=== PATIENT | female | born 1990 | race Caucasian/White ===

== ENCOUNTER 2016-09-20 14:42 | Emergency (ER) | payer MEDICAID, OTHER ==
[2016-09-20 14:52] VITALS: PULSE 97; RESP 16
[2016-09-20 15:08] VITALS: BP 123/78; TEMP 97.9; O2SAT 99
--- NOTE | 2016-09-20 15:17 | EDPHY ---
H & P Stated Complaint: LOWER BACK PAIN, BILAT LEG "NUMBNESS" NO NEW TRAUMA, L5-S1 FUSION Time Seen by Provider: 09/20/16 15:16 - Personal History LMP (Females 10-55): 15-21 Days Ago Current Tetanus/Diphtheria Vaccine: Unsure Current Tetanus Diphtheria and Acellular Pertussis (TDAP): Unsure - Medical/Surgical History Hx Asthma: No Hx Chronic Respiratory Disease: No Hx Diabetes: No Hx Cardiac Disease: No Hx Renal Disease: No Hx Cirrhosis: No Hx Alcoholism: No Hx HIV/AIDS: No Hx Splenectomy or Spleen Trauma: No Other PMH: Anxiety, depression, "cutter", SPINAL FUSION/?PROB WITH GALLBLADDER. CHRONIC BLADDER INCONTINENCE - Social History Smoking Status: Light smoker Constitutional: Initial Vital Signs Temperature (C) 36.6 C 09/20/16 14:49 Heart Rate 97 09/20/16 14:49 Respiratory Rate 16 09/20/16 14:49 Blood Pressure 123/78 H 09/20/16 14:49 O2 Sat (%) 99 09/20/16 14:49 O2 Delivery Mode Room Air Allergies/Adverse Reactions: No Known Allergies Allergy (Verified 12/28/15 16:57) Home Medications: Medication Instructions Recorded NK [No Known Home Meds] 09/20/16 Medical Decision Making ED Course/Re-evaluation: CHIEF COMPLAINT: Back pain HISTORY OF PRESENT ILLNESS: The patient is a 25 year old female presenting with low back pain that started today while moving furniture. She has a history of spinal fusion. She has not had any back issues since the surgery. The patient reports new numbness down her lower extremities that is different than what she experienced after the spinal fusion. She took extra Gabapentin and now feels lightheaded. REVIEW OF SYSTEMS: A 10 point review of systems was performed and is negative with the exception of the elements mentioned in the history of present illness. PHYSICAL EXAM: HR, BP, O2 Sat, RR. Temp noted General Appearance: Alert, well hydrated, appropriate, and non-toxic appearing. Head: Atraumatic without scalp tenderness or obvious injury Eyes: Pupils equal, round, reactive to light and accommodation, EOMI, no trauma , no injection. Ears: Clear bilaterally, no perforation, normal landmarks Nose: Atraumatic, no rhinorrhea, clear. Throat: There is no erythema or exudates, no lesions, normal tonsils, mucus membranes moist. Neck: Supple, 2+ carotid upstroke, nontender, no lymphadenopathy. Respiratory: No retractions, no distress, no wheezes, and no accessory muscle use. Lungs are clear to auscultation bilaterally. Cardiovascular: Regular rate and rhythm, no murmurs, rubs, or gallops. Bilateral carotid, radial, dorsalis pedis, and posterior tibial pulses intact. Good capillary refill all extremities. Gastrointestinal: Abdomen is soft, nontender, non-distended, no masses, no rebound, no guarding, no peritoneal signs. Musculoskeletal: Normal active ROM of all extremities, atraumatic. Neurological: Alert, appropriate, and interactive. The patient has normal DTRs and non-focal cranial nerves, motor, sensory, and cerebellar exam. Skin: No rashes, good turgor, no nodules on palpation. Past medical history: Past surgical history: Spinal fusion Family history: Social history: DIAGNOSTICS/PROCEDURES/CRITICAL CARE TIME: DIFFERENTIAL DIAGNOSIS: MEDICAL DECISION MAKING: The patient is a 25 year old female with history of spinal fusion, presenting with back pain that began while moving furniture today. The patient took extra Gabapentin to help with the pain and now feels lightheaded. The patient is able to ambulate. She has no incontinence or neurological deficits. Plan to discharge patient with Medrol dose pack and Oxycodone. Departure - Departure Disposition: Home, Routine, Self-Care Clinical Impression: Low back pain Qualifiers: Chronicity: chronic Back pain laterality: bilateral Sciatica presence: without sciatica Qualifier Code: (M54.5) Low back pain Condition: Good Instructions: Back Pain (ED) Additional Instructions: Followup with your neurosurgeon when possible. Take Oxycodone for severe pain. Take Medrol dose pack as prescribed. Referrals: Rambo Atkinson MD [Medical Doctor] - As per Instructions (Neurosurgeon) Report Scribed for: Bin Philippe Report Scribed by: Rosa Maria Loza Date of Report: 09/20/16 Time of Report: 15:58
== END 2016-09-20 16:10 | disposition home or self-care (01) ==
DX: M54.5 Low back pain (principal); F17.200 Nicotine dependence, unspecified, uncomplicated

== ENCOUNTER 2016-09-26 13:38 | Emergency (ER) | payer MEDICAID ==
--- NOTE | 2016-09-26 14:56 | EDPHY ---
[id number] [id number] CHIEF COMPLAINT: Pain right forearm HISTORY OF PRESENT ILLNESS: 25-year-old female presents to the emergency department by private vehicle with concerns about infection in her right forearm. 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 She is concerned about possible infection. She denies any other known trauma or injury. She does report having recent blood drawn last week in the same arm. Denies any other known trauma. No fevers or chills. No chest pain or difficulty breathing. No paresthesias in upper extremities. No pain in the right shoulder or right axilla. Patient denies IV drug abuse. REVIEW OF SYSTEMS: Constitutional: No fever, no chills. Eyes: No double or blurry vision. ENT: No sore throat. Respiratory: No cough, no shortness of breath. Cardiac: No chest pain. Gastrointestinal: No abdominal pain, vomiting or diarrhea. Genitourinary: No dysuria. Musculoskeletal: No neck or back pain. Skin: Swelling and redness right forearm. Neurological: No headache. (Chayito Palm) Past Medical/Surgical History: Anxiety, depression, chronic bladder incontinence (Chayito Palm) Social History: Single and lives in [place]. 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 Afebrile. Eyes: Pupils equal and round. Extraocular motions are all intact. ENT: Mouth: Mucous membranes moist. Respiratory: No wheezing, rhonchi, or rales, lungs are clear to auscultation. Cardiovascular: Regular rate and rhythm. Gastrointestinal: Abdomen is soft and nontender, no masses, no rebound or guarding, bowel sounds normal. Neurological: Alert and oriented x 3, cranial nerves II through XII grossly intact Skin: Large area of redness to the dorsal aspect of the right proximal forearm measuring 10 x 8 cm that is extremely tender to palpate. In this central most proximal aspect there is an area that is very firm and very tender to palpate. Just superior to this there is a firm, palpable vein. There is some resolving ecchymosis noted in the right antecubital fossa. There is no lymphangitic streaking. There is no palpable right axillary lymphadenopathy. She has full range of motion of her right upper extremity. Musculoskeletal: Nontender to palpate along the cervical, thoracic or lumbar spine. Neck is supple. Extremities: Full range of motion and no peripheral edema. Psychiatric: Patient is oriented X 3, there is no agitation. (Chayito Palm) Constitutional: Initial Vital Signs Temperature (C) 37 C 09/26/16 13:40 Heart Rate 69 09/26/16 13:40 Blood Pressure 101/67 09/26/16 13:40 O2 Sat (%) 97 09/26/16 13:40 O2 Delivery Mode Room Air Allergies/Adverse Reactions: No Known Allergies Allergy (Verified 12/28/15 16:57) Home Medications: Medication Instructions Recorded methylPREDNISolone [Medrol Dose 1 each PO AD #1 ea 09/20/16 Vinicius] oxyCODONE IR [Oxycodone Ir (*)] 5 - 10 mg PO Q6 PRN #20 tab 09/20/16 Cephalexin [Keflex] 500 mg PO QID #28 cap 09/26/16 Sulfamethox/Tmp 800/160 mg 1 tab PO BID #14 tab 09/26/16 [Bactrim DS] Medical Decision Making - Diagnostics Imaging: Ultrasound reveals superficial thrombophlebitis of the right forearm. No evidence of abscess. This is reported to me by Dr. Andre Allan. (Chayito Palm) ED Course/Re-evaluation: 25-year-old female presents with pain and swelling to the right proximal forearm. The case was discussed with Dr. Hernández, supervising physician, who also evaluated the patient. Ultrasound the right upper extremity reveals no evidence of abscess. It did however show superficial thrombophlebitis. The patient was given IV fentanyl for pain prior to ultrasound. She will be treated with oral Keflex and Bactrim to prevent any kind of infection and she was encouraged to use warm compresses and take anti-inflammatory such as ibuprofen for her pain. She was encouraged to return if she developed fever, lymphangitis, or if she felt worse in any way. (Chayito Palm) This pt was seen and examined by me. She has a tender cord-like structure extending from the antecubital fossa into the forearm, with surrounding erythema. c/w superficial thrombophlebitis. Will obtain sono to further eval. (Rosmery Hernández) Differential Diagnosis: Including but not limited to superficial thrombophlebitis, subcutaneous abscess , compartment syndrome, cellulitis, necrotizing fasciitis (Chayito Palm) - Data Points Laboratory Results: Laboratory Results 09/26/16 14:52 09/26/16 14:52 Departure - Departure Disposition: Home, Routine, Self-Care Clinical Impression: Superficial thrombophlebitis Condition: Good Instructions: Superficial Thrombophlebitis (ED) Additional Instructions: Keflex and Bactrim as directed. Warm compresses for 15-20 minutes every 2-3 hours especially today and tomorrow. Ibuprofen 600 mg every 8 hours as needed for pain. Return if he develops fever, vomiting, pain in her right armpit, or if you feel worse in any way. Referrals: Delia Perez MD [Medical Doctor] - 2-3 days, call for appt. 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
[2016-09-26] MEDS ORDERED: ONDANSETRON 4 MG/2 ML VIAL ONE (15:00)
[2016-09-26 15:04] LABS: % IMMATURE GRANULYOCYTES 0.3 % (0.0-1.1); ABSOLUTE IMMATURE GRANULOCYTES 0.02 10^3/uL (0.00-0.10); ADD DIFF? NO; ADD MORPH? NO; ADD SCAN? NO; ATYPICAL LYMPHOCYTE FLAG 50 (0-99); FRAGMENT RBC FLAG 0 (0-99); HEMATOCRIT 39.4 % (38.0-47.0); HEMOGLOBIN 13.3 g/dL (12.6-16.3); LEFT SHIFT FLG 0 (0-99); LIPEMIA HEMOLYSIS FLAG 90 (0-99); MEAN CELL HEMOGLOBIN CONCENTR. 33.8 g/dL (32.4-36.7); MEAN CELL VOLUME 88.7 fL (81.5-99.8); MEAN PLATELET VOLUME 8.9 fL (8.7-11.7); PLATELET CLUMPS FLAG 0 (0-99); PLATELET COUNT 396 10^3/uL (150-400); RED BLOOD CELL COUNT 4.44 10^6/uL (4.18-5.33); RED CELL DISTRIBUTION WIDTH 13.5 % (11.5-15.2)
[2016-09-26] MEDS ORDERED: fentaNYL 100 MCG/2 ML INJ ONE (15:16)
[2016-09-26 15:30] LABS: ANION GAP 10 mEq/L (8-16); CALCIUM 8.9 mg/dL (8.5-10.4); CARBON DIOXIDE 27 mEq/l (22-31); CHLORIDE 101 mEq/L (97-110); CREATININE 0.6 mg/dL (0.6-1.0); GLOMERULAR FILTRATION RATE > 60; GLUCOSE 85 mg/dL (70-100); POTASSIUM 4.4 mEq/L (3.5-5.2); SODIUM 138 mEq/L (134-144)
--- NOTE | 2016-09-26 15:36 | US ---
Ultrasound extremity nonvascular 1517 hours. HISTORY: Pain and swelling proximal right forearm. FINDINGS: Ultrasound over the area of pain and swelling confirms thrombosed cephalic vein for a lengt h of 10 cm. There is no evidence of associated fluid or abscess. The underlying musculature is normal in appearance. There is no internal color flow enhancement. IMPRESSION: 1. Superficial thrombophlebitis involving the cephalic vein in the proximal right forearm that corres ponds with area of pain and swelling. These findings were discussed by telephone with Chayito Palm PA-C at 1533 hrs.
[2016-09-26 16:14] VITALS: BP 123/84; PULSE 74; RESP 17; TEMP 98.8; O2SAT 96
== END 2016-09-26 16:14 | disposition home or self-care (01) ==
DX: I80.8 Phlebitis and thrombophlebitis of other sites (principal); F17.200 Nicotine dependence, unspecified, uncomplicated
CPT/HCPCS: J2405; J3010

== ENCOUNTER 2017-01-08 20:34 | Emergency (ER) | payer MEDICAID ==
[2017-01-08 20:41] VITALS: RESP 18; TEMP 97.7
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
[2017-01-08 22:43] VITALS: BP 118/83; PULSE 74; O2SAT 94
== END 2017-01-08 22:43 | disposition home or self-care (01) ==
DX: S20.219A Contusion of unspecified front wall of thorax, initial encounter (principal); F17.200 Nicotine dependence, unspecified, uncomplicated; W22.8XXA Striking against or struck by other objects, initial encounter; Y93.89 Activity, other specified

== ENCOUNTER 2017-09-23 19:52 | Emergency (ER) | payer MEDICAID ==
[2017-09-23 20:15] VITALS: BP 114/68; PULSE 100; RESP 16; TEMP 97.9; O2SAT 98
--- NOTE | 2017-09-23 20:23 | EDPHY ---
H & P Stated Complaint: Re-occuring back injury. Time Seen by Provider: 09/23/17 20:06 HPI/ROS: CHIEF COMPLAINT: Low back pain HISTORY OF PRESENT ILLNESS: The patient is a 26-year-old female with a history of lumbar fusion who comes to the emergency department complaining of low back pain. She states that she slipped on the ice about a week and half ago has had mild pain in both gluteus since that time. No midline pain. No bowel or bladder abnormalities. No weakness tingling or numbness. She has been ambulating without difficulty. She denies fall or other injury. She states that she has been taking her gabapentin without any significant improvement. REVIEW OF SYSTEMS: Constitutional: denies: chills, fever, recent illness, recent injury EENTM: denies: blurred vision, double vision, nose congestion Respiratory: denies: cough, shortness of breath Cardiac: denies: chest pain, irregular heart rate, lightheadedness, palpitations Gastrointestinal/Abdominal: denies: abdominal pain, diarrhea, nausea, vomiting, blood streaked stools Genitourinary: denies: dysuria, frequency, hematuria, pain Musculoskeletal: See HPI Skin: denies: lesions, rash, jaundice, bruising Neurological: denies: headache, numbness, paresthesia, tingling, dizziness, weakness Hematologic/Lymphatic: denies: blood clots, easy bleeding, easy bruising Immunologic/allergic: denies: HIV/AIDS, transplant EXAM: GENERAL: Well-appearing, well-nourished and in no acute distress. HEAD: Atraumatic, normocephalic. EYES: Pupils equal round and reactive to light, extraocular movements intact, sclera anicteric, conjunctiva are normal. ENT: TMs normal, nares patent, oropharynx clear without exudates. Moist mucous membranes. NECK: Normal range of motion, supple without lymphadenopathy or JVD. LUNGS: Breath sounds clear to auscultation bilaterally and equal. No wheezes rales or rhonchi. HEART: Regular rate and rhythm without murmurs, rubs or gallops. ABDOMEN: Soft, nontender, normoactive bowel sounds. No guarding, no rebound. No masses appreciated. BACK: No CVA tenderness, no spinal tenderness, step-offs or deformities pain to both upper gluteus. No tenderness. No swelling. Normal perineal sensation. EXTREMITIES: Normal range of motion, no pitting or edema. No clubbing or cyanosis. NEUROLOGICAL: Cranial nerves II through XII grossly intact. Normal speech, normal gait. 5/5 strength, normal movement in all extremities, normal sensation PSYCH: Normal mood, normal affect. SKIN: Warm, dry, normal turgor, no visible rashes or lesions. Source: Patient Exam Limitations: No limitations - Personal History LMP (Females 10-55): 22-28 Days Ago Current Tetanus/Diphtheria Vaccine: Unsure Current Tetanus Diphtheria and Acellular Pertussis (TDAP): Unsure - Medical/Surgical History Hx Asthma: No Hx Chronic Respiratory Disease: No Hx Diabetes: No Hx Cardiac Disease: No Hx Renal Disease: No Hx Cirrhosis: No Hx Alcoholism: No Hx HIV/AIDS: No Hx Splenectomy or Spleen Trauma: No Other PMH: Anxiety, depression, "cutter", L5-S1 SPINAL FUSION 2015, PROB WITH GALLBLADDER. CHRONIC BLADDER INCONTINENCE - Family History Significant Family History: No pertinent family hx - Social History Smoking Status: Light smoker Alcohol Use: Sober Drug Use: None Constitutional: Initial Vital Signs Temperature (C) 36.6 C 09/23/17 20:13 Heart Rate 100 09/23/17 20:13 Respiratory Rate 16 09/23/17 20:13 Blood Pressure 114/68 09/23/17 20:13 O2 Sat (%) 98 09/23/17 20:13 O2 Delivery Mode Room Air Allergies/Adverse Reactions: acetaminophen [From Tylenol] Allergy (Intermediate, Verified 09/23/17 20:16) Rash ibuprofen Allergy (Intermediate, Verified 09/23/17 20:16) Rash tramadol Allergy (Intermediate, Verified 09/23/17 20:16) Rash Home Medications: Medication Instructions Recorded Fluoxetine HCl [Prozac 40 mg] 40 mg PO 01/08/17 Gabapentin 600 mg PO 01/08/17 Lidocaine [Lidoderm] 1 each TP DAILY #7 adh..patch 09/23/17 Wellbutrin Sr 09/23/17 Medical Decision Making ED Course/Re-evaluation: The patient has pain over her musculature. No bony pain. No radiculopathy. Normal objective neurologic examination. No bowel or bladder abnormalities. We discussed options. We discussed imaging but agreed there unnecessary because there is no history of acute injury and no neurologic deficits. We agreed to try lidocaine patch. Differential Diagnosis: Partial list of the Differential diagnosis considered include but were not limited to; low back strain, chronic back pain, radiculopathy and although unlikely based on the history and physical exam, I also considered cauda equina , fracture, vascular injury, infection. I discussed these differential diagnoses and the plan with the patient as well as the usual and expected course. The patient understands that the diagnosis is provisional and that in medicine we are not always correct and that further workup is often warranted. Usual and customary warnings were given. All of the patient's questions were answered. The patient was instructed to return to the emergency department should the symptoms at all worsen or return, otherwise to followup with the physician as we discussed. - Data Points Medications Given: Discontinued Medications Lidocaine (Lidoderm 5%) 1 ea TD DAILY BAL Stop: 03/22/18 20:29 Last Admin: 09/23/17 20:32 Dose: 1 ea Miscellaneous Information (Patch Removal) 1 ea TD DAILY21 BAL Stop: 03/22/18 20:59 Last Admin: 09/23/17 20:32 Dose: 1 ea Departure - Departure Disposition: Home, Routine, Self-Care Clinical Impression: Low back pain Qualifiers: Chronicity: acute Back pain laterality: bilateral Sciatica presence: without sciatica Qualified Code(s): M54.5 - Low back pain Condition: Fair Instructions: Back Pain (ED), Lower Back Exercises (ED) Referrals: Kaylee Spence [Primary Care Provider] - As per Instructions Prescriptions: Lidocaine [Lidoderm] 1 each TP DAILY #7 adh..patch
[2017-09-23] MEDS ORDERED: LIDOCAINE 5% 1 EA PATCH TD SCH (20:30)
[2017-09-23] MEDS ORDERED: PATCH REMOVAL 1 EA PATCH TD SCH (21:00)
== END 2017-09-23 20:53 | disposition home or self-care (01) ==
LOC: CED 19:52
DX: S39.92XA Unspecified injury of lower back, initial encounter (principal); F17.200 Nicotine dependence, unspecified, uncomplicated; W00.0XXA Fall on same level due to ice and snow, initial encounter

== ENCOUNTER 2017-11-22 17:12 | Inpatient (IN) | payer MEDICAID ==
[2017-11-22] MEDS ORDERED: NS 1,000 ML IV ONE (18:20)
[2017-11-22] MEDS ORDERED: HYDROmorphONE/DILAUDID 2 MG/ML INJ IVP ONE ×2 (18:20→21:51)
--- NOTE | 2017-11-22 18:28 | EDPHY ---
H & P Stated Complaint: Back pain, poss spinal abscess sent by pcp Source: Patient Exam Limitations: No limitations - Personal History LMP (Females 10-55): Over 28 Days Ago Current Tetanus/Diphtheria Vaccine: Unsure Current Tetanus Diphtheria and Acellular Pertussis (TDAP): Unsure - Medical/Surgical History Hx Asthma: No Hx Chronic Respiratory Disease: No Hx Diabetes: No Hx Cardiac Disease: No Hx Renal Disease: No Hx Cirrhosis: No Hx Alcoholism: No Hx HIV/AIDS: No Hx Splenectomy or Spleen Trauma: No Other PMH: Anxiety, depression, "cutter", L5-S1 SPINAL FUSION 2015, PROB WITH GALLBLADDER. CHRONIC BLADDER INCONTINENCE - Family History Significant Family History: No pertinent family hx - Social History Smoking Status: Light smoker Alcohol Use: Sober Drug Use: None Time Seen by Provider: 11/22/17 18:07 HPI/ROS: CHIEF COMPLAINT: Low back pain HISTORY OF PRESENT ILLNESS: The patient is a 26-year-old female who has a history of chronic low back pain. She has a history of L5-S1 fusion several years ago. She fell and [place] ice skating. She was seen here in the ER by me and had primarily gluteal pain. At that point we discussed options and decided not to perform any imaging. Since then however she has continued to have pain is followed up with her primary at [facility]. She states that the pain has continued to progress and that it is now so painful she can hardly walk without help getting to bathroom. She has not had a bowel or bladder abnormalities. No numbness or paresthesias. No weakness. She denies recent fevers or chills or sweats. She had an MRI done 3 weeks ago had health images that revealed a marrow signal abnormality in the L5-S1 region that could be consistent with a fracture but indeterminate. They recommended a repeat CT scan which was done [address] scan showed increased complex fluid collection in that region with the possibility of an abscess. The primary care office obtained an elevated sed rate and CRP and ordered another MRI for today with contrast as an outpatient. However when she came to get her contrast MRI here at [facility] they refused here because she has 2 small studs piercings on her abdomen. She has had several MRIs however in the past with these in place. She called her primary who recommended she come to the ER for further evaluation. The physician quality assistant there called me and told me they were not sure what else to do with her at this point but thought that more testing was indicated. She does have a follow-up appointment with [facility] next week. REVIEW OF SYSTEMS: Constitutional: denies: chills, fever, recent illness, recent injury EENTM: denies: blurred vision, double vision, nose congestion Respiratory: denies: cough, shortness of breath Cardiac: denies: chest pain, irregular heart rate, lightheadedness, palpitations Gastrointestinal/Abdominal: denies: abdominal pain, diarrhea, nausea, vomiting, blood streaked stools Genitourinary: denies: dysuria, frequency, hematuria, pain Musculoskeletal: Sacral pain Skin: denies: lesions, rash, jaundice, bruising Neurological: denies: headache, numbness, paresthesia, tingling, dizziness, weakness Hematologic/Lymphatic: denies: blood clots, easy bleeding, easy bruising Immunologic/allergic: denies: HIV/AIDS, transplant EXAM: GENERAL: Well-appearing, well-nourished and in no acute distress. HEAD: Atraumatic, normocephalic. EYES: Pupils equal round and reactive to light, extraocular movements intact, sclera anicteric, conjunctiva are normal. ENT: TMs normal, nares patent, oropharynx clear without exudates. Moist mucous membranes. NECK: Normal range of motion, supple without lymphadenopathy or JVD. LUNGS: Breath sounds clear to auscultation bilaterally and equal. No wheezes rales or rhonchi. HEART: Regular rate and rhythm without murmurs, rubs or gallops. ABDOMEN: Soft, nontender, normoactive bowel sounds. No guarding, no rebound. No masses appreciated. BACK: Pain in the sacral region, no tenderness or deformities or erythema or swelling. EXTREMITIES: Normal range of motion, no pitting or edema. No clubbing or cyanosis. NEUROLOGICAL: Cranial nerves II through XII grossly intact. Normal speech, he is able to ambulate but with significant pain. 5/5 strength, normal movement in all extremities, normal sensation PSYCH: Normal mood, normal affect. SKIN: Warm, dry, normal turgor, no visible rashes or lesions. (Drew Loomis) Constitutional: Initial Vital Signs Temperature (C) 37.0 C 11/22/17 17:22 Heart Rate 100 11/22/17 17:22 Respiratory Rate 20 11/22/17 17:22 Blood Pressure 118/74 11/22/17 17:22 O2 Sat (%) 100 11/22/17 17:22 O2 Delivery Mode Room Air Allergies/Adverse Reactions: acetaminophen [From Tylenol] Allergy (Intermediate, Verified 11/23/17 10:57) Other-Enter Comments ibuprofen Allergy (Intermediate, Verified 09/23/17 20:16) Rash tramadol Allergy (Intermediate, Verified 09/23/17 20:16) Rash diphenhydramine [From Benadryl Allergy] Allergy (Verified 11/23/17 02:46) Home Medications: Medication Instructions Recorded FLUoxetine [Prozac 20 MG (*)] 40 mg PO DAILY 11/22/17 Gabapentin [Neurontin 300 MG (*)] 300 mg PO TID 11/22/17 Lidocaine [Lidoderm] 1 each TP DAILY 11/22/17 buPROPion [Wellbutrin 75mg (*)] 150 mg PO 08,12 11/22/17 Medical Decision Making - Diagnostics Imaging: Discussed imaging studies w/ body recall instructor Radiologist Procedures: IV access into left IJ obtained with ultrasound guidance, successful on the 2nd attempt. Initially tried on the right side without success. (Drew Loomis) ED Course/Re-evaluation: 7:20 p.m. Nursing staff had difficulty getting IV access. I placed a IV access in the left IJ on the 2nd attempt with ultrasound guidance. 1st attempt on the right IJ unsuccessful, pressure held . I did speak with Dr. Andre Allan about performing an MRI and we agreed to perform one with contrast here in the ER. 8:30 p.m. Care transferred to Dr. Chad Handley, MRI pending (Drew Loomis) Other Provider: Patient signed out to me by Dr. Loomis at 2030 pending MRI. MRI read by Sanjana as positive for discitis, osteomyelitis, abscess at L5-S1. [place]ed Dr. Dawson [place] [facility] [place] admission to hospitalist. Discussed case with Dr. Brown who will admit. (Chad Handley) - Data Points Laboratory Results: Laboratory Results 11/22/17 19:05 11/22/17 19:05 Medications Given: Acetaminophen (Tylenol) 1,000 mg PO TID BAL Stop: 05/22/18 10:44 Last Admin: 11/23/17 15:09 Dose: 1,000 mg Bupropion HCl (Wellbutrin) 150 mg PO 08,12 BAL Stop: 05/22/18 11:59 Last Admin: 11/23/17 15:09 Dose: 150 mg Fluoxetine HCl (Prozac) 40 mg PO DAILY BAL Stop: 05/22/18 08:59 Last Admin: 11/23/17 15:10 Dose: 40 mg Gabapentin (Neurontin) 300 mg PO TID BAL Stop: 05/22/18 08:59 Last Admin: 11/23/17 15:09 Dose: 300 mg Hydromorphone HCl (Dilaudid) 0.5 - 1 mg IVP Q4HRS PRN PRN Reason: Pain, Severe Unable to Take PO Stop: 12/02/17 22:27 Last Admin: 11/23/17 12:46 Dose: 0.5 mg Sodium Chloride (Ns) 1,000 mls @ 75 mls/hr IV CONT BAL Stop: 05/21/18 22:29 Last Admin: 11/23/17 10:51 Dose: 1,000 mls Lorazepam (Ativan Injection) 0.5 - 1 mg IVP Q8HRS PRN PRN Reason: Anxiety, Unable to Take PO Stop: 05/21/18 22:27 Last Admin: 11/22/17 22:51 Dose: 1 mg Oxycodone HCl (Oxycodone Ir) 5 - 10 mg PO Q3HRS PRN PRN Reason: Pain, Severe Able to Take PO Stop: 12/02/17 22:27 Last Admin: 11/23/17 15:08 Dose: 10 mg Discontinued Medications Hydromorphone HCl (Dilaudid) 1 mg IVP EDNOW ONE Stop: 11/22/17 18:21 Last Admin: 11/22/17 19:28 Dose: 1 mg Hydromorphone HCl (Dilaudid) 1 mg IVP EDNOW ONE Stop: 11/22/17 21:52 Last Admin: 11/22/17 21:57 Dose: 1 mg Hydromorphone/Sodium Chloride (Hydromorphone) 0.4 mg IVP ONCE ONE Stop: 11/23/17 13:11 Last Admin: 11/23/17 14:38 Dose: 0.4 mg Sodium Chloride (Ns) 1,000 mls @ 0 mls/hr IV ONCE ONE; Wide Open PRN Reason: Protocol Stop: 11/22/17 18:21 Last Admin: 11/22/17 19:27 Dose: 1,000 mls Methocarbamol 1,000 mg/ Sodium (Chloride) 60 mls @ 240 mls/hr IVP ONCE ONE Stop: 11/23/17 02:56 Last Admin: 11/23/17 02:57 Dose: 60 mls Departure - Departure Disposition: [facility] Acute Clinical Impression: Discitis of lumbar region Condition: Fair
[2017-11-22] MEDS ORDERED: GADOBUTROL 10 ML VIAL IVP ONE (18:50)
[2017-11-22 19:27] LABS: PLATELET COUNT 576 10^3/uL (150-400)
[2017-11-22] MEDS ORDERED: PROMETHAZINE HCL 25 MG/ML INJ IVP PRN (22:28)
[2017-11-22] MEDS ORDERED: ONDANSETRON 4 MG/2 ML VIAL IVP PRN (22:28)
[2017-11-22] MEDS: oxyCODONE IR 5 MG TAB PO PRN (22:51)
[2017-11-22] MEDS: LORazepam 2 MG/ML INJ IVP PRN (22:51)
[2017-11-22] MEDS: NS 1,000 ML IV SCH (22:52)
[2017-11-22] MEDS ORDERED: NICOTINE POLACRILEX 2 MG GUM B PRN (23:54)
--- NOTE | 2017-11-23 01:38 | PDGENHP ---
History and Physical - Chief Complaint Low back pain - History of Present Illness Source-patient provides history appears reliable. EMR was reviewed and case was discussed with accepting hospitalist. HPI - pleasant 26-year-old female with past medical history significant for anxiety and depression, chronic back pain presents to the emergency department today with complaints of acute on chronic low back pain. Patient with a previous history of L5-S1 fusion in 2014. She had been doing quite well until when she sustained a mechanical fall on ice. Since that time patient has been having increasing low back pain with radicular symptoms of pain radiating down to her gluteal region bilaterally and down to her posterior knee. She does endorse some lower extremity weakness and increasing pain with movement. Patient particularly is concerned and frustrated that she develops some significant pain when she tries to go from sitting to standing making it more difficult for her to ambulate and even get to the bathroom. She denies any acute urinary or her fecal incontinence or retention. Patient does have a longstanding history of stress incontinence and urgency however. She denies any fevers or chills at this time. No nausea or vomiting. Since September patient has been visiting with her PCP at [facility] for p.r.n. Dosing of Toradol which had helped with her symptoms. Patient underwent MRI of her lumbar spine 3 weeks ago that was significant for L5/S1 marrow signal abnormality. She subsequently underwent a CT scan that showed a complex fluid collection and possible abscess formation. Patient was due to have a MRI completed today but this was not completed due to some piercings and patient subsequently went to the emergency department for evaluation. History Information - Allergies/Home Medication List Allergies/Adverse Reactions: acetaminophen [From Tylenol] Allergy (Intermediate, Verified 09/23/17 20:16) Rash ibuprofen Allergy (Intermediate, Verified 09/23/17 20:16) Rash tramadol Allergy (Intermediate, Verified 09/23/17 20:16) Rash Home Medications: FLUoxetine [Prozac 20 MG (*)] 40 mg PO DAILY 11/22/17 [Last Taken 11/22/17] Gabapentin [Neurontin 300 MG (*)] 300 mg PO TID 11/22/17 [Last Taken 11/22/17 08 :00] Lidocaine [Lidoderm] 1 each TP DAILY 11/22/17 [Last Taken 11/21/17] buPROPion [Wellbutrin 75mg (*)] 150 mg PO 08,12 11/22/17 [Last Taken 11/22/17 08 :00] I have personally reviewed and updated: family history, medical history, social history, surgical history - Past Medical History Additional medical history: History of anxiety and major depressive disorder. Patient with history of cutting on her arms. Patient also with history of recurrent hemorrhoids and rectal bleeding. Patient with stress incontinence and urinary urgency. Chronic low back pain. - Surgical History Additional surgical history: L5/S1 fusion in 2015, cholecystectomy, colonoscopy - Family History Additional family history: All family members are healthy. - Social History Smoking Status: Light smoker (1/4 pack per day) Tobacco Use: Cigarettes Alcohol Use: None Drug Use: Marijuana (1-2 times weekly or LEs.) Additional social history: Core-full Review of Systems Review of Systems: ROS: 10pt was reviewed & negative except for what was stated in HPI & below Constitutional: Reports: recent injury (09/2017 mechanical fall), weakness ( Lower extremity). Denies: chills, fever, recent illness EENMT: Denies: blurred vision, nose congestion, sore throat Cardiac: Reports: no symptoms Respiratory: Reports: no symptoms Gastrointestinal: Reports: blood streaked stools (History of hemorrhoids). Denies: abdominal pain, diarrhea, nausea Genitourinary: Reports: incontinence (Stress incontinence). Denies: dysuria Muscolosketal: Reports: back pain, muscle pain (Lower back), muscle stiffness Skin: Reports: no symptoms Neurological: Reports: anxiety, depressed, weakness (Bilateral lower extremities.), other (Radicular pain as per HPI) Hematologic/Lymphatic: Reports: no symptoms Physical Exam Physical Exam: Selected Entries 11/22/17 17:22 Blood Pressure Automatic Method Heart Rate 100 Respiratory 20 Rate O2 Sat (%) 100 Temperature (C) 37.0 C Blood Pressure 118/74 Mean Arterial 88 Pressure (MAP) O2 Delivery Room Air Mode Temperature Oral Source Temp Pulse Resp BP Pulse Ox 37.1 C 93 18 110/82 H 100 11/22/17 23:44 11/22/17 23:44 11/22/17 23:44 11/22/17 23:44 11/22/17 23:44 O2 (L/minute) 2 Constitutional: chronically ill appearing, uncomfortable, other (Patient is resting still in bed. Mother at bedside. Patient appears slightly pale and chronically ill. Patient's affect is significantly flattened.) Eyes: PERRL, anicteric sclera, EOMI, No scleral injection Ears, Nose, Mouth, Throat: moist mucous membranes, no oral mucosal ulcers, other (On nasal discharge), No poor dentition Cardiovascular: regular rate and rhythym, systolic murmur (3/6 greatest left sternal border), No tachycardia, No edema Peripheral Pulses: 2+: dorsalis-pedis (R), dorsalis-pedis (L) Respiratory: no respiratory distress, no rales or rhonchi, clear to auscultation , reduced air movement (Decreased inspiratory effort) Gastrointestinal: normoactive bowel sounds, soft, non-tender abdomen, no palpable masses, No tenderness, No rebound, No distension Genitourinary: no bladder tenderness, No godoy in urethra Skin: warm, normal color, no rashes or abrasions, other (P[place]or), No rash Musculoskeletal: No full muscle strength (Decreased lower extremity strength. Exam limited secondary to patient complaint of pain with elevation of her lower extremities. Patient dorsiflexion is decreased on the left foot and decreased plantar flexion on the right.) Neurologic: AAOx3, sensation intact bilaterally, weakness (See above), No facial droop Psychiatric: not encephalopathic, thought process linear, depressed (Patient does become tearful during her interview.), flat affect (Patient with psychomotor delay), No poor insight, No poor judgement, No poor memory Lab Data & Imaging Review 11/22/17 19:05 11/22/17 19:05 WBC 7.53 10^3/uL (3.80-9.50) 11/22/17 19:05 RBC 4.21 10^6/uL (4.18-5.33) 11/22/17 19:05 Hgb 10.6 g/dL (12.6-16.3) L 11/22/17 19:05 Hct 34.2 % (38.0-47.0) L 11/22/17 19:05 MCV 81.2 fL (81.5-99.8) L 11/22/17 19:05 MCH 25.2 pg (27.9-34.1) L 11/22/17 19:05 MCHC 31.0 g/dL (32.4-36.7) L 11/22/17 19:05 RDW 14.2 % (11.5-15.2) 11/22/17 19:05 Plt Count 576 10^3/uL (150-400) H 11/22/17 19:05 MPV 8.5 fL (8.7-11.7) L 11/22/17 19:05 Neut % (Auto) 52.1 % (39.3-74.2) 11/22/17 19:05 Lymph % (Auto) 36.3 % (15.0-45.0) 11/22/17 19:05 [place] % (Auto) 8.8 % (4.5-13.0) 11/22/17 19:05 Eos % (Auto) 2.0 % (0.6-7.6) 11/22/17 19:05 Baso % (Auto) 0.5 % (0.3-1.7) 11/22/17 19:05 Nucleat RBC Rel Count 0.0 % (0.0-0.2) 11/22/17 19:05 Absolute Neuts (auto) 3.93 10^3/uL (1.70-6.50) 11/22/17 19:05 Absolute Lymphs (auto) 2.73 10^3/uL (1.00-3.00) 11/22/17 19:05 Absolute Monos (auto) 0.66 10^3/uL (0.30-0.80) 11/22/17 19:05 Absolute Eos (auto) 0.15 10^3/uL (0.03-0.40) 11/22/17 19:05 Absolute Basos (auto) 0.04 10^3/uL (0.02-0.10) 11/22/17 19:05 Absolute Nucleated RBC 0.00 10^3/uL (0-0.01) 11/22/17 19:05 Immature Gran % 0.3 % (0.0-1.1) 11/22/17 19:05 Immature Gran # 0.02 10^3/uL (0.00-0.10) 11/22/17 19:05 ESR 75 MM/HR (0-20) H 11/22/17 19:05 Sodium 139 mEq/L (135-145) 11/22/17 19:05 Potassium 4.8 mEq/L (3.5-5.2) 11/22/17 19:05 Chloride 98 mEq/L (97-110) 11/22/17 19:05 Carbon Dioxide 29 mEq/l (22-31) 11/22/17 19:05 Anion Gap 12 mEq/L (8-16) 11/22/17 19:05 BUN 8 mg/dL (7-23) 11/22/17 19:05 Creatinine 0.5 mg/dL (0.6-1.0) L 11/22/17 19:05 Estimated GFR > 60 11/22/17 19:05 Glucose 82 mg/dL (70-100) 11/22/17 19:05 Calcium 8.6 mg/dL (8.5-10.4) 11/22/17 19:05 C-Reactive Protein 70.1 mg/L (<10.0) H 11/22/17 19:05 Imaging Review: MRI of the Lumbar Spine (Without and With Contrast) 1947 hours Clinical Indications: Low back pain with possible diskitis and abscess around lumbar fusion at L5 dish S1 on outside imaging. Technique: Sagittal and axial T1 and T2 MR sequences of the lumbar spine without contrast. Axial imaging from T12 through the mid sacrum. Post contrast sagittal and axial T1-weighted images with the uneventful intravenous administration of 5.0 mL of Gadavist also performed. Findings: L5-S1: There is underlying edema and enhancement involving the L5 and S1 segments as well as the disk replacement material between L5 and S1. There is abnormal fluid collection anterior to the inferior endplate of L5 to the right measuring about 20 x 6 x 11 mm with the second collection anterior to the S1 segment measuring about 22 x 13 x 11 mm with moderate amount of surrounding enhancement. There is enhancement within the epidural space from L5 through S1 causing displacement of the dural sac toward the left posteriorly but no evidence of fluid within the epidural space to suggest abscess. This could represent enhancing granulation tissue or phlegmon type enhancement. Pedicle screws and paraspinal rods are seen between L5 and S1 along with a transverse posterior connector. Lumbar vertebral bodies are of normal height without compression fractures. Conus medullaris appears normal and ends at L1. Bone marrow signal is otherwise normal. T12-L1: No disk herniation or stenosis. L1-L2: No disk herniation or stenosis. L2-L3: No disk herniation or stenosis. L3-L4: No desiccation or loss of disk height. There is mild posterior lateral disk bulge causing mild encroachment upon the neuroforamen bilaterally. L4-L5: No desiccation or loss of disk height. There is mild posterior lateral disk bulge causing mild encroachment upon the neural foramen bilaterally. L5-S1: See above. Impression: 1. Findings compatible with diskitis and associated osteomyelitis from L5 to S1 with anterior paraspinal abscess as detailed above. 2. Enhancement along the epidural space at from L5 to S1 more prominent along the right anteriorly causing mild displacement of the dural sac compatible with enhancing granulation tissue versus enhancing phlegmon. 3. Mild posterior lateral disk bulging at L3-L4 and at L4-L5 with only mild encroachment upon the neural foramen bilaterally. Please see findings at specific disk levels. These findings were discussed by telephone with Dr. Chad Handley at 20:58 hour, 11/22/2017. Assessment & Plan Assessment: 26-year-old female with history of L5-S1 fusion now presents with complaints of acute on chronic low back pain # L5/S1-paraspinal abscess and diskitis with possible epidural phlegmon. Dr. Maldonado with neurosurgery was consulted will plan to see the patient in the morning. No antibiotic therapy at this time. Patient does not meet SIRS or sepsis criteria. Anticipate patient will go to the OR in the a.m. And will await culture findings. MRSA nasal screen has been ordered. Patient denies any previous history of cellulitis or abscess formation. She does note history of impetigo. # acute on chronic back pain - evidence of abscess and diskitis as noted above. P.r.n. Dilaudid while patient is NPO. Ativan also available p.r.n. For spasm pain # murmur-patient denies any previous history of murmur. Will plan to obtain an echocardiogram. The and patient is afebrile without any leukocytosis. Hold off on antibiotics. # anemia - per chart review appears to be new since June of 2017. Patient reports a history of hemorrhoids and bright red blood per rectum intermittently. She has a re-previous history of colonoscopies. Patient without any active bleeding at this time. CBC consistent with a microcytic anemia. H&H could be decreased also in setting of acute infectious process. Will check some preliminary iron studies. Will type and screen in with a.m. Labs. No reported history of menometrorrhagia. # thrombocytosis-likely reactive in setting of infectious process as noted above. Repeat CBC in the morning. IV fluids overnight. # anxiety and depression-we will plan to resume patient's home medications postoperatively. She denies any SI or HI. Patient's mood has been significantly declined since or increasing lower back pain in September. FEN - IV fluids overnight while patient is NPO. Electrolyte monitoring and replacement p.r.n.. PPx - SCDs. Holding anticoagulation preoperatively. Core-full Disposition-patient has been admitted inpatient status given severity of infectious process and need for IV antibiotics postoperatively while awaiting cultures. Patient anticipated to require greater than 2 midnight stay on medical floor.
[2017-11-23] MEDS: oxyCODONE IR 5 MG TAB PO PRN ×5 (02:10→21:49)
[2017-11-23] MEDS ORDERED: METHOCARBAMOL 1,000 MG in NS 50 ML IVP ONE (02:42)
[2017-11-23 06:24] LABS: PLATELET COUNT 522 10^3/uL (150-400)
[2017-11-23 06:39] LABS: INR 1.02 (0.83-1.16); PROTIME(PATIENT) 13.6 SEC (12.0-15.0)
--- NOTE | 2017-11-23 07:02 | PDMN ---
Medical Necessity Medical necessity: C/M review: est. > 2 MN LOS for eval and TX of acute and persistent - L5 / S1 paraspinal abscess and diskitis with possible epidural phlegmon, back pain, anemia, thrombocytosis, planned echocardiogram, Neurosurgery consult, possible 11/23/2017 surgical intervention, requiring ongoing IV fluids, pain management, pulse oximetry, comorbid chronic back pain, anxiety, depression, history of major depressive disorder, patient cutting on her arms, recurrent hemorrhoids and rectal bleeding, stress incontinence and urinary urgency, L5 / S1 fusion in 2015 per H/P.
[2017-11-23] MEDS: HYDROmorphONE/DILAUDID 2 MG/ML INJ IVP PRN ×3 (08:28→17:10)
--- NOTE | 2017-11-23 08:31 | HOSPPROG ---
Hospitalist Progress Note Assessment/Plan: 1 26-year-old female with history of L5-S1 fusion now presents with complaints of acute on chronic low back pain. Today is my 1st encounter with the patient. Chart reviewed. # L5/S1- possible paraspinal abscess and diskitis with possible epidural phlegmon. -reviewed her care with Dr Dawson, no neurosurgical interventions recommended -at this time, he is not taking her to OR -blood cx pending -sed rate and CRP are elevated, but wbc stable -? if IR can see her and drain fluid collection on right sided area/L5-S1 # acute on chronic back pain - -patient says pain is acute and does well w IV Dilaudid -do a trial of Tylenol (she says she has an allergy, gets an upset stomach-no hives, or swelling) # murmur -was noted by previous provider -reviewed echo, no valve involvement # anemia -follow # thrombocytosis-likely reactive in setting of infectious process as noted above. # anxiety and depression-home meds resumed #plan: will discuss her care w ID to see if IR should aspirate fluid or if we should wait. Will defer to them for abx therapy. Appreciate Dr. Royal and Dr. Dawson's involvement. Subjective: Lexus is having ongoing back pain. Objective: Vital Signs Temp Pulse Resp BP Pulse Ox 36.9 C 87 16 108/74 96 11/23/17 07:41 11/23/17 07:41 11/23/17 07:41 11/23/17 07:41 11/23/17 07:41 Laboratory Results 11/23/17 06:13 11/23/17 06:13 11/22/17 11/23/17 11/24/17 05:59 05:59 05:59 Intake Total 1525 Output Total 1000 900 Balance 525 -900 PT 13.6 SEC (12.0-15.0) 11/23/17 06:13 INR 1.02 (0.83-1.16) 11/23/17 06:13 - Physical Exam Constitutional: appears nourished, uncomfortable, No not in pain Eyes: PERRL Ears, Nose, Mouth, Throat: hearing normal Cardiovascular: regular rate and rhythym, no murmur, rub, or gallop Respiratory: no respiratory distress Gastrointestinal: normoactive bowel sounds Skin: warm Neurologic: AAOx3 Psychiatric: interacting appropriately ICD10 Worksheet Patient Problems: Problems Problem Status Onset Discitis of lumbar region Acute
[2017-11-23] MEDS: FLUoxetine 20 MG CAP PO SCH ×2 (10:16→15:10)
--- NOTE | 2017-11-23 10:16 | NEUSURGPN ---
<Elda Vo - Last Filed: 11/23/17 10:10> Assessment/Plan: Neurosurgery Consult- Full consult Dictated -26 yo female with possible diskitis/abscess/phlegmon at L5/S1 -Patient has known fluid collection that has been followed with several previous MRI's from her PCP. -MRI shows fluid collection and possibly phlegmon. -ESR, CRP elevated but is afebrile and does not have any leukocytosis -Blood Cultures pending -Currently no neurosurgical interventions and we are not planning on taking her to the OR today unless there is a clear infectious source that needs to be drained. -Patient has S1 radicular pain worse in right leg but no bowel/bladder dysfunction, saddle anesthesia -Discussed with Dr. Dawson as well who will see this patient later this morning to discuss further plans. -Continue to optimize pain control -PT/OT as able -Ok to resume normal diet from our standpoint, but will leave up to primary team if they are planning any other procedures. -Call NS with any questions Elda Vo PA-C [facility] [phone] - Physician Discussed Patient with : Eunice Patient Seen by : Eunice Neurosurgery Physical Exam - Vitals, I&O, Labs I and O 11/22/17 11/23/17 11/24/17 05:59 05:59 05:59 Intake Total 1525 Output Total 1000 900 Balance 525 -900 Weight 67.4 kg Intake: IV Infused (ml) 1525 Ns 1,000 ml @ 75 mls/hr 525 IV CONT BAL Rx#: [id number] Output: Urine (ml) 1000 900 Toilet 1000 900 Other: Number of Voids Toilet 1 Vital Signs Temp Pulse Resp BP Pulse Ox 36.9 C 87 16 108/74 96 11/23/17 07:41 11/23/17 07:41 11/23/17 07:41 11/23/17 07:41 11/23/17 07:41 Laboratory Results 11/23/17 06:13 11/23/17 06:13 ICD10 Worksheet Patient Problems: Problems Problem Status Onset Discitis of lumbar region Acute - ICD10 Problem Qualifiers (1) Discitis of lumbar region <Jaime Dawson - Last Filed: 11/23/17 10:47> Assessment/Plan: STAFF ADDENDUM: Patient seen and evaluated. Had L5-S1 fusion for pars defects at [facility] a few years ago. Presented with low back pain and some hip/posterior leg pain (does not seem radicular). Elevated inflammatory markers. Currently afebrile and WBC 6k. MRI shows pelvic fluid collection just anterior to the L5-S1 disc space. There may be some epidural inflammation but no fluid or abscess. -No surgical indication at this time, access to this area would require large anterior pelvic approach -will follow blood cultures to see if positive -? radiology needle aspiration if possible -ID workup for infection/source -will follow Jaime Dawson MD Neurosurgery Physical Exam - Vitals, I&O, Labs I and O 11/22/17 11/23/17 11/24/17 05:59 05:59 05:59 Intake Total 1525 300 Output Total 1000 900 Balance 525 -600 Weight 67.4 kg Intake: Oral (ml) 0 IV Infused (ml) 1525 300 Ns 1,000 ml @ 75 mls/hr 525 300 IV CONT BAL Rx#: [id number] Output: Urine (ml) 1000 900 Toilet 1000 900 Other: Intake Quantity No Sufficient Number of Voids Toilet 1 Vital Signs Temp Pulse Resp BP Pulse Ox 36.9 C 87 16 108/74 96 11/23/17 07:41 11/23/17 07:41 11/23/17 07:41 11/23/17 07:41 11/23/17 07:41 Laboratory Results 11/23/17 06:13 11/23/17 06:13
[2017-11-23] MEDS: GABAPENTIN 300 MG CAP PO SCH ×3 (10:17→21:48)
--- NOTE | 2017-11-23 10:21 | ECHO ---
[email or web address] [address] Main: [phone] Fax: Transthoracic Echocardiogram Name: AKOSUA VILLA MR#: [id number] Study Date: 11/23/2017 Study Time: 07:57 AM Date of : 1990 Age: 26 year(s) Height: 167.6 cm (66 in.) Weight: 61.24 kg (135 lb.) BSA: 1.69 m2 Gender: Female Examination: Echo Indication: Murmur/diskitis/abscess Image Quality: Contrast: Requested by: Stella Campos BP: 108 mmHg/74 mmHg Heart Rate: Rhythm: Indication: Murmur/diskitis/abscess Procedure Staff Risk Manager: Sakina Lassiter RDCS Reading Physician: Gwendolyn Ahuja MD Requesting Provider: Conclusions: Normal size left ventricle. No LV hypertrophy. Normal global systolic LV function. The ejection fraction is estimated to be 65-70 %. Normal size right ventricle. Normal RV function. Trivial to mild mitral regurgitation. Trivial tricuspid valve regurgitation. There is no previous echocardiogram for comparison. Measurements: Chambers Valvular Assessment AV/MV Valvular Assessment TV/PV Normal Normal Normal Name Value Range Name Value Range Name Value Range Ao Jen (MM): 3.1 cm (2.2 cm-3.7 AV meanP mmHg ( - ) cm) MV E Vmax: 0.67 m/s ( - ) IVSd (2D): 1.0 cm (0.6 cm-1.1 MV A Vmax: 0.61 m/s ( - ) cm) MV E/A: 1.10 ( - ) LVDd (2D): 4.2 cm (3.9 cm-5.3 cm) LVDs (2D): 2.4 cm (2.1 cm-4 cm) LVPWd (2D): 0.6 cm ( - ) LVEF (MOD4): 70 % (>=55 %) EF Range: 65-70 % Continued Measurements: Chambers Valvular Assessment AV/MV Patient: AKOSUA VILLA Study Date: 11/23/2017 Page 1 of 2 07:57 AM Name Value Name Value LADs: 3.1 cm MV E' Septal: 0.13 m/s LADs Lon.5 cm MV E/E' Septal: 5.20 LA Area: 14.1 cm2 MV E/E' Lateral: 5.90 Additional Vessels Name Value Ao Ascendin.1 cm Findings: Left Ventricle: Normal size left ventricle. No LV hypertrophy. Normal global systolic LV function. The ejection fraction is estimated to be 65-70 %. No regional wall motion abnormality. Right Ventricle: Normal size right ventricle. Normal RV function. Left Atrium: The left atrium is normal in size. Right Atrium: The right atrium is normal in size. Mitral Valve: The mitral valve is normal in appearance and function. Trivial to mild mitral regurgitation. Aortic Valve: The aortic valve is normal in appearance and function. Tricuspid Valve: The tricuspid valve is normal in appearance and function. Trivial tricuspid valve regurgitation. Pulmonic Valve: The pulmonic valve is normal in appearance and function. Mild pulmonic valve regurgitation is noted. Aorta: The aorta is normal. Pericardium: No pericardial effusion. (No Signature Object) Patient: AKOSUA VILLA Study Date: 11/23/2017 Page 2 of 2 07:57 AM [id number]
[2017-11-23] MEDS ORDERED: ACETAMINOPHEN 500 MG TAB ONE (10:45)
[2017-11-23] MEDS: NS 1,000 ML IV SCH (10:51)
--- NOTE | 2017-11-23 11:24 | GHP ---
[f rep st] HISTORY AND PHYSICAL DATE OF ADMISSION: 11/22/2017 CHIEF COMPLAINT: Back pain, history of fluid collection on MRI. HISTORY OF PRESENT ILLNESS: This is a 26-year-old female with a history of chronic low back pain. S he also has a history of an L5-S1 fusion a couple of years ago. The patient states that she fell juanita etime around September while she was ice skating and she was seen in the ER with primarily butt pain at that point. There was no imaging performed at that time. However, since that time, she has continu ed to have pain and is followed by her primary care clinic. The patient stated that the pain continu ed to progress and is now radiating into her right leg worse than left leg, down the back of her leg, and is painful with any weightbearing onto her heel or the pain shoots down the back of her leg. Th e patient denies any loss of bowel or bladder control or any saddle anesthesia or any weakness in her legs. The patient denies any recent fever, chills, or sweats. The patient did have an MRI that was performed by her primary care doctor approximately 3 weeks ago, that did show some marrow signal abn ormality at L5-S1 that could be consistent with a fracture, but it was indeterminate, therefore, a CT scan was done 1 week ago that showed an increase in complex fluid collection in that region with the possibility of an abscess. Her primary care doctor's office also obtained lab that showed an elevat ed sedimentation rate and CRP and ordered an MRI, which the patient tried to get yesterday, but due t o some piercings, was unable to get it and came to the [facility] ER due to pain. Th e patient arrived in the [facility] ER for further evaluation and did receive an MRI of the chary mbar spine there that did show some findings compatible diskitis and associated osteomyelitis from L5 -S1, with possible anterior paraspinal abscess. There is some enhancement along the epidural space f rom L5-S1, more prominent along the right anteriorly causing mild displacement of the dural sac muriel tible with enhancing granulation tissue versus enhancing phlegmon, and some mild posterior lateral di sk bulges, with only mild encroachment upon the neural foramina. The patient, at this time, continue s to have back pain and right leg pain worse than left leg pain in an S1 distribution. She denies an y loss of bowel or bladder control, but she still states she is unable to get out of bed and walk or put any weight on her heel without shooting pain down her leg. She denies any paresthesias or weakne ss in her legs. REVIEW OF SYSTEMS: All pertinent positive and negative review of systems are as stated in the HPI. PAST MEDICAL HISTORY: Patient has a past medical history of an L5-S1 fusion approximately in 2015 by a surgeon who is unknown. She has had a history of chronic low back pain as well. Also, anxiety an d depression. She has a history of cutting in the past, and also chronic bladder incontinence after her L5-S1 spinal fusion in 2015. HOME MEDICATIONS: Include fluoxetine, gabapentin, lidocaine, and Wellbutrin. SOCIAL HISTORY: Patient admits to using marijuana, but denies any IV drug use. 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 Denies any alcohol use or any other illicit drug use. FAMILY HISTORY: The patient's family history was reviewed and does not have any pertinent family his tory. ALLERGIES: Patient is allergic to acetaminophen, ibuprofen, tramadol, and diphenhydramine. OBJECTIVE: VITAL SIGNS: Blood pressure 108/74, heart rate 87, respiratory rate 16, O2 sat 96% on ro om air, temperature 36.9. CONSTITUTIONAL: Patient is a well-developed, well-nourished female in no acute distress. Patient does appear uncomfortable and in some pain. HEENT: Head is normocephalic, atraumatic. Eyes: Pupils are equal and react to light and accommodation. Extraocular muscles are i ntact. Patient is conversing fluently and her speech is appropriate, however, she is very somnolent and does somewhat fall asleep while I am talking to her. NEURO: Cranial nerves 2-12 are grossly int act. Tongue protrudes midline. Palate is symmetrical. Face is symmetrical. Facial sensation is in tact to light touch over the face. Accessory muscles are 5/5 and equal in strength. NECK: Supple b ut with full range of motion. 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 B ilateral lower extremities are somewhat effort dependent due to pain in the right lower extremity. H owever, her strength does appear equal in her bilateral lower extremities with 5/5 and equal in stren gth in quadriceps, hamstrings, dorsiflexion, plantar flexion, and EHL. However, again, her pain limi ts her exam on her right lower extremity to the full extent. Her sensation is intact over the normal dermatomal distribution of the body. RECTAL: The patient denied a rectal exam. The patient's refl exes are 2+ bilaterally in the patellar and the Achilles. Toes are downgoing. They are negative for clonus. EXTREMITIES: There is no cyanosis or edema noted. RESPIRATORY: Appears to have normal wo rk of breathing. ABDOMEN: Patient has no guarding. LABORATORY DATA: Laboratory data from 11/23/2017 at 6:13 in the morning shows a white blood cell cou nt of 6.37, red blood cell count 3.80, hemoglobin 9.5, hematocrit 30.7, platelets 522. PT 13.6, INR 1.02, APTT 40.2. Sodium 140, potassium 4.4, chloride 103, carbon dioxide 27, anion gap 10, BUN 6, cr eatinine 0.5, estimated GFR greater than 60. Calcium 8.4, CRP 70.1. Beta HCG is negative. ESR is 7 5, neutrophils 48.1, lymphocytes 38.1, monocytes at 10.7, eosinophils 2.8. DIAGNOSTIC IMAGING REVIEW: An MRI of the lumbar spine was performed with and without contrast. This shows that at L5-S1, there is an underlying edema and enhancement involving the L5 and S1 segment as well as disk replacement material between L5 and S1. There is abnormal fluid collection anteriorly to the inferior endplate of L5 to the right, measuring about 20 x 6 x 11 mm, with a 2nd collection an terior to the S1 segment measuring about 22 x 13 x 11 mm with a moderate amount of surrounding enhanc ement. There is enhancement within the epidural space from L5-S1 causing displacement of the dural s ac toward the left posteriorly, but no evidence of fluid within the epidural space to suggest abscess . This could represent enhancing granulation tissue or phlegmon type enhancement. Pedicle screws an d paraspinal rods seen between L5-S1 along the transverse posterior connector. There are no compress ion fractures and the conus medullaris appears normal and ends at L1. Bone marrow signal is otherwis e normal. ASSESSMENT AND PLAN: This is a 26-year-old female with a history of chronic low back pain and a fusi on from L5-S1 with increasing chronic low back pain and now right greater than left leg pain that ciarra ears to be in an S1 distribution. The patient came in to the [facility] ER after increasing p ain in her low back and right leg and was advised by her primary care to go to the emergency room aft er an MRI was unable to be performed as an outpatient due to some piercings. This MRI does show 2 fl uid collections at L5-S1 and some other findings consistent with possible diskitis and associated ost eomyelitis from L5-S1 with possible anterior paraspinal abscess versus enhancing phlegmon or an enhan cing granulation tissue. Currently, the patient does have an S1 radiculopathy on the right leg that could be from this fluid collection. However, she remains afebrile with a low without any leukocytos is and therefore, antibiotics are being held at this time. Blood cultures are currently pending. Cu rrently, the patient is neurologically intact without any weakness in her legs or loss of bowel or bl adder control or saddle anesthesia. The patient was seen by Neurosurgical Services at approximately 8:30 a.m. The patient was also seen by Dr. Dawson at approximately 10 a.m. Currently, at this time, there is no evidence that these fluid collections are in fact, infectious in nature. Should there be any proof that these are an abscess or something that needs to be drained, we would certainly move f orward with neurosurgical intervention to drain these, however, given the fact that she is neurologic ally intact without any deficits, and there is no concrete evidence that this is in fact, infectious in nature, there are no neurosurgical interventions at this time. We would suggest to optimize her p ain management, to work with Physical Therapy and Occupational Therapy as able, and we will continue to follow this patient and her workup for a possible infection. Any questions or concerns, please co ntact the Neurosurgical team. At this time, the patient has no reason to be n.p.o. from a Neurosurgery standpoint, however, we will leave this up to the primary medical team in case they have any other workup that needs to be done. /[id number]/MODL
[2017-11-23] MEDS: ACETAMINOPHEN 500 MG TAB PO SCH ×3 (12:52→21:49)
[2017-11-23] MEDS: buPROPion 75 MG TAB PO SCH ×2 (12:52→15:09)
[2017-11-23] MEDS ORDERED: HYDROmorphone HCL/NS 0.5 MG/ML SYR IVP ONE (13:10)
[2017-11-23] MEDS ORDERED: IOPAMIDOL (ISOVUE-300) 100 ML BTL ONE (14:26)
--- NOTE | 2017-11-23 14:54 | GCON ---
[f rep st] CONSULTATION INFECTIOUS DISEASES CONSULTATION DATE OF CONSULTATION: 11/23/2017 REASON FOR CONSULTATION: Possible infection at L5-S1 fusion site. HISTORY OF PRESENT ILLNESS: A 26-year-old woman who has a past medical history of anxiety, depression, and chronic back pain, who underwent an L5-S1 fusion in June of 2015, which she reports was due to an injury dating back to 2004. She did fairly well after that surgery and was able to partake in normal daily activities until falling over [place] [place], 3 months ago. Since that time, she has had severe back pain, so severe that she cannot sleep more than 1 hour of duration. This has been mildly progressive since that time and associated with a relatively low appetite and a 15-pound weight loss. She states that her right leg feels more weak than her left. Interestingly, she denies night sweats or fevers. Basically, her back pain is so severe she has been unable to work and basically lies around. She denies massage or heating pads helping her back pain. Apparently, only intermittent dosing of Toradol at her primary care clinic has helped a bit. She underwent an MRI ordered by her primary care, which found underlying edema and enhancement of L5-S1 and a loculated fluid collection with the loculations around 2 cm in this anterior location. There is also a small amount of enhancement in the epidural space, which could be granulation versus enhancing phlegmon. The patient was admitted for further evaluation. REVIEW OF SYSTEMS: A complete 10-point review of systems was performed and is negative, except as mentioned in the HPI. The patient reports chronic generalized joint pain, and in the past has been worked up for lupus, as well as chronic GI distress, and had multiple colonoscopies. No current change in her current GI symptoms. She denies any respiratory symptoms or rashes. The patient states that she chronically picks the skin of her lower extremities, and this is unchanged. PAST MEDICAL HISTORY: Negative outside of the L5-S1 fusion in June of 2015. 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 She uses tobacco rarely, as well as marijuana. No alcohol. She denies drugs and IV use drug use. She lives with her mother. She has a pet dog. She denies any specific tuberculosis exposure or livestock exposure. She denies incarceration and noted that it has been years since she has had dental work. FAMILY HISTORY: Positive for colon cancer in her maternal grandfather, and is otherwise negative. ALLERGIES: NKDA. MEDICATIONS: Wellbutrin 150 twice daily, Prozac 40 mg daily, Neurontin 300 mg 3 times daily. In the hospital, she was started on Tylenol, Dilaudid, Phenergan, oxycodone, and Zofran for pain and nausea control. PHYSICAL EXAM: VITAL SIGNS: Blood pressure 99/69, heart rate 78, respiratory rate 14, saturation 98% on room air, temperature 36.8 (been afebrile throughout her hospitalization with a T-max of 37.1). GENERAL: This is a young woman lying in bed, in moderate distress secondary to back pain. HEENT: Pupils are reactive bilaterally. She has mildly pale conjunctivae. No conjunctival hemorrhages. Oropharynx: Fair dentition, dry mucous membranes. NECK: Supple. She had an IJ in place in her left neck. CARDIOVASCULAR: She was tachycardic at the time of my exam. No murmurs. CHEST: Clear to auscultation bilaterally. ABDOMEN: Mildly distended. Soft, nontender. Bowel sounds are present. No suprapubic tenderness. EXTREMITIES: She had no joint swelling. She had pinpoint scabs covering her lower extremities, which she reports is due to skin picking. NEUROLOGICAL: She would alert and orient x4. She was basically moving all 4 extremities equally. Focused neurologic exam to lower extremity was performed and no focal weakness was determined. LABORATORY: White count 6.3, hematocrit 30, platelets of 522, 58% neutrophils, 38% lymphocytes. ESR 75. test was negative. Blood cultures were collected and are pending at time of dictation. IMAGING: As per HPI. ASSESSMENT AND PLAN: This is a 26-year-old woman with an L5-S1 fusion in June of 2015, who sustained an injury in September, and has had persistent and severe back pain since that time, that is completely limiting her activities, and has radiologic features of osteomyelitis of L5-S1 with associated paraspinal abscess in the anterior location, and possible epidural phlegmon without cord compression. Supporting laboratory features of chronic infection include a normocytic anemia, thrombocytosis, and an elevated ESR and CRP. She does have a normal white count, but with smoldering infection white count may not be elevated. Recommend better delineation of MRI findings with a contrasted CT scan to assess if she has fusion of L5-S1, as well as better anatomy of the paraspinal abscesses. Case was discussed with Neurosurgery. At this point, we plan to get more information. Hold off on antibiotic therapy and assess feasibility of obtaining samples/drainage. MRSA nasal swab good idea and give input regarding MRSA colonization. Would also send drug screen. In addition, would add on liver function tests, human immunodeficiency virus and hepatitis C screening. BILLING: Time was 75 minutes, greater than 50% of time spent with education and counseling of the patient, although I think this will have to be rediscussed with the patient. I did discuss long-term antibiotic therapy, as well as PICC line placement, coordination with care of that with Hospitalist Service and Neurosurgery. /[id number]/MODL MTDD
--- NOTE | 2017-11-23 18:07 | ASMTCMCOM ---
CM Note CM Note Notes: Pt has been admtited with a lumbar abscess. She had a L5/S1 fusion in 2014. She has a hx of anxiety and depression. No PT/OT orders at this time. Cultures are pending and ID is being consulted for ABX. CM will follow for any d/c needs. Date Signed: 11/23/2017 06:06 PM Electronically Signed By:MAXIMINO Vasquez
[2017-11-24] MEDS: oxyCODONE IR 5 MG TAB PO PRN ×6 (00:41→21:54)
[2017-11-24] MEDS: FLUoxetine 20 MG CAP PO SCH (09:44)
[2017-11-24] MEDS: GABAPENTIN 300 MG CAP PO SCH ×3 (09:44→21:54)
[2017-11-24] MEDS: ACETAMINOPHEN 500 MG TAB PO SCH ×3 (09:44→21:54)
[2017-11-24] MEDS: buPROPion 75 MG TAB PO SCH ×2 (09:44→12:02)
--- NOTE | 2017-11-24 10:23 | NEUSURGPN ---
Assessment/Plan: Assessment/Plan: 26 yo female with hx of L5-S1 fusion for pars defects at [facility] a few years ago. Presented with low back pain and some hip/posterior leg pain (does not seem radicular). -Elevated inflammatory markers. -Currently afebrile and WBC 6k. -MRI shows pelvic fluid collection just anterior to the L5-S1 disc space. There may be some epidural inflammation but no fluid or abscess. -No surgical indication at this time, access to this area would require large anterior pelvic approach -will follow blood cultures to see if positive -? radiology needle aspiration if possible- Currently ID does not think they can access this fluid collection -ID workup for infection/source- Dr. Royal has seen and evaluated. No abx therapy at this time. Depending on cultures, other labs if unable to treat empirically, may explore surgical intevention however this would likely need an ALIF type approach and help with a general surgeon for exposure -NS will continue to follow. Dr. Dawson and Dr. Royal will discuss if further surgical intervention is needed or will treat empirically. -will follow -PT/OT as able -Call NS with any questions or concerns. Subjective: Patient feels the same this morning, no changes, continued back and right leg pain. Voiding well without incontinence or saddle anthesia. Objective: NAD, VSS CHAVEZ X4 BLE 5/5= Sensation intact to lt touch DTR 2+ patellar, achilles MS: TTP over mid lower lumbar spine and paralumbar muscles - Physician Discussed Patient with Dr.: Dawson Neurosurgery Physical Exam - Vitals, I&O, Labs I and O 11/23/17 11/24/17 11/25/17 05:59 05:59 05:59 Intake Total 1525 1610 Output Total 1000 2500 Balance 525 -890 Weight 67.4 kg 62.8 kg Intake: Oral (ml) 1310 IV Infused (ml) 1525 300 Ns 1,000 ml @ 75 mls/hr 525 300 IV CONT BAL Rx#: [id number] Output: Urine (ml) 1000 2500 Toilet 1000 2500 Other: Intake Quantity Yes Sufficient Number of Voids Toilet 1 Vital Signs Temp Pulse Resp BP Pulse Ox 37.1 C 86 16 91/61 L 94 11/24/17 08:00 11/24/17 08:00 11/24/17 08:00 11/24/17 08:00 11/24/17 08:00 Laboratory Results 11/23/17 06:13 11/23/17 06:13 ICD10 Worksheet Patient Problems: Problems Problem Status Onset Discitis of lumbar region Acute - ICD10 Problem Qualifiers (1) Discitis of lumbar region
--- NOTE | 2017-11-24 12:29 | HOSPPROG ---
Hospitalist Progress Note Assessment/Plan: 1 26-year-old female with history of L5-S1 fusion now presents with complaints of acute on chronic low back pain. # L5/S1- possible paraspinal abscess and diskitis with possible epidural phlegmon. -reviewed her CT results, confirms the prevertebral abscess anterior to the L5- S1 disc space and loculated. She also has evidence of diskitis and osteo -Reviewed w Dr Royal, she will discuss w neurosurgery about further interventions to drain fluid -blood cx no growth -sed rate and CRP are elevated, but wbc stable -no abx at this time # acute on chronic back pain - -patient says pain is acute and does well w IV Dilaudid -do a trial of Tylenol (she says she has an allergy, gets an upset stomach-no hives, or swelling) -has significant pain with walking and has to walk on the balls of her feet to help with the back pain #? murmur -was noted by previous provider -reviewed echo, no valve involvement # anemia -follow # thrombocytosis-likely reactive in setting of infectious process as noted above. # anxiety and depression-home meds resumed/ will ask Isa Webb to see her. #plan: cont supportive care at this time. Subjective: Lexus has pain w activity but is feeling ok during my evaluation Objective: Vital Signs Temp Pulse Resp BP Pulse Ox 36.9 C 89 16 95/57 L 95 11/24/17 12:00 11/24/17 12:00 11/24/17 12:00 11/24/17 12:00 11/24/17 12:00 Laboratory Results 11/23/17 06:13 11/23/17 06:13 11/23/17 11/24/17 11/25/17 05:59 05:59 05:59 Intake Total 1525 1610 Output Total 1000 2500 Balance 525 -890 PT 13.6 SEC (12.0-15.0) 11/23/17 06:13 INR 1.02 (0.83-1.16) 11/23/17 06:13 - Physical Exam Constitutional: appears nourished Eyes: PERRL Ears, Nose, Mouth, Throat: hearing normal Cardiovascular: regular rate and rhythym Respiratory: no respiratory distress Gastrointestinal: soft, non-tender abdomen Skin: warm Musculoskeletal: generalized weakness Neurologic: AAOx3 Psychiatric: depressed ICD10 Worksheet Patient Problems: Problems Problem Status Onset Discitis of lumbar region Acute
--- NOTE | 2017-11-24 13:39 | PCMIDPN ---
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 Blood cultures are negative so far. In discussion with Neurosurgery about a best approach including: Empiric medical therapy vs debridement. Elevated CRP, ESR and thrombocytosis support underlying infection. Lack of fever , elevated wbc not completely unexpected in infections w chronic presentation. Discussed w rads, not approachable by IR. No neurologic deficits. Chronic skin picking could be a source of her underlying infection. [place] to have in person discussion between NS, ID and gen surgery to discuss risk/benefits of above will try to coordinate. I probably lean towards surgical debridement. Continue off antibiotics for now and monitor cultures Subjective: patient remains very tired, has been unable to sleep for weeks due to back pain. back pain so severe when walking, she has to walk on the balls of her feet. Objective: Vital Signs Temp Pulse Resp BP Pulse Ox 36.9 C 89 16 95/57 L 95 11/24/17 12:00 11/24/17 12:00 11/24/17 12:00 11/24/17 12:00 11/24/17 12:00 Laboratory Results 11/23/17 06:13 11/23/17 06:13 11/23/17 11/24/17 11/25/17 05:59 05:59 05:59 Intake Total 1525 1610 Output Total 1000 2500 Balance 525 -890 ESR 75 MM/HR (0-20) H 11/22/17 19:05 C-Reactive Protein 70.1 mg/L (<10.0) H 11/22/17 19:05 - Physical Exam General Appearance: alert, no apparent distress Respiratory: No accessory muscle use Skin: other (Pinpoint scabs scattered over her lower extremity due to picking) Neuro/Psych: alert, normal mood/affect, oriented x 3 ICD10 Worksheet Patient Problems: Problems Problem Status Onset Discitis of lumbar region Acute
[2017-11-24] MEDS: HYDROmorphONE/DILAUDID 2 MG/ML INJ IVP PRN (20:29)
[2017-11-25 01:48] LABS: HEPATITIS C ANTIBODY TOTAL REACTIVE (NEGATIVE); HIV TYPE 1 AND 2 NEGATIVE (NEGATIVE)
[2017-11-25] MEDS: HYDROmorphONE/DILAUDID 2 MG/ML INJ IVP PRN ×4 (03:53→23:39)
[2017-11-25] MEDS: oxyCODONE IR 5 MG TAB PO PRN ×2 (03:53→08:14)
[2017-11-25] MEDS: buPROPion 75 MG TAB PO SCH ×2 (07:58→11:44)
--- NOTE | 2017-11-25 08:41 | HOSPPROG ---
Hospitalist Progress Note Assessment/Plan: 1 26-year-old female with history of L5-S1 fusion now presents with complaints of acute on chronic low back pain. # prevertebral abscess and likely osteomyelitis at L5/S1- -goal is for surgery, Neurosurgery and Infectious Disease to coordinate a plan get fluid studies and drain the abscess -blood cx no growth -sed rate and CRP are elevated, but wbc stable -no abx at this time # acute on chronic back pain - -patient says pain is acute and does well w IV Dilaudid, will do a trial of oral Dilaudid -has significant pain with walking and has to walk on the balls of her feet to help with the back pain # HCV + # anemia -follow # thrombocytosis-likely reactive in setting of infectious process as noted above. # anxiety and depression-home meds resumed/ have asked Isa Webb to see her. #plan: will f/u with ID and neurosurgery to discuss when she should have surgery , hopefully, soon. Subjective: Lexus is having ongoing back pain, sad about being here in the hospital. Objective: Vital Signs Temp Pulse Resp BP Pulse Ox 37.0 C 92 16 98/63 L 95 11/25/17 08:00 11/25/17 08:00 11/25/17 08:00 11/25/17 08:00 11/25/17 08:00 Laboratory Results 11/23/17 06:13 11/23/17 06:13 11/24/17 11/25/17 11/26/17 05:59 05:59 05:59 Intake Total 1610 Output Total 2500 Balance -890 PT 13.6 SEC (12.0-15.0) 11/23/17 06:13 INR 1.02 (0.83-1.16) 11/23/17 06:13 - Physical Exam Constitutional: uncomfortable, No not in pain Eyes: PERRL Ears, Nose, Mouth, Throat: hearing normal Respiratory: no respiratory distress Skin: warm Musculoskeletal: generalized weakness Neurologic: AAOx3 Psychiatric: interacting appropriately, depressed ICD10 Worksheet Patient Problems: Problems Problem Status Onset Discitis of lumbar region Acute
[2017-11-25] MEDS: FLUoxetine 20 MG CAP PO SCH (08:55)
[2017-11-25] MEDS: ACETAMINOPHEN 500 MG TAB PO SCH ×3 (08:56→22:06)
[2017-11-25] MEDS: GABAPENTIN 300 MG CAP PO SCH ×3 (08:56→22:07)
--- NOTE | 2017-11-25 09:06 | NEUSURGPN ---
Assessment/Plan: Assessment/Plan: 26 yo female with hx of L5-S1 fusion for pars defects at [facility] a few years ago. Presented with low back pain and some hip/posterior leg pain (does not seem radicular). -Elevated inflammatory markers. -Currently afebrile and WBC 6k. -MRI shows pelvic fluid collection just anterior to the L5-S1 disc space. There may be some epidural inflammation but no fluid or abscess. -ID recommending drainage of fluid, IR unable to access. Surgery would require anterior exposure with L5-S1 ALIF -will follow blood cultures to see if positive -Hep C positive -Will consult general surgery for consideration of ALIF approach -NS will continue to follow. Dr. Dawson and Dr. Royal will discuss if further surgical intervention is needed or will treat empirically. -will follow -PT/OT as able -Call NS with any questions or concerns. -D/w Dr Dawson and Roya Badillo REPAIR DEPARTMENT MANAGER. Subjective: Pt resting in bed, continued pain. Denies any weakness or loss of sensation. Objective: AAOx3 NAD VSS MAEx4 Motor 5/5 BLE +LT Urinary Catheter in Place: No - Physician Discussed Patient with : Eunice Neurosurgery Physical Exam - Vitals, I&O, Labs I and O 11/24/17 11/25/17 11/26/17 05:59 05:59 05:59 Intake Total 1610 Output Total 2500 Balance -890 Weight 62.8 kg 68.2 kg Intake: Oral (ml) 1310 IV Infused (ml) 300 Ns 1,000 ml @ 75 mls/hr 300 IV CONT BAL Rx#: [id number] Output: Urine (ml) 2500 Toilet 2500 Other: Intake Quantity Yes Yes Sufficient Number of Voids Toilet 1 3 Number of Stools Toilet 1 Vital Signs Temp Pulse Resp BP Pulse Ox 37.0 C 92 16 98/63 L 95 11/25/17 08:00 11/25/17 08:00 11/25/17 08:00 11/25/17 08:00 11/25/17 08:00 Laboratory Results 11/23/17 06:13 11/23/17 06:13 ICD10 Worksheet Patient Problems: Problems Problem Status Onset Discitis of lumbar region Acute
[2017-11-25] MEDS: HYDROmorphONE/DILAUDID 2 MG TAB PO PRN ×2 (10:18→14:31)
--- NOTE | 2017-11-25 14:41 | PCMIDPN ---
Assessment/Plan: Assessment: L5-S1 disc space inflammation with pre spinal space inflammation and fluid collections. This likely represents infection secondary to infected hardware at that level. We do not have an option for percutaneous drainage or aspiration for sampling. Discussed with Neurosurgery and General surgery the possibility of collaborated ink in an anterior approach to perform an incision and drainage surgery on the area in question. I think although this is an aggressive route given the patient's age and long-term requirement for a durable working outcome this is likely the correct course. We will be getting consultation from General surgery today and a 2nd look by Neurosurgery. In the meantime continue holding antibiotics in anticipation of obtaining a good surgical sample. Plan: 1. Continue observation off antibiotics. 2. Arrange surgical consultations and collaboration. Subjective: Patient is resting in her hospital bed. She continues to have the same amount of back pain. No fevers or chills. Objective: No antibiotics Vital Signs Temp Pulse Resp BP Pulse Ox 37.0 C 92 16 98/63 L 95 11/25/17 08:00 11/25/17 08:00 11/25/17 08:00 11/25/17 08:00 11/25/17 08:00 Microbiology 11/23/17 06:20 MRSA Culture - Final Nasal, Sinus - Swab Laboratory Results 11/23/17 06:13 11/23/17 06:13 11/24/17 11/25/17 11/26/17 05:59 05:59 05:59 Intake Total 1610 Output Total 2500 Balance -890 ESR 75 MM/HR (0-20) H 11/22/17 19:05 C-Reactive Protein 70.1 mg/L (<10.0) H 11/22/17 19:05 - Physical Exam General Appearance: WD/WN, alert, no apparent distress, non-toxic Respiratory: lungs clear, normal breath sounds, No respiratory distress Cardiac/Chest: regular rate, rhythm, No tachycardia Skin: normal color, warm/dry, No rash Neuro/Psych: alert, oriented x 3, No normal mood/affect (Dysphoric) ICD10 Worksheet Patient Problems: Problems Problem Status Onset Discitis of lumbar region Acute
[2017-11-25] MEDS: HYDROmorphONE/DILAUDID 4 MG TAB PO PRN ×2 (18:46→22:07)
--- NOTE | 2017-11-26 00:42 | SOAPPROG ---
SOAP Progress Note Assessment/Plan: Assessment: PLEASANT 26 FEMALE WITH POSSIBLE NEED FOR ANTERIOR L5-S1 EXPOSURE FOR POSSIBLE DISKITIS RISKS AND OPTIONS FULLY DISCUSSED HEENT NONICTERIC/ CHEST CLEAR/ COR RR/ ABD SOFT WITH NO SCARS, +BS, NO HERNIAS EXTREM FULL PULSES AND FULL ROM NEURO EQUAL 5+ MOTOR AND SENSORY EXAM Plan:ANTERIOR SPIN EXPOSURE IF DEEMED NECESSARY BY NS 11/26/17 00:38 Objective: Vital Signs Temp Pulse Resp BP Pulse Ox 36.8 C 72 16 104/70 95 11/25/17 22:09 11/25/17 22:09 11/25/17 22:09 11/25/17 22:09 11/25/17 22:09 Microbiology 11/23/17 06:20 MRSA Culture - Final Nasal, Sinus - Swab Laboratory Results 11/23/17 06:13 11/23/17 06:13 11/24/17 11/25/17 11/26/17 05:59 05:59 05:59 Intake Total 1610 500 Output Total 2500 900 Balance -890 -400 PT 13.6 SEC (12.0-15.0) 11/23/17 06:13 INR 1.02 (0.83-1.16) 11/23/17 06:13 ICD10 Worksheet Patient Problems: Problems Problem Status Onset Discitis of lumbar region Acute
[2017-11-26] MEDS: HYDROmorphONE/DILAUDID 4 MG TAB PO PRN ×5 (04:05→21:32)
[2017-11-26] MEDS: HYDROmorphONE/DILAUDID 2 MG/ML INJ IVP PRN ×4 (05:24→19:43)
--- NOTE | 2017-11-26 08:07 | NEUSURGPN ---
Assessment/Plan: Assessment/Plan: 26 yo female with hx of L5-S1 fusion for pars defects at [facility] a few years ago. Presented with low back pain and some hip/posterior leg pain (does not seem radicular). -Elevated inflammatory markers. -Currently afebrile and WBC 6k. -MRI shows pelvic fluid collection just anterior to the L5-S1 disc space. There may be some epidural inflammation but no fluid or abscess. -ID recommending drainage of fluid, IR unable to access. Surgery would require anterior exposure with L5-S1 ALIF. Dr Gtz has seen and states he can perform exposure/closure. -will follow blood cultures to see if positive -Hep C positive -NS will continue to follow. Awaiting to hear from Dr. Dawson when surgery will be. I discussed with patient today that the current plan is for L5-S1 ALIF and will let her know once we determine timing for the surgery. -PT/OT as able -Call NS with any questions or concerns. -D/w Dr Dawson. Subjective: Pt resting in bed, states pain was better during the day yesterday but flared up at night. Objective: AAOx3 NAD VSS MAEx4 Motor 5/5 BLE +LT Urinary Catheter in Place: No - Physician Discussed Patient with Dr.: Dawson Neurosurgery Physical Exam - Vitals, I&O, Labs I and O 11/25/17 11/26/17 11/27/17 05:59 05:59 05:59 Intake Total 1200 Output Total 900 Balance 300 Weight 62.8 kg 61.859 kg Intake: Oral (ml) 1200 Output: Urine (ml) 900 Toilet 900 Other: Intake Quantity Yes Yes Sufficient Number of Voids Toilet 3 2 Number of Stools Toilet 1 Microbiology 11/23/17 06:20 MRSA Culture - Final Nasal, Sinus - Swab Vital Signs Temp Pulse Resp BP Pulse Ox 36.8 C 72 16 104/70 95 11/25/17 22:09 11/25/17 22:09 11/25/17 22:09 11/25/17 22:09 11/25/17 22:09 Laboratory Results 11/23/17 06:13 11/23/17 06:13 ICD10 Worksheet Patient Problems: Problems Problem Status Onset Discitis of lumbar region Acute
[2017-11-26] MEDS: ACETAMINOPHEN 500 MG TAB PO SCH ×3 (08:32→21:31)
[2017-11-26] MEDS: FLUoxetine 20 MG CAP PO SCH (08:32)
[2017-11-26] MEDS: buPROPion 75 MG TAB PO SCH ×2 (08:33→11:54)
[2017-11-26] MEDS: GABAPENTIN 300 MG CAP PO SCH ×3 (08:33→21:31)
--- NOTE | 2017-11-26 10:15 | HOSPPROG ---
Hospitalist Progress Note Assessment/Plan: 26-year-old female with history of L5-S1 fusion now presents with complaints of acute on chronic low back pain. # prevertebral abscess and likely osteomyelitis at L5/S1- -will need a L5-S1 ALIF (appreciate Dr Gtz and Dr Dawson) -blood cx no growth -sed rate and CRP are elevated, but wbc stable -no abx at this time # acute on chronic back pain - -patient says pain is acute and does well w IV Dilaudid, will do a trial of oral Dilaudid -has significant pain with walking and has to walk on the balls of her feet to help with the back pain -added prn Robaxin # HCV + :RNA pending # anemia -follow # thrombocytosis-likely reactive in setting of infectious process as noted above. # anxiety and depression, PTSD -appreciate Isa Webb seeing Lexus -will discuss w Lexus about trial of low dose Minipress to see if this helps w nightmares -she has a hx of addiction and wants to avoid being addicted to the narcotics, will need to be weaned off after surgery #plan: awaiting planning with Dr Gtz and Dr Dawson in regards to surgery. Subjective: Lexus is hopeful about surgery Objective: Vital Signs Temp Pulse Resp BP Pulse Ox 36.9 C 74 16 98/58 L 95 11/26/17 08:00 11/26/17 08:00 11/26/17 08:00 11/26/17 08:00 11/26/17 08:00 Microbiology 11/23/17 06:20 MRSA Culture - Final Nasal, Sinus - Swab Laboratory Results 11/23/17 06:13 11/23/17 06:13 11/25/17 11/26/17 11/27/17 05:59 05:59 05:59 Intake Total 1200 Output Total 900 Balance 300 PT 13.6 SEC (12.0-15.0) 11/23/17 06:13 INR 1.02 (0.83-1.16) 11/23/17 06:13 - Physical Exam Constitutional: no apparent distress, appears nourished, uncomfortable Eyes: PERRL Ears, Nose, Mouth, Throat: hearing normal Respiratory: no respiratory distress Skin: warm Musculoskeletal: generalized weakness Neurologic: AAOx3 Psychiatric: interacting appropriately ICD10 Worksheet Patient Problems: Problems Problem Status Onset Discitis of lumbar region Acute
[2017-11-26] MEDS: METHOCARBAMOL 750 MG TAB PO PRN ×2 (12:48→19:43)
--- NOTE | 2017-11-26 15:10 | ASMTCMCOM ---
CM Note CM Note Notes: Pt not on antibiotics currently, will have L5-S1 ALIF which is to be scheduled. ID, general surgery and neuro surgery consulting. Pt had [facility] Nurse consult with Isa Webb. No therapies ordered. CM to follow. Date Signed: 11/26/2017 03:09 PM Electronically Signed By:MAXIMINO Esquivel
--- NOTE | 2017-11-26 15:52 | PCMIDPN ---
Assessment/Plan: Prevertebral abscess and likely diskitis osteomyelitis at L5-S1 confirmed on CT scan. Blood cultures are negative so far. Elevated CRP, ESR and thrombocytosis supports underlying infection. Lack of fever, elevated wbc not completely unexpected in infections w chronic presentation. Discussed w rads, not approachable by IR. No neurologic deficits. Chronic skin picking could be a source of her underlying infection. HCV Ab+ discussed results w patient and acquisition modalities. Awaiting VL. Coordination with NS, ID and gen surgery , plan surgery later this week. Continue off antibiotics for now and monitor cultures Subjective: patient having some trouble with waiting still having to walk on tip toes, but pain control is better Objective: Vital Signs Temp Pulse Resp BP Pulse Ox 36.9 C 74 16 98/58 L 95 11/26/17 08:00 11/26/17 08:00 11/26/17 08:00 11/26/17 08:00 11/26/17 08:00 Microbiology 11/23/17 06:20 MRSA Culture - Final Nasal, Sinus - Swab Laboratory Results 11/23/17 06:13 11/23/17 06:13 11/25/17 11/26/17 11/27/17 05:59 05:59 05:59 Intake Total 1200 Output Total 900 Balance 300 ESR 75 MM/HR (0-20) H 11/22/17 19:05 C-Reactive Protein 70.1 mg/L (<10.0) H 11/22/17 19:05 - Physical Exam General Appearance: alert, no apparent distress Respiratory: No accessory muscle use Skin: No rash Neuro/Psych: alert, normal mood/affect, oriented x 3 - Time Spent With Patient Time Spent with Patient: greater than 25 minutes (discussed radiologic findings , importance of remaining hspitalizated) Time Spent with Patient: Greater than 25 minutes spent on this patients care, greater than 50% of time spent counseling, educating, and coordinating care regarding the above mentioned plan. ICD10 Worksheet Patient Problems: Problems Problem Status Onset Discitis of lumbar region Acute
[2017-11-26] MEDS: PRAZOSIN HCL 1 MG CAP PO SCH (21:32)
[2017-11-27] MEDS: HYDROmorphONE/DILAUDID 2 MG/ML INJ IVP PRN ×5 (01:10→20:02)
[2017-11-27] MEDS: HYDROmorphONE/DILAUDID 4 MG TAB PO PRN ×6 (01:12→23:39)
--- NOTE | 2017-11-27 07:58 | SOAPPROG ---
SOAP Progress Note Assessment/Plan: Assessment: 26 yo female with prior L5/S1 fusion. Back pain and fluid collection anterior to L5/S1 Prevertebral abscess and likely diskitis osteomyelitis at L5-S1 confirmed on CT scan. Blood cultures are negative so far. MRSA negative. Elevated CRP, ESR and thrombocytosis supports underlying infection. Plan: PT/OT as tolerated Possible ALIF on Saturday with Raoul Gtz and Eunice. ID and medicine following continue pain mgmt. Subjective: in bed, awake, alert, pain controlled but exacerated with movement. Able to walk , but on her toes due to pain. Denies b/b changes or new numbness, tingling or weakness Objective: Vital Signs Temp Pulse Resp BP Pulse Ox 36.8 C 76 15 111/68 93 11/27/17 07:42 11/27/17 07:42 11/27/17 07:42 11/27/17 07:42 11/27/17 07:42 Laboratory Results 11/23/17 06:13 11/23/17 06:13 11/26/17 11/27/17 11/28/17 05:59 05:59 05:59 Intake Total 1200 Output Total 900 Balance 300 PT 13.6 SEC (12.0-15.0) 11/23/17 06:13 INR 1.02 (0.83-1.16) 11/23/17 06:13 Neuro: El, sens +LT follows command ICD10 Worksheet Patient Problems: Problems Problem Status Onset Discitis of lumbar region Acute
[2017-11-27] MEDS: GABAPENTIN 300 MG CAP PO SCH ×3 (09:23→21:43)
[2017-11-27] MEDS: FLUoxetine 20 MG CAP PO SCH (09:23)
[2017-11-27] MEDS: ACETAMINOPHEN 500 MG TAB PO SCH ×3 (09:23→21:43)
[2017-11-27] MEDS: buPROPion 75 MG TAB PO SCH ×2 (09:24→13:50)
[2017-11-27] MEDS: METHOCARBAMOL 750 MG TAB PO PRN ×2 (09:24→21:43)
--- NOTE | 2017-11-27 10:35 | HOSPPROG ---
Hospitalist Progress Note Assessment/Plan: 26-year-old female with history of L5-S1 fusion now presents with complaints of acute on chronic low back pain. # prevertebral abscess and likely osteomyelitis at L5/S1- -will need a L5-S1 ALIF (appreciate Dr Gtz and Dr Dawosn)/surgery saturday -blood cx no growth -sed rate and CRP are elevated, but wbc stable -no abx at this time # acute on chronic back pain - -patient says pain is acute and does well w IV Dilaudid, will do a trial of oral Dilaudid -has significant pain with walking and has to walk on the balls of her feet to help with the back pain -added prn Robaxin (this has helped a bit) # HCV + :RNA pending # anemia -follow # thrombocytosis-likely reactive in setting of infectious process as noted above. # anxiety and depression, PTSD -appreciate Isa Webb seeing Lexus -trial of low dose Minipress to see if this helps w nightmares (this was held last night due to low bp) -she has a hx of addiction and wants to avoid being addicted to the narcotics, will need to be weaned off after surgery #plan: [facility] surgery Saturday. Patient hoping her mom brings her puppy in. Subjective: Lexus has no specific complaints except for pain with walking, mainly in her right leg and it travels down. Objective: Vital Signs Temp Pulse Resp BP Pulse Ox 36.8 C 76 15 111/68 93 11/27/17 07:42 11/27/17 07:42 11/27/17 07:42 11/27/17 07:42 11/27/17 07:42 Laboratory Results 11/23/17 06:13 11/23/17 06:13 11/26/17 11/27/17 11/28/17 05:59 05:59 05:59 Intake Total 1200 Output Total 900 Balance 300 PT 13.6 SEC (12.0-15.0) 11/23/17 06:13 INR 1.02 (0.83-1.16) 11/23/17 06:13 - Physical Exam Constitutional: no apparent distress, appears nourished Eyes: PERRL Ears, Nose, Mouth, Throat: hearing normal Cardiovascular: regular rate and rhythym Respiratory: no respiratory distress Skin: warm Musculoskeletal: generalized weakness Neurologic: AAOx3 Psychiatric: interacting appropriately ICD10 Worksheet Patient Problems: Problems Problem Status Onset Discitis of lumbar region Acute
--- NOTE | 2017-11-27 14:39 | PCMIDPN ---
Assessment/Plan: Assessment: L5-S1 disc space inflammation with pre spinal space inflammation and fluid collections. This likely represents infection secondary to infected hardware at that level. We do not have an option for percutaneous drainage or aspiration for sampling. Discussed with Neurosurgery and General surgery the possibility of collaborated ink in an anterior approach to perform an incision and drainage surgery on the area in question. I think although this is an aggressive route given the patient's age and long-term requirement for a durable working outcome this is likely the correct course. Patient is apparently scheduled for surgery on Saturday. In the meantime continue holding antibiotics in anticipation of obtaining a good surgical sample. Plan: 1. Continue observation off antibiotics. 2. Looking forward to OR debridement. 11/27/17 14:37 Subjective: Patient remains in stable amounts of pain. No new changes. No fevers or chills. Still unable to ambulate. Objective: No antibiotics Vital Signs Temp Pulse Resp BP Pulse Ox 36.8 C 76 15 111/68 93 11/27/17 07:42 11/27/17 07:42 11/27/17 07:42 11/27/17 07:42 11/27/17 07:42 Laboratory Results 11/23/17 06:13 11/23/17 06:13 11/26/17 11/27/17 11/28/17 05:59 05:59 05:59 Intake Total 1200 Output Total 900 Balance 300 ESR 75 MM/HR (0-20) H 11/22/17 19:05 C-Reactive Protein 70.1 mg/L (<10.0) H 11/22/17 19:05 - Physical Exam General Appearance: WD/WN, alert, apparent distress (Mild secondary to back pain ), non-toxic Respiratory: lungs clear, normal breath sounds, No respiratory distress Cardiac/Chest: regular rate, rhythm, No tachycardia Skin: normal color, warm/dry, No rash Neuro/Psych: alert, normal mood/affect, oriented x 3 ICD10 Worksheet Patient Problems: Problems Problem Status Onset Discitis of lumbar region Acute
[2017-11-27] MEDS: PRAZOSIN HCL 1 MG CAP PO SCH (21:44)
[2017-11-28] MEDS: HYDROmorphONE/DILAUDID 2 MG/ML INJ IVP PRN ×5 (00:43→20:36)
[2017-11-28] MEDS: HYDROmorphONE/DILAUDID 4 MG TAB PO PRN ×5 (03:35→22:18)
[2017-11-28] MEDS: buPROPion 75 MG TAB PO SCH ×2 (07:22→12:08)
[2017-11-28] MEDS: FLUoxetine 20 MG CAP PO SCH ×2 (07:23→07:30)
[2017-11-28] MEDS: GABAPENTIN 300 MG CAP PO SCH ×3 (07:23→20:33)
[2017-11-28] MEDS: METHOCARBAMOL 750 MG TAB PO PRN ×2 (07:24→16:23)
[2017-11-28] MEDS: ACETAMINOPHEN 500 MG TAB PO SCH ×3 (07:24→20:33)
--- NOTE | 2017-11-28 08:00 | NEUSURGPN ---
Assessment/Plan: Assessment/Plan: Assessment: 26 yo female with prior L5/S1 fusion. Back pain and fluid collection anterior to L5/S1 Prevertebral abscess and likely diskitis osteomyelitis at L5-S1 confirmed on CT scan. Blood cultures negative X 5 days. MRSA negative. Elevated CRP, ESR and thrombocytosis supports underlying infection. Plan: PT/OT as tolerated Plan for OR likely Saturday for ALIF on Saturday afternoon with Raoul Gtz and Eunice. Will finalize scheduling with OR today ID and medicine following continue pain mgmt. Patient seen by Dr. Dawson and myself Subjective: No changes, pain well controlled when in bed. Denies b/b changes or new numbness , tingling or weakness Objective: NAD, VSS BLE 5/5= Sensation intact to lt touch - Physician Discussed Patient with Dr.: Dawson Patient Seen by : Eunice Neurosurgery Physical Exam - Vitals, I&O, Labs I and O 11/27/17 11/28/17 11/29/17 05:59 05:59 05:59 Intake Total 1500 Balance 1500 Weight 64.6 kg 63.54 kg Intake: Oral (ml) 1500 Other: Intake Quantity Yes Sufficient Number of Voids Toilet 2 1 Vital Signs Temp Pulse Resp BP Pulse Ox 36.7 C 71 16 98/61 L 92 11/28/17 07:31 11/27/17 23:34 11/28/17 07:31 11/28/17 07:31 11/28/17 07:31 Laboratory Results 11/23/17 06:13 11/23/17 06:13 ICD10 Worksheet Patient Problems: Problems Problem Status Onset Discitis of lumbar region Acute - ICD10 Problem Qualifiers (1) Discitis of lumbar region
--- NOTE | 2017-11-28 12:56 | HOSPPROG ---
Hospitalist Progress Note Assessment/Plan: 26-year-old female with history of L5-S1 fusion now presents with complaints of acute on chronic low back pain. # prevertebral abscess and likely osteomyelitis at L5/S1- -will need a L5-S1 ALIF (appreciate Dr Gtz and Dr Dawson)/surgery Saturday -blood cx no growth -sed rate and CRP are elevated, but wbc stable -no abx at this time # acute on chronic back pain - -patient says pain is acute and does well w IV Dilaudid, will do a trial of oral Dilaudid -has significant pain with walking and has to walk on the balls of her feet to help with the back pain -added prn Robaxin (this has helped a bit) # HCV + # anemia -follow # thrombocytosis-likely reactive in setting of infectious process as noted above. # anxiety and depression, PTSD -appreciate Isa Webb seeing Lexus -trial of low dose Minipress to see if this helps w nightmares (this was held last night due to low bp) -she has a hx of addiction and wants to avoid being addicted to the narcotics, will need to be weaned off after surgery #plan: as far as I know, surgery is tomorrow Subjective: Lexus is anxious to get surgery done. cont to have pain in her right back area that radiates. Objective: Vital Signs Temp Pulse Resp BP Pulse Ox 37.1 C 84 16 100/63 95 11/28/17 12:17 11/28/17 12:17 11/28/17 12:17 11/28/17 12:17 11/28/17 12:17 Laboratory Results 11/23/17 06:13 11/23/17 06:13 11/27/17 11/28/17 11/29/17 05:59 05:59 05:59 Intake Total 1500 200 Balance 1500 200 PT 13.6 SEC (12.0-15.0) 11/23/17 06:13 INR 1.02 (0.83-1.16) 11/23/17 06:13 - Physical Exam Constitutional: no apparent distress, appears nourished, not in pain Eyes: PERRL Ears, Nose, Mouth, Throat: hearing normal Respiratory: no respiratory distress Gastrointestinal: normoactive bowel sounds Skin: warm Musculoskeletal: generalized weakness Neurologic: AAOx3 Psychiatric: interacting appropriately ICD10 Worksheet Patient Problems: Problems Problem Status Onset Discitis of lumbar region Acute
[2017-11-28] MEDS: PRAZOSIN HCL 1 MG CAP PO SCH (20:33)
[2017-11-28] MEDS: LORazepam 2 MG/ML INJ IVP PRN (20:36)
[2017-11-29] MEDS: NS 1,000 ML IV SCH ×2 (00:14→09:26)
[2017-11-29] MEDS: HYDROmorphONE/DILAUDID 4 MG TAB PO PRN ×5 (02:42→22:33)
[2017-11-29] MEDS: METHOCARBAMOL 750 MG TAB PO PRN ×2 (02:42→16:41)
[2017-11-29] MEDS: HYDROmorphONE/DILAUDID 2 MG/ML INJ IVP PRN ×3 (05:20→19:52)
[2017-11-29] MEDS: LORazepam 2 MG/ML INJ IVP PRN (05:20)
--- NOTE | 2017-11-29 08:17 | NEUSURGPN ---
Assessment/Plan: Assessment: 26 yo female with prior L5/S1 fusion. Back pain and fluid collection anterior to L5/S1 Prevertebral abscess and likely diskitis osteomyelitis at L5-S1 confirmed on CT scan. Blood cultures negative X 5 days. MRSA negative. Elevated CRP, ESR and thrombocytosis supports underlying infection. Plan: PT/OT as tolerated Plan for surgery today - pelvic washout/hardware revision/L5-S1 ALIF. Dr. Gtz to perform exposure/closure Written informed consent obtained and discussed risks/benefits with patient. Discussed importance of nicotine cessation with fusion surgery. Hold any anticoagulation Hold antibiotics until cultures obtained during surgery - ancef was ordered, I cancelled this MRI L spine w/wo contrast ordered to reeval abscess prior to surgery today ID and medicine following continue pain mgmt. D/w Dr. Dawson Subjective: Pt resting in bed, ready for surgery today. Objective: AAOx3 NAD VSS MAEx4 Motor 5/5 BLE +LT Urinary Catheter in Place: No - Physician Discussed Patient with Dr.: Dawson Neurosurgery Physical Exam - Vitals, I&O, Labs I and O 11/28/17 11/29/17 11/30/17 05:59 05:59 05:59 Intake Total 1500 2214 Balance 1500 2214 Weight 63.54 kg 64.17 kg Intake: Oral (ml) 1500 1700 IV Infused (ml) 514 Ns 1,000 ml @ 100 mls/hr 514 IV .CON BAL Rx#: [id number] Other: Intake Quantity Yes Sufficient Number of Voids Toilet 1 1 Vital Signs Temp Pulse Resp BP Pulse Ox 36.8 C 104 H 16 117/64 96 11/28/17 22:19 11/28/17 22:19 11/28/17 22:19 11/28/17 22:19 11/28/17 22:19 Laboratory Results 11/23/17 06:13 11/23/17 06:13 ICD10 Worksheet Patient Problems: Problems Problem Status Onset Discitis of lumbar region Acute
[2017-11-29] MEDS: ACETAMINOPHEN 500 MG TAB PO SCH ×3 (09:24→22:32)
[2017-11-29] MEDS: buPROPion 75 MG TAB PO SCH ×2 (09:24→11:15)
[2017-11-29] MEDS: GABAPENTIN 300 MG CAP PO SCH ×3 (09:24→22:33)
[2017-11-29] MEDS: FLUoxetine 20 MG CAP PO SCH (09:25)
[2017-11-29] MEDS ORDERED: GADOBUTROL 10 ML VIAL IVP ONE (09:55)
--- NOTE | 2017-11-29 10:41 | ASMTCMCOM ---
CM Note CM Note Notes: Pt to OR today for pelvis washout/hardware revision/L5-S1 ALIF. No therapies ordered now. CM to follow pt progress after surgery to determine if there are any CM needs. Date Signed: 11/29/2017 10:41 AM Electronically Signed By:MAXIMINO Esquivel
[2017-11-29] MEDS ORDERED: THROMBIN (BOVINE) 20,000 UNIT VIAL TP ONE (11:34)
[2017-11-29] MEDS ORDERED: BUPIVACAINE 0.5% 30 ML SDV ONE (11:35)
[2017-11-29] MEDS ORDERED: AVITENE POWDER 1 GM JAR TP ONE (11:35)
[2017-11-29] MEDS ORDERED: THROMBIN (BOVINE) 5,000 UNIT VIAL TP ONE (11:35)
[2017-11-29] MEDS ORDERED: CITRATE DEXTROSE SOLN 500 ML BAG ONE (11:35)
[2017-11-29] MEDS ORDERED: BACITRACIN 50,000 UNITS/10 ML SYR IRR ONE (11:36)
[2017-11-29] MEDS ORDERED: THROMBIN (BOVINE) 20,000 UNIT SPRAY TP ONE (11:37)
--- NOTE | 2017-11-29 12:45 | PDANEPAE ---
ANE History of Present Illness infected lumbar hardware ANE Past Medical History - Cardiovascular History Hx Hypertension: No Hx Arrhythmias: No Hx Chest Pain: No Hx Coronary Artery / Peripheral Vascular Disease: No Hx CHF / Valvular Disease: No Hx Palpitations: No - Pulmonary History Hx COPD: No Hx Asthma/Reactive Airway Disease: No Hx Recent Upper Respiratory Infection: No Hx Oxygen in Use at Home: No Hx Sleep Apnea: No Sleep Apnea Screening Result - Last Documented: Negative - Endocrine History Hx Diabetes: No Hypothyroid: No Hyperthyroid: No Obesity: no - Chronic Pain History Chronic Pain: Yes ANE Review of Systems Review of systems is: negative Review of Systems: - Exercise capacity Exercise capacity: >=4 METS ANE Patient History - Allergies Allergies/Adverse Reactions: acetaminophen [From Tylenol] Allergy (Intermediate, Verified 11/23/17 10:57) Other-Enter Comments ibuprofen Allergy (Intermediate, Verified 09/23/17 20:16) Rash tramadol Allergy (Intermediate, Verified 09/23/17 20:16) Rash diphenhydramine [From Benadryl Allergy] Allergy (Verified 11/23/17 02:46) - Home Medications Home medications: home medication list seen and reviewed Home Medications: FLUoxetine [Prozac 20 MG (*)] 40 mg PO DAILY 11/22/17 [Last Taken 11/22/17] Gabapentin [Neurontin 300 MG (*)] 300 mg PO TID 11/22/17 [Last Taken 11/22/17 08 :00] Lidocaine [Lidoderm] 1 each TP DAILY 11/22/17 [Last Taken 11/21/17] buPROPion [Wellbutrin 75mg (*)] 150 mg PO 08,12 11/22/17 [Last Taken 11/22/17 08 :00] - NPO status NPO Since - Liquids (Date): 11/29/17 NPO Since - Liquids (Time): 00:00 NPO Since - Solids (Date): 11/29/17 NPO Since - Solids (Time): 00:00 - Anes Hx Anes Hx: no prior problems - Smoking Hx Smoking Status: Light smoker - Alcohol Use Alcohol Use: Sober ANE Labs/Vital Signs - Labs Result Diagrams: 11/23/17 06:13 11/23/17 06:13 - Vital Signs Blood Pressure: 115/68 Heart Rate: 88 Respiratory Rate: 15 O2 Sat (%): 93 Height: 167.64 cm Weight: 64.17 kg ANE Physical Exam - Airway Neck exam: FROM Mallampati Score: Class 1 Mouth exam: normal dental/mouth exam - Pulmonary Pulmonary: no respiratory distress - Cardiovascular Cardiovascular: regular rate and rhythym - ASA Status ASA Status: II ANE Anesthesia Plan Anesthesia Plan: general endotracheal anesthesia Urgent/Emergent Case: Antonio ramachandran completed preop but documented later for safe timely pt care
[2017-11-29] MEDS ORDERED: MIDAZOLAM 2 MG/2 ML VIAL IVP ONE (12:51)
[2017-11-29] MEDS ORDERED: REMIFENTANIL HCL 1 MG VIAL ONE (12:55)
[2017-11-29] MEDS ORDERED: fentaNYL 100 MCG/2 ML INJ ONE ×2 (12:55→16:02)
[2017-11-29] MEDS ORDERED: PROPOFOL 200 MG/20 ML VIAL ONE (12:55)
[2017-11-29] MEDS ORDERED: PROPOFOL/EMULSION 500 MG/50 ML BOTTLE IV ONE (12:56)
[2017-11-29] MEDS ORDERED: LIDOCAINE 2% 5 ML SDV ONE (12:56)
[2017-11-29] MEDS ORDERED: ceFAZolin 2 GM/SWFI 2 GM/20 ML SYR IVP ONE (13:00)
[2017-11-29] MEDS ORDERED: ONDANSETRON 4 MG/2 ML VIAL ONE (13:01)
[2017-11-29] MEDS ORDERED: DEXAMETHASONE 4 MG/ML VIAL ONE (13:01)
[2017-11-29] MEDS ORDERED: ROCURONIUM 100 MG/10 ML VIAL ONE (13:02)
--- NOTE | 2017-11-29 13:05 | HOSPPROG ---
Hospitalist Progress Note Assessment/Plan: 26-year-old female with history of L5-S1 fusion now presents with complaints of acute on chronic low back pain. # prevertebral abscess and likely osteomyelitis at L5/S1- -will need a L5-S1 ALIF (appreciate Dr Gtz and Dr Dawson)/surgery today -blood cx no growth -sed rate and CRP are elevated, but wbc stable -no abx at this time/ after fluid studies are collected, abx can be given # acute on chronic back pain - -patient says pain is acute and does well w IV Dilaudid, prn Robaxin # HCV + # anemia -follow # thrombocytosis-likely reactive in setting of infectious process as noted above. # anxiety and depression, PTSD -appreciate Isa Webb seeing Lexus -trial of low dose Minipress to see if this helps w nightmares (this was held last night due to low bp) -she has a hx of addiction and wants to avoid being addicted to the narcotics, will need to be weaned off after surgery #plan: surgery today Subjective: Lexus is a bit anxious about surgery. Objective: Vital Signs Temp Pulse Resp BP Pulse Ox 37.0 C 88 15 115/68 93 11/29/17 10:42 11/29/17 12:45 11/29/17 12:45 11/29/17 12:45 11/29/17 12:45 Laboratory Results 11/23/17 06:13 11/23/17 06:13 11/28/17 11/29/17 11/30/17 05:59 05:59 05:59 Intake Total 1500 2214 Balance 1500 2214 PT 13.6 SEC (12.0-15.0) 11/23/17 06:13 INR 1.02 (0.83-1.16) 11/23/17 06:13 - Physical Exam Constitutional: uncomfortable Eyes: PERRL Ears, Nose, Mouth, Throat: hearing normal Respiratory: no respiratory distress Skin: warm Musculoskeletal: generalized weakness Neurologic: AAOx3 Psychiatric: interacting appropriately, anxious ICD10 Worksheet Patient Problems: Problems Problem Status Onset Discitis of lumbar region Acute
[2017-11-29] MEDS ORDERED: ceFAZolin 2 GM/SWFI 20 ML SYR IVP ONE (13:11)
[2017-11-29] MEDS ORDERED: HYDROmorphONE/DILAUDID 2 MG/ML INJ ONE (13:57)
[2017-11-29] MEDS ORDERED: ROCURONIUM 50 MG/5 ML VIAL ONE (14:06)
[2017-11-29] MEDS ORDERED: SUGAMMADEX SODIUM 200 MG/2 ML VIAL IVP ONE (14:06)
[2017-11-29] MEDS ORDERED: KETAMINE 200 MG/20 ML VIAL ONE (14:10)
[2017-11-29] MEDS: BUPIVACAINE 0.25% 30 ML SDV ONE ×2 (14:11→15:16)
--- NOTE | 2017-11-29 14:32 | POSTANESTH ---
Post Anesthetic Evaluation Cardiovascular Status: Normal, Stable Respiratory Status: Normal, Stable Level of Consciousness/Mental Status: Can Participate in Eval Pain Control: Adequate, Prn Tx Ordered Nausea/Vomiting Control: Adequate, Prn Tx Ordered Complications Possibly Related to Anesthesia: None Noted
[2017-11-29] MEDS ORDERED: VANCOMYCIN 1 GM VIAL ONE (14:56)
[2017-11-29] MEDS ORDERED: VANCOMYCIN 1.5 GM in NS 250 ML IV ONE (15:00)
[2017-11-29] MEDS ORDERED: LABETALOL HCL 5 MG/ML 20 ML MDV IVP PRN (15:11)
[2017-11-29] MEDS ORDERED: PHENYLEPHRINE HCL 100 MCG/ML SYR IVP PRN (15:11)
[2017-11-29] MEDS ORDERED: HYDROCODONE/APAP 5/325 TAB PO PRN (15:11)
[2017-11-29] MEDS ORDERED: DIAZEPAM 5 MG/ML 1 ML SYR IVP PRN (15:11)
[2017-11-29] MEDS ORDERED: NALOXONE HCL 0.4 MG/ML INJ IVP PRN (15:11)
[2017-11-29] MEDS ORDERED: LR 500 ML IV PRN (15:11)
[2017-11-29] MEDS ORDERED: ACETAMINOPHEN 500 MG TAB PO PRN (15:11)
[2017-11-29] MEDS ORDERED: oxyCODONE IR 5 MG TAB PO PRN (15:11)
[2017-11-29] MEDS ORDERED: HYDROmorphONE/DILAUDID 2 MG/ML INJ IVP PRN (15:11)
[2017-11-29] MEDS ORDERED: epHEDrine SULFATE 10 MG/ML SYR IVP PRN (15:11)
[2017-11-29] MEDS ORDERED: PROMETHAZINE HCL 25 MG/ML INJ IVP PRN (15:11)
[2017-11-29] MEDS ORDERED: ONDANSETRON 4 MG/2 ML VIAL IVP PRN (15:11)
[2017-11-29] MEDS ORDERED: ALBUTEROL 3 ML DEYVIAL IH PRN (15:11)
[2017-11-29] MEDS ORDERED: MAGNESIUM CITRATE 300 ML BOTTLE PO PRN (15:30)
[2017-11-29] MEDS: fentaNYL 100 MCG/2 ML INJ IVP PRN ×2 (16:05→16:22)
--- NOTE | 2017-11-29 20:43 | GOP ---
[f rep st] OPERATIVE REPORT DATE OF OPERATION: 11/29/2017 SURGEON: Jaime Dawson MD NEUROSURGEON: Jaime Dawson. LINEN KEEPER: None. ANESTHESIA: General endotracheal. PREOPERATIVE DIAGNOSIS: Pelvic abscess with L5-S1 diskitis, status post L5-S1 fusion. POSTOPERATIVE DIAGNOSIS: Pelvic abscess with L5-S1 diskitis, status post L5-S1 fusion. PROCEDURE PERFORMED: FINDINGS: Pelvic abscess with L5-S1 diskitis. SPECIMENS: Retroperitoneal and L5-S1 disk space samples for cultures. ESTIMATED BLOOD LOSS: 50 cc. INDICATIONS: The patient is a 26-year-old who had an L5-S1 fusion for an unknown reason about 2 year s ago at another hospital. She presented here with back pain and elevated inflammatory markers, alth ough her white count was normal. Infectious Disease was consulted and blood cultures have thus far b een negative, so they had asked if we could get samples. We went into the case with the possibility of washing out and then replacing the cage within ALIF cage, if possible, if the bone quality was goo d enough. DESCRIPTION OF PROCEDURE: After informed consent was obtained from the patient, the patient was brou ght to the operating room and was placed in a supine position on the Davide table with a bolster shanique eath the lumbar spine. A lateral x-ray was performed with the C-arm localizing the appropriate level of the incision parallel with the L5-S1 disk space. At this point, the patient was prepped and drap ed in the normal sterile fashion. Dr. Gtz then performed a transverse incision in the lower abdomen and got peritoneal access, which is dictated under separate note. Once the bowel was retracted out of the way, the posterior peritone um was opened over the lumbosacral junction. This tissue was extremely inflamed and very thick muriel red to normal. The iliac veins were extremely adherent to the prevertebral fascia in this area. As Dr. Gtz dissected deeper, a small pocket of purulent material was encountered over the L5-S1 disk s pace, and this was sampled and sent for stat Gram stain, which did not show any organisms, but had 1+ polymorphonuclear leukocytes. As the dissection continued, the disk space was entered and the cage was somewhat visualized, although it appeared to be well encased in bone. The bone was very soft and the bone of the sacral promontory was virtually completely obliterated by whatever infectious proces s was going on. There was some bleeding from the sacral bone, but the endplate appeared to be comple tely eroded. The inferior L5 endplate also appeared to be eroded in this area, but the cage appeared stable. At this point, after some exploration, I did not think that it was going to be possible to remove the cage, so we then irrigated the disk space and the retroperitoneum in that area with 2 L of bacitracin irrigation. At this point, 1 g of vancomycin powder was then placed over the disk space and into the retroperitoneum in that area. At this point, Dr. Gtz then performed the closure of th e abdominal cavity. The patient was then awakened in the operating room and was transferred to the PACU in stable conditi on. There were no operative complications. I was scrubbed and present for the entire procedure. Al l sponge and needle counts were correct at the end of the case. CO-SURGEON: Jay Gtz MD. /[id number]/MODL
[2017-11-29] MEDS: PRAZOSIN HCL 1 MG CAP PO SCH (22:33)
[2017-11-30] MEDS: LORazepam 2 MG/ML INJ IVP PRN (00:55)
[2017-11-30] MEDS: HYDROmorphONE/DILAUDID 2 MG/ML INJ IVP PRN ×3 (00:56→19:43)
[2017-11-30] MEDS: VANCOMYCIN HCL/NORMAL SALINE 250 ML IV SCH ×2 (03:43→16:18)
[2017-11-30] MEDS: HYDROmorphONE/DILAUDID 4 MG TAB PO PRN ×5 (03:53→22:03)
[2017-11-30 05:03] LABS: PLATELET COUNT 431 10^3/uL (150-400)
--- NOTE | 2017-11-30 06:41 | NEUSURGPN ---
Date of Surgery: 11/29/17 Post Op Day: 1 Assessment/Plan: Assessment: 26 yo female with prior L5/S1 fusion. Back pain and fluid collection anterior to L5/S1-POD #1 s/p L5/S1 washout without fusion Plan: Preop: Prevertebral abscess and likely diskitis osteomyelitis at L5-S1 confirmed on CT scan. Blood cultures negative X 5 days. MRSA negative. Elevated CRP, ESR and thrombocytosis supports underlying infection -s/p anterior approach L5/S1 washout without fusion -pt states her abd incision hurts but her back feels better -continue with vanco 1 gr q 12 -will continue with abx and recommend repeat MRI with contrast in 3-4 weeks for follow up -PT/OT as tolerated -ID and medicine following-appreciate input and care -continue with current pain mgmt -warning signs given -call with any questions or concerns -D/W Dr. Dawson Subjective: Awake and alert, NAD. Eating/drinking and voiding. No f/c/n/v/d. No new events overnight. Objective: AAO x 3, PERRLA/EOMI no droop CN 2-12 grossly intact +lt touch 5/5 BUE/BLE = CDI Neuro Check Frequency: per routine Urinary Catheter in Place: No - Physician Discussed Patient with : Eunice Neurosurgery Physical Exam - Vitals, I&O, Labs I and O 11/29/17 11/30/17 12/01/17 05:59 05:59 05:59 Intake Total 2214 2075 Output Total 2100 Balance 2214 -25 Weight 63.54 kg 70.1 kg Intake: Oral (ml) 1700 IV Intake (ml) 1225 IV Infused (ml) 514 850 Ns 1,000 ml @ 100 mls/hr 514 600 IV .CON BAL Rx#: [id number] Vancomycin 1.5 gm In Ns 250 250 ml @ 166.667 mls/hr IV ONCE ONE Rx#: [id number] Output: Urine (ml) 2100 Catheter 2100 Other: Intake Quantity Yes Sufficient Number of Voids Toilet 1 3 Microbiology 11/29/17 14:54 Gram Stain - Final Back - Tissue 11/29/17 14:28 Gram Stain - Final Back - Eswab 11/29/17 14:28 Gram Stain - Final Back - Eswab 11/29/17 14:28 Mycobacterial Smear (CORRY) - Final Back - Eswab Mycobacterial Culture - Final 11/29/17 14:28 Mycobacterial Smear (CORRY) - Final Back - Eswab Mycobacterial Culture - Final Vital Signs Temp Pulse Resp BP Pulse Ox 36.8 C 91 18 106/51 L 96 11/30/17 04:27 11/30/17 04:27 11/30/17 04:27 11/30/17 04:27 11/30/17 04:27 Laboratory Results 11/30/17 04:40 11/30/17 04:40 ICD10 Worksheet Patient Problems: Problems Problem Status Onset Discitis of lumbar region Acute
[2017-11-30] MEDS: ACETAMINOPHEN 500 MG TAB PO SCH ×3 (09:01→22:02)
[2017-11-30] MEDS: buPROPion 75 MG TAB PO SCH ×2 (09:02→12:52)
[2017-11-30] MEDS: METHOCARBAMOL 750 MG TAB PO PRN ×2 (09:02→17:15)
[2017-11-30] MEDS: FLUoxetine 20 MG CAP PO SCH (09:03)
[2017-11-30] MEDS: GABAPENTIN 300 MG CAP PO SCH ×3 (09:03→22:03)
[2017-11-30] MEDS: POLYETHYLENE GLYCOL 3350 17 GM PKT PO SCH (09:04)
--- NOTE | 2017-11-30 10:13 | PCMIDPN ---
Assessment/Plan: Assessment: L5-S1 disc space inflammation with pre spinal space inflammation and fluid collections. patient went for surgery yesterday via an anterior approach. The surgery was successful and the pre spinal area was washed out and debrided. Patient is clinically much improved following surgery. Hardware was retained however. This will indicate that after directed IV antibiotic therapy she will need to be on oral suppression verses pathogens that hopefully we will isolate from incubating cultures. Vancomycin monotherapy was started empirically following treatment. Will continue this monotherapy and check trough levels tomorrow. Plan: 1. Continue empiric IV vancomycin. 2. Follow culture results and adjust antibiotic treatment based on findings Subjective: patient is resting in her hospital bed. She states that she feels much better since surgery. She is able to stand and walk without being on the balls of her feet. She is able to get up from a sitting position without significant pain. Overall she is very satisfied with the improvement in her back pain from the surgical procedure. She is tolerating IV vancomycin. No complaints of rash or diarrhea. Objective: Vancomycin IV # 1 Vital Signs Temp Pulse Resp BP Pulse Ox 37.0 C 99 16 118/79 93 11/30/17 08:00 11/30/17 08:00 11/30/17 08:00 11/30/17 08:00 11/30/17 08:00 Microbiology 11/29/17 14:54 Gram Stain - Final Back - Tissue 11/29/17 14:28 Gram Stain - Final Back - Eswab 11/29/17 14:28 Gram Stain - Final Back - Eswab 11/29/17 14:28 Mycobacterial Smear (CORRY) - Final Back - Eswab Mycobacterial Culture - Final 11/29/17 14:28 Mycobacterial Smear (CORRY) - Final Back - Eswab Mycobacterial Culture - Final Laboratory Results 11/30/17 04:40 11/30/17 04:40 11/29/17 11/30/17 12/01/17 05:59 05:59 05:59 Intake Total 2214 2075 Output Total 2100 Balance 2214 -25 ESR 75 MM/HR (0-20) H 11/22/17 19:05 C-Reactive Protein 70.1 mg/L (<10.0) H 11/22/17 19:05 - Physical Exam General Appearance: WD/WN, alert, no apparent distress, non-toxic Respiratory: lungs clear, normal breath sounds, No respiratory distress Cardiac/Chest: regular rate, rhythm, No tachycardia Skin: normal color, warm/dry, No rash Neuro/Psych: alert, normal mood/affect, oriented x 3 ICD10 Worksheet Patient Problems: Problems Problem Status Onset Discitis of lumbar region Acute
--- NOTE | 2017-11-30 10:26 | SOAPPROG ---
SOAP Progress Note Assessment/Plan: Assessment/Plan: 26 Y F s/p anterior abdominal exposure for spine surgery, hx L5S1 fusion, s/p washout for infection/fluid collection. Ileus. Starting to pass some gas. Will advance diet later in the day. Added crackers and applesauce this am. Wound. Dressing intact. Will remove tomorrow. On abx per ID. Cultures pending. S: pain controlled--mostly incisional pain. very happy that her back feels great. O: alert, nad ctab rrr abd soft, appropriately ttp, +hypoactive BS. inc well dressed, no shadowing. 11/30/17 10:24 Objective: Vital Signs Temp Pulse Resp BP Pulse Ox 37.0 C 99 16 118/79 93 11/30/17 08:00 11/30/17 08:00 11/30/17 08:00 11/30/17 08:00 11/30/17 08:00 Microbiology 11/29/17 14:54 Gram Stain - Final Back - Tissue 11/29/17 14:28 Gram Stain - Final Back - Eswab 11/29/17 14:28 Gram Stain - Final Back - Eswab 11/29/17 14:28 Mycobacterial Smear (CORRY) - Final Back - Eswab Mycobacterial Culture - Final 11/29/17 14:28 Mycobacterial Smear (CORRY) - Final Back - Eswab Mycobacterial Culture - Final Laboratory Results 11/30/17 04:40 11/30/17 04:40 11/29/17 11/30/17 12/01/17 05:59 05:59 05:59 Intake Total 2214 2074 Output Total 2099 Balance 2214 -25 PT 13.6 SEC (12.0-15.0) 11/23/17 06:13 INR 1.02 (0.83-1.16) 11/23/17 06:13 ICD10 Worksheet Patient Problems: Problems Problem Status Onset Discitis of lumbar region Acute
--- NOTE | 2017-11-30 15:15 | HOSPPROG ---
Hospitalist Progress Note Assessment/Plan: 26-year-old female PMH PTSD, anxiety/depression, with history of L5-S1 fusion 2014 now presents with complaints of acute on chronic low back pain. # prevertebral abscess and likely osteomyelitis at L5/S1- -proceeded L5-S1 hardware washout/debridement anterior approach with retained hardware -blood cx no growth -back swab with S aureus -started on Vanco per ID # acute on chronic back pain - -patient says pain is acute and does well w IV Dilaudid, prn Robaxin # HCV + will need outpatient f/u and treatment # anemia -follow # thrombocytosis-likely reactive in setting of infectious process as noted above. # anxiety and depression, PTSD - Discussed spiritual care consult for emotional support as pt is tearful during our meeting -back on her home meds for this which she feels is helping -trial of low dose Minipress to see if this helps w nightmares which she has been on in the past -she has a hx of addiction and wants to avoid being addicted to the narcotics, will need to be weaned off prior to discharge Subjective: Feels pain in abdomen but this is tolerable. Enjoying getting up to walk as she is not debilitated by the previous back pain she was experiencing. Objective: Vital Signs Temp Pulse Resp BP Pulse Ox 98.5 F 126 H 16 122/88 H 94 11/30/17 11:57 11/30/17 11:57 11/30/17 11:57 11/30/17 11:57 11/30/17 11:57 Microbiology 11/29/17 14:54 Mycobacterial Smear (CORRY) - Final Back - Tissue 11/29/17 14:54 Gram Stain - Final Back - Tissue 11/29/17 14:28 Gram Stain - Final Back - Eswab 11/29/17 14:28 Gram Stain - Final Back - Eswab 11/29/17 14:28 Mycobacterial Smear (CORRY) - Final Back - Eswab Mycobacterial Culture - Final 11/29/17 14:28 Mycobacterial Smear (CORRY) - Final Back - Eswab Mycobacterial Culture - Final Laboratory Results 11/30/17 04:40 11/30/17 04:40 11/29/17 11/30/17 12/01/17 05:59 05:59 05:59 Intake Total 2214 3 Output Total 2100 Balance 2214 -25 PT 13.6 SEC (12.0-15.0) 11/23/17 06:13 INR 1.02 (0.83-1.16) 11/23/17 06:13 - Physical Exam Constitutional: no apparent distress, other (some emotional lability) Eyes: anicteric sclera Ears, Nose, Mouth, Throat: moist mucous membranes Cardiovascular: regular rate and rhythym, no murmur, rub, or gallop Respiratory: no respiratory distress, no rales or rhonchi Neurologic: AAOx3 Psychiatric: interacting appropriately, not anxious ICD10 Worksheet Patient Problems: Problems Problem Status Onset Discitis of lumbar region Acute
--- NOTE | 2017-11-30 16:11 | GOP ---
[f rep st] OPERATIVE REPORT DATE OF OPERATION: 11/29/2017 SURGEON: Jay Gtz MD COAL CONVEYOR OPERATOR: Elvira Nuñez NP ANESTHESIA: Dr. Espinosa. PREOPERATIVE DIAGNOSIS: An L5-S1 diskitis and possible osteomyelitis with a perispinal abscess. POSTOPERATIVE DIAGNOSIS: An L5-S1 diskitis and possible osteomyelitis with a perispinal abscess. PROCEDURE PERFORMED: Anterior spine exposure for L5-S1 with I and D and debridement. FINDINGS: INFECTION AND BONY NECROSIS IN THE L5-S1 DISC SPACE AND S1 BODY DESCRIPTION OF PROCEDURE: Patient was taken to the operating room where she received a satisfactory general endotracheal anesthesia by Dr. Espinosa. She was placed in supine position and prepped and draped in the usual sterile fashion. A Pfannenstiel-type incision was made in the low pelvis. Dissection extended down through subcutaneous tissue. The internal oblique fascia was incised transversely and elevated up off the rectus muscles, which were then retracted laterally after opening the midline peritoneum. The abdomen was entered. The small bowel and colon were packed away. She was markedly constipated. This exposed the sacral prominence. Retroperitoneum was entered with electrocautery. Hemostasis was obtained. The vessels of the iliac bifurcations were tightly adherent to the L4 and L5 vertebral bodies secondary to inflammatory reaction. A large amount of inflammation was encountered. There was minimal kaci pus, but there with necrotic tissue in the disk space as well as in the S1 vertebral body. This area was exposed, it was cultured and debrided. The case was turned over at that point to Dr. Dawson for further evaluation. Areas were irrigated out. It was felt not feasible to remove her previous spacer. His part will be dictated separately. After debridement and irrigation, the abdomen was then closed. The retroperitoneum was left open. The linea alba was closed with a running 0 Vicryl suture for the peritoneum, as well as interrupted 0 Vicryl sutures to approximate the rectus muscles. The anterior rectus sheath was closed with a running #1 PDS suture. The wound was infiltrated with 0.5% Marcaine. Subcu was closed with a running 3-0 Vicryl suture and the skin with a 4-0 Monocryl subcuticular stitch. She tolerated the procedure well. Blood loss was less than 100 mL. There were no complications. INSURANCE SALES ASSISTANT: Dr. Dawson. /[id number]/MODL MTDD
[2017-11-30] MEDS: PRAZOSIN HCL 1 MG CAP PO SCH (22:04)
[2017-12-01] MEDS: LORazepam 2 MG/ML INJ IVP PRN (00:22)
[2017-12-01] MEDS: HYDROmorphONE/DILAUDID 4 MG TAB PO PRN ×5 (02:02→21:44)
[2017-12-01] MEDS: VANCOMYCIN HCL/NORMAL SALINE 250 ML IV SCH (04:35)
[2017-12-01] MEDS: METHOCARBAMOL 750 MG TAB PO PRN ×3 (04:42→21:45)
--- NOTE | 2017-12-01 06:36 | NEUSURGPN ---
Date of Surgery: 11/29/17 Post Op Day: 2 Assessment/Plan: Assessment: 26 yo female with prior L5/S1 fusion. 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 Blood cultures negative X 5 days. MRSA negative. Elevated CRP, ESR and thrombocytosis supports underlying infection -s/p anterior approach L5/S1 washout without fusion -pt states her abd incision hurts both her back and abd are better today -continue with vanco 1 gr q 12 -will continue with abx and recommend repeat MRI with contrast in 3-4 weeks for follow up -PT/OT as tolerated -ID and medicine following-appreciate input and care -will check with IM if ok for NS to sign off at this time -continue with current pain mgmt -warning signs given -call with any questions or concerns -D/W Dr. Dawson Subjective: Awake and alert. NAD. No new complaints or concerns. Pt ambulating well yesterday. She is happy so far Objective: AAO x 3, PERRLA/EOMI no droop CN 2-12 grossly intact +lt touch 5/5 BUE/BLE = CDI Neuro Check Frequency: per routine Urinary Catheter in Place: No - Physician Discussed Patient with : [facility] Physical Exam - Vitals, I&O, Labs I and O 11/30/17 12/01/17 12/02/17 05:59 05:59 05:59 Intake Total 2075 2550 Output Total 2100 1000 Balance -25 1550 Weight 70.1 kg 65.3 kg Intake: Oral (ml) 2550 IV Intake (ml) 1225 IV Infused (ml) 850 Ns 1,000 ml @ 100 mls/hr 600 IV .CON BAL Rx#: [id number] Vancomycin 1.5 gm In Ns 250 250 ml @ 166.667 mls/hr IV ONCE ONE Rx#: [id number] Output: Urine (ml) 2100 1000 Catheter 2100 Toilet 1000 Other: Intake Quantity Yes Sufficient Number of Voids Toilet 3 2 Microbiology 11/29/17 14:54 Mycobacterial Smear (CORRY) - Final Back - Tissue 11/29/17 14:54 Gram Stain - Final Back - Tissue 11/29/17 14:28 Gram Stain - Final Back - Eswab 11/29/17 14:28 Gram Stain - Final Back - Eswab Vital Signs Temp Pulse Resp BP Pulse Ox 36.9 C 73 16 109/71 94 12/01/17 04:00 12/01/17 04:00 12/01/17 04:00 12/01/17 04:00 12/01/17 04:00 Laboratory Results 11/30/17 04:40 11/30/17 04:40 ICD10 Worksheet Patient Problems: Problems Problem Status Onset Discitis of lumbar region Acute
[2017-12-01] MEDS: POLYETHYLENE GLYCOL 3350 17 GM PKT PO SCH (08:47)
[2017-12-01] MEDS: GABAPENTIN 300 MG CAP PO SCH ×3 (08:47→21:42)
[2017-12-01] MEDS: buPROPion 75 MG TAB PO SCH ×2 (08:47→12:02)
[2017-12-01] MEDS: FLUoxetine 20 MG CAP PO SCH (08:47)
--- NOTE | 2017-12-01 10:15 | HOSPPROG ---
Hospitalist Progress Note Assessment/Plan: 26-year-old female PMH PTSD, anxiety/depression, with history of L5-S1 fusion 2014 now presents with complaints of acute on chronic low back pain. # prevertebral abscess and likely diskitis/osteomyelitis at L5/S1- -proceeded L5-S1 hardware washout/debridement anterior approach with retained hardware -blood cx no growth -back swab with S aureus -started on Vanco per ID (sensitivity confirmed) # acute on chronic back pain - -patient says pain is acute and does well w IV Dilaudid, prn Robaxin # HCV + will need outpatient f/u and treatment # anemia -follow # thrombocytosis-likely reactive in setting of infectious process as noted above. # anxiety and depression, PTSD -back on her home meds for this which she feels is helping -trial of low dose Minipress to see if this helps w nightmares which she has been on in the past -she has a hx of addiction and wants to avoid being addicted to the narcotics, will need to be weaned off prior to discharge - stop IV Dilaudid and Ativan now Subjective: Reports more back and abdominal pain today. No BM and feels abdominal distention. Objective: Vital Signs Temp Pulse Resp BP Pulse Ox 98.6 F 83 15 108/64 95 12/01/17 08:00 12/01/17 08:00 12/01/17 08:00 12/01/17 08:00 12/01/17 08:00 Microbiology 11/29/17 14:28 Gram Stain - Final Back - Eswab 11/29/17 14:54 Mycobacterial Smear (CORRY) - Final Back - Tissue 11/29/17 14:54 Gram Stain - Final Back - Tissue 11/29/17 14:28 Gram Stain - Final Back - Eswab Laboratory Results 11/30/17 04:40 11/30/17 04:40 11/30/17 12/01/17 12/02/17 05:59 05:59 05:59 Intake Total 2075 2550 Output Total 2100 1000 Balance -25 1550 PT 13.6 SEC (12.0-15.0) 11/23/17 06:13 INR 1.02 (0.83-1.16) 11/23/17 06:13 - Physical Exam Constitutional: no apparent distress Ears, Nose, Mouth, Throat: moist mucous membranes, hearing normal Cardiovascular: regular rate and rhythym, no murmur, rub, or gallop Respiratory: no respiratory distress Gastrointestinal: normoactive bowel sounds, distension Skin: warm Neurologic: AAOx3 Psychiatric: interacting appropriately ICD10 Worksheet Patient Problems: Problems Problem Status Onset Discitis of lumbar region Acute
[2017-12-01] MEDS ORDERED: SENNOSIDES 1 TAB PO SCH (10:30)
--- NOTE | 2017-12-01 10:32 | PCMIDPN ---
Assessment/Plan: Assessment: L5-S1 disc space inflammation with pre spinal space inflammation and fluid collections. patient went for surgery yesterday via an anterior approach. The surgery was successful and the pre spinal area was washed out and debrided. Patient is clinically much improved following surgery. Hardware was retained however. This will indicate that after directed IV antibiotic therapy she will need to be on oral suppression verses pathogens that hopefully we will isolate from incubating cultures. Patient currently on vancomycin monotherapy. Cultures are growing out MSSA. Will switch to IV Ancef monotherapy. Patient having abdominal pain today. Query whether this is postoperative ileus as she has not had a bowel movement since the day prior to surgery. Plan: 1. Discontinue IV vancomycin. Start IV Ancef 2 g q.8 hours. 2. Follow clinical course. 12/01/17 10:30 Subjective: Patient is resting in her hospital bed. She feels somewhat worse than yesterday because she has increased abdominal pain which is also causing her to think that she may have increased back pain on the left side. She is still however able to walk without being on her toes. No fevers or chills. Objective: Vancomycin # 2 Vital Signs Temp Pulse Resp BP Pulse Ox 37 C 83 15 108/64 95 12/01/17 08:00 12/01/17 08:00 12/01/17 08:00 12/01/17 08:00 12/01/17 08:00 Microbiology 11/29/17 14:28 Gram Stain - Final Back - Eswab 11/29/17 14:54 Mycobacterial Smear (CORRY) - Final Back - Tissue 11/29/17 14:54 Gram Stain - Final Back - Tissue 11/29/17 14:28 Gram Stain - Final Back - Eswab Laboratory Results 11/30/17 04:40 11/30/17 04:40 11/30/17 12/01/17 12/02/17 05:59 05:59 05:59 Intake Total 2075 2550 Output Total 2100 1000 Balance -25 1550 ESR 75 MM/HR (0-20) H 11/22/17 19:05 C-Reactive Protein 70.1 mg/L (<10.0) H 11/22/17 19:05 - Physical Exam General Appearance: WD/WN, alert, no apparent distress, non-toxic Respiratory: lungs clear, normal breath sounds, No respiratory distress Cardiac/Chest: regular rate, rhythm, No tachycardia Abdomen: soft, distended, No non-tender, No mass Skin: normal color, warm/dry, No rash Neuro/Psych: alert, normal mood/affect, oriented x 3 ICD10 Worksheet Patient Problems: Problems Problem Status Onset Discitis of lumbar region Acute
[2017-12-01] MEDS: ACETAMINOPHEN 500 MG TAB PO SCH (10:44)
[2017-12-01] MEDS: LORazepam 1 MG TAB PO PRN ×2 (11:01→16:33)
[2017-12-01] MEDS: KETOROLAC 15 MG/1 ML SDV IVP SCH ×3 (11:01→18:51)
[2017-12-01] MEDS ORDERED: KETOROLAC 15 MG/1 ML SDV IVP SCH (12:00)
[2017-12-01] MEDS ORDERED: BISACODYL 10 MG SUPP PR ONE (12:16)
--- NOTE | 2017-12-01 12:20 | SOAPPROG ---
SOAP Progress Note Assessment/Plan: Assessment/Plan: 26 Y F s/p anterior abdominal exposure for spine surgery, hx L5S1 fusion, s/p washout for infection/fluid collection. Ileus. Passing gas and tolerating light diet. No BM. Dulcolax suppository today. Patient amenable to this. Wound. Dressing intact. May leave steris open to air. Ok to shower from our standpoint. Medication adjustments per medicine--transitioning to PO narcotics. Appreciate ID input. On ancef now. MSSA. S: tearful today. no n/v. no BM. +flatus. O: alert, nad ctab rrr abd softly bloated, appropriately ttp, +BS. inc cdi c steris 12/01/17 12:19 Objective: Vital Signs Temp Pulse Resp BP Pulse Ox 36.8 C 79 16 105/67 94 12/01/17 11:26 12/01/17 11:26 12/01/17 11:26 12/01/17 11:26 12/01/17 11:26 Microbiology 11/29/17 14:28 Gram Stain - Final Back - Eswab 11/29/17 14:54 Mycobacterial Smear (CORRY) - Final Back - Tissue 11/29/17 14:54 Gram Stain - Final Back - Tissue 11/29/17 14:28 Gram Stain - Final Back - Eswab Laboratory Results 11/30/17 04:40 11/30/17 04:40 11/30/17 12/01/17 12/02/17 05:59 05:59 05:59 Intake Total 2075 2550 Output Total 2100 1000 Balance -25 1550 PT 13.6 SEC (12.0-15.0) 11/23/17 06:13 INR 1.02 (0.83-1.16) 11/23/17 06:13 ICD10 Worksheet Patient Problems: Problems Problem Status Onset Discitis of lumbar region Acute
[2017-12-01] MEDS ORDERED: MAGNESIUM HYDROXIDE 30 ML UDCUP PO PRN (13:24)
[2017-12-01] MEDS ORDERED: LACTULOSE 20 GM/30 ML UDCUP PO PRN (13:24)
[2017-12-01] MEDS ORDERED: BISACODYL 10 MG SUPP PR PRN (13:24)
[2017-12-01] MEDS ORDERED: ceFAZolin 2 GM/DEXTROSE 100 ML IV SCH (14:00)
[2017-12-01] MEDS: ceFAZolin 2 GM/SWFI 2 GM/20 ML SYR IVP SCH ×2 (14:54→21:42)
[2017-12-01 16:05] LABS: PLATELET COUNT 400 10^3/uL (150-400)
[2017-12-01] MEDS: SENNOSIDES/DOCUSATE SODIUM TAB PO SCH (21:42)
[2017-12-01] MEDS: PRAZOSIN HCL 1 MG CAP PO SCH (21:42)
[2017-12-02] MEDS: KETOROLAC 15 MG/1 ML SDV IVP SCH ×3 (00:19→11:00)
[2017-12-02] MEDS: LORazepam 1 MG TAB PO PRN (02:14)
[2017-12-02] MEDS: ceFAZolin 2 GM/SWFI 2 GM/20 ML SYR IVP SCH ×2 (05:13→13:05)
[2017-12-02] MEDS: HYDROmorphONE/DILAUDID 4 MG TAB PO PRN (05:14)
[2017-12-02 08:42] VITALS: BP 95/55
[2017-12-02] MEDS: buPROPion 75 MG TAB PO SCH ×2 (08:55→11:02)
[2017-12-02] MEDS: SENNOSIDES/DOCUSATE SODIUM TAB PO SCH (08:55)
[2017-12-02] MEDS: GABAPENTIN 300 MG CAP PO SCH (08:55)
[2017-12-02] MEDS: FLUoxetine 20 MG CAP PO SCH (08:55)
[2017-12-02] MEDS: METHOCARBAMOL 750 MG TAB PO PRN (08:55)
[2017-12-02] MEDS: POLYETHYLENE GLYCOL 3350 17 GM PKT PO SCH (08:56)
[2017-12-02] MEDS ORDERED: HYDROCODONE/APAP 5/325 TAB PO PRN (10:20)
[2017-12-02] MEDS ORDERED: HYDROmorphONE/DILAUDID 4 MG TAB PO PRN (10:21)
--- NOTE | 2017-12-02 11:06 | PCMIDPN ---
Assessment/Plan: Assessment: L5-S1 disc space inflammation with pre spinal space inflammation and fluid collections. patient went for surgery yesterday via an anterior approach. The surgery was successful and the pre spinal area was washed out and debrided. Patient is clinically much improved following surgery. Hardware was retained however. This will indicate that after directed IV antibiotic therapy she will need to be on oral suppression verses pathogens that hopefully we will isolate from incubating cultures. Patient currently on cefazolin 2 g IV q.8 hours and tolerating well. Will plan on placing a PICC line in arranging for home IV antibiotics for total of 8 weeks from surgery. After completion of these 8 weeks patient will need to go on oral suppression with Keflex 500 mg p.o. Twice daily. Plan: 1. Continue Ancef 2 g q.8 hours. 2. PICC line placement. 3. Arrange home IV antibiotics. 12/01/17 10:30 12/02/17 11:03 Subjective: Patient is up walking around her room. She is able to stand flat foot and on the floor without pain. 1 she had a bowel movement over the past 24 hr her abdominal distention and pain as well as back pain from yesterday all resolved. Objective: Cefazolin # 1 Vital Signs Temp Pulse Resp BP Pulse Ox 36.9 C 93 12 95/55 L 98 12/02/17 08:00 12/02/17 08:00 12/02/17 08:00 12/02/17 08:00 12/02/17 08:00 Microbiology 11/29/17 14:28 Gram Stain - Final Back - Eswab 11/29/17 14:28 Gram Stain - Final Back - Eswab 11/29/17 14:54 Gram Stain - Final Back - Tissue Laboratory Results 12/01/17 15:37 12/02/17 04:48 12/01/17 12/02/17 12/03/17 05:59 05:59 05:59 Intake Total 2550 1020 Output Total 1000 Balance 1550 1020 ESR 75 MM/HR (0-20) H 11/22/17 19:05 C-Reactive Protein 70.1 mg/L (<10.0) H 11/22/17 19:05 - Physical Exam General Appearance: WD/WN, alert, no apparent distress, non-toxic Respiratory: lungs clear, normal breath sounds, No respiratory distress Cardiac/Chest: regular rate, rhythm, No tachycardia Abdomen: soft, No distended Skin: normal color, warm/dry, No rash Neuro/Psych: alert, normal mood/affect, oriented x 3 ICD10 Worksheet Patient Problems: Problems Problem Status Onset Discitis of lumbar region Acute
--- NOTE | 2017-12-02 11:10 | PDIAF ---
- Diagnosis Diagnosis: Lumbar diskitis secondary to MSSA postoperative hardware infection Code Status: Full Code - Medication Management Discharge Medications: Medications to Continue on Transfer FLUoxetine [Prozac 20 MG (*)] 40 mg PO DAILY 11/22/17 [Last Taken 11/22/17] Gabapentin [Neurontin 300 MG (*)] 300 mg PO TID 11/22/17 [Last Taken 11/22/17 08 :00] Lidocaine [Lidoderm] 1 each TP DAILY 11/22/17 [Last Taken 11/21/17] buPROPion [Wellbutrin 75mg (*)] 150 mg PO ,11/22/17 [Last Taken 11/22/17 08 :00] [employer] Antibiotics: Cefazolin 2 g IV q.8 hours [facility] Antibiotic Stop Date: 01/24/18 Discharge Medications: Refer to the Discharge Home Medication list for PRN reason. PICC Care - Routine: Yes - Orders Services needed: Registered Nurse - Labs/Radiology CBC w/diff Date: 12/05/17 (weekly) CMP Date: 12/05/17 (weekly) CRP Date: 12/05/17 (weekly) Call or Fax Lab and Imaging Results to: Portia Royal - Follow Up Care Current Providers and Referrals: Elvira Obrien PA [Primary Care Provider] - As per Instructions
[2017-12-02] MEDS ORDERED: ALTEPLASE 2 MG VIAL IVP PRN (11:12)
--- NOTE | 2017-12-02 11:45 | SOAPPROG ---
SOAP Progress Note Assessment/Plan: Assessment/Plan: 26 Y F s/p anterior abdominal exposure for spine surgery, hx L5S1 fusion, s/p washout for infection/fluid collection. Seen earlier this morning with Dr. Gtz. +BM overnight. TOlerating diet. Pain controlled. Says her back feel great. PICC line for outpatient abx. Would be ok for d/c from surgical standpoint. Will add info to d/c plan. S: feels better. see above. O: alert, nad ctab rrr abd softer, appropriately ttp, +BS. inc cdi c steris 12/02/17 11:44 Objective: Vital Signs Temp Pulse Resp BP Pulse Ox 36.9 C 93 12 95/55 L 98 12/02/17 08:00 12/02/17 08:00 12/02/17 08:00 12/02/17 08:00 12/02/17 08:00 Microbiology 11/29/17 14:28 Gram Stain - Final Back - Eswab 11/29/17 14:28 Gram Stain - Final Back - Eswab 11/29/17 14:54 Gram Stain - Final Back - Tissue Laboratory Results 12/01/17 15:37 12/02/17 04:48 12/01/17 12/02/17 12/03/17 05:59 05:59 05:59 Intake Total 2550 1020 Output Total 1000 Balance 1550 1020 PT 13.6 SEC (12.0-15.0) 11/23/17 06:13 INR 1.02 (0.83-1.16) 11/23/17 06:13 ICD10 Worksheet Patient Problems: Problems Problem Status Onset Discitis of lumbar region Acute
[2017-12-02] MEDS ORDERED: oxyCODONE IR 5 MG TAB PO PRN (12:09)
--- NOTE | 2017-12-02 12:28 | HOSPPROG ---
Hospitalist Progress Note Assessment/Plan: 26-year-old female PMH PTSD, anxiety/depression, with history of L5-S1 fusion 2014 now presents with complaints of acute on chronic low back pain. # prevertebral abscess and likely diskitis/osteomyelitis at L5/S1- -proceeded L5-S1 hardware washout/debridement anterior approach with retained hardware -blood cx no growth -back swab with S aureus -Ancef -PICC in today # acute on chronic back pain - -trial of oxy # HCV + will need outpatient f/u and treatment # anemia -follow # thrombocytosis-likely reactive in setting of infectious process as noted above. # anxiety and depression, PTSD -back on her home meds for this which she feels is helping -trial of low dose Minipress to see if this helps w nightmares which she has been on in the past -she has a hx of addiction and wants to avoid being addicted to the narcotics, will need to be weaned off prior to discharge #plan: picc to be placed today, can go home later today most likely Subjective: Lexus is feeling much better! Objective: Vital Signs Temp Pulse Resp BP Pulse Ox 36.9 C 93 12 95/55 L 98 12/02/17 08:00 12/02/17 08:00 12/02/17 08:00 12/02/17 08:00 12/02/17 08:00 Microbiology 11/29/17 14:28 Gram Stain - Final Back - Eswab 11/29/17 14:28 Gram Stain - Final Back - Eswab 11/29/17 14:54 Gram Stain - Final Back - Tissue Laboratory Results 12/01/17 15:37 12/02/17 04:48 12/01/17 12/02/17 12/03/17 05:59 05:59 05:59 Intake Total 2550 1020 Output Total 1000 Balance 1550 1020 PT 13.6 SEC (12.0-15.0) 11/23/17 06:13 INR 1.02 (0.83-1.16) 11/23/17 06:13 - Physical Exam Constitutional: no apparent distress, appears nourished Eyes: PERRL Ears, Nose, Mouth, Throat: hearing normal Respiratory: no respiratory distress Skin: warm, other (abdominal incision well approximated w steri strips in place) Musculoskeletal: full muscle strength Neurologic: AAOx3 Psychiatric: interacting appropriately ICD10 Worksheet Patient Problems: Problems Problem Status Onset Discitis of lumbar region Acute
[2017-12-02] MEDS ORDERED: LIDOCAINE 1% 300 MG/30 ML SDV ONE (13:44)
--- NOTE | 2017-12-02 15:07 | PDIAF ---
- Diagnosis Diagnosis: Lumbar diskitis secondary to MSSA postoperative hardware infection Code Status: Full Code - Medication Management Discharge Medications: Medications to Continue on Transfer FLUoxetine [Prozac 20 MG (*)] 40 mg PO DAILY 11/22/17 [Last Taken 11/22/17] Gabapentin [Neurontin 300 MG (*)] 300 mg PO TID 11/22/17 [Last Taken 11/22/17 08 :00] Lidocaine [Lidoderm] 1 each TP DAILY 11/22/17 [Last Taken 11/21/17] buPROPion [Wellbutrin 75mg (*)] 150 mg PO ,11/22/17 [Last Taken 11/22/17 08 :00] Alteplase [Cathflo Activase 2 mg (*)] 2 mg IVP PRN PRN vial 12/02/17 [Last Taken Unknown] Methocarbamol [Robaxin 750 mg (*)] 750 mg PO TID PRN #30 tab 12/02/17 [Last Taken Unknown] Polyethylene Glycol 3350 [Miralax 17 gm (*)] 17 gm PO DAILY pkt 12/02/17 [Last Taken Unknown] Prazosin HCl [Minipress 1mg (*)] 1 mg PO HS #10 cap 12/02/17 [Last Taken Unknown ] Sennosides/Docusate Sodium [Senokot-S] 1 - 2 tab PO BID tab 12/02/17 [Last Taken Unknown] oxyCODONE IR [Oxycodone Ir (*)] 5 mg PO Q4HRS PRN #21 tab 12/02/17 [Last Taken Unknown] [facility]iary Antibiotics: Cefazolin 2 g IV q.8 hours [facility] Antibiotic Stop Date: 01/24/18 Discharge Medications: Refer to the Discharge Home Medication list for PRN reason. PICC Care - Routine: Yes - Orders Services needed: Registered Nurse Diet Recommendation: no restrictions on diet Diet Texture: Regular Texture Diet - Labs/Radiology CBC w/diff Date: 12/05/17 (weekly) CMP Date: 12/05/17 (weekly) CRP Date: 12/05/17 (weekly) Call or Fax Lab and Imaging Results to: Portia Royal - Follow Up Care Current Providers and Referrals: Elvira Obrien PA [Primary Care Provider] - As per Instructions Jay Gtz MD [Medical Doctor] - follow up in 2 weeks Portia Royal MD [Medical Doctor] - Bin Higginbotham MD [Medical Doctor] -
--- NOTE | 2017-12-02 17:02 | ASMTCMCOM ---
CM Note CM Note Notes: Pt medically stable for d/c with [facility] and [facility] for IV antibiotics. Of note: Due to surgical wound pt cannot take the bus. While pt does have Medicaid, this CM was on hold with [place] 10 minutes and could not hold any longer and then scheduled taxi cab immediately with voucher. Date Signed: 12/02/2017 05:01 PM Electronically Signed By:MAXIMINO Esquivel
--- NOTE | 2017-12-02 17:04 | ASDISCHSUM ---
Discharge Information Plan Status:IV ABX/Infusion Medically Cleared to Leave: Discharge Date:12/02/2017 04:58 PM D/C Disposition: ADT D/C Disposition:Home, Routine, Self-Care Projected Discharge Date:12/02/2017 11:00 AM Transportation at D/C:Cab Voucher Discharge Delay Reason: Follow-Up Date:12/02/2017 11:00 AM Discharge Slot: Final Diagnosis: Placement Information Referral Type:Home Infusion Referral ID:[id number] Provider Name:[facility] Address 1:[address] Address 2: City:[place] Selection Factors: State:[place] Referral Type:*Home Health Care Services Referral ID:[id number] Provider Name:[facility] Address 1:[address] Address 2: City:[place] Selection Factors: State:[place] Patient Contact Information Contact Name:LETY Relationship:Mother Address: Work Phone: City:[place] Alternate Phone: [facility] Code:[place] Email: Financial Information Financial Class:Medicaid Primary Plan Desc:MEDICAID [facility] Primary Plan Number:[id number] Secondary Plan Desc: Secondary Plan Number: Assessment Information [facility] CM Progress Note CM Note CM Note Notes: Pt has been admtited with a lumbar abscess. She had a L5/S1 fusion in 2015. She has a hx of anxiety and depression. No PT/OT orders at this time. Cultures are pending and ID is being consulted for ABX. CM will follow for any d/c needs. Date Signed: 11/23/2017 06:06 PM Electronically Signed By:MAXIMINO Vasquez BC CM Progress Note CM Note CM Note Notes: Pt not on antibiotics currently, will have L5-S1 ALIF which is to be scheduled. ID, general surgery and neuro surgery consulting. Pt had [facility] Nurse consult with Isa Webb. No therapies ordered. CM to follow. Date Signed: 11/26/2017 03:09 PM Electronically Signed By:MAXIMINO Esquivel [facility] CM Progress Note CM Note CM Note Notes: Pt to OR today for pelvis washout/hardware revision/L5-S1 ALIF. No therapies ordered now. CM to follow pt progress after surgery to determine if there are any CM needs. Date Signed: 11/29/2017 10:41 AM Electronically Signed By:MAXIMINO Esquivel BC CM Progress Note CM Note CM Note Notes: Pt medically stable for d/c with [facility] and [facility] for IV antibiotics. Of note: Due to surgical wound pt cannot take the bus. While pt does have Medicaid, this CM was on hold with [place] 10 minutes and could not hold any longer and then scheduled taxi cab immediately with voucher. Date Signed: 12/02/2017 05:01 PM Electronically Signed By:Miguelina Javier, BEAN DUMPER Intervention Information
--- NOTE | 2017-12-02 20:00 | GDS ---
[f rep st] DISCHARGE SUMMARY DISCHARGE DIAGNOSES: 1. Prevertebral abscess and likely diskitis, osteomyelitis at L5/S1. 2. Acute on chronic back pain. 3. HCB positive. 4. Anemia. 5. Thrombocytosis. 6. Anxiety and depression. CONSULTATIONS: 1. Jaime Dawson MD. 2. Jay Gtz MD. 3. Portia oRyal MD. HISTORY: Briefly, the patient is a 26-year-old female with a past medical history for anxiety and de pression who presented to the emergency room with complaints of acute on chronic low back pain. She has a history of an L5-S1 fusion in 2014. She had been doing quite well until she sustained a fall o n September 21, 2017, landing on ice. She was having ongoing radicular symptoms. She had a lumbar spi ne MRI that was performed that showed findings compatible with diskitis and associated osteomyelitis from L5-S1 with anterior paraspinal abscess. She was evaluated by Neurosurgery and with Dr. Gtz. She subsequently had surgery on November 30. She had an anterior spine exposure for L5 and S1 with an I and D. The patient tolerated surgery quite well. The plan is for her to go home on IV antibiotic s. A PICC line has been in place. She will further follow up with Dr[facility] HOSPITAL COURSE: 1. Prevertebral abscess and likely diskitis, osteomyelitis at L5 and S1. Her back swab shows Staph aureus. She is on Ancef. Blood cultures were checked. They show no growth. She will be home on IV antibiotics. 2. Acute on chronic back pain. She will be on OxyIR. 3. HCB positive. Need followup treatment. 4. Anemia, stable. 5. Thrombocytosis, likely reactive in the setting of infectious process. 6. Anxiety and depression, PTSD. She received a low dose of Minipress. She felt this helped. Will let her try this for another week or so, and if this helps her, to ask her PCP to fill this prescrip tion. DISCHARGE CONDITION: Stable. Blood pressure is 95/55, heart rate is 93, respiratory rate is 12, O2 saturation on room air 98%, temperature is 36.9 Celsius. MEDICATIONS AT DISCHARGE: Please see the EMR. DISCHARGE INSTRUCTIONS: 1. Follow up with surgical team. No heavy lifting greater than 15 pounds. 2. Take the OxyIR for severe pain, but try to alternate this with ibuprofen and Tylenol. 3. Trial of Minipress to see if this helps with her nightmares. 4. Get further followup with her hepatitis C. Greater than 30 minutes discharging and coordinating the patient's care. /[id number]/MODL
== END 2017-12-02 16:58 | disposition home or self-care (01) | DRG 982 ==
LOC: F3N 22:26
PROVIDERS: ADMIT Internal Medicine; ATTEND Internal Medicine
PROC: 0SB Lower Joints, Excision (ICD-10-PCS; principal; 2017-11-29 14:00)
PROC: 0W9H0ZX Drainage of Retroperitoneum, Open Approach, Diagnostic (ICD-10-PCS; principal; 2017-11-29 14:00)
PROC: 0WBH0ZX Excision of Retroperitoneum, Open Approach, Diagnostic (ICD-10-PCS; principal; 2017-11-29 14:00)
PROC: 02HV33Z Insertion of Infusion Device into Superior Vena Cava, Percutaneous Approach (ICD-10-PCS; 2017-12-02)
DX: T84.63XA Infection and inflammatory reaction due to internal fixation device of spine, initial encounter (principal); K68.11 Postprocedural retroperitoneal abscess; M46.27 Osteomyelitis of vertebra, lumbosacral region; M46.47 Discitis, unspecified, lumbosacral region; D64.9 Anemia, unspecified; D47.3 Essential (hemorrhagic) thrombocythemia; F41.8 Other specified anxiety disorders
CPT/HCPCS: 80307; 96374; A9585; C1751; G0472; G0480; J0171; J0690; J1100; J1170; J1200; J1885; J2060; J2250; J2405; J2704; J2800; J3010; J3370; J7060; Q9967

== ENCOUNTER 2018-01-17 14:43 | Inpatient (IN) | payer MEDICAID ==
[2018-01-17] MEDS ORDERED: fentaNYL 100 MCG/2 ML INJ IVP ONE (15:28)
--- NOTE | 2018-01-17 15:28 | EDPHY ---
HPI/HX/ROS/PE/MDM Narrative: CHIEF COMPLAINT: Fever on IV antibiotics HISTORY OF PRESENT ILLNESS: The patient is a 27 y/o female with a history of L5-S1 spinal fusion and prevertebral abscess, osteomyelitis and diskitis of L5-S1 requiring surgery complaining of fever after missing three days of IV antibiotics. On 11/23/17 the patient had an I&D for the prevertebral abscess of L5-S1. During this admission she was given Ancef. She has had a PICC line in place and on IV antibiotics for 3 months. Currently on Rocephin for once daily dosing. Followed by Dr. Royal, infectious disease. On Saturday, 3 days ago, she missed the IV antibiotic delivery and has since missed the antibiotic dose on Saturday, Saturday, and . After missing the antibiotics she has now developed a fever and vomited this morning. She is currently nauseous and has back pain in the same location as her I&D. Denies urinary complaints, cold or cough symptoms. Denies leg swelling, recent travel, history of DVT or PE. No chills, chest pain, shortness of breath, palpitations, diarrhea, headache, lightheadedness. REVIEW OF SYSTEMS: Aside from elements discussed in the HPI, a comprehensive 10-point review of systems was reviewed and is negative. PAST MEDICAL HISTORY: L5-S1 anterior spinal fusion requiring I&D, anxiety, depression SOCIAL HISTORY: Lives in [place], single, not employed. Denies IVDA, alcohol , illicit drugs. Does smoke. VITAL SIGNS: Reviewed by me GENERAL: Tearful, well-developed, well-nourished, resting comfortably in no respiratory distress. HEENT: Atraumatic. Eyes: No icterus, no injection. Mouth: moist mucous membranes. No erythema or lesions. Neck: supple with no adenopathy. LUNGS: Clear to auscultation bilaterally, no wheezes, rhonchi or rales. CARDIAC: Regular rate and rhythm, no rubs, murmurs or gallops. ABDOMEN: Soft, nontender, nondistended, bowel sounds normal. BACK: Lumbar spine tenderness to palpation paul over low L4-L5 area. No focal erythema, no lesions. Mild right CVA tenderness. EXTREMITIES: No trauma. No edema. Range of motion is normal throughout. NEURO: Alert and oriented, grossly nonfocal. SKIN: Clammy, no rash. PSYCHIATRIC: Normal mentation, no agitation. Portions of this note were transcribed by a medical assembler. I personally performed a history, physical exam, medical decision making, and confirmed accuracy of information the transcribed note. ED Course: The patient is a 27 y/o female with a history of L5-S1 spinal fusion and prevertebral abscess and diskitis of L5-S1 requiring surgery presenting with a fever after missing three days of IV antibiotics. On exam she is clammy and has lumbar spine tenderness. She does not have a heart murmur, rash, or edema. Labs and lumbar spine MRI ordered. 1gm PO Tylenol, 75mcg IV Fentanyl, and 30mg IV Toradol administered. 1648: Consulted with Dr. Royal, infectious disease, regarding this patient. Per Dr. Royal, the patient has not been compliant with her antibiotics, and antibiotic deliver was stopped this week. She recommends PICC line be pulled and patient to receive 2 gram cephazolin q 8 hr. through peripheral IV. 1717: Patient evaluated by Dr. Royal in ED. Patient will be admitted for her fever. 1728: Consulted with hospitalist service, Dr. Rene accepts admission of this patient. 1846: Spoke with Dr. Barnes regarding patient's lumbar MRI. There is still edema and inflammation at L5-S1, but it is improving from prior imaging studies. The prevertebral abscess have cleared. MDM: Diff dx for this patients presenting complaints considered but not limited to fever, viral syndrome, endocarditis, osteomyelitis, discitis, bacteremia, infected PICC line, septicemia, urinary tract infection. - Data Points Imaging Results: Imaging Impressions Chest X-Ray 01/17/18 15:28 Impression: Negative chest. Lumbar Spine MRI 01/17/18 16:41 Impression: Improvement since the comparison, with resolution of presacral fluid collections, with persistent edema and enhancement at L5-S1 making it difficult to exclude osteomyelitis. Findings discussed with Dr. Shameka Mayes on January 17, 2018 at 1844 hours. Imaging: Discussed imaging studies w/ ob nurse Radiologist Laboratory Results: Laboratory Results 01/17/18 15:12 01/17/18 15:12 01/17/18 01/17/18 01/17/18 17:00 16:11 15:21 WBC RBC Hgb Hct MCV MCH MCHC RDW Plt Count MPV Neut % (Auto) Lymph % (Auto) [place] % (Auto) Eos % (Auto) Baso % (Auto) Nucleat RBC Rel Count Absolute Neuts (auto) Absolute Lymphs (auto) Absolute Monos (auto) Absolute Eos (auto) Absolute Basos (auto) Absolute Nucleated RBC Immature Gran % Immature Gran # PT INR APTT VBG Lactic Acid Sodium Potassium Chloride Carbon Dioxide Anion Gap BUN Creatinine Estimated GFR Glucose Calcium Total Bilirubin Conjugated Bilirubin Unconjugated Bilirubin AST ALT Alkaline Phosphatase C-Reactive Protein Total Protein Albumin Procalcitonin 14.71 ng/mL H ng/mL (0.02-0.10) Urine Color YELLOW Urine Appearance HAZY Urine pH 7.0 (5.0-7.5) Ur Specific Thompson 1.019 (1.002-1.030) Urine Protein NEGATIVE (NEGATIVE) Urine Ketones TRACE H (NEGATIVE) Urine Blood NEGATIVE (NEGATIVE) Urine Nitrate NEGATIVE (NEGATIVE) Urine Bilirubin NEGATIVE (NEGATIVE) Urine Urobilinogen NEGATIVE EU EU (0.2-1.0) Ur Leukocyte Esterase NEGATIVE (NEGATIVE) Urine Glucose NEGATIVE (NEGATIVE) Urine Opiates Screen NON-NEGATIVE H (NEGATIVE) Urine Barbiturates NEGATIVE (NEGATIVE) Ur Phencyclidine Scrn NEGATIVE (NEGATIVE) Ur Amphetamine Screen NEGATIVE (NEGATIVE) U Benzodiazepines Scrn NEGATIVE (NEGATIVE) Urine Cocaine Screen NEGATIVE (NEGATIVE) U Marijuana (THC) Screen NON-NEGATIVE H (NEGATIVE) 01/17/18 01/17/18 01/17/18 15:12 15:12 15:12 WBC RBC Hgb Hct MCV MCH MCHC RDW Plt Count MPV Neut % (Auto) Lymph % (Auto) [place] % (Auto) Eos % (Auto) Baso % (Auto) Nucleat RBC Rel Count Absolute Neuts (auto) Absolute Lymphs (auto) Absolute Monos (auto) Absolute Eos (auto) Absolute Basos (auto) Absolute Nucleated RBC Immature Gran % Immature Gran # PT INR APTT VBG Lactic Acid 1.9 mmol/L mmol/L (0.7-2.1) Sodium 143 mEq/L mEq/L (135-145) Potassium 3.8 mEq/L mEq/L (3.3-5.0) Chloride 102 mEq/L mEq/L (97-110) Carbon Dioxide 26 mEq/l mEq/l (22-31) Anion Gap 15 mEq/L mEq/L (8-16) BUN 9 mg/dL mg/dL (7-23) Creatinine 0.4 mg/dL L mg/dL (0.6-1.0) Estimated GFR > 60 Glucose 94 mg/dL mg/dL (70-100) Calcium 9.6 mg/dL mg/dL (8.5-10.4) Total Bilirubin 0.6 mg/dL mg/dL 0.5 mg/dL mg/dL (0.1-1.4) (0.1-1.4) Conjugated Bilirubin 0.5 mg/dL mg/dL (0.0-0.5) Unconjugated Bilirubin 0.1 mg/dL mg/dL (0.0-1.1) AST 115 IU/L H IU/L (14-46) ALT 113 IU/L H IU/L (9-52) Alkaline Phosphatase 349 IU/L H IU/L (38-126) C-Reactive Protein 181.2 mg/L H mg/L (<10.0) Total Protein 9.3 g/dL H g/dL (6.3-8.2) Albumin 4.4 g/dL g/dL (3.5-5.0) Procalcitonin Urine Color Urine Appearance Urine pH Ur Specific Thompson Urine Protein Urine Ketones Urine Blood Urine Nitrate Urine Bilirubin Urine Urobilinogen Ur Leukocyte Esterase Urine Glucose Urine Opiates Screen Urine Barbiturates Ur Phencyclidine Scrn Ur Amphetamine Screen U Benzodiazepines Scrn Urine Cocaine Screen U Marijuana (THC) Screen 01/17/18 01/17/18 15:12 15:12 WBC 11.67 10^3/uL H 10^3/uL (3.80-9.50) RBC 5.14 10^6/uL 10^6/uL (4.18-5.33) Hgb 12.9 g/dL g/dL (12.6-16.3) Hct 40.4 % % (38.0-47.0) MCV 78.6 fL L fL (81.5-99.8) MCH 25.1 pg L pg (27.9-34.1) MCHC 31.9 g/dL L g/dL (32.4-36.7) RDW 17.8 % H % (11.5-15.2) Plt Count 265 10^3/uL 10^3/uL (150-400) MPV 8.8 fL fL (8.7-11.7) Neut % (Auto) 69.8 % % (39.3-74.2) Lymph % (Auto) 21.2 % % (15.0-45.0) [place] % (Auto) 7.6 % % (4.5-13.0) Eos % (Auto) 0.6 % % (0.6-7.6) Baso % (Auto) 0.4 % % (0.3-1.7) Nucleat RBC Rel Count 0.0 % % (0.0-0.2) Absolute Neuts (auto) 8.14 10^3/uL H 10^3/uL (1.70-6.50) Absolute Lymphs (auto) 2.47 10^3/uL 10^3/uL (1.00-3.00) Absolute Monos (auto) 0.89 10^3/uL H 10^3/uL (0.30-0.80) Absolute Eos (auto) 0.07 10^3/uL 10^3/uL (0.03-0.40) Absolute Basos (auto) 0.05 10^3/uL 10^3/uL (0.02-0.10) Absolute Nucleated RBC 0.00 10^3/uL 10^3/uL (0-0.01) Immature Gran % 0.4 % % (0.0-1.1) Immature Gran # 0.05 10^3/uL 10^3/uL (0.00-0.10) PT 13.9 SEC SEC (12.0-15.0) INR 1.05 (0.83-1.16) APTT 36.3 SEC SEC (23.0-38.0) VBG Lactic Acid Sodium Potassium Chloride Carbon Dioxide Anion Gap BUN Creatinine Estimated GFR Glucose Calcium Total Bilirubin Conjugated Bilirubin Unconjugated Bilirubin AST ALT Alkaline Phosphatase C-Reactive Protein Total Protein Albumin Procalcitonin Urine Color Urine Appearance Urine pH Ur Specific Thompson Urine Protein Urine Ketones Urine Blood Urine Nitrate Urine Bilirubin Urine Urobilinogen Ur Leukocyte Esterase Urine Glucose Urine Opiates Screen Urine Barbiturates Ur Phencyclidine Scrn Ur Amphetamine Screen U Benzodiazepines Scrn Urine Cocaine Screen U Marijuana (THC) Screen Medications Given: Gabapentin (Neurontin) 900 mg PO TID BAL Stop: 07/16/18 21:59 Last Admin: 01/17/18 21:45 Dose: 900 mg Sodium Chloride (Ns) 1,000 mls @ 150 mls/hr IV CONT BAL Stop: 07/16/18 20:14 Last Admin: 01/17/18 21:45 Dose: 1,000 mls Cefazolin Sodium/Dextrose (Ancef 2 Gm (Premix)) 100 mls @ 200 mls/hr IV Q8H BAL PRN Reason: Protocol Stop: 02/16/18 22:59 Last Admin: 01/17/18 22:04 Dose: 100 mls Oxycodone HCl (Oxycodone Ir) 5 - 10 mg PO Q3HRS PRN PRN Reason: Pain, Severe Able to Take PO Stop: 01/27/18 20:06 Last Admin: 01/17/18 20:43 Dose: 10 mg Prazosin HCl (Minipress) 1 mg PO HS BAL Stop: 07/16/18 20:59 Last Admin: 01/17/18 21:45 Dose: 1 mg Discontinued Medications Acetaminophen (Tylenol) 1,000 mg PO EDNOW ONE Stop: 01/17/18 16:31 Last Admin: 01/17/18 16:43 Dose: 1,000 mg Fentanyl (Sublimaze) 75 mcg IVP EDNOW ONE Stop: 01/17/18 15:29 Last Admin: 01/17/18 15:32 Dose: 75 mcg Cefazolin Sodium/Dextrose (Ancef 2 Gm (Premix)) 100 mls @ 200 mls/hr IV EDNOW ONE PRN Reason: Protocol Stop: 01/17/18 17:36 Last Admin: 01/17/18 17:41 Dose: 100 mls Sodium Chloride (Ns) 1,000 mls @ 3,000 mls/hr IV ONCE ONE Stop: 01/17/18 20:26 Last Admin: 01/17/18 22:11 Dose: 1,000 mls Sodium Chloride (Ns) 500 mls @ 1,500 mls/hr IV ONCE ONE Stop: 01/17/18 20:48 Last Admin: 01/17/18 20:44 Dose: 500 mls Sodium Chloride (Ns) 500 mls @ 1,500 mls/hr IV ONCE ONE Stop: 01/17/18 22:14 Last Admin: 01/17/18 22:04 Dose: 500 mls Ketorolac Tromethamine (Toradol) 30 mg IVP EDNOW ONE Stop: 01/17/18 16:31 Last Admin: 01/17/18 16:42 Dose: 30 mg General Time Seen by Provider: 01/17/18 15:07 Initial Vital Signs: Initial Vital Signs Temperature (C) 36.6 C 01/17/18 14:46 Heart Rate 94 01/17/18 14:46 Respiratory Rate 18 01/17/18 14:46 Blood Pressure 134/78 H 01/17/18 14:46 O2 Sat (%) 100 01/17/18 14:46 O2 Delivery Mode Room Air Allergies/Adverse Reactions: ibuprofen Allergy (Intermediate, Verified 09/23/17 20:16) Rash tramadol Allergy (Intermediate, Verified 09/23/17 20:16) Rash acetaminophen Allergy (Unknown, Unverified 12/02/17 14:42) Other-Enter Comments diphenhydramine Allergy (Unknown, Unverified 12/02/17 14:42) Home Medications: Medication Instructions Recorded FLUoxetine [Prozac 20 MG (*)] 40 mg PO DAILY 11/22/17 Gabapentin [Neurontin 300 MG (*)] 900 mg PO TID 11/22/17 buPROPion [Wellbutrin 75mg (*)] 150 mg PO 08,12 11/22/17 Methocarbamol [Robaxin 750 mg (*)] 750 mg PO TID PRN #30 tab 12/02/17 Polyethylene Glycol 3350 [Miralax 17 gm PO DAILY pkt 12/02/17 17 gm (*)] Prazosin HCl [Minipress 1mg (*)] 1 mg PO HS #10 cap 12/02/17 Sennosides/Docusate Sodium 1 - 2 tab PO BID tab 12/02/17 [Senokot-S] ARIPiprazole [Abilify 2 mg (*)] 2 mg PO DAILY 01/17/18 Lidocaine [Lidoderm] 1 each TP DAILY 01/17/18 oxyCODONE IR [Oxycodone Ir (*)] 5 - 10 mg PO Q4HRS PRN 01/17/18 tiZANidine HCL [Zanaflex] 4 mg PO TID PRN 05/18/18 Departure - Departure Disposition: [facility] Acute Clinical Impression: Osteomyelitis of lumbar spine Fever Qualifiers: Fever type: due to other condition Qualified Code(s): R50.81 - Fever presenting with conditions classified elsewhere Condition: Fair Report Scribed for: Shameka Mayes Report Scribed by: Donna Matos Date of Report: 01/17/18 Time of Report: 15:27
[2018-01-17 15:39] LABS: PLATELET COUNT 265 10^3/uL (150-400)
[2018-01-17 16:10] LABS: INR 1.05 (0.83-1.16); PROTIME(PATIENT) 13.9 SEC (12.0-15.0)
[2018-01-17] MEDS ORDERED: KETOROLAC 30 MG/1 ML SDV IVP ONE (16:30)
[2018-01-17] MEDS ORDERED: ACETAMINOPHEN 500 MG TAB PO ONE (16:30)
[2018-01-17] MEDS ORDERED: ceFAZolin 2 GM/DEXTROSE 100 ML IV ONE (17:07)
[2018-01-17] MEDS ORDERED: ceFAZolin 2 GM in D5W 100 ML IV ONE (17:30)
[2018-01-17] MEDS ORDERED: GADOBUTROL 10 ML VIAL IVP ONE (17:55)
--- NOTE | 2018-01-17 18:14 | PCMIDPN ---
Assessment/Plan: #MSSA L5-S1 diskitis and osteomyelitis with a whitney spinal abscess s/p debridement 11/29/2017 and s/p 4 or 5 weeks of IV anti-staph therapy --continue cefazolin 2g IV q8 --obtain contrasted MRI of lumbar spine #Fever and leukocytosis: primary problem above vs PICC line infection. CXR negative --remove PICC line --blood cultures pending --hemodynamically stable, just continue cefazolin as above Subjective: 27 year old /White female with a history of L5-S1 fusion presents for follow up of MSSA L5-S1 diskitis and osteomyelitis with a whitney spinal abscess s/ p debridement 11/29/2017 where there was necrotic tissue in the disc space as well as S1 vertebral body (sacral promontory was virtually obliterated). Patient ran out of antibiotics 1 week ago and his not had PICC line care in 3 weeks, the last 3 days she has had daily fevers as high as 103, body aches. She has continued low back pain but it is generally stable as compared to when I saw her approximately 15 days ago. Patient has completed 4-5 weeks of anti- staph therapy (initially cefazolin but changed to ceftriaxone to improve compliance). Patient has had significant difficulty with compliance and has been difficult to get hold of throughout her IV antibiotic course. Multiple times I have discussed the seriousness of her infection with her. She denies IV drug use or use of PICC line for IV drug use. She reports that she is out of care due to"family problems ". She denies physical, sexual or emotional abuse. Admits to Objective: Vital Signs Temp Pulse Resp BP Pulse Ox 36.6 C 80 12 90/60 L 98 01/17/18 14:46 01/17/18 18:04 01/17/18 18:04 01/17/18 18:04 01/17/18 18:04 Laboratory Tests 01/17/18 01/17/18 01/17/18 15:12 15:12 17:00 WBC 11.67 H Hgb 12.9 Hct 40.4 Plt Count 265 Neut % (Auto) 69.8 Creatinine 0.4 L Urine Opiates Screen NON-NEGATIVE H Urine Barbiturates NEGATIVE Ur Phencyclidine Scrn NEGATIVE Ur Amphetamine Screen NEGATIVE U Benzodiazepines Scrn NEGATIVE Urine Cocaine Screen NEGATIVE U Marijuana (THC) Screen NON-NEGATIVE H - Physical Exam General Appearance: alert, apparent distress (mild) EENT: dry mucous membranes, No thrush Respiratory: lungs clear, No accessory muscle use Neck: supple Cardiac/Chest: regular rate, rhythm, No systolic murmur Extremities: No pedal edema, No swelling Abdomen: non-tender, soft Skin: diaphoresis, pallor, other (old scars from cutting), No jaundice, No embolic lesions, No signs of IVDA Neuro/Psych: alert, depressed affect - Line/s PIV Lines: other (L forearm; PICC line out at time of my visit), No drainage, No erythema - Time Spent With Patient Time Spent with Patient: greater than 35 minutes Time Spent with Patient: Greater than 35 minutes spent on this patients care, greater than 50% of time spent counseling, educating, and coordinating care regarding the above mentioned plan. ICD10 Worksheet Patient Problems: Problems Problem Status Onset Fever Acute History of discitis Acute Discitis of lumbar region Acute
--- NOTE | 2018-01-17 18:54 | ASMTCMCOM ---
CM Note CM Note Notes: Reviewed chart, unfortunately this CM was unable to speak to patient directly. Pt admitted for fever, history of discitis and lumbar fusion hardware infection, and possible PICC line infection. Pt's PICC line was removed in the ED. Pt recently discharged from [facility] 12/02/17 w/[facility] and [facility] for IV Abx infusion. Please see Case Mgmt DC Summary from that visit. Pt had a pelvic washout/hardware revision L5/S1 on 11/29/17. Also please read Behavioral Health RN, Isa Webb's note on 11/26/17 for additional background information. Per ED RN and ID Report, pt "ran out of antibiotics" and has not had any antibiotic therapy for 3 weeks, due to "family problems." Pt denies IV drug use. Pt's PCP is Elvira Obrien at [facility]. Pt was living with her mother at the time of her last admission. Exact DC needs unknown, blood cultures pending. CM to follow. Date Signed: 01/17/2018 06:54 PM Electronically Signed By:Imelda Arias RN
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
[2018-01-17] MEDS ORDERED: ONDANSETRON 4 MG/2 ML VIAL IVP PRN (20:07)
[2018-01-17] MEDS ORDERED: ONDANSETRON DISINTEGRATING 4 MG TAB PO PRN (20:07)
[2018-01-17] MEDS ORDERED: NS 500 ML IV ONE ×2 (20:29→21:55)
--- NOTE | 2018-01-17 20:35 | PDGENHP ---
History and Physical - Chief Complaint fever - History of Present Illness The patient is a 27 y/o female with a history of L5-S1 spinal fusion and prevertebral abscess and diskitis of L5-S1 requiring surgery who p/w fever after missing three days of IV antibiotics. On 11/23/17 the patient had an I&D for the prevertebral abscess of L5-S1. She has been followed by Dr. Royal, infectious disease, who has also provided consultation today while the pt was in the E.D. Today an MRI of her lumbar spine shows resolution of presacral fluid collection but persistent edema of L5-S1. Cannot r/o OM She has been started on Cefazolin Her PICC line has been removed, cultures are pending She also reports leg swelling bilaterally over the past weeks. She has also experience some ARIAS. CXR is unremarkable today (personally reviewed) Denies urinary complaints, cold or cough symptoms. Denies, recent travel, history of DVT or PE. No chills, chest pain, palpitations, diarrhea, headache, lightheadedness. PAST MEDICAL HISTORY: L5-S1 anterior spinal fusion requiring I&D, anxiety, depression SOCIAL HISTORY: Lives in [place], single, not employed. Occasional tobacco use, occasional marijuana use. no ETOH FMHx: non contributory History Information - Allergies/Home Medication List Allergies/Adverse Reactions: ibuprofen Allergy (Intermediate, Verified 09/23/17 20:16) Rash tramadol Allergy (Intermediate, Verified 09/23/17 20:16) Rash acetaminophen Allergy (Unknown, Unverified 12/02/17 14:42) Other-Enter Comments diphenhydramine Allergy (Unknown, Unverified 12/02/17 14:42) Home Medications: FLUoxetine [Prozac 20 MG (*)] 40 mg PO DAILY 11/22/17 [Last Taken 01/15/18] Gabapentin [Neurontin 300 MG (*)] 900 mg PO TID 11/22/17 [Last Taken 01/15/18] buPROPion [Wellbutrin 75mg (*)] 150 mg PO 08,12 11/22/17 [Last Taken 01/15/18] ARIPiprazole [Abilify 2 mg (*)] 2 mg PO DAILY 01/17/18 [Last Taken 01/15/18] Lidocaine [Lidoderm] 1 each TP DAILY 01/17/18 [Last Taken 01/15/18] oxyCODONE IR [Oxycodone Ir (*)] 5 - 10 mg PO Q4HRS PRN 01/17/18 [Last Taken ] tiZANidine HCL [Zanaflex] 4 mg PO TID PRN 01/17/18 [Last Taken 01/15/18] I have personally reviewed and updated: medical history, social history - Past Medical History Additional medical history: History of anxiety and major depressive disorder. Patient with history of cutting on her arms. Patient also with history of recurrent hemorrhoids and rectal bleeding. Patient with stress incontinence and urinary urgency. Chronic low back pain. - Surgical History Additional surgical history: L5/S1 fusion in 2015, cholecystectomy, colonoscopy - Family History Additional family history: All family members are healthy. - Social History Smoking Status: Light smoker Additional social history: Core-full Review of Systems Review of Systems: ROS: 10pt was reviewed & negative except for what was stated in HPI & below Physical Exam Physical Exam: Temp Pulse Resp BP Pulse Ox 36.6 C 86 16 92/61 L 97 01/17/18 18:47 01/17/18 18:47 01/17/18 18:47 01/17/18 18:47 01/17/18 18:47 Constitutional: no apparent distress, not in pain Eyes: PERRL, EOMI Ears, Nose, Mouth, Throat: hearing normal, dry mucous membranes Cardiovascular: no murmur, rub, or gallop, tachycardia, edema (trace to 1+ bilateral LE) Respiratory: no respiratory distress, no rales or rhonchi, clear to auscultation Gastrointestinal: normoactive bowel sounds, soft, non-tender abdomen Skin: warm Neurologic: AAOx3 Psychiatric: interacting appropriately, not anxious, not encephalopathic Lymph, Heme, Immunologic: No petechiae Lab Data & Imaging Review 01/17/18 15:12 01/17/18 15:12 WBC 11.67 10^3/uL (3.80-9.50) H 01/17/18 15:12 RBC 5.14 10^6/uL (4.18-5.33) 01/17/18 15:12 Hgb 12.9 g/dL (12.6-16.3) 01/17/18 15:12 Hct 40.4 % (38.0-47.0) 01/17/18 15:12 MCV 78.6 fL (81.5-99.8) L 01/17/18 15:12 MCH 25.1 pg (27.9-34.1) L 01/17/18 15:12 MCHC 31.9 g/dL (32.4-36.7) L 01/17/18 15:12 RDW 17.8 % (11.5-15.2) H 01/17/18 15:12 Plt Count 265 10^3/uL (150-400) 01/17/18 15:12 MPV 8.8 fL (8.7-11.7) 01/17/18 15:12 Neut % (Auto) 69.8 % (39.3-74.2) 01/17/18 15:12 Lymph % (Auto) 21.2 % (15.0-45.0) 01/17/18 15:12 [place] % (Auto) 7.6 % (4.5-13.0) 01/17/18 15:12 Eos % (Auto) 0.6 % (0.6-7.6) 01/17/18 15:12 Baso % (Auto) 0.4 % (0.3-1.7) 01/17/18 15: Nucleat RBC Rel Count 0.0 % (0.0-0.2) 01/17/18 15:12 Absolute Neuts (auto) 8.14 10^3/uL (1.70-6.50) H 01/17/18 15:12 Absolute Lymphs (auto) 2.47 10^3/uL (1.00-3.00) 01/17/18 15:12 Absolute Monos (auto) 0.89 10^3/uL (0.30-0.80) H 01/17/18 15:12 Absolute Eos (auto) 0.07 10^3/uL (0.03-0.40) 01/17/18 15:12 Absolute Basos (auto) 0.05 10^3/uL (0.02-0.10) 01/17/18 15:12 Absolute Nucleated RBC 0.00 10^3/uL (0-0.01) 01/17/18 15: Immature Gran % 0.4 % (0.0-1.1) 01/17/18 15:12 Immature Gran # 0.05 10^3/uL (0.00-0.10) 01/17/18 15:12 PT 13.9 SEC (12.0-15.0) 01/17/18 15:12 INR 1.05 (0.83-1.16) 01/17/18 15:12 APTT 36.3 SEC (23.0-38.0) 01/17/18 15:12 VBG Lactic Acid 1.9 mmol/L (0.7-2.1) 01/17/18 15:12 Sodium 143 mEq/L (135-145) 01/17/18 15:12 Potassium 3.8 mEq/L (3.3-5.0) 01/17/18 15:12 Chloride 102 mEq/L (97-110) 01/17/18 15:12 Carbon Dioxide 26 mEq/l (22-31) 01/17/18 15:12 Anion Gap 15 mEq/L (8-16) 01/17/18 15:12 BUN 9 mg/dL (7-23) 01/17/18 15:12 Creatinine 0.4 mg/dL (0.6-1.0) L 01/17/18 15:12 Estimated GFR > 60 01/17/18 15:12 Glucose 94 mg/dL (70-100) 01/17/18 15:12 Calcium 9.6 mg/dL (8.5-10.4) 01/17/18 15:12 Total Bilirubin 0.6 mg/dL (0.1-1.4) 01/17/18 15:12 Conjugated Bilirubin 0.5 mg/dL (0.0-0.5) 01/17/18 15:12 Unconjugated Bilirubin 0.1 mg/dL (0.0-1.1) 01/17/18 15:12 AST 115 IU/L (14-46) H 01/17/18 15:12 ALT 113 IU/L (9-52) H 01/17/18 15:12 Alkaline Phosphatase 349 IU/L (38-126) H 01/17/18 15:12 C-Reactive Protein 181.2 mg/L (<10.0) H 01/17/18 15:12 Total Protein 9.3 g/dL (6.3-8.2) H 01/17/18 15:12 Albumin 4.4 g/dL (3.5-5.0) 01/17/18 15:12 Urine Color YELLOW 01/17/18 16:11 Urine Appearance HAZY 01/17/18 16:11 Urine pH 7.0 (5.0-7.5) 01/17/18 16:11 Ur Specific [place] 1.019 (1.002-1.030) 01/17/18 16:11 Urine Protein NEGATIVE (NEGATIVE) 01/17/18 16:11 Urine Ketones TRACE (NEGATIVE) H 01/17/18 16:11 Urine Blood NEGATIVE (NEGATIVE) 01/17/18 16:11 Urine Nitrate NEGATIVE (NEGATIVE) 01/17/18 16:11 Urine Bilirubin NEGATIVE (NEGATIVE) 01/17/18 16:11 Urine Urobilinogen NEGATIVE EU (0.2-1.0) 01/17/18 16:11 Ur Leukocyte Esterase NEGATIVE (NEGATIVE) 01/17/18 16:11 Urine Glucose NEGATIVE (NEGATIVE) 01/17/18 16:11 Urine Opiates Screen NON-NEGATIVE (NEGATIVE) H 01/17/18 17:00 Urine Barbiturates NEGATIVE (NEGATIVE) 01/17/18 17:00 Ur Phencyclidine Scrn NEGATIVE (NEGATIVE) 01/17/18 17:00 Ur Amphetamine Screen NEGATIVE (NEGATIVE) 01/17/18 17:00 U Benzodiazepines Scrn NEGATIVE (NEGATIVE) 01/17/18 17:00 Urine Cocaine Screen NEGATIVE (NEGATIVE) 01/17/18 17:00 U Marijuana (THC) Screen NON-NEGATIVE (NEGATIVE) H 01/17/18 17:00 Assessment & Plan Assessment: #Fever -due to MSSA L5/S1 Diskitis/OM vs PICC related vs other -Cont Cefazolin -ID following -Await cultures #MSSA L5/S1 Diskitis/OM -MRI cannot r/o OM #Hypotension in setting of acute infection, Question Sepsis given hypotension in setting of acute infection with e/o Leukocytosis, tachycardia, fever -serum lactic acid is normal -will provide IVF -Check PC #Pedal Edema and ARIAS, new onset in the past week -Check TTE, will also check for vegetations -May results may need further investigation and/or imaging -check Doppler of LE -no Diuretics at this tie #Back Pain #Transaminitis: will determine improvement pending IVF cont appropriate home meds pain mgmt Regular diet SCD's Full Code
[2018-01-17] MEDS: oxyCODONE IR 5 MG TAB PO PRN ×2 (20:43→23:45)
--- NOTE | 2018-01-17 21:35 | PDMN ---
Medical Necessity Medical necessity: C/M review: est. > 2 MN LOS for eval and TX of acute and persistent fever due to MSSA L5/S1 diskitis / osteomyelitis versus PICC versus other, hypotension, pedal edema and dyspnea on exertion - new in the past week, transaminitis, await culture results, 01/17/2018 MRI of lumbar spine shows resolution of presacral fluid collection but persistent edema of l5/S1, cannot rule out osteomyelitis, PICC line removed, requiring Infectious Disease consult , planned echocardiogram, bilateral lower extremity Doppler US, ongoing IV Cefazolin, IV fluids, comorbid history of l5-S1 spinal fusion and prevetebral abscess and diskitis of l5-S1 requiring surgery, patient missed 3 days of IV antibiotics, 11/23/2017 I&D of prevetebral abscess of L5-S1, history of anxiety, depression, occasional tobacco use, occasional marijuana use per H/P
[2018-01-17] MEDS: PRAZOSIN HCL 1 MG CAP PO SCH (21:45)
[2018-01-17] MEDS: NS 1,000 ML IV SCH (21:45)
[2018-01-17] MEDS: GABAPENTIN 300 MG CAP PO SCH (21:45)
[2018-01-17] MEDS: NS 1,000 ML IV ONE ×2 (21:49→22:11)
[2018-01-17] MEDS: ceFAZolin 2 GM/DEXTROSE 100 ML IV SCH (22:04)
[2018-01-18] MEDS: oxyCODONE IR 5 MG TAB PO PRN ×5 (02:54→21:27)
[2018-01-18 05:07] LABS: PLATELET COUNT 235 10^3/uL (150-400)
[2018-01-18] MEDS: ceFAZolin 2 GM/DEXTROSE 100 ML IV SCH ×2 (06:01→19:29)
[2018-01-18] MEDS: FLUoxetine 20 MG CAP PO SCH (09:46)
[2018-01-18] MEDS: buPROPion 75 MG TAB PO SCH ×2 (09:46→12:54)
[2018-01-18] MEDS: LIDOCAINE 4%/MENTHOL 1% PATCH TD SCH (09:46)
[2018-01-18] MEDS: ARIPiprazole 2 MG TAB PO SCH (09:47)
[2018-01-18] MEDS: POLYETHYLENE GLYCOL 3350 17 GM PKT PO SCH (09:47)
[2018-01-18] MEDS: GABAPENTIN 300 MG CAP PO SCH ×3 (09:47→21:27)
[2018-01-18] MEDS: NS 1,000 ML IV SCH (12:57)
--- NOTE | 2018-01-18 13:31 | HOSPPROG ---
Hospitalist Progress Note Assessment/Plan: 27 yo F w recent back surgery admitted w fevers fevers: suggestive of ongoing infection of spinal surgical site imaging w no abscess. but crown blocker osteomyelitis blood cx neg thus far cefazolin started elevated lft's: check ruq u/s no corrales's does have abd pain depression: on meds encouraged outpt follow up hep C: encouraged outpatient treatment dispo: inpt Subjective: case d/w dr jain. endorses abdominal pain Objective: Vital Signs Temp Pulse Resp BP Pulse Ox 36.9 C 83 16 96/59 L 93 01/18/18 11:53 01/18/18 11:53 01/18/18 11:53 01/18/18 11:53 01/18/18 11:53 Laboratory Results 01/18/18 04:36 01/18/18 04:36 01/17/18 01/18/18 01/19/18 05:59 05:59 05:59 Intake Total 550 Output Total 400 Balance 550 -400 PT 13.9 SEC (12.0-15.0) 01/17/18 15:12 INR 1.05 (0.83-1.16) 01/17/18 15:12 - Physical Exam Constitutional: no apparent distress, appears nourished Eyes: PERRL, anicteric sclera Ears, Nose, Mouth, Throat: moist mucous membranes, hearing normal Cardiovascular: regular rate and rhythym, no murmur, rub, or gallop Respiratory: no respiratory distress, no rales or rhonchi Gastrointestinal: normoactive bowel sounds, No corrales's sign Genitourinary: No godoy in urethra Skin: warm, normal color Musculoskeletal: full muscle strength, no muscle tenderness Neurologic: AAOx3 ICD10 Worksheet Patient Problems: Problems Problem Status Onset Fever Acute Osteomyelitis of lumbar spine Acute Discitis of lumbar region Acute
--- NOTE | 2018-01-18 13:47 | ECHO ---
[email or web address] [address] [address] Main: [phone] Fax: [email or web address] Echocardiogram Name: AKOSUA VILLA MR#: [id number] Study Date: 01/18/2018 Study Time: 11:14 AM Date of : 1990 Age: 27 year(s) Height: 160 cm (63 in.) Weight: 58.97 kg (130 lb.) BSA: 1.61 m2 Gender: Female Examination: Echo Indication: Question CHF/R/O vegetations/endocarditis Image Quality: Contrast: Requested by: Dutch Rene BP: 97 mmHg/57 mmHg Heart Rate: Rhythm: Indication: Question CHF/R/O vegetations/endocarditis Procedure Staff Armature Straightener: Sakina Lassiter STEVIE Reading Physician: Michael Tafoya MD Requesting Provider: Conclusions: Normal size left ventricle. No LV hypertrophy. The ejection fraction is estimated to be 70-75 %. Normal diastolic LV function. Normal RV function. The left atrium is normal in size. Normal appearing atrial septum. The right atrium is normal in size. The pulmonary artery pressure is normal. No pericardial effusion. Measurements: Chambers Valvular Assessment AV/MV Valvular Assessment TV/PV Normal Normal Normal Name Value Range Name Value Range Name Value Range Ao Jen (MM): 2.7 cm (2.2 cm-3.7 AV meanP mmHg ( - ) TR Vmax: 2.51 mm/s ( - ) cm) MV E Vmax: 0.87 m/s ( - ) TR PGmax: 25 mmHg ( - ) IVSd (2D): 0.7 cm (0.6 cm-1.1 MV A Vmax: 0.44 m/s ( - ) syst. PAP: 30 mmHg ( - ) cm) MV E/A: 1.98 ( - ) LVDd (2D): 4.6 cm (3.9 cm-5.3 cm) LVDs (2D): 2.6 cm (2.1 cm-4 cm) LVPWd (2D): 0.8 cm ( - ) LVEF (MOD4): 71 % (>=55 %) EF Range: 70-75 % Continued Measurements: Chambers Valvular Assessment AV/MV Valvular Assessment TV/PV Patient: AKOSUA VILLA Study Date: 01/18/2018 Page 1 of 2 11:14 AM Name Value Name Value Name Value LADs: 3.9 cm MV E' Septal: 0.14 m/s CVP (est.): 5 mmHg LADs Lon.9 cm MV E/E' Septal: 6.10 LA Area: 16.3 cm2 MV E/E' Lateral: 5.00 TAPSE: 2.1 cm Additional Vessels Name Value Ao Ascendin.8 cm Findings: Left Ventricle: Normal size left ventricle. No LV hypertrophy. Global hypercontractility of the left ventricle. The ejection fraction is estimated to be 70-75 %. No regional wall motion abnormality. Normal diastolic LV function. Right Ventricle: Normal size right ventricle. Normal RV function. Left Atrium: The left atrium is normal in size. Normal appearing atrial septum. Right Atrium: The right atrium is normal in size. Mitral Valve: The mitral valve is normal in appearance and function. Trivial mitral valve regurgitation. Aortic Valve: The aortic valve is normal in appearance and function. Tricuspid Valve: The tricuspid valve is normal in appearance and function. Mild tricuspid regurgitation is present. The pulmonary artery pressure is normal. Pulmonic Valve: The pulmonic valve is normal in appearance and function. Trivial to mild pulmonic valve regurgitation. Aorta: The aorta is normal. Pericardium: No pericardial effusion. Exam Comments: No obvious vegetations.. (No Signature Object) Patient: AKOSUA VILLA Study Date: 01/18/2018 Page 2 of 2 11:14 AM [id number]
--- NOTE | 2018-01-18 15:14 | PCMIDPN ---
Assessment/Plan: #MSSA L5-S1 diskitis and osteomyelitis with a whit[place] spinal abscess s/p debridement 11/29/2017 and s/p 4 or 5 weeks of IV anti-staph therapy. MRI shows resolution of pre-spinal abscess and persistent bony/disc changes - which is not entirely unexpected. ECHO negative for signs of endocarditis --continue cefazolin 2g IV q8 --may need further imaging but will await blood cx maturity #Fever and leukocytosis: primary problem above vs PICC line infection. CXR negative. No fever since hospitalized and wbc normalized. Interestingly, CRP elevated higher than with initial dx of back infection. --monitoring blood cx --RUQ US in light of LFTs #HCV: VL 4.9, HIV negative #Weight loss w normal eating, microcytic anemia --check Fe, B12 studies #Memory difficulties: suspect component of depression, but patient reports multiple head injuries associated with horse back riding int he past. --discuss w hospitalist possible imaging --check B12, syphilis --consider Psy meds cefazolin 2gm IV q8h micro 01/17 blood cx (2) pending 01/17 cath tip cx: NGTD mother present during exam and history Subjective: long discussion about what was leading to her not coming into clinic, basically states there is something going on at home but will not give me details. Also very tearful and describes memory difficulties, weigh loss #20 despite normal eating over 2 months. She is not currently in a relationship, she is bisexual and her last relationship was a woman, end of last year and ended with her loosing her job and her housing. Objective: Vital Signs Temp Pulse Resp BP Pulse Ox 36.9 C 83 16 96/59 L 93 01/18/18 11:53 01/18/18 11:53 01/18/18 11:53 01/18/18 11:53 01/18/18 11:53 Laboratory Results 01/18/18 04:36 01/18/18 04:36 01/17/18 01/18/18 01/19/18 05:59 05:59 05:59 Intake Total 550 Output Total 400 Balance 550 -400 C-Reactive Protein 181.2 mg/L (<10.0) H 01/17/18 15:12 Laboratory Tests 11/22/17 12/09/17 12/16/17 19:05 09:50 09:45 C-Reactive Protein 70.1 H 47.0 H 19.5 H 12/23/17 01/03/18 01/17/18 09:15 Unknown 15:12 C-Reactive Protein 20.2 H 48.7 H 181.2 H - Physical Exam General Appearance: alert, no apparent distress, other (tearful) EENT: pale conjunctiva, other (good dentition) Respiratory: lungs clear, No accessory muscle use Neck: supple Cardiac/Chest: tachycardia, No systolic murmur Abdomen: non-tender, soft Skin: diaphoresis, pallor, No rash Neuro/Psych: alert, oriented x 3, depressed affect - Line/s PIV Lines: other (L anticub), No drainage, No erythema - Time Spent With Patient Time Spent with Patient: greater than 35 minutes Time Spent with Patient: Greater than 35 minutes spent on this patients care, greater than 50% of time spent counseling, educating, and coordinating care regarding the above mentioned plan. ICD10 Worksheet Patient Problems: Problems Problem Status Onset Fever Acute Osteomyelitis of lumbar spine Acute Discitis of lumbar region Acute
[2018-01-18] MEDS: MEROPENEM 2 GM in NS 100 ML IV SCH (19:33)
[2018-01-18] MEDS: PRAZOSIN HCL 1 MG CAP PO SCH (21:27)
[2018-01-19] MEDS: MEROPENEM 2 GM in NS 100 ML IV SCH ×4 (00:23→20:54)
[2018-01-19] MEDS: NS 1,000 ML IV SCH ×3 (00:23→18:39)
[2018-01-19] MEDS: oxyCODONE IR 5 MG TAB PO PRN ×5 (05:19→21:44)
[2018-01-19] MEDS: POLYETHYLENE GLYCOL 3350 17 GM PKT PO SCH (09:18)
[2018-01-19] MEDS: buPROPion 75 MG TAB PO SCH ×2 (09:22→12:41)
[2018-01-19] MEDS: ARIPiprazole 2 MG TAB PO SCH (09:22)
[2018-01-19] MEDS: FLUoxetine 20 MG CAP PO SCH (09:23)
[2018-01-19] MEDS: GABAPENTIN 300 MG CAP PO SCH ×3 (09:23→21:42)
[2018-01-19] MEDS: LIDOCAINE 4%/MENTHOL 1% PATCH TD SCH (09:24)
[2018-01-19 10:30] LABS: PLATELET COUNT 286 10^3/uL (150-400)
[2018-01-19] MEDS ORDERED: ALBUTEROL 60 PUFFS/8 GM MDI IH PRN (11:26)
--- NOTE | 2018-01-19 11:29 | HOSPPROG ---
Hospitalist Progress Note Assessment/Plan: 27 yo F w recent back surgery admitted w fevers fevers: suggestive of ongoing infection of spinal surgical site imaging w no abscess. 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 c/o cold sore and upper respiratory congestion Objective: Vital Signs Temp Pulse Resp BP Pulse Ox 36.9 C 88 16 101/69 92 01/19/18 09:00 01/19/18 09:00 01/19/18 09:00 01/19/18 09:00 01/19/18 09:00 Laboratory Results 01/19/18 10:12 01/19/18 10:12 01/18/18 01/19/18 01/20/18 05:59 05:59 05:59 Intake Total 550 1675 Output Total 3700 950 Balance 550 -2025 -950 PT 13.9 SEC (12.0-15.0) 01/17/18 15:12 INR 1.05 (0.83-1.16) 01/17/18 15:12 - Physical Exam Constitutional: no apparent distress, appears nourished Eyes: PERRL, anicteric sclera Ears, Nose, Mouth, Throat: moist mucous membranes, hearing normal Cardiovascular: regular rate and rhythym, no murmur, rub, or gallop Respiratory: no respiratory distress, no rales or rhonchi Gastrointestinal: normoactive bowel sounds, soft, non-tender abdomen Genitourinary: no bladder fullness, No godoy in urethra Skin: warm, normal color Musculoskeletal: full muscle strength Neurologic: AAOx3 ICD10 Worksheet Patient Problems: Problems Problem Status Onset Fever Acute Osteomyelitis of lumbar spine Acute Discitis of lumbar region Acute
--- NOTE | 2018-01-19 11:41 | GCON ---
[f rep st] CONSULTATION Patient seen in room 387 on 01/19/2018 at 10:45 am. CHIEF COMPLAINT: Fever. HISTORY OF PRESENT ILLNESS: Lexus is a 27-year-old female who has a history of an L5-S1 spinal fusi on that was done by an outside physician. She developed a prevertebral abscess and diskitis of L5-S1 requiring surgery with Dr. Raimundo Gtz and Dr. Jaime Dawson. She required anterior procedure wher e a washout was completed. The patient presented after missing 3 days of IV antibiotics. There were some issues with compliance with her treatment plan. On 11/23/2017, the patient did have an I and D for the prevertebral abscess at L5-S1. She is being followed by Dr. Royal from Infectious Disease. The patient was admitted to the hospitalist service and Dr. Rafael Castellanos is on her care as well. We were asked to consult and review some new imaging that was ordered. She had an MRI of the lumbar sp ine that showed resolution of the presacral fluid collection, but persistent edema noted at L5-S1. T he patient was started on cefazolin. She did have her PICC line removed and cultures are pending reg arding that matter as well. Currently, the patient states she has some lower back pain. Does have so me fevers and chills. She states she had a temperature at home of 102.2. She is describing body ach es and headaches. She denies any upper or lower extremity complaints such as numbness, tingling, wea kness, or pain. She denies any nuchal rigidity or neck pain. No changes in her bowel or bladder. S he denies any saddle numbness or numbness in her groin. She does have some pain on the right hip. S he denies any shortness of breath or chest pain. Denies any urinary complaints, cold or cough sympto ms. Denies any recent travel. She has no history of a DVT or PE. No current chills or palpitations . No diarrhea. REVIEW OF SYSTEMS: Complete 10-point review of systems was negative, otherwise noted above. PAST MEDICAL HISTORY: 1. Significant for an L5-S1 anterior spinal fusion requiring I and D. 2. Anxiety. 3. Depression. MEDICATIONS: Please see med rec form. ALLERGIES: Ibuprofen, tramadol, acetaminophen and diphenhydramine. PAST SURGICAL HISTORY: 1. L5-S1 fusion, 2015, by outside physician. 2. October of 2017: I and D with anterior approach by Dr. Raimundo Gtz. 3. Cholecystectomy. 4. Colonoscopy. FAMILY HISTORY: All family members are healthy. Smoking: She is a smoker. She lives in the [place] area and she is single. IMMUNIZATIONS: Reported up to date. Travel: As noted above, none. GENERAL PHYSICAL EXAM: GENERAL: This is an awake, alert, oriented female in no acute distress. VIT AL SIGNS: Most recent vital signs--blood pressure 101/69 with a MAP of 79, 88 heart rate, 16 respira tions, 92% on room air, temperature 36.9. HEENT: Head is normocephalic, atraumatic. Pupils are equ al, round, reactive to light. EOMI is intact. Full visual ferrara by confrontation. Ears are patent . Nose is patent. NECK: Soft and supple. No midline tenderness. Full range of motion in flexion, extension, lateral bending, and rotation. No nuchal rigidity. RESPIRATORY AND CARDIAC: Deferred. ABDOMEN: Soft, nontender. No peritoneal signs. AND RECTAL: Deferred. NEURO: Patient is awak e, alert, oriented to name, place, location, date, time, and situation. Memory is intact to immediat e, past, and current events. Speech: No aphasia, dysarthria, dysphonia. Cranial nerves 2-12 grossl y intact. Motor: Patient has 5/5 strength in all muscle groups of bilateral upper and lower extremi ties to include deltoids, biceps, triceps, brachioradialis, wrist flexion/extensors, program advocate, intrinsic fingers, iliopsoas, quadriceps, hamstring, plantar flexion, dorsiflexion, EHL testing. Sensation is grossly intact to light touch throughout all dermatome distributions, upper and lower extremities. N egative rejected straight leg raise. Negative MERRY test. Reflexes of biceps, triceps, brachioradia lis, knee jerk and ankle jerk are 2+/4. Toes are downgoing bilaterally. Bearden's negative. Babins ki negative. No clonus. MEDICAL DECISION MAKING/DIAGNOSTIC STUDIES: Laboratory tests obtained on 01/19/2018: White count 5. 51 with H and H of 10.1 and 31.6 with a platelet count of 286. Coags on 01/17/2018: PT of 13.9, INR of 1.05, and a PTT of 36.3. Lactic acid, venous, on 01/17/2018 was 1.9. Chemistry, 01/19/2018: So dium 143, potassium 3.5, chloride 104, CO2 25, BUN 3, creatinine 0.5, and glucose of 74. Imaging, lumbar spine MRI was obtained on 01/17/2018 at 1641, which showed improvement since the comp arison with resolution of the presacral fluid collection with persistent edema enhancement of L5-S1, making it difficult to exclude osteomyelitis. IMPRESSION: 1. Fevers. 2. History of L5-S1 diskitis with prevertebral abscess requiring surgery in October [address] Lizbet Gzt and Dr. Jaime Dawson. 3. Questionable compliance with treatment plan with Infectious Disease. PLAN/DISCUSSION: Lexus is a 27-year-old female who was admitted to the internal medicine service. Dr. Royal from Infectious Disease was consulted and we were consulted from Neurosurgery. I reviewed through her MRI. It appears that she does have some edema, but the abscess that was noted on prior imaging is not present. There are some postoperative changes noted. I will review the images with Tk Dawson. He will see her shortly and render a final opinion. She will continue with antibiotics pe r Infectious Disease and please call us with any changes. All questions and concerns were answered. /[id number]
[2018-01-19] MEDS: valACYclovir 500 MG TAB PO SCH ×2 (12:41→21:42)
--- NOTE | 2018-01-19 13:48 | ASMTCMCOM ---
CM Note CM Note Notes: Pt admitted with fever. Hx of major depressive disorder, anxiety, multiple head injures & chronic back pain w/narcotic use; Isa Webb has seen pt in the past (see note). Pt was here towards the end of October 2017 for a pelvic washout/hardware revision/L5-S1 ALIF for diskitis/osteomylitis with an abscess. She was discharged home with PICC in place & [facility]. Current MD notes state PICC was removed, in ED, due to possible infection. Spoke with ID MD; reports pt did not go to follow up appointments after last hospitalization & they were unable to reach pt so IV abx were stopped. MD reports pt was tearful when asked about why she did not go to followup appointments stating "something was going on at home", but would not give MD details." LVM with [facility] to discuss; awaiting callbacks. Pt normally resides at home with her mother; pt & her mother both use the bus for transportation. Per ID , pt will remain here until IV abx course is complete. CM will follow. Date Signed: 01/19/2018 01:48 PM Electronically Signed By:Rosalia Castellanos RN
--- NOTE | 2018-01-19 13:57 | PCMIDPN ---
Assessment/Plan: #MSSA L5-S1 diskitis and osteomyelitis with a whitney spinal abscess s/p debridement 11/29/2017. ECHO negative for signs of endocarditis. Off antibiotics --continue IV antistaph coverage through 02/01/18 then drop down to PO antibiotic suppression, lean toward doxycycline 100mg PO BID --MRI reviewed w radiology today, L5-S1 bony changes stable and pre-sacral abscess resolved --resume cefazolin 01/26/18 --patient is not safe to leave hospital with PICC. Recommend remain in house for therapy or SNF due to potential lack of supportive environment at home #Fever, resolved after removal of PICC. Tip cx shows Acinetobacter, unfortunately no blood cx was taken from picc so difficult to sort out. Cannot find another source of fever therefore think to be cautious would recommend 1 week of therapy directed at Acinetobacter. I don't have evidence that she is manipulating PICC line - attributing to lack of PICC line care x 3 weeks --guidelines rec meropenem 2gm IV q6h for Acinetobacter, but she is fairly low weight therefore will decrease to q8h for 7 days (01/25/18) #HCV: VL 4.9, HIV negative #Weight loss w normal eating, microcytic anemia, TIBC slightly low --query of weight loss due to Psy meds #Memory difficulties: suspect component of depression vs toxicity from antidepressants, but patient reports multiple head injuries associated with horse back riding int he past. --discuss w hospitalist possible imaging --B12 nl --syphilis serology pending meds meropenem 2gm IV q6, #1 micro 01/17 blood cx (2) NGTD (both labeled L AC) 01/17 cath tip cx: Acinetobacter 30 CFU, enterococcus 4CFU Subjective: back pain woke her from sleep but this is expected denies picc line manipulation. admits to MJ use, has Rx for oxycodone Objective: Vital Signs Temp Pulse Resp BP Pulse Ox 36.9 C 95 16 103/62 96 01/19/18 11:28 01/19/18 11:28 01/19/18 11:28 01/19/18 11:28 01/19/18 11:28 Laboratory Results 01/19/18 10:12 01/19/18 10:12 05/19/18 05/20/18 05/21/18 05:59 05:59 05:59 Intake Total 550 4195 Output Total 3707 950 Balance 550 -2025 -950 C-Reactive Protein 181.2 mg/L (<10.0) H 01/17/18 15:12 ambulating comfortably, fluent speech, cooperative young woman NAD Resp: breathing easy Skin: no peripheral stigmata of endocarditis. - Time Spent With Patient Time Spent with Patient: greater than 35 minutes (reviewed plans to treat 1) potential PICC line infection 2) back infection for at least 2 more weeks with IV 3) lack of safety for discharge w PICC) Time Spent with Patient: Greater than 35 minutes spent on this patients care, greater than 50% of time spent counseling, educating, and coordinating care regarding the above mentioned plan. ICD10 Worksheet Patient Problems: Problems Problem Status Onset Fever Acute Osteomyelitis of lumbar spine Acute Discitis of lumbar region Acute
--- NOTE | 2018-01-19 14:02 | ASMTCMCOM ---
CM Note CM Note Notes: MD interested in pt going to SNF. PT/OT orders placed; awaiting evals. Pt has Medicaid & will need a ULTC done, as well as a PASSR. Pt has hx of major depression; PASSR may trigger. CM will follow. Dc plan-TBD Date Signed: 01/19/2018 02:01 PM Electronically Signed By:Rosalia Castellanos RN
[2018-01-19] MEDS: DOCOSANOL 2 GM CREAM TP SCH ×3 (15:12→21:40)
[2018-01-19] MEDS ORDERED: GABAPENTIN 300 MG CAP PO SCH (21:00)
[2018-01-19] MEDS: PRAZOSIN HCL 1 MG CAP PO SCH (21:42)
[2018-01-20] MEDS: MEROPENEM 2 GM in NS 100 ML IV SCH ×3 (04:35→19:38)
[2018-01-20] MEDS: NS 1,000 ML IV SCH ×2 (04:36→12:33)
[2018-01-20] MEDS: DOCOSANOL 2 GM CREAM TP SCH ×5 (04:38→21:06)
[2018-01-20 05:13] LABS: PLATELET COUNT 322 10^3/uL (150-400)
[2018-01-20] MEDS: buPROPion 75 MG TAB PO SCH ×2 (09:10→12:34)
[2018-01-20] MEDS: POLYETHYLENE GLYCOL 3350 17 GM PKT PO SCH (09:10)
[2018-01-20] MEDS: valACYclovir 500 MG TAB PO SCH (09:10)
[2018-01-20] MEDS: GABAPENTIN 300 MG CAP PO SCH ×3 (09:10→21:05)
[2018-01-20] MEDS: oxyCODONE IR 5 MG TAB PO PRN ×5 (09:11→23:25)
[2018-01-20] MEDS: FLUoxetine 20 MG CAP PO SCH (09:11)
[2018-01-20] MEDS: ARIPiprazole 2 MG TAB PO SCH (09:11)
[2018-01-20] MEDS: LIDOCAINE 4%/MENTHOL 1% PATCH TD SCH (09:11)
--- NOTE | 2018-01-20 13:44 | HOSPPROG ---
Hospitalist Progress Note Assessment/Plan: 27 yo F w recent back surgery admitted w fevers fevers: suggestive of ongoing infection of spinal surgical site imaging w no abscess. but cant rule out osteomyelitis osteomyelitis blood cx neg thus far cefazolin started elevated lft's: ruq u/s unremarkable lft's trending down productive cough: admit cxr w no infiltrate (interp by me) prn albuterol cold sore:valtrex and abreva depression: on meds encouraged outpt follow up hep C: encouraged outpatient treatment dispo: inpt Subjective: case d/w dr knapp Objective: Vital Signs Temp Pulse Resp BP Pulse Ox 36.2 C 87 14 104/64 97 01/20/18 08:00 01/20/18 08:00 01/20/18 08:00 01/20/18 08:00 01/20/18 08:00 Laboratory Results 01/20/18 04:30 01/20/18 04:30 01/19/18 01/20/18 01/21/18 05:59 05:59 05:59 Intake Total 1675 5071 Output Total 3700 1500 Balance -2024 3571 PT 13.9 SEC (12.0-15.0) 01/17/18 15:12 INR 1.05 (0.83-1.16) 01/17/18 15:12 - Physical Exam Constitutional: no apparent distress, appears nourished Eyes: PERRL, anicteric sclera Ears, Nose, Mouth, Throat: moist mucous membranes, hearing normal Cardiovascular: regular rate and rhythym, no murmur, rub, or gallop, systolic murmur Respiratory: no respiratory distress, no rales or rhonchi Gastrointestinal: normoactive bowel sounds, soft, non-tender abdomen Genitourinary: no bladder fullness, No godoy in urethra Skin: warm Musculoskeletal: full muscle strength ICD10 Worksheet Patient Problems: Problems Problem Status Onset Fever Acute Osteomyelitis of lumbar spine Acute Discitis of lumbar region Acute
--- NOTE | 2018-01-20 16:30 | PCMIDPN ---
Assessment/Plan: Assessment/Plan: * Fever: Resolved after removal of PICC line. Blood cultures remain negative. Catheter tip growing Acinetobacter and low colony counts of Enterococcus gallinarum. Plan meropenem for 7 days total. Will not provide targeted therapy for Enterococcus at this point given low colony count. Acinetobacter is broadly susceptible but patient is currently on Abilify and fluoxetine both which could increased risk of QT prolongation when combined with fluoroquinolone. Favor meropenem over ceftriaxone as some risk of resistance development in Acinetobacter. * MSSA L5-S1 diskitis and osteomyelitis with paraspinal abscess status post debridement: Covered by meropenem currently. Plan to resume cefazolin on 2017 after meropenem has been completed for above. Stop date will be 02/01/2018 followed by chronic oral suppression with indwelling hardware. Given patient's noncompliance with prior therapy, think this will have to be completed as an inpatient or long-term facility for safety purposes. * Chronic hepatitis-C 01/20/18 16:26 Subjective: Patient feels better with no further fever. Complains of chronic low back pain. Objective: Vital Signs Temp Pulse Resp BP Pulse Ox 36.2 C 87 14 104/64 97 01/20/18 08:00 01/20/18 08:00 01/20/18 08:00 01/20/18 08:00 01/20/18 08:00 Laboratory Results 01/20/18 04:30 01/20/18 04:30 01/19/18 01/20/18 01/21/18 05:59 05:59 05:59 Intake Total 1675 5071 Output Total 3700 1500 Balance -2024 3571 C-Reactive Protein 181.2 mg/L (<10.0) H 01/17/18 15:12 Meropenem # 2 Cath tip with growth of Acinetobacter and 4 colony forming units of Enterococcus gallinarum Blood cultures x2 no growth Laboratory Tests 01/18/18 01/20/18 04:36 04:30 Total Bilirubin 0.2 AST 22 ALT 45 Alkaline Phosphatase 147 H Syphilis IgG Antibody NEGATIVE - Physical Exam General Appearance: alert, no apparent distress EENT: No scleral icterus, No thrush, No conjunctival petechiae Respiratory: lungs clear, No respiratory distress Cardiac/Chest: regular rate, rhythm, No systolic murmur Extremities: inflammation (Left antecubital fossa with thrombophlebitis without fluctuance) Abdomen: non-tender, No distended Back: other (Well-healed surgical incision without erythema or drainage), No spine tenderness Skin: No embolic lesions ICD10 Worksheet Patient Problems: Problems Problem Status Onset Fever Acute Osteomyelitis of lumbar spine Acute Discitis of lumbar region Acute
--- NOTE | 2018-01-20 17:13 | ASMTCMCOM ---
CM Note CM Note Notes: Spoke with patient today who has mixed feelings about SNF rehab. She prefers to return home but might consider a facility that has a large rehab componet. Patient is not eligible for [facility] or [facility] due to being Medicaid only. Completed the ULTC 100 and faxed to [facility]. Will make referrals when we have some facilities patient might consider. CM will follow. Date Signed: 01/20/2018 05:13 PM Electronically Signed By:Christen Simpson LCSW
[2018-01-20] MEDS: PRAZOSIN HCL 1 MG CAP PO SCH (21:04)
[2018-01-20] MEDS: PATCH REMOVAL 1 EA PATCH TD SCH (21:05)
[2018-01-21] MEDS: MEROPENEM 2 GM in NS 100 ML IV SCH ×3 (03:41→21:00)
[2018-01-21] MEDS: DOCOSANOL 2 GM CREAM TP SCH ×5 (05:06→21:02)
[2018-01-21 05:32] LABS: PLATELET COUNT 347 10^3/uL (150-400)
[2018-01-21] MEDS: oxyCODONE IR 5 MG TAB PO PRN ×5 (09:23→23:57)
[2018-01-21] MEDS: FLUoxetine 20 MG CAP PO SCH (09:23)
[2018-01-21] MEDS: ARIPiprazole 2 MG TAB PO SCH (09:23)
[2018-01-21] MEDS: GABAPENTIN 300 MG CAP PO SCH ×3 (09:23→21:00)
[2018-01-21] MEDS: LIDOCAINE 4%/MENTHOL 1% PATCH TD SCH (09:24)
[2018-01-21] MEDS: buPROPion 75 MG TAB PO SCH ×2 (09:28→12:25)
[2018-01-21] MEDS: POLYETHYLENE GLYCOL 3350 17 GM PKT PO SCH (09:40)
--- NOTE | 2018-01-21 11:33 | ASMTCMCOM ---
CM Note CM Note Notes: Met with patient today who states she is considering SNF rehab more seriously since the is recommending. Sent referrals to facilities patient will consider going. Patient plans to talk to the today to ask more questions. ULTC was received by Khadra with [facility]. Faxed her patient's medication list and Ivory Lock with [facility] was notified. CM will follow. Date Signed: 01/21/2018 11:32 AM Electronically Signed By:Christen Simpson LCSW
[2018-01-21] MEDS: NS 1,000 ML IV SCH ×2 (12:25→23:37)
--- NOTE | 2018-01-21 13:11 | HOSPPROG ---
Hospitalist Progress Note Assessment/Plan: # fevers, likely d/t Acinetobacter from PICC (fevers resolved after PICC dc'd) - cont merrem for 7 days # L5-S1 diskitis/osteo d/t MSSA - cont merrem as above, then restart ancef with stop date 02/01; PO suppressive antibiotics thereafter with indwelling hardware # HCV - chronic, outpatient f/u # LFTs - almost normalized; normal US # cold sore - valtrex, abreva # depr - abilify, wellbutrin, prozac Subjective: ongoin back pain, not significantly changed Objective: Vital Signs Temp Pulse Resp BP Pulse Ox 36.8 C 72 18 104/67 96 01/21/18 07:38 01/21/18 07:38 01/21/18 07:38 01/21/18 07:38 01/21/18 07:38 Laboratory Results 01/21/18 04:40 01/21/18 04:40 01/20/18 01/21/18 01/22/18 05:59 05:59 05:59 Intake Total 5071 550 Output Total 1500 1000 Balance 3571 -450 PT 13.9 SEC (12.0-15.0) 01/17/18 15:12 INR 1.05 (0.83-1.16) 01/17/18 15:12 chart reviewed MRI reviewed US reviewed - Physical Exam Constitutional: no apparent distress, appears nourished Cardiovascular: regular rate and rhythym, no murmur, rub, or gallop Respiratory: no respiratory distress, no rales or rhonchi Gastrointestinal: soft, non-tender abdomen, no palpable masses, No guarding, No rebound, No distension ICD10 Worksheet Patient Problems: Problems Problem Status Onset Fever Acute Osteomyelitis of lumbar spine Acute Discitis of lumbar region Acute
--- NOTE | 2018-01-21 13:39 | PCMIDPN ---
Assessment/Plan: Assessment/Plan: 1. Possible catheter infection:L - no blood cx obtained from actual picc line. But blood cx done that same day are ngtd -Acinetobacter and enterococcus on cx. not addressing enterococcus given low colony count - currently on merem for short course therapy given picc out and blood cx negative - 2. PHelbitis of left forearm related to PIV - supportive treatment at present. if doesn't improved recommend usg 3. MSSA L5S1 diskitis/OM - completeing therapy. was done wiht merem, switch to ancef followed by oral suppression Subjective: afebrile. feels better. some tendernes and ongoing swelling of left UE. applying warm compress at present. denies sob, diarrhea. Objective: Vital Signs Temp Pulse Resp BP Pulse Ox 36.8 C 72 18 104/67 96 01/21/18 07:38 01/21/18 07:38 01/21/18 07:38 01/21/18 07:38 01/21/18 07:38 Laboratory Results 01/21/18 04:40 01/21/18 04:40 01/20/18 01/21/18 01/22/18 05:59 05:59 05:59 Intake Total 5071 550 Output Total 1500 1000 Balance 3571 -450 C-Reactive Protein 181.2 mg/L (<10.0) H 01/17/18 15:12 - Physical Exam General Appearance: alert, no apparent distress Respiratory: lungs clear Cardiac/Chest: regular rate, rhythm Extremities: swelling (left forearm/arm: thrombophlebitis with small area of induration. no erythema. ) Abdomen: normal bowel sounds, non-tender, soft, No distended Skin: No erythema ICD10 Worksheet Patient Problems: Problems Problem Status Onset Fever Acute Osteomyelitis of lumbar spine Acute Discitis of lumbar region Acute
[2018-01-21] MEDS: PRAZOSIN HCL 1 MG CAP PO SCH (21:01)
[2018-01-21] MEDS: PATCH REMOVAL 1 EA PATCH TD SCH (21:02)
[2018-01-22] MEDS: MEROPENEM 2 GM in NS 100 ML IV SCH ×3 (04:56→20:19)
[2018-01-22] MEDS: DOCOSANOL 2 GM CREAM TP SCH ×5 (05:01→21:04)
[2018-01-22] MEDS: LIDOCAINE 4%/MENTHOL 1% PATCH TD SCH (09:29)
[2018-01-22] MEDS: FLUoxetine 20 MG CAP PO SCH (09:29)
[2018-01-22] MEDS: NS 1,000 ML IV SCH (09:30)
[2018-01-22] MEDS: buPROPion 75 MG TAB PO SCH ×2 (09:30→12:21)
[2018-01-22] MEDS: ARIPiprazole 2 MG TAB PO SCH (09:30)
[2018-01-22] MEDS: GABAPENTIN 300 MG CAP PO SCH ×3 (09:30→20:19)
[2018-01-22] MEDS: POLYETHYLENE GLYCOL 3350 17 GM PKT PO SCH (09:31)
[2018-01-22] MEDS: oxyCODONE IR 5 MG TAB PO PRN ×5 (09:39→22:28)
--- NOTE | 2018-01-22 12:05 | HOSPPROG ---
Hospitalist Progress Note Assessment/Plan: # fevers, likely d/t Acinetobacter from PICC (fevers resolved after PICC dc'd) - cont merrem D#4/7 # L5-S1 diskitis/osteo d/t MSSA - cont merrem as above, then restart ancef with stop date 02/01; PO suppressive antibiotics thereafter with indwelling hardware # HCV - chronic, outpatient f/u # LFTs - much improved, normal abdominal US # cold sore - valtrex, abreva # depr - abilify, wellbutrin, prozac Subjective: denies fever or worsening back pain Objective: Vital Signs Temp Pulse Resp BP Pulse Ox 36.6 C 78 16 101/63 96 01/22/18 07:43 01/22/18 07:43 01/22/18 07:43 01/22/18 07:43 01/22/18 07:43 Laboratory Results 01/21/18 04:40 01/21/18 04:40 01/21/18 01/22/18 01/23/18 05:59 05:59 05:59 Intake Total 550 1100 Output Total 1000 Balance -450 1100 PT 13.9 SEC (12.0-15.0) 01/17/18 15:12 INR 1.05 (0.83-1.16) 01/17/18 15:12 - Physical Exam Constitutional: no apparent distress, appears nourished Ears, Nose, Mouth, Throat: hearing normal Cardiovascular: No edema Respiratory: no respiratory distress Gastrointestinal: No distension Genitourinary: No godoy in urethra Skin: warm Musculoskeletal: full muscle strength Neurologic: AAOx3 Psychiatric: interacting appropriately ICD10 Worksheet Patient Problems: Problems Problem Status Onset Discitis of lumbar region Acute Fever Acute Osteomyelitis of lumbar spine Acute
--- NOTE | 2018-01-22 14:54 | PCMIDPN ---
Assessment/Plan: #MSSA L5-S1 diskitis and osteomyelitis with a whitney spinal abscess s/p debridement 11/29/2017. ECHO negative for signs of endocarditis. Off antibiotics --resume cefazolin 01/26/18 through 02/01/18, then drop down to PO antibiotic suppression, lean toward doxycycline 100mg PO BID --patient is not safe to leave hospital with PICC. Recommend remain in house for duration of therapy through 02/01 #Fever/leukocytosis/malaise -> resolved after removal of PICC. Tip cx shows Acinetobacter, unfortunately no blood cx was taken from picc so difficult to sort out. Low colony count of enterococcus not likely significant. Cannot find another source of fever therefore think to be cautious would recommend 1 week of therapy directed at Acinetobacter. Infection attributed to lack of PICC line care x 3 weeks --meropenem 2gm IV q8h for 7 days (01/25/18) #Neutropenia: ANC 1500, likely related to meropenem but Abilify also possible but <5% --re-check CBC in AM #HCV: VL 4.9, HIV negative meds meropenem 2gm IV q8, #5 micro 01/17 blood cx (2) NGTD (both labeled L AC) 01/17 cath tip cx: Acinetobacter 30 CFU, enterococcus 4CFU Subjective: feeling 10x better than admit, thinking much clearer no diarrhea no rash back pain tolerable Objective: Vital Signs Temp Pulse Resp BP Pulse Ox 36.6 C 78 16 101/63 96 01/22/18 07:43 01/22/18 07:43 01/22/18 07:43 01/22/18 07:43 01/22/18 07:43 Laboratory Results 01/21/18 04:40 01/21/18 04:40 01/21/18 01/22/18 01/23/18 05:59 05:59 05:59 Intake Total 550 1100 Output Total 1000 Balance -450 1100 C-Reactive Protein 26.7 mg/L (<10.0) H 01/21/18 04:40 - Physical Exam General Appearance: alert, no apparent distress EENT: pale conjunctiva, other (good dentition) Respiratory: lungs clear, No accessory muscle use Neck: supple Cardiac/Chest: regular rate, rhythm, No systolic murmur Extremities: No pedal edema Abdomen: normal bowel sounds, non-tender, soft Skin: No rash, No embolic lesions, No signs of IVDA Neuro/Psych: alert, normal mood/affect, oriented x 3 - Line/s PIV Lines: other (r hand), No drainage, No erythema - Time Spent With Patient Time Spent with Patient: greater than 35 minutes (care coordinated with Dr. Ferrer; reviewed findings of neutopenia w patient) Time Spent with Patient: Greater than 35 minutes spent on this patients care, greater than 50% of time spent counseling, educating, and coordinating care regarding the above mentioned plan. ICD10 Worksheet Patient Problems: Problems Problem Status Onset Fever Acute Osteomyelitis of lumbar spine Acute Discitis of lumbar region Acute
[2018-01-22] MEDS: PRAZOSIN HCL 1 MG CAP PO SCH (20:19)
[2018-01-22] MEDS: METHOCARBAMOL 750 MG TAB PO PRN (20:56)
[2018-01-22] MEDS: PATCH REMOVAL 1 EA PATCH TD SCH (21:46)
[2018-01-23] MEDS: MEROPENEM 2 GM in NS 100 ML IV SCH ×3 (05:06→20:20)
[2018-01-23] MEDS: DOCOSANOL 2 GM CREAM TP SCH ×5 (05:11→20:32)
[2018-01-23 06:52] LABS: PLATELET COUNT 431 10^3/uL (150-400)
[2018-01-23] MEDS: ARIPiprazole 2 MG TAB PO SCH (10:31)
[2018-01-23] MEDS: GABAPENTIN 300 MG CAP PO SCH ×3 (10:32→20:20)
[2018-01-23] MEDS: buPROPion 75 MG TAB PO SCH ×2 (10:32→13:31)
[2018-01-23] MEDS: FLUoxetine 20 MG CAP PO SCH (10:32)
[2018-01-23] MEDS: POLYETHYLENE GLYCOL 3350 17 GM PKT PO SCH (10:33)
[2018-01-23] MEDS: LIDOCAINE 4%/MENTHOL 1% PATCH TD SCH (10:33)
[2018-01-23] MEDS: oxyCODONE IR 5 MG TAB PO PRN ×4 (10:37→21:02)
--- NOTE | 2018-01-23 11:18 | HOSPPROG ---
Hospitalist Progress Note Assessment/Plan: # fevers, likely d/t Acinetobacter from PICC (fevers resolved after PICC dc'd) - cont merrem D#5/7 # L5-S1 diskitis/osteo d/t MSSA - cont merrem as above, then restart ancef with stop date 02/01; PO suppressive antibiotics thereafter with indwelling hardware # HCV - chronic, outpatient f/u # LFTs - much improved, normal abdominal US # cold sore - valtrex, abreva # depr - abilify, wellbutrin, prozac Subjective: no CP, SOB, diarrhea; c/o back pain Objective: Vital Signs Temp Pulse Resp BP Pulse Ox 36.9 C 70 16 91/60 L 95 01/23/18 07:31 01/23/18 07:31 01/23/18 07:31 01/23/18 07:31 01/23/18 07:31 Laboratory Results 01/23/18 05:16 01/21/18 04:40 01/22/18 01/23/18 01/24/18 05:59 05:59 05:59 Intake Total 1100 1340 Output Total 900 Balance 1100 440 PT 13.9 SEC (12.0-15.0) 01/17/18 15:12 INR 1.05 (0.83-1.16) 01/17/18 15:12 ICD10 Worksheet Patient Problems: Problems Problem Status Onset Discitis of lumbar region Acute Fever Acute Osteomyelitis of lumbar spine Acute
[2018-01-23] MEDS: METHOCARBAMOL 750 MG TAB PO PRN ×2 (11:30→20:20)
--- NOTE | 2018-01-23 11:32 | ASMTCMCOM ---
CM Note CM Note Notes: Radha from [facility] came out to evaluate pt for SNF, pt does not qualify. CM spoke w/pt, she will dc home with support of mother when finished with her abx course on 02/01. CM available for any changes. DC Plan: Independent Date Signed: 01/23/2018 11:31 AM Electronically Signed By:Isa Barber RN
--- NOTE | 2018-01-23 17:26 | PCMIDPN ---
Assessment/Plan: Assessment: MSSA lumbar diskitis with osteomyelitis and paraspinal abscess status post debridement 11/29/2017. Patient had some difficulties with compliance with IV antibiotics as an outpatient. However her presentation during this visit with fevers secondary to a polymicrobial PICC line infection. The isolates reflect Acinetobacter and Enterococcus. These are both gastrointestinal bacteria. The polymicrobial aspect raises the concern for Munchausen activity. Patient does have a difficult social situation which I am not privy to the details. Plan at this point is to continue her IV cefazolin while in-house through 02/01 and then discharged home on oral antibiotic. Polymicrobial bloodstream infection secondary to PICC line. PICC line has since been removed. Covered with meropenem currently for both the MSSA diskitis as well as the Gram-negative bacteremia. Will switch back to cefazolin on 01/26/2018. Plan: 1. Continue IV meropenem for now through 01/25/2018. 2. Start Ancef 2 g IV q.8 hours starting on 01/26/2018 and completing on 2017. 3. Start oral doxycycline suppression 100 mg p.o. Twice daily on 02/02/2018. 01/23/18 17:23 Subjective: Patient is laying in bed in a darkened hospital room. She is somewhat tearful. She claims this is secondary to back pain. Objective: Meropenem # 6 Vital Signs Temp Pulse Resp BP Pulse Ox 36.9 C 85 16 110/77 94 01/23/18 15:35 01/23/18 15:35 01/23/18 15:35 01/23/18 15:35 01/23/18 15:35 Laboratory Results 01/23/18 05:16 01/21/18 04:40 01/22/18 01/23/18 01/24/18 05:59 05:59 05:59 Intake Total 1100 1340 Output Total 900 Balance 1100 440 C-Reactive Protein 26.7 mg/L (<10.0) H 01/21/18 04:40 - Physical Exam General Appearance: WD/WN, alert, no apparent distress, non-toxic Respiratory: lungs clear, normal breath sounds, No respiratory distress Cardiac/Chest: regular rate, rhythm, No tachycardia Skin: normal color, warm/dry, No rash Neuro/Psych: alert, oriented x 3, No normal mood/affect (Sad and tearful) ICD10 Worksheet Patient Problems: Problems Problem Status Onset Fever Acute Osteomyelitis of lumbar spine Acute Discitis of lumbar region Acute
[2018-01-23] MEDS: PRAZOSIN HCL 1 MG CAP PO SCH (20:20)
[2018-01-23] MEDS: PATCH REMOVAL 1 EA PATCH TD SCH (21:13)
[2018-01-24] MEDS: oxyCODONE IR 5 MG TAB PO PRN ×6 (00:11→21:24)
[2018-01-24] MEDS: MEROPENEM 2 GM in NS 100 ML IV SCH ×3 (03:16→22:33)
[2018-01-24] MEDS: DOCOSANOL 2 GM CREAM TP SCH ×6 (05:09→23:56)
[2018-01-24] MEDS: LIDOCAINE 4%/MENTHOL 1% PATCH TD SCH (07:42)
[2018-01-24] MEDS: POLYETHYLENE GLYCOL 3350 17 GM PKT PO SCH (07:42)
[2018-01-24] MEDS: GABAPENTIN 300 MG CAP PO SCH ×3 (08:04→21:22)
[2018-01-24] MEDS: ARIPiprazole 2 MG TAB PO SCH (08:04)
[2018-01-24] MEDS: FLUoxetine 20 MG CAP PO SCH (08:04)
[2018-01-24] MEDS: buPROPion 75 MG TAB PO SCH ×2 (08:04→12:28)
--- NOTE | 2018-01-24 09:06 | HOSPPROG ---
Hospitalist Progress Note Assessment/Plan: 27F admitted here 11/22-12/03 for MSSA lumbar diskitis/osteo, underwent I&D with fusion. Discharged home and had significant problems with compliance - on re- admission, she had run out of antibiotics for about 1 week, and had no PICC line care for 3 weeks. Readmitted with infected PICC catheter. # fevers, likely d/t Acinetobacter from PICC (fevers resolved after PICC dc'd) - cont merrem D#/ # L5-S1 diskitis/osteo d/t MSSA - cont merrem as above, then restart ancef with stop date 02/01; PO suppressive antibiotics thereafter with indwelling hardware - plan full course of abx while here (does not qualify for SNF) given previous problems with compliance # HCV - chronic, outpatient f/u # LFTs - much improved, normal abdominal US # cold sore - valtrex, abreva # depr - abilify, wellbutrin, prozac Subjective: still with back pain Objective: Vital Signs Temp Pulse Resp BP Pulse Ox 36.7 C 79 14 96/68 L 95 01/24/18 07:48 01/24/18 07:48 01/24/18 07:48 01/24/18 07:48 01/24/18 07:48 Laboratory Results 01/23/18 05:16 01/21/18 04:40 01/23/18 01/24/18 01/25/18 05:59 05:59 05:59 Intake Total 1340 1500 Output Total 900 Balance 440 1500 PT 13.9 SEC (12.0-15.0) 01/17/18 15:12 INR 1.05 (0.83-1.16) 01/17/18 15:12 - Physical Exam Constitutional: no apparent distress, appears nourished Eyes: anicteric sclera Ears, Nose, Mouth, Throat: hearing normal Cardiovascular: regular rate and rhythym, no murmur, rub, or gallop Respiratory: no respiratory distress, no rales or rhonchi, clear to auscultation Gastrointestinal: No distension Genitourinary: No godoy in urethra Skin: warm Musculoskeletal: full muscle strength Neurologic: AAOx3 Psychiatric: not anxious ICD10 Worksheet Patient Problems: Problems Problem Status Onset Discitis of lumbar region Acute Fever Acute Osteomyelitis of lumbar spine Acute
--- NOTE | 2018-01-24 09:41 | PCMIDPN ---
Assessment/Plan: 1. MSSA lumbar diskitis and osteomyelitis with paraspinal abscess status post debridement November 29: As outlined by my colleague, Dr. Higginbotham, the patient will continue meropenem through tomorrow evening, then Ancef 2 g IV q. 8 hr through February 01, then doxycycline orally 100 mg twice daily to start on February 02 and continue indefinitely. Recent safety labs were fine. CRP coming down. Subjective: Patient without complaints, save for some mild back pain. No nausea or vomiting or diarrhea. No rash. Objective: Meropenem 2 g IV q.8 hours Afebrile Vital Signs Temp Pulse Resp BP Pulse Ox 36.7 C 79 14 96/68 L 95 01/24/18 07:48 01/24/18 07:48 01/24/18 07:48 01/24/18 07:48 01/24/18 07:48 Laboratory Results 01/23/18 05:16 01/21/18 04:40 01/23/18 01/24/18 01/25/18 05:59 05:59 05:59 Intake Total 1340 1500 Output Total 900 Balance 440 1500 C-Reactive Protein 26.7 mg/L (<10.0) H 01/21/18 04:40 No new microbiology - Physical Exam General Appearance: alert, no apparent distress EENT: pharynx normal Respiratory: lungs clear Cardiac/Chest: regular rate, rhythm Extremities: other (Peripheral IV right antecubital fossa looks fine) Abdomen: non-tender, soft Skin: No rash, No embolic lesions ICD10 Worksheet Patient Problems: Problems Problem Status Onset Fever Acute Osteomyelitis of lumbar spine Acute Discitis of lumbar region Acute
[2018-01-24] MEDS: PRAZOSIN HCL 1 MG CAP PO SCH (21:22)
[2018-01-24] MEDS: PATCH REMOVAL 1 EA PATCH TD SCH (21:25)
[2018-01-25] MEDS: MEROPENEM 2 GM in NS 100 ML IV SCH ×2 (05:01→12:08)
[2018-01-25] MEDS: oxyCODONE IR 5 MG TAB PO PRN ×4 (07:51→21:27)
[2018-01-25] MEDS: GABAPENTIN 300 MG CAP PO SCH ×2 (07:51→12:08)
[2018-01-25] MEDS: FLUoxetine 20 MG CAP PO SCH (07:52)
[2018-01-25] MEDS: buPROPion 75 MG TAB PO SCH ×2 (07:52→12:08)
[2018-01-25] MEDS: ARIPiprazole 2 MG TAB PO SCH (07:52)
[2018-01-25] MEDS: LIDOCAINE 4%/MENTHOL 1% PATCH TD SCH ×2 (07:53→11:09)
[2018-01-25] MEDS: POLYETHYLENE GLYCOL 3350 17 GM PKT PO SCH (07:53)
--- NOTE | 2018-01-25 09:38 | HOSPPROG ---
Hospitalist Progress Note Assessment/Plan: #MSSA lumbar diskitis and paraspinal abscess -debrided 11/29 -cont Meropenem until tonight, then Ancef through February 01, then doxy oral thereafter #Fever: from Acinetobacter from PICC -Day 03/08 Meropenem #Pain: had discussion with her for better control. Stop IV opioids, increase gabapentin, lidoderm patch, heating pad #Chronic HCV: FU outpatient #Cold sore: Valtrex #Transaminitis: improving #Diet: regular #DVT: SCDs #Disp:cont inpatient admission for IV abx Subjective: pain in lumbar back shooting down leg, stabbing in nature Objective: Vital Signs Temp Pulse Resp BP Pulse Ox 36.6 C 86 18 100/62 91 L 01/25/18 07:40 01/25/18 07:40 01/25/18 07:40 01/25/18 07:40 01/25/18 07:40 Laboratory Results 01/23/18 05:16 01/21/18 04:40 01/24/18 01/25/18 01/26/18 05:59 05:59 05:59 Intake Total 1500 Balance 1500 PT 13.9 SEC (12.0-15.0) 01/17/18 15:12 INR 1.05 (0.83-1.16) 01/17/18 15:12 - Time Spent With Patient Time Spent with Patient: greater than 25 minutes Time Spent with Patient: Greater than 25 minutes spent on this patients care, greater than 50% of time spent counseling, educating, and coordinating care regarding the above mentioned plan. - Physical Exam Constitutional: no apparent distress Eyes: PERRL Ears, Nose, Mouth, Throat: moist mucous membranes Cardiovascular: regular rate and rhythym Respiratory: no respiratory distress Gastrointestinal: normoactive bowel sounds, soft, non-tender abdomen Genitourinary: no bladder fullness Skin: warm Musculoskeletal: other (lumbar paraspinal TTP, no bony tenderness) Neurologic: AAOx3 Psychiatric: flat affect ICD10 Worksheet Patient Problems: Problems Problem Status Onset Fever Acute Osteomyelitis of lumbar spine Acute Discitis of lumbar region Acute
[2018-01-25] MEDS: DOCOSANOL 2 GM CREAM TP SCH ×4 (11:25→21:33)
--- NOTE | 2018-01-25 15:22 | PCMIDPN ---
Assessment/Plan: Assessment: MSSA lumbar diskitis with osteomyelitis and paraspinal abscess status post debridement 11/29/2017. Patient had some difficulties with compliance with IV antibiotics as an outpatient. However her presentation during this visit with fevers secondary to a polymicrobial PICC line infection. The isolates reflect Acinetobacter and Enterococcus. These are both gastrointestinal bacteria. The polymicrobial aspect raises the concern for Munchausen activity. Patient does have a difficult social situation which I am not privy to the details. Plan at this point is to continue her IV cefazolin while in-house through 02/01 and then discharged home on oral antibiotic. Polymicrobial bloodstream infection secondary to PICC line. PICC line has since been removed. Covered with meropenem currently for both the MSSA diskitis as well as the Gram-negative bacteremia. Will switch back to cefazolin on 01/26/2018. Plan: 1. Continue IV meropenem for now through today. 2. Start Ancef 2 g IV q.8 hours starting on tomorrow and completing on 02/01/2018. 3. Start oral doxycycline suppression 100 mg p.o. Twice daily on 02/02/2018. 01/23/18 17:23 01/25/18 15:21 Subjective: Patient is sitting in her hospital bed. She is doing fine. She has had an increase of pain today but the pain medicines have been adjusted already by Hospital Medicine. Objective: Meropenem # 8 Vital Signs Temp Pulse Resp BP Pulse Ox 36.6 C 86 18 100/62 91 L 01/25/18 07:40 01/25/18 07:40 01/25/18 07:40 01/25/18 07:40 01/25/18 07:40 Laboratory Results 01/23/18 05:16 01/21/18 04:40 01/24/18 01/25/18 01/26/18 05:59 05:59 05:59 Intake Total 1500 800 Balance 1500 800 C-Reactive Protein 26.7 mg/L (<10.0) H 01/21/18 04:40 - Physical Exam General Appearance: WD/WN, alert, no apparent distress, non-toxic Skin: normal color, warm/dry, No rash Neuro/Psych: alert, normal mood/affect, oriented x 3 ICD10 Worksheet Patient Problems: Problems Problem Status Onset Fever Acute Osteomyelitis of lumbar spine Acute Discitis of lumbar region Acute
[2018-01-25] MEDS ORDERED: GABAPENTIN 400 MG CAP PO SCH (21:00)
[2018-01-25] MEDS: ceFAZolin 2 GM/DEXTROSE 100 ML IV SCH (21:26)
[2018-01-25] MEDS: PRAZOSIN HCL 1 MG CAP PO SCH (21:27)
[2018-01-25] MEDS: PATCH REMOVAL 1 EA PATCH TD SCH (21:42)
[2018-01-26] MEDS: oxyCODONE IR 5 MG TAB PO PRN ×5 (01:58→20:56)
[2018-01-26] MEDS: ceFAZolin 2 GM/DEXTROSE 100 ML IV SCH ×3 (05:52→20:57)
[2018-01-26] MEDS: DOCOSANOL 2 GM CREAM TP SCH ×2 (05:58→09:55)
[2018-01-26] MEDS: buPROPion 75 MG TAB PO SCH ×2 (08:45→12:43)
[2018-01-26] MEDS: ARIPiprazole 2 MG TAB PO SCH (08:45)
[2018-01-26] MEDS: LIDOCAINE 4%/MENTHOL 1% PATCH TD SCH (08:45)
[2018-01-26] MEDS: FLUoxetine 20 MG CAP PO SCH (08:45)
[2018-01-26] MEDS: GABAPENTIN 300 MG CAP PO SCH ×2 (08:46→12:43)
[2018-01-26] MEDS: POLYETHYLENE GLYCOL 3350 17 GM PKT PO SCH (09:55)
[2018-01-26] MEDS ORDERED: GABAPENTIN 300 MG CAP PO SCH (10:48)
--- NOTE | 2018-01-26 11:27 | ASMTCMCOM ---
CM Note CM Note Notes: RANCHO spoke w/ Veronika RN regarding d/c POC. The plan remains the same. Pt will discharge home to Mom when she finishes her abx course on 02/01. CM available for changes. Plan: Independent Date Signed: 01/26/2018 11:26 AM Electronically Signed By:TONYA Ellsworth
--- NOTE | 2018-01-26 17:28 | HOSPPROG ---
Hospitalist Progress Note Assessment/Plan: #MSSA lumbar diskitis and paraspinal abscess -debrided 11/29/17 -cont Meropenem completed, now on Ancef through February 01, then doxy 100mg BID starting 02/02 #Fever: resolved. Acinetobacter from PICC -Day 03/08 Meropenem #Pain: cont PO meds. Titrating Gabapentin up, lidoderm patch, heating pad #Chronic HCV: FU outpatient #Cold sore: s/p Valtrex treatment #Transaminitis: improving #Diet: regular #DVT: SCDs #Disp:cont inpatient admission for IV abx Subjective: pain in back stable Objective: Vital Signs Temp Pulse Resp BP Pulse Ox 36.9 C 81 14 104/64 90 L 01/26/18 15:46 01/26/18 15:46 01/26/18 15:46 01/26/18 15:46 01/26/18 15:46 Laboratory Results 01/23/18 05:16 01/21/18 04:40 01/25/18 01/26/18 01/27/18 05:59 05:59 05:59 Intake Total 1800 Balance 1800 PT 13.9 SEC (12.0-15.0) 01/17/18 15:12 INR 1.05 (0.83-1.16) 01/17/18 15:12 - Physical Exam Constitutional: no apparent distress Eyes: PERRL Ears, Nose, Mouth, Throat: moist mucous membranes Cardiovascular: regular rate and rhythym Respiratory: no respiratory distress Gastrointestinal: normoactive bowel sounds Genitourinary: no bladder fullness Skin: warm Musculoskeletal: other (mild TTP over lumbar spine) Neurologic: AAOx3, CN II-XII Intact Psychiatric: interacting appropriately ICD10 Worksheet Patient Problems: Problems Problem Status Onset Fever Acute Osteomyelitis of lumbar spine Acute Discitis of lumbar region Acute
--- NOTE | 2018-01-26 17:28 | HOSPPROG ---
Hospitalist Progress Note Assessment/Plan: #MSSA lumbar diskitis and paraspinal abscess -debrided 11/29/17 -cont Meropenem completed, now on Ancef through February 01, then doxy 100mg BID starting 02/02 #Fever: resolved. Acinetobacter from PICC -Day 03/08 Meropenem #Pain: had discussion with her for better control. Stop IV opioids, increase gabapentin, lidoderm patch, heating pad #Chronic HCV: FU outpatient #Cold sore: Valtrex #Transaminitis: improving #Diet: regular #DVT: SCDs #Disp:cont inpatient admission for IV abx Objective: Vital Signs Temp Pulse Resp BP Pulse Ox 36.9 C 81 14 104/64 90 L 01/26/18 15:46 01/26/18 15:46 01/26/18 15:46 01/26/18 15:46 01/26/18 15:46 Laboratory Results 01/23/18 05:16 01/21/18 04:40 01/25/18 01/26/18 01/27/18 05:59 05:59 05:59 Intake Total 1800 Balance 1800 PT 13.9 SEC (12.0-15.0) 01/17/18 15:12 INR 1.05 (0.83-1.16) 01/17/18 15:12 ICD10 Worksheet Patient Problems: Problems Problem Status Onset Fever Acute Osteomyelitis of lumbar spine Acute Discitis of lumbar region Acute
[2018-01-26] MEDS: PRAZOSIN HCL 1 MG CAP PO SCH (20:55)
[2018-01-26] MEDS: PATCH REMOVAL 1 EA PATCH TD SCH (20:59)
[2018-01-26] MEDS ORDERED: GABAPENTIN 400 MG CAP PO SCH (21:00)
[2018-01-27] MEDS: oxyCODONE IR 5 MG TAB PO PRN ×5 (03:52→23:41)
[2018-01-27] MEDS: ceFAZolin 2 GM/DEXTROSE 100 ML IV SCH ×3 (05:07→20:35)
[2018-01-27] MEDS: FLUoxetine 20 MG CAP PO SCH (08:21)
[2018-01-27] MEDS: buPROPion 75 MG TAB PO SCH ×2 (08:21→12:32)
[2018-01-27] MEDS: GABAPENTIN 300 MG CAP PO SCH (08:22)
[2018-01-27] MEDS: ARIPiprazole 2 MG TAB PO SCH (08:22)
[2018-01-27] MEDS: POLYETHYLENE GLYCOL 3350 17 GM PKT PO SCH (08:22)
[2018-01-27] MEDS: LIDOCAINE 4%/MENTHOL 1% PATCH TD SCH (08:23)
[2018-01-27] MEDS ORDERED: GABAPENTIN 300 MG CAP PO SCH (09:00)
[2018-01-27] MEDS: GABAPENTIN 400 MG CAP PO SCH ×3 (09:43→20:31)
--- NOTE | 2018-01-27 12:36 | HOSPPROG ---
Hospitalist Progress Note Assessment/Plan: #MSSA lumbar diskitis and paraspinal abscess -debrided 11/29/17 -cont Meropenem completed, now on Ancef through February 01, then doxy 100mg BID starting 02/02 #Fever: resolved. Acinetobacter from PICC -Day 03/08 Meropenem #Pain: cont PO meds. Titrated Gabapentin to 1200mg BID, lidoderm patch, heating pad. No IV opioids #Chronic HCV: FU outpatient #Cold sore: s/p Valtrex treatment #Transaminitis: improving #Diet: regular #DVT: SCDs #Disp:cont inpatient admission for IV abx Subjective: pain early this morning Objective: Vital Signs Temp Pulse Resp BP Pulse Ox 36.8 C 79 12 105/60 96 01/27/18 07:55 01/27/18 07:55 01/27/18 07:55 01/27/18 07:55 01/27/18 07:55 Laboratory Results 01/23/18 05:16 01/21/18 04:40 01/26/18 01/27/18 01/28/18 05:59 05:59 05:59 Intake Total 1800 1700 236 Output Total 300 Balance 1800 1700 -64 PT 13.9 SEC (12.0-15.0) 01/17/18 15:12 INR 1.05 (0.83-1.16) 01/17/18 15:12 - Time Spent With Patient Time Spent with Patient: greater than 25 minutes Time Spent with Patient: Greater than 25 minutes spent on this patients care, greater than 50% of time spent counseling, educating, and coordinating care regarding the above mentioned plan. - Physical Exam Constitutional: no apparent distress Eyes: PERRL Ears, Nose, Mouth, Throat: moist mucous membranes Cardiovascular: regular rate and rhythym Respiratory: no respiratory distress Gastrointestinal: normoactive bowel sounds Genitourinary: no bladder fullness Skin: warm Musculoskeletal: other (bilateral paraspinal lumbar TTP) Neurologic: AAOx3, CN II-XII Intact Psychiatric: interacting appropriately ICD10 Worksheet Patient Problems: Problems Problem Status Onset Fever Acute Osteomyelitis of lumbar spine Acute Discitis of lumbar region Acute
[2018-01-27] MEDS: PRAZOSIN HCL 1 MG CAP PO SCH (20:31)
[2018-01-27] MEDS: PATCH REMOVAL 1 EA PATCH TD SCH (22:08)
[2018-01-28] MEDS: oxyCODONE IR 5 MG TAB PO PRN ×5 (05:03→19:30)
[2018-01-28] MEDS: ceFAZolin 2 GM/DEXTROSE 100 ML IV SCH ×3 (05:04→22:07)
--- NOTE | 2018-01-28 08:27 | PCMIDPN ---
Assessment/Plan: #MSSA L5-S1 diskitis and osteomyelitis with a whitney spinal abscess s/p debridement 11/29/2017. ECHO negative for signs of endocarditis. --continue cefazolin through 02/01/18, then drop down to PO antibiotic suppression , lean toward doxycycline 100mg PO BID --patient is not safe to leave hospital with PICC. Recommend remain in house for duration of IV therapy through 02/01 --check labs tomorrow morning #Fever/leukocytosis/malaise at admit -> Acinetobacter PICC line infection s/p meropenem 2gm IV q8h for 7 days (01/25/18). #Neutropenia: ANC better on 01/23 --check labs in AM meds cefazolin 2 g IV Q8h micro 01/17 blood cx (2) Neg (both labeled L AC) 01/17 cath tip cx: Acinetobacter 30 CFU, enterococcus 4CFU Subjective: Patient generally doing well in good spirits. No rash, no diarrhea. Objective: Vital Signs Temp Pulse Resp BP Pulse Ox 37.2 C 98 16 87/62 L 92 01/28/18 07:23 01/28/18 07:23 01/28/18 07:23 01/28/18 07:23 01/28/18 07:23 Laboratory Results 01/23/18 05:16 01/21/18 04:40 01/27/18 01/28/18 01/29/18 05:59 05:59 05:59 Intake Total 1700 1486 Output Total 1000 Balance 1700 486 C-Reactive Protein 26.7 mg/L (<10.0) H 01/21/18 04:40 - Physical Exam General Appearance: alert, no apparent distress EENT: No scleral icterus, No thrush Respiratory: lungs clear, No accessory muscle use Neck: supple Cardiac/Chest: regular rate, rhythm, No systolic murmur Extremities: No pedal edema Skin: No rash Neuro/Psych: alert, normal mood/affect, oriented x 3 - Line/s PIV Lines: other (Left forearm), No drainage, No erythema ICD10 Worksheet Patient Problems: Problems Problem Status Onset Fever Acute Osteomyelitis of lumbar spine Acute Discitis of lumbar region Acute
[2018-01-28] MEDS: buPROPion 75 MG TAB PO SCH ×2 (09:10→12:48)
[2018-01-28] MEDS: FLUoxetine 20 MG CAP PO SCH (09:11)
[2018-01-28] MEDS: LIDOCAINE 4%/MENTHOL 1% PATCH TD SCH (09:11)
[2018-01-28] MEDS: ARIPiprazole 2 MG TAB PO SCH (09:11)
[2018-01-28] MEDS: GABAPENTIN 400 MG CAP PO SCH ×3 (09:11→22:07)
[2018-01-28] MEDS: POLYETHYLENE GLYCOL 3350 17 GM PKT PO SCH (09:12)
[2018-01-28] MEDS: METHOCARBAMOL 750 MG TAB PO PRN (14:57)
--- NOTE | 2018-01-28 16:28 | HOSPPROG ---
Hospitalist Progress Note Assessment/Plan: #MSSA lumbar diskitis and paraspinal abscess-debrided 11/29/17- still with pain worst at night early am as meds wear off lumbar spine MRI (personally reviewed and interpreted) improved fluid collections with concern for L5-S1 osteo oxygen saturations 95%on RA - Meropenem completed, now on Ancef through February 01, then doxy 100mg BID starting 02/02 #Fever: resolved. Acinetobacter from PICC -completed 03/08 Meropenem #Pain: cont PO meds. -cont Titrated Gabapentin to 1200mg BID, - contlidoderm patch, - cont heating pad - at oxycontin 10mg at bedtime tonight to see if better pm control #Chronic HCV: FU outpatient #Cold sore: s/p Valtrex treatment #Transaminitis: improving #Diet: regular #DVT: SCDs #Disp:cont inpatient admission for IV abx I have discussed the case with Pharmacy - will add single dose oxycontin tonight Subjective: terrible pain 2 am Objective: Vital Signs Temp Pulse Resp BP Pulse Ox 37.2 C 83 14 105/71 95 01/28/18 15:31 01/28/18 15:31 01/28/18 15:31 01/28/18 15:31 01/28/18 15:31 Laboratory Results 01/23/18 05:16 01/21/18 04:40 01/27/18 01/28/18 01/29/18 05:59 05:59 05:59 Intake Total 1700 1486 Output Total 1000 650 Balance 1700 486 -650 PT 13.9 SEC (12.0-15.0) 01/17/18 15:12 INR 1.05 (0.83-1.16) 01/17/18 15:12 - Physical Exam Constitutional: appears nourished Eyes: anicteric sclera Ears, Nose, Mouth, Throat: moist mucous membranes Cardiovascular: regular rate and rhythym Respiratory: no respiratory distress Gastrointestinal: normoactive bowel sounds Genitourinary: no bladder fullness Skin: warm Musculoskeletal: No asymmetric calves Neurologic: AAOx3 Psychiatric: interacting appropriately Lymph, Heme, Immunologic: no cervical LAD ICD10 Worksheet Patient Problems: Problems Problem Status Onset Fever Acute Osteomyelitis of lumbar spine Acute Discitis of lumbar region Acute
[2018-01-28] MEDS: PRAZOSIN HCL 1 MG CAP PO SCH (22:07)
[2018-01-28] MEDS: PATCH REMOVAL 1 EA PATCH TD SCH (22:08)
[2018-01-29] MEDS: oxyCODONE IR 5 MG TAB PO PRN ×6 (02:39→23:21)
[2018-01-29 05:05] LABS: PLATELET COUNT 303 10^3/uL (150-400)
[2018-01-29] MEDS: ceFAZolin 2 GM/DEXTROSE 100 ML IV SCH ×3 (05:34→21:52)
[2018-01-29] MEDS: FLUoxetine 20 MG CAP PO SCH (09:04)
[2018-01-29] MEDS: GABAPENTIN 400 MG CAP PO SCH ×3 (09:04→21:52)
[2018-01-29] MEDS: LIDOCAINE 4%/MENTHOL 1% PATCH TD SCH (09:04)
[2018-01-29] MEDS: buPROPion 75 MG TAB PO SCH ×2 (09:04→11:44)
[2018-01-29] MEDS: ARIPiprazole 2 MG TAB PO SCH (09:04)
[2018-01-29] MEDS: POLYETHYLENE GLYCOL 3350 17 GM PKT PO SCH (09:05)
--- NOTE | 2018-01-29 09:52 | PCMIDPN ---
Assessment/Plan: #MSSA L5-S1 diskitis and osteomyelitis with a whitney spinal abscess s/p debridement 11/29/2017. ECHO negative for signs of endocarditis. Slight elevation CRP likely due to infiltrated IV LUE --continue cefazolin through 02/01/18, then doxycycline 100mg PO BID - please give 14 days supply --patient is not safe to leave hospital with PICC. Recommend remain in house for duration of IV therapy through 02/01 --f/u ID clinic 02/07/18 at 1400 # LUE phlebitis: elevation, hot compresses #Acinetobacter PICC line infection s/p meropenem 2gm IV q8h for 7 days (01/25/18) . #Neutropenia: resolved meds cefazolin 2 g IV Q8h micro 01/17 blood cx (2) Neg (both labeled L AC) 01/17 cath tip cx: Acinetobacter 30 CFU, enterococcus 4CFU Subjective: Back pain generally stable IV infiltrated left forearm yesterday No diarrhea Looking for to leaving on Saturday Objective: Vital Signs Temp Pulse Resp BP Pulse Ox 36.9 C 78 14 95/58 L 95 01/29/18 07:07 01/29/18 07:07 01/29/18 07:07 01/29/18 07:07 01/29/18 07:07 Laboratory Results 01/29/18 04:30 01/29/18 04:30 01/28/18 01/29/18 01/30/18 05:59 05:59 05:59 Intake Total 1486 1250 Output Total 1000 650 Balance 486 600 C-Reactive Protein 45.6 mg/L (<10.0) H 01/29/18 04:30 - Physical Exam General Appearance: alert, no apparent distress EENT: other (Good dentition, moist mucous membranes) Respiratory: No accessory muscle use Neck: supple Cardiac/Chest: regular rate, rhythm, No systolic murmur Extremities: inflammation (Left forearm induration and inflammation from infiltration), No pedal edema Skin: other (See extremity exam) Neuro/Psych: alert, oriented x 3, depressed affect - Line/s PIV Lines: other (Right forearm), No drainage, No erythema - Time Spent With Patient Time Spent with Patient: greater than 25 minutes (Care coordinated with Dr. Hannah Artis) Time Spent with Patient: Greater than 25 minutes spent on this patients care, greater than 50% of time spent counseling, educating, and coordinating care regarding the above mentioned plan. ICD10 Worksheet Patient Problems: Problems Problem Status Onset Fever Acute Osteomyelitis of lumbar spine Acute Discitis of lumbar region Acute
--- NOTE | 2018-01-29 13:47 | ASMTCMCOM ---
CM Note CM Note Notes: CM spoke w/ MARIAMA Rosado. The plan remains the same. Pt will d/c home to Mom once she finishes her ivabx on 02/01. No d/c needs at this time. CM available for changes. Plan: Independent Date Signed: 01/29/2018 01:47 PM Electronically Signed By:TONYA Ellsworth
--- NOTE | 2018-01-29 16:52 | HOSPPROG ---
Hospitalist Progress Note Assessment/Plan: #MSSA lumbar diskitis and paraspinal abscess-debrided 11/29/17- still with pain worst at night early am as meds wear off lumbar spine MRI (personally reviewed and interpreted) improved fluid collections with concern for L5-S1 osteo oxygen saturations 95%on RA - Meropenem completed, now on Ancef through February 01, then doxy 100mg BID starting 02/02 #Fever: resolved. Acinetobacter from PICC- IV infiltrated overnight with erythema- CRP up 45 - will monitor -completed 03/08 Meropenem #Pain: cont PO meds. -cont Titrated Gabapentin to 1200mg BID, - contlidoderm patch, - cont heating pad - cont oxycontin 10mg at bedtime - improved PM pain control #Chronic HCV: FU outpatient #Cold sore: s/p Valtrex treatment #Transaminitis: improving #Diet: regular #DVT: SCDs #Disp:cont inpatient admission for IV abx I have discussed the case with ID - will follow on current course - suspect CRP may be up 2/2 to IV infiltration Subjective: pain pm much better Objective: Vital Signs Temp Pulse Resp BP Pulse Ox 37.2 C 94 12 120/83 H 92 01/29/18 16:14 01/29/18 16:14 01/29/18 16:14 01/29/18 16:14 01/29/18 16:14 Laboratory Results 01/29/18 04:30 01/29/18 04:30 01/28/18 01/29/18 01/30/18 05:59 05:59 05:59 Intake Total 1486 1250 Output Total 1000 650 300 Balance 486 600 -300 PT 13.9 SEC (12.0-15.0) 01/17/18 15:12 INR 1.05 (0.83-1.16) 01/17/18 15:12 - Physical Exam Constitutional: appears nourished Eyes: anicteric sclera Ears, Nose, Mouth, Throat: moist mucous membranes Cardiovascular: regular rate and rhythym Respiratory: no respiratory distress Gastrointestinal: normoactive bowel sounds Genitourinary: no bladder fullness Skin: warm Musculoskeletal: No asymmetric calves Neurologic: AAOx3 Psychiatric: interacting appropriately Lymph, Heme, Immunologic: no cervical LAD ICD10 Worksheet Patient Problems: Problems Problem Status Onset Fever Acute Osteomyelitis of lumbar spine Acute Discitis of lumbar region Acute
[2018-01-29] MEDS: PRAZOSIN HCL 1 MG CAP PO SCH (21:52)
[2018-01-29] MEDS: PATCH REMOVAL 1 EA PATCH TD SCH (21:52)
[2018-01-30] MEDS: oxyCODONE IR 5 MG TAB PO PRN ×6 (03:42→21:02)
[2018-01-30] MEDS: ceFAZolin 2 GM/DEXTROSE 100 ML IV SCH ×3 (07:11→21:08)
--- NOTE | 2018-01-30 09:05 | PCMIDPN ---
Assessment/Plan: #MSSA L5-S1 diskitis and osteomyelitis with a whitney spinal abscess s/p debridement 11/29/2017. --continue cefazolin through 02/01/18, okay to DC after a.m. Dose on 02/01/2018 --discharge on doxycycline 100mg PO BID - please give 14 days supply, side effects were reviewed with patient and put in discharge paperwork tab --f/u ID clinic 02/07/18 at 1400 --ID to follow peripherally over the next 2 days unless specific questions #LUE IV infiltration: elevation, hot compresses #Acinetobacter PICC line infection s/p meropenem 2gm IV q8h for 7 days (01/25/18) . #Neutropenia: resolved meds cefazolin 2 g IV Q8h micro 01/17 blood cx (2) Neg (both labeled L AC) 01/17 cath tip cx: Acinetobacter 30 CFU, enterococcus 4CFU Subjective: Patient generally doing well. Back pain is stable. Left forearm is less painful Objective: Vital Signs Temp Pulse Resp BP Pulse Ox 37.0 C 78 14 106/75 97 01/30/18 07:51 01/30/18 07:51 01/30/18 07:51 01/30/18 07:51 01/30/18 07:51 Laboratory Results 01/29/18 04:30 01/29/18 04:30 01/29/18 01/30/18 01/31/18 05:59 05:59 05:59 Intake Total 1250 130 Output Total 650 300 Balance 600 -170 C-Reactive Protein 45.6 mg/L (<10.0) H 01/29/18 04:30 - Physical Exam General Appearance: alert, no apparent distress EENT: No thrush Respiratory: lungs clear, No accessory muscle use Cardiac/Chest: regular rate, rhythm Extremities: inflammation (Left forearm, to a lesser degree today) Skin: No rash Neuro/Psych: alert, normal mood/affect, oriented x 3 - Time Spent With Patient Time Spent with Patient: greater than 35 minutes (Discussed possible side effects of doxycycline, including photosensitivity, esophagitis, and interaction with cations including calcium, zinc and magnesium. Patient is advised to always take this medication sitting or standing with a full glass of water and to not lie down within 60 minutes of taking to minimize risk of esophagitis. Patient is also advised to take with small amount food to minimize risk of nausea and avoid significant sun exposure by wearing hat, sunscreen.) Time Spent with Patient: Greater than 35 minutes spent on this patients care, greater than 50% of time spent counseling, educating, and coordinating care regarding the above mentioned plan. ICD10 Worksheet Patient Problems: Problems Problem Status Onset Fever Acute Osteomyelitis of lumbar spine Acute Discitis of lumbar region Acute
[2018-01-30] MEDS: ARIPiprazole 2 MG TAB PO SCH (09:07)
[2018-01-30] MEDS: buPROPion 75 MG TAB PO SCH ×2 (09:08→12:36)
[2018-01-30] MEDS: FLUoxetine 20 MG CAP PO SCH (09:09)
[2018-01-30] MEDS: GABAPENTIN 400 MG CAP PO SCH ×3 (09:10→21:02)
[2018-01-30] MEDS: LIDOCAINE 4%/MENTHOL 1% PATCH TD SCH (09:12)
[2018-01-30] MEDS: POLYETHYLENE GLYCOL 3350 17 GM PKT PO SCH (09:12)
--- NOTE | 2018-01-30 14:57 | HOSPPROG ---
Hospitalist Progress Note Assessment/Plan: #MSSA lumbar diskitis and paraspinal abscess-debrided 11/29/17- still with pain worst at night early am as meds wear off lumbar spine MRI (personally reviewed and interpreted) improved fluid collections with concern for L5-S1 osteo oxygen saturations 95%on RA - Meropenem completed, now on Ancef through February 01, then doxy 100mg BID starting 02/02 - already ordered doxycycline from [facility] so should be bedside for dc on Saturday #Fever: resolved. Acinetobacter from PICC- IV infiltrated overnight with erythema- CRP up 45 - will monitor -completed 03/08 Meropenem #Pain: cont PO meds. -cont Titrated Gabapentin to 1200mg BID - cont lidoderm patch - cont heating pad - cont oxycontin 10mg at bedtime - improved PM pain control #Chronic HCV: FU outpatient #Cold sore: s/p Valtrex treatment #Transaminitis: improving #Diet: regular #DVT: SCDs #Disp:cont inpatient admission for IV abx I have discussed the case with ID - will follow on current course - suspect CRP may be up 2/2 to IV infiltration Subjective: slept better Objective: Vital Signs Temp Pulse Resp BP Pulse Ox 36.9 C 80 14 101/63 97 01/30/18 11:50 01/30/18 11:50 01/30/18 11:50 01/30/18 11:50 01/30/18 07:51 Laboratory Results 01/29/18 04:30 01/29/18 04:30 01/29/18 01/30/18 01/31/18 05:59 05:59 05:59 Intake Total 1250 130 Output Total 650 300 Balance 600 -170 PT 13.9 SEC (12.0-15.0) 01/17/18 15:12 INR 1.05 (0.83-1.16) 01/17/18 15:12 - Physical Exam Constitutional: no apparent distress Eyes: anicteric sclera Ears, Nose, Mouth, Throat: moist mucous membranes Cardiovascular: regular rate and rhythym Respiratory: no respiratory distress Gastrointestinal: normoactive bowel sounds Genitourinary: no bladder fullness Skin: other (improved left forearm erythema) Musculoskeletal: full muscle strength Neurologic: AAOx3 Psychiatric: interacting appropriately Lymph, Heme, Immunologic: no cervical LAD ICD10 Worksheet Patient Problems: Problems Problem Status Onset Fever Acute Osteomyelitis of lumbar spine Acute Discitis of lumbar region Acute
[2018-01-30] MEDS: PRAZOSIN HCL 1 MG CAP PO SCH (21:03)
[2018-01-30] MEDS: PATCH REMOVAL 1 EA PATCH TD SCH (21:05)
[2018-01-31] MEDS: oxyCODONE IR 5 MG TAB PO PRN ×4 (06:38→20:44)
[2018-01-31] MEDS: ceFAZolin 2 GM/DEXTROSE 100 ML IV SCH ×3 (06:39→20:56)
[2018-01-31] MEDS: buPROPion 75 MG TAB PO SCH ×2 (09:15→12:48)
[2018-01-31] MEDS: GABAPENTIN 400 MG CAP PO SCH ×3 (09:15→20:57)
[2018-01-31] MEDS: ARIPiprazole 2 MG TAB PO SCH (09:15)
[2018-01-31] MEDS: FLUoxetine 20 MG CAP PO SCH (09:15)
[2018-01-31] MEDS: LIDOCAINE 4%/MENTHOL 1% PATCH TD SCH (09:16)
[2018-01-31] MEDS: POLYETHYLENE GLYCOL 3350 17 GM PKT PO SCH (09:20)
--- NOTE | 2018-01-31 10:55 | HOSPPROG ---
Hospitalist Progress Note Assessment/Plan: #MSSA lumbar diskitis and paraspinal abscess- debrided 11/29/17 lumbar spine MRI (personally reviewed and interpreted) improved fluid collections with concern for L5-S1 osteo - Meropenem completed, now on Ancef through February 01, then doxy 100mg BID starting 02/02 - doxycycline ordered from [facility], should be bedside for dc on Saturday #Fever: resolved. Acinetobacter from PICC- IV infiltrated overnight with erythema- CRP up 45 - will monitor -completed 03/08 Meropenem #Pain: cont PO meds. -cont Titrated Gabapentin to 1200mg BID - cont lidoderm patch - cont heating pad - cont oxycontin 10mg at bedtime - improved PM pain control #Chronic HCV: FU outpatient #Cold sore: s/p Valtrex treatment #Transaminitis: improving #Diet: regular #DVT: SCDs #Disp:cont inpatient admission for IV abx Subjective: Pt doing fine. Pain controlled. No fevers/chills. No N/v. Tolerating po. No complaints, looking forward to going home tomorrow. Objective: Vital Signs Temp Pulse Resp BP Pulse Ox 36.8 C 80 16 102/63 91 L 01/31/18 07:53 01/31/18 07:53 01/31/18 07:53 01/31/18 07:53 01/31/18 07:53 Laboratory Results 01/29/18 04:30 01/29/18 04:30 01/30/18 01/31/18 02/01/18 05:59 05:59 05:59 Intake Total 130 1000 Output Total 300 Balance -170 1000 PT 13.9 SEC (12.0-15.0) 01/17/18 15:12 INR 1.05 (0.83-1.16) 01/17/18 15:12 - Physical Exam Constitutional: no apparent distress Eyes: PERRL Ears, Nose, Mouth, Throat: moist mucous membranes Cardiovascular: regular rate and rhythym, no murmur, rub, or gallop Respiratory: no respiratory distress, clear to auscultation Gastrointestinal: normoactive bowel sounds, soft, non-tender abdomen Skin: warm Musculoskeletal: full muscle strength Neurologic: AAOx3 Psychiatric: interacting appropriately ICD10 Worksheet Patient Problems: Problems Problem Status Onset Fever Acute Osteomyelitis of lumbar spine Acute Discitis of lumbar region Acute
--- NOTE | 2018-01-31 12:21 | ASMTCMCOM ---
CM Note CM Note Notes: CM met w/ pt for dispo planning. Pt is looking forward to finishing her ivabx tomorrow. The plan remains the same. Pt will d/c with Mom tomorrow. No other identified needs at this time. CM available for changes. Plan: Independent Date Signed: 01/31/2018 12:19 PM Electronically Signed By:TONYA Ellsworth
[2018-01-31] MEDS: PRAZOSIN HCL 1 MG CAP PO SCH (20:44)
[2018-01-31] MEDS: PATCH REMOVAL 1 EA PATCH TD SCH (20:54)
[2018-02-01] MEDS: oxyCODONE IR 5 MG TAB PO PRN ×2 (01:48→07:33)
[2018-02-01] MEDS: ceFAZolin 2 GM/DEXTROSE 100 ML IV SCH (05:44)
[2018-02-01] MEDS: ARIPiprazole 2 MG TAB PO SCH (07:34)
[2018-02-01] MEDS: buPROPion 75 MG TAB PO SCH (07:35)
[2018-02-01] MEDS: FLUoxetine 20 MG CAP PO SCH (07:38)
[2018-02-01] MEDS: GABAPENTIN 400 MG CAP PO SCH (07:38)
[2018-02-01] MEDS: LIDOCAINE 4%/MENTHOL 1% PATCH TD SCH (07:39)
[2018-02-01] MEDS: POLYETHYLENE GLYCOL 3350 17 GM PKT PO SCH (07:40)
[2018-02-01 08:18] VITALS: BP 94/58
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
--- NOTE | 2018-02-01 21:08 | GDS ---
[f rep st] DISCHARGE SUMMARY DISCHARGE DIAGNOSES: 1. 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 2. Chronic hepatitis C virus. 3. Oral herpes simplex virus, status post Valtrex treatment. 4. Transaminitis, resolved. CONSULTANTS: 1. Dr. Portia Royal, Infectious Disease. 2. Ludin Chavez, neurosurgery. HISTORY OF DETAILS: Please see history and physical dated January 17, 2018. In brief, Ms. Stuart is a 27-year-old female with a history of L5-S1 spinal fusion, who developed a prevertebral abscess and di skitis requiring surgery, who presented to the hospital with fever after missing several days of outp atient IV antibiotics. She was admitted to the hospital for further management. HOSPITAL COURSE: The patient was admitted to med/surg unit. She was restarted on her IV cefazolin t herapy. MRI was performed, which showed concern for osteomyelitis. She completed 7 days of meropene m followed by 7 days of Ancef. Her clinical status is improved. Her pain is controlled. The plan i s for her to complete her antibiotics with oral doxycycline and have close followup with Infectious D isease. DISPOSITION: The patient is discharged home in stable condition. FOLLOWUP: 1. Dr. Portia Royal, Infectious Disease on February 07, 2018, at 2 p.m. 2. Elvira Obrien, primary care. DISCHARGE MEDICATIONS: Please see [facility] for completed outpatient medication list. New medications on discharge include doxycycline 100 mg p.o. b.i.d. #28, no refills. /[id number]/MODL
[2018-02-02] MEDS ORDERED: DOXYCYCLINE HYCLATE 100 MG CAP/TAB PO SCH (09:00)
== END 2018-02-01 10:25 | disposition home or self-care (01) | DRG 721 ==
LOC: F3E 18:35
PROVIDERS: ADMIT Family Medicine; ATTEND Hospitalist
DX: T80.218A Other infection due to central venous catheter, initial encounter (principal); B96.89 Other specified bacterial agents as the cause of diseases classified elsewhere; B95.2 Enterococcus as the cause of diseases classified elsewhere; T84.63XA Infection and inflammatory reaction due to internal fixation device of spine, initial encounter; M46.27 Osteomyelitis of vertebra, lumbosacral region; M46.47 Discitis, unspecified, lumbosacral region; B95.61 Methicillin susceptible Staphylococcus aureus infection as the cause of diseases classified elsewhere; Z91.128 Patient's intentional underdosing of medication regimen for other reason; G89.29 Other chronic pain; B00.2 Herpesviral gingivostomatitis and pharyngotonsillitis; T80.1XXA Vascular complications following infusion, transfusion and therapeutic injection, initial encounter; F41.8 Other specified anxiety disorders; F32.9 Major depressive disorder, single episode, unspecified; B18.2 Chronic viral hepatitis C; F17.210 Nicotine dependence, cigarettes, uncomplicated; Z98.1 Arthrodesis status
CPT/HCPCS: 80305; 82607-90; 96374; 97161-GP; 97165-GO; 97530-GP; 97535-GO; A9585; J0690; J1885; J2185; J2270; J2405; J3010

== ENCOUNTER 2018-03-16 10:46 | Inpatient (IN) | payer MEDICAID ==
--- NOTE | 2018-03-16 10:59 | EDPHY ---
H & P Stated Complaint: RECENT FUSION, INCREASED PAIN, POSSIBLE INFECTION Time Seen by Provider: 03/16/18 10:59 - Personal History Current Tetanus/Diphtheria Vaccine: Yes - Medical/Surgical History Hx Asthma: No Hx Chronic Respiratory Disease: No Hx Diabetes: No Hx Cardiac Disease: No Hx Renal Disease: No Hx Cirrhosis: No Hx Alcoholism: No Hx HIV/AIDS: No Hx Splenectomy or Spleen Trauma: No Other PMH: Anxiety, depression, "cutter", L5-S1 SPINAL FUSION 2015,. CHRONIC BLADDER INCONTINENCE, - Social History Smoking Status: Current every day smoker Constitutional: Initial Vital Signs Temperature (C) 37.1 C 03/16/18 10:55 Heart Rate 100 03/16/18 10:55 Respiratory Rate 16 03/16/18 10:55 Blood Pressure 72/58 L 03/16/18 10:55 O2 Sat (%) 98 03/16/18 10:55 O2 Delivery Mode Room Air Allergies/Adverse Reactions: ibuprofen Allergy (Intermediate, Verified 09/23/17 20:16) Rash tramadol Allergy (Intermediate, Verified 09/23/17 20:16) Rash diphenhydramine Allergy (Mild, Verified 01/19/18 11:29) Itching Home Medications: Medication Instructions Recorded FLUoxetine [Prozac 20 MG (*)] 40 mg PO DAILY 11/22/17 Gabapentin [Neurontin 300 MG (*)] 900 mg PO TID 11/22/17 buPROPion [Wellbutrin 75mg (*)] 150 mg PO 08,12 11/22/17 Methocarbamol [Robaxin 750 mg (*)] 750 mg PO TID PRN #30 tab 12/02/17 Polyethylene Glycol 3350 [Miralax 17 gm PO DAILY pkt 12/02/17 17 gm (*)] Prazosin HCl [Minipress 1mg (*)] 1 mg PO HS #10 cap 12/02/17 Sennosides/Docusate Sodium 1 - 2 tab PO BID tab 12/02/17 [Senokot-S] ARIPiprazole [Abilify 2 mg (*)] 2 mg PO DAILY 01/17/18 Lidocaine [Lidoderm] 1 each TP DAILY 01/17/18 oxyCODONE IR [Oxycodone Ir (*)] 5 - 10 mg PO Q4HRS PRN 05/18/18 tiZANidine HCL [Zanaflex] 4 mg PO TID PRN 01/17/18 Doxycycline Monohydrate 100 mg PO BID #28 capsule 01/30/18 Doxycycline Hyclate [Vibramycin 100 mg PO BID capsule 02/01/18 100 MG (*)] Doxycycline Hyclate 100 mg PO BID #20 tab 03/16/18 oxyCODONE IR [Oxycodone Ir (*)] 5 - 10 mg PO Q6 PRN #20 tab 03/16/18 Medical Decision Making - Diagnostics Imaging Results: Imaging Impressions Lumbar Spine MRI 03/16/18 11:08 Impression: Continued improvement since the comparison with no significant residual paravertebral enhancement at L5-S1 at the site of previous diskitis with no definite acute findings. Findings discussed with Bin Philippe MD on March 16, 2018 at 1408 hours. ED Course/Re-evaluation: CHIEF COMPLAINT: Fever, pain HISTORY OF PRESENT ILLNESS: The patient is a 27 y/o female with a history of infected lumbar discs with L5-S1 fusion complaining of fever and back pain. She originally had surgery at [facility] in 2014 for an infected disc, prompting fusion of L5-S1. In October of 2017, she was found to have an infected abscess in the same region, which was treated here surgically. She stopped taking doxycycline last week. She has felt increasingly ill all week. She reports fever, increased pain, and chills. REVIEW OF SYSTEMS: A 10 point review of systems was performed and is negative with the exception of the elements mentioned in the history of present illness. PHYSICAL EXAM: HR, BP, O2 Sat, RR. Temp noted General Appearance: Alert, well hydrated, appropriate, and non-toxic appearing. Head: Atraumatic without scalp tenderness or obvious injury Nose: Atraumatic, no rhinorrhea, clear. Throat: There is no erythema or exudates, no lesions, normal tonsils, mucus membranes moist. Neck: Supple, nontender, no lymphadenopathy. Respiratory: No retractions, no distress, no wheezes, and no accessory muscle use. Lungs are clear to auscultation bilaterally. Cardiovascular: Regular rate and rhythm, no murmurs, rubs, or gallops. Gastrointestinal: Abdomen is soft, nontender, non-distended, no masses, no rebound, no guarding, no peritoneal signs. Musculoskeletal: Normal active ROM of all extremities, atraumatic. Neurological: Alert, appropriate, and interactive. Skin: No rashes, good turgor, no nodules on palpation. Past medical history: Infected discs and abscess, depression, anxiety Past surgical history: L5-S1 spinal fusion and 2 debasements Family history: Non-contributory Social history: Lives in [place], single, unemployed DIAGNOSTICS/PROCEDURES/CRITICAL CARE TIME: Study: MRI of the: Spine Indication: Pain, history of infected disc Results: MRI scan of the body parts was obtained. The results of the study are normal, no signs of discitis or abscess. The study was read by the radiologist , Dr. Barnes. I viewed the images myself on the PACS system. DIFFERENTIAL DIAGNOSIS: The differential diagnosis for this patient included but was not limited to sepsis, infected hardware, and disc infection. MEDICAL DECISION MAKING: The patient presents with pain and fever. She has a history of disc infections causing spinal fusion. Plan for CBC, basic metabolic panel, bilirubin, coag, ABG, blood culture, urinalysis, and spinal MRI. 2:15 PM - The patient's MRI does not indicate any new findings since her surgery. No discitis or abscess. I will have her restart with doxycycline and follow up with her regular providers. 2:40 PM - The patient is unable to get out of bed due to pain. She will be admitted for pain control. - Data Points Laboratory Results: Laboratory Results 03/16/18 11:15 18 11:15 03/16/18 03/16/18 03/16/18 11:15 11:15 11:15 WBC 11.43 10^3/uL H 10^3/uL (3.80-9.50) RBC 4.47 10^6/uL 10^6/uL (4.18-5.33) Hgb 11.8 g/dL L g/dL (12.6-16.3) Hct 34.7 % L % (38.0-47.0) MCV 77.6 fL L fL (81.5-99.8) MCH 26.4 pg L pg (27.9-34.1) MCHC 34.0 g/dL g/dL (32.4-36.7) RDW 14.6 % % (11.5-15.2) Plt Count 152 10^3/uL 10^3/uL (150-400) MPV 10.9 fL fL (8.7-11.7) Neut % (Auto) Not Reported Lymph % (Auto) Not Reported Sibley % (Auto) Not Reported Eos % (Auto) Not Reported Baso % (Auto) Not Reported Nucleat RBC Rel Count Not Reported Absolute Neuts (auto) Not Reported Absolute Lymphs (auto) Not Reported Absolute Monos (auto) Not Reported Absolute Eos (auto) Not Reported Absolute Basos (auto) Not Reported Absolute Nucleated RBC Not Reported Immature Gran % Not Reported Seg Neutrophils % 69.0 % % Band Neutrophils % 23.0 % % Lymphocytes % 1.0 % % Monocytes % 7.0 % % Eosinophils % 0 % % Basophils % 0 % % Metamyelocytes % 0 % % Myelocytes % 0 % % Promyelocytes % 0 % % Blast Cells % 0 % % Immature Gran # Not Reported Absolute Seg Neuts 7.89 10^/uL H 10^/uL (1.70-6.50) Absolute Band Neuts 2.63 10^3/uL H 10^3/uL (0.00-0.70) Absolute Lymphocytes 0.11 10^3/uL L 10^3/uL (1.00-3.00) Absolute Monocytes 0.80 10^3/uL 10^3/uL (0.30-0.80) Absolute Eosinophils 0.00 10^3/uL L 10^3/uL (0.03-0.40) Absolute Basophils 0.00 10^3/uL L 10^3/uL (0.02-0.10) Absolute Metamyelocyte 0.00 10^3/mL 10^3/mL (0.00-0.00) Absolute Myelocytes 0.00 10^3/mL 10^3/mL (0.00-0.00) Absolute Promyelocytes 0.00 10^3/uL 10^3/uL (0.00-0.00) Absolute Plasma Cells 0.00 10^3/uL 10^3/uL (0.00-0.00) Nucleated RBCs 0 /100 WBC /100 WBC (0-0) Absolute Blast Cells 0.00 10^3/uL 10^3/uL (0.00-0.00) Plasma Cells % 0 % % Toxic Granulation PRESENT H Platelet Estimate ADEQUATE (ADEQ) Microcytic Cells 1+ H PT 14.3 SEC SEC (12.0-15.0) INR 1.09 (0.83-1.16) APTT 33.5 SEC SEC (23.0-38.0) VBG Lactic Acid 1.6 mmol/L mmol/L (0.7-2.1) Sodium Potassium Chloride Carbon Dioxide Anion Gap BUN Creatinine Estimated GFR Glucose Calcium Total Bilirubin 03/16/18 11:15 WBC RBC Hgb Hct MCV MCH MCHC RDW Plt Count MPV Neut % (Auto) Lymph % (Auto) Sibley % (Auto) Eos % (Auto) Baso % (Auto) Nucleat RBC Rel Count Absolute Neuts (auto) Absolute Lymphs (auto) Absolute Monos (auto) Absolute Eos (auto) Absolute Basos (auto) Absolute Nucleated RBC Immature Gran % Seg Neutrophils % Band Neutrophils % Lymphocytes % Monocytes % Eosinophils % Basophils % Metamyelocytes % Myelocytes % Promyelocytes % Blast Cells % Immature Gran # Absolute Seg Neuts Absolute Band Neuts Absolute Lymphocytes Absolute Monocytes Absolute Eosinophils Absolute Basophils Absolute Metamyelocyte Absolute Myelocytes Absolute Promyelocytes Absolute Plasma Cells Nucleated RBCs Absolute Blast Cells Plasma Cells % Toxic Granulation Platelet Estimate Microcytic Cells PT INR APTT VBG Lactic Acid Sodium 125 mEq/L L mEq/L (135-145) Potassium 3.5 mEq/L mEq/L (3.3-5.0) Chloride 90 mEq/L L mEq/L (97-110) Carbon Dioxide 21 mEq/l L mEq/l (22-31) Anion Gap 14 mEq/L mEq/L (8-16) BUN 12 mg/dL mg/dL (7-23) Creatinine 0.5 mg/dL L mg/dL (0.6-1.0) Estimated GFR > 60 Glucose 97 mg/dL mg/dL (70-100) Calcium 7.7 mg/dL L mg/dL (8.5-10.4) Total Bilirubin 0.7 mg/dL mg/dL (0.1-1.4) Medications Given: Discontinued Medications Hydromorphone HCl (Dilaudid) 1 mg IVP EDNOW ONE Stop: 03/16/18 11:10 Last Admin: 03/16/18 11:34 Dose: 1 mg Ondansetron HCl (Zofran) 4 mg IVP EDNOW ONE Stop: 03/16/18 11:10 Last Admin: 03/16/18 11:27 Dose: 4 mg Oxycodone HCl (Oxycodone Ir) 5 mg PO EDNOW ONE Stop: 03/16/18 14:20 Last Admin: 03/16/18 14:23 Dose: 5 mg Departure - Departure Disposition: [facility] Inpatient Acute Clinical Impression: Uncontrolled pain Back pain Qualifiers: Back pain location: low back pain Chronicity: acute Back pain laterality: bilateral Sciatica presence: without sciatica Qualified Code(s): M54.5 - Low back pain Referrals: Patient,NotPresent [Unknown] - As per Instructions Prescriptions: Doxycycline Hyclate 100 mg PO BID #20 tab oxyCODONE IR [Oxycodone Ir (*)] 5 - 10 mg PO Q6 PRN #20 tab PRN Reason: Pain, Severe Report Scribed for: Bin Philippe Report Scribed by: Teresita Vizcarra Date of Report: 03/16/18 Time of Report: 13:17
[2018-03-16] MEDS ORDERED: ONDANSETRON 4 MG/2 ML VIAL IVP ONE (11:09)
[2018-03-16] MEDS ORDERED: HYDROmorphONE/DILAUDID 2 MG/ML INJ IVP ONE (11:09)
[2018-03-16 11:55] LABS: PLATELET COUNT 152 10^3/uL (150-400)
[2018-03-16 11:56] LABS: INR 1.09 (0.83-1.16); PROTIME(PATIENT) 14.3 SEC (12.0-15.0)
[2018-03-16] MEDS ORDERED: GADOBUTROL 10 ML VIAL IVP ONE (13:32)
[2018-03-16] MEDS ORDERED: oxyCODONE IR 5 MG TAB PO ONE (14:19)
[2018-03-16] MEDS ORDERED: ONDANSETRON 4 MG/2 ML VIAL IVP PRN (15:00)
[2018-03-16] MEDS ORDERED: ONDANSETRON DISINTEGRATING 4 MG TAB PO PRN (15:00)
[2018-03-16] MEDS ORDERED: LOPERAMIDE HCL 2 MG CAP PO PRN (15:22)
--- NOTE | 2018-03-16 15:27 | PDGENHP ---
History and Physical - Chief Complaint Acute back pain - History of Present Illness Primary care provider: Elvira HERMOSILLO [facility] Primary infectious Disease: Dr. Portia Royal Primary neurosurgeon: Dr. Rodrick Dawson Primary general surgeon: Dr. Raimundo Gtz HPI: 27-year-old female presents with acute back pain located in the lower back , characterized as sharp and severe, associated with brown watery diarrhea, chills, reported fever up to 104 several days prior, with inability to ambulate and resulting in patient mostly being bed-bound over the past week. Patient reports onset of symptoms approximately 1 week ago, beginning with the diarrhea and then with worsening and evolving back pain of constant duration. The symptoms occurred approximately 1 week after the patient's primary care provider stopped her outpatient oxycodone supply. The patient's primary care provider had been weaning the patient's oxycodone, and had been weaned down to once per day immediately prior to her onset of symptoms, and then completely discontinued as the patient's symptoms escalated. The patient reports that over this interval she has lost her appetite and has only been drinking water. She denies any vomiting but she does report that oral intake of any solids exacerbate her pain and diarrhea. Any movement also exacerbates her pain. The patient denies taking any home [id number] medications during this interval , but she does endorse that she has utilized several of her mother's opiate pain medications in an attempt to alleviate her pain. History Information - Allergies/Home Medication List Allergies/Adverse Reactions: ibuprofen Allergy (Intermediate, Verified 09/23/17 20:16) Rash tramadol Allergy (Intermediate, Verified 09/23/17 20:16) Rash diphenhydramine Allergy (Mild, Verified 01/19/18 11:29) Itching Home Medications: FLUoxetine [Prozac 20 MG (*)] 40 mg PO DAILY 11/22/17 [Last Taken 01/15/18] Gabapentin [Neurontin 300 MG (*)] 900 mg PO TID 11/22/17 [Last Taken 01/15/18] buPROPion [Wellbutrin 75mg (*)] 150 mg PO 08,12 11/22/17 [Last Taken 01/15/18] ARIPiprazole [Abilify 2 mg (*)] 2 mg PO DAILY 01/17/18 [Last Taken 01/15/18] Lidocaine [Lidoderm] 1 each TP DAILY 01/17/18 [Last Taken 01/15/18] oxyCODONE IR [Oxycodone Ir (*)] 5 - 10 mg PO Q4HRS PRN 01/17/18 [Last Taken ] tiZANidine HCL [Zanaflex] 4 mg PO TID PRN 01/17/18 [Last Taken 01/15/18] I have personally reviewed and updated: family history, medical history, social history, surgical history - Past Medical History Additional medical history: History of anxiety and major depressive disorder. Patient with history of cutting on her arms. Patient also with history of recurrent hemorrhoids and rectal bleeding. Patient with stress incontinence and urinary urgency. MSSA epidural abscess, history of L5-S1 diskitis, Acinetobacter PICC line infection. Hepatitis C virus. Oral HSV - Surgical History Additional surgical history: L5/S1 fusion in 2014, cholecystectomy, colonoscopy - Family History Additional family history: All family members are healthy. - Social History Smoking Status: Current every day smoker Alcohol Use: None Drug Use: Marijuana Additional social history: Lives with mother, currently dependent in ADLs Review of Systems Review of Systems: Constitutional: Reports: chills, fever, malaise, weakness Gastrointestinal: Reports: abdominal pain, diarrhea, nausea, other (Anorexia) Muscolosketal: Reports: back pain Physical Exam Physical Exam: Temp Pulse Resp BP Pulse Ox 37.1 C 101 H 16 100/60 96 03/16/18 10:55 03/16/18 15:14 03/16/18 15:14 03/16/18 15:14 03/16/18 15:14 Constitutional: uncomfortable, unkempt, No no apparent distress (Moderate), No not in pain (Moderate) Eyes: PERRL, anicteric sclera, EOMI Ears, Nose, Mouth, Throat: moist mucous membranes, hearing normal, ears appear normal, no oral mucosal ulcers Cardiovascular: tachycardia, edema (Trace bilateral lower extremity), No systolic murmur, No irregularly irregular Respiratory: no respiratory distress, no rales or rhonchi, clear to auscultation Gastrointestinal: normoactive bowel sounds, tenderness (Moderate to mild palpation diffusely throughout), guarding (Voluntary), No rebound, No distension Skin: other (Healed cut shields upper extremities, no rash over abdomen) Musculoskeletal: other (Muscles tender to palpation bilateral lower extremities , bilateral upper extremities, pain in ankles with range of motion) Neurologic: AAOx3, sensation intact bilaterally, No weakness (Motor strength 5/ 5 bilateral lower extremity) Psychiatric: not encephalopathic, thought process linear, anxious, No agitated Lab Data & Imaging Review 03/16/18 11:15 03/16/18 11:15 WBC 11.43 10^3/uL (3.80-9.50) H 03/16/18 11:15 RBC 4.47 10^6/uL (4.18-5.33) 03/16/18 11:15 Hgb 11.8 g/dL (12.6-16.3) L 03/16/18 11:15 Hct 34.7 % (38.0-47.0) L 03/16/18 11:15 MCV 77.6 fL (81.5-99.8) L 03/16/18 11:15 MCH 26.4 pg (27.9-34.1) L 03/16/18 11:15 MCHC 34.0 g/dL (32.4-36.7) 03/16/18 11:15 RDW 14.6 % (11.5-15.2) 03/16/18 11:15 Plt Count 152 10^3/uL (150-400) 03/16/18 11:15 MPV 10.9 fL (8.7-11.7) 03/16/18 11:15 Neut % (Auto) Not Reported 03/16/18 11:15 Lymph % (Auto) Not Reported 03/16/18 11:15 Jack % (Auto) Not Reported 03/16/18 11:15 Eos % (Auto) Not Reported 03/16/18 11:15 Baso % (Auto) Not Reported 03/16/18 11:15 Nucleat RBC Rel Count Not Reported 03/16/18 11:15 Absolute Neuts (auto) Not Reported 03/16/18 11:15 Absolute Lymphs (auto) Not Reported 03/16/18 11:15 Absolute Monos (auto) Not Reported 03/16/18 11:15 Absolute Eos (auto) Not Reported 03/16/18 11:15 Absolute Basos (auto) Not Reported 03/16/18 11:15 Absolute Nucleated RBC Not Reported 03/16/18 11:15 Immature Gran % Not Reported 03/16/18 11:15 Seg Neutrophils % 69.0 % 03/16/18 11:15 Band Neutrophils % 23.0 % 03/16/18 11:15 Lymphocytes % 1.0 % 03/16/18 11:15 Monocytes % 7.0 % 03/16/18 11:15 Eosinophils % 0 % 03/16/18 11:15 Basophils % 0 % 03/16/18 11:15 Metamyelocytes % 0 % 03/16/18 11:15 Myelocytes % 0 % 03/16/18 11:15 Promyelocytes % 0 % 03/16/18 11:15 Blast Cells % 0 % 03/16/18 11:15 Immature Gran # Not Reported 03/16/18 11:15 Absolute Seg Neuts 7.89 10^/uL (1.70-6.50) H 03/16/18 11:15 Absolute Band Neuts 2.63 10^3/uL (0.00-0.70) H 03/16/18 11:15 Absolute Lymphocytes 0.11 10^3/uL (1.00-3.00) L 03/16/18 11:15 Absolute Monocytes 0.80 10^3/uL (0.30-0.80) 03/16/18 11:15 Absolute Eosinophils 0.00 10^3/uL (0.03-0.40) L 03/16/18 11:15 Absolute Basophils 0.00 10^3/uL (0.02-0.10) L 03/16/18 11:15 Absolute Metamyelocyte 0.00 10^3/mL (0.00-0.00) 03/16/18 11:15 Absolute Myelocytes 0.00 10^3/mL (0.00-0.00) 03/16/18 11:15 Absolute Promyelocytes 0.00 10^3/uL (0.00-0.00) 03/16/18 11:15 Absolute Plasma Cells 0.00 10^3/uL (0.00-0.00) 03/16/18 11:15 Nucleated RBCs 0 /100 WBC (0-0) 03/16/18 11:15 Absolute Blast Cells 0.00 10^3/uL (0.00-0.00) 03/16/18 11:15 Plasma Cells % 0 % 03/16/18 11:15 Toxic Granulation PRESENT H 03/16/18 11:15 Platelet Estimate ADEQUATE (ADEQ) 03/16/18 11:15 Microcytic Cells 1+ H 03/16/18 11:15 PT 14.3 SEC (12.0-15.0) 03/16/18 11:15 INR 1.09 (0.83-1.16) 03/16/18 11:15 APTT 33.5 SEC (23.0-38.0) 03/16/18 11:15 VBG Lactic Acid 1.6 mmol/L (0.7-2.1) 03/16/18 11:15 Sodium 125 mEq/L (135-145) L 03/16/18 11:15 Potassium 3.5 mEq/L (3.3-5.0) 03/16/18 11:15 Chloride 90 mEq/L (97-110) L 03/16/18 11:15 Carbon Dioxide 21 mEq/l (22-31) L 03/16/18 11:15 Anion Gap 14 mEq/L (8-16) 03/16/18 11:15 BUN 12 mg/dL (7-23) 03/16/18 11:15 Creatinine 0.5 mg/dL (0.6-1.0) L 03/16/18 11:15 Estimated GFR > 60 03/16/18 11:15 Glucose 97 mg/dL (70-100) 03/16/18 11:15 Calcium 7.7 mg/dL (8.5-10.4) L 03/16/18 11:15 Total Bilirubin 0.7 mg/dL (0.1-1.4) 03/16/18 11:15 Visualized and Interpreted imaging results: Yes Interpretation: Lumbar MRI demonstrating no acute findings, there is reduced edema and no persistent fluid collection in the lumbar sacral spine, intact hardware Assessment & Plan Assessment: 27-year-old female presents with acute body pain and diarrhea secondary to suspected opiate withdrawal complicated by acute hyponatremia and possible fever Plan: 1. Suspected opiate withdrawal. Evidenced by diffuse body pain, diarrhea, anorexia, all temporarily associated to recent opiate wean and then discontinuation by primary care provider -order outside records from [facility], to determine the specific concerns of the patient's primary care provider in continuing opiates with this patient -although the patient likely does have an opiate abuse issue and has continuous opiate dependency, her current level of pain is rendering her completely unable to function and the patient is not in any emotional space to discontinue her opiate medications and resume function, so it may be prudent to initiate oxycodone at her previous dosing and engage her with a therapy modalities to determine her exact functional status, and then encourage an outpatient wean and potentially establishment with a pain medication prescriber if the patient is unwilling to discontinue at the advice of her PCP -Imodium as needed, Tylenol as needed, antiemetics as needed -if patient becomes increasingly tachycardic, may give her dose of clonidine -check drug screen 2. Hyponatremia. Acute, most likely secondary to GI losses and oral intake consisting only of water, provide her with normal saline as there is most likely hypovolemic component, repeat serum sodium level in a.m. 3. Possible fever. Acute, new problem this provider, further workup indicated. Unclear whether the patient's acute presentation has been triggered by an overt infection, as the patient's symptoms do have considerable overlay with other possible nidus is of infection, including respiratory, GI, systemic -get respiratory viral panel, get GI PCR, get blood cultures -check urinalysis -check ESR, CRP, procalcitonin level given possibility of recurrent spinal infection -reviewed outside records including 02/01/[address] Nela Hanna, describing patient's most recent hospitalization for MSSA epidural abscess, treated with IV Ancef, discharged home with 14 days of doxycycline -of note, the patient has not continue doxycycline and has not followed up with her primary infectious disease specialist so it is unclear as to whether the patient should continue to be on antibiotics at this time -will get Infectious Disease consultation to help guide workup and treatment 4. Anxiety, depression. Patient has a strong mental health component to her opiate abuse and continuous dependency. Is unclear whether the patient is truly emotionally ready to discontinue opiates. Continue patient's home medication Diet. Regular as tolerated Prophylaxis. High risk patient Lovenox for Code. Full Disposition. Anticipated discharge 03/17, pending further workup and treatment of conditions outlined above. I have discussed patient's presentation with Dr. Bin Philippe, he and I both agree that the patient is functionally unable to discharge from the emergency department despite receiving Dilaudid and oxycodone, warrants further workup as outlined above.
[2018-03-16] MEDS: oxyCODONE IR 5 MG TAB PO PRN ×3 (15:38→23:49)
[2018-03-16] MEDS: NS W/ 20 KCl/L 1,000 ML IV SCH (15:40)
[2018-03-16] MEDS: ACETAMINOPHEN 325 MG TAB PO PRN ×2 (18:17→23:07)
[2018-03-16] MEDS ORDERED: NS 1,000 ML IV ONE (20:20)
[2018-03-16] MEDS: GABAPENTIN 300 MG CAP PO SCH (23:25)
[2018-03-16] MEDS: VANCOMYCIN HCL/NORMAL SALINE 250 ML IV SCH (23:49)
[2018-03-17] MEDS: ACETAMINOPHEN 325 MG TAB PO PRN ×2 (04:47→08:34)
[2018-03-17] MEDS: oxyCODONE IR 5 MG TAB PO PRN ×4 (04:47→23:50)
[2018-03-17] MEDS ORDERED: NS 500 ML IV ONE (05:01)
[2018-03-17 05:08] LABS: PLATELET COUNT 110 10^3/uL (150-400)
[2018-03-17] MEDS: NS W/ 20 KCl/L 1,000 ML IV SCH (06:29)
[2018-03-17] MEDS ORDERED: NS BOLUS 500 ML (Wide open) IV ONE (07:00)
[2018-03-17] MEDS: VANCOMYCIN HCL/NORMAL SALINE 250 ML IV SCH (08:28)
[2018-03-17] MEDS: GABAPENTIN 300 MG CAP PO SCH ×3 (08:34→22:20)
[2018-03-17] MEDS: ENOXAPARIN 40 MG/0.4 ML SYR SC SCH (08:37)
[2018-03-17] MEDS: HYDROmorphONE/DILAUDID 1 MG/ML INJ IVP PRN ×3 (08:52→19:49)
--- NOTE | 2018-03-17 09:18 | ECHO ---
[email or web address] [address] [address] Main: [phone] Fax: Transthoracic Echocardiogram Name: AKOSUA VILLA MR#: [id number] Study Date: 03/17/2018 Study Time: 07:51 AM Date of : 1990 Age: 27 year(s) Height: 160 cm (63 in.) Weight: 58.97 kg (130 lb.) BSA: 1.61 m2 Gender: Female Examination: Echo Indication: gpc bacteria, endocarditis? Image Quality: Adequate Contrast: Requested by: Db Womack BP: / Heart Rate: Rhythm: Indication: gpc bacteria, endocarditis? Procedure Staff Multi [employer] Specialist: Yamila Johnson RDCS Reading Physician: Truman Turner MD Requesting Provider: Conclusions: Normal size left ventricle. No LV hypertrophy. Normal global systolic LV function. EF is 59 %. Mild mitral valve regurgitation is present. There appears to be two pieces of vegetation attached to opposite sides of the mitral valve leaflet measuring .6 and .7 cm. The aortic valve is tri-leaflet. The tricuspid valve is normal in appearance and function. Normal size ascending aorta measuring 2.6 cm. Measurements: Chambers Valvular Assessment AV/MV Valvular Assessment TV/PV Normal Normal Normal Name Value Range Name Value Range Name Value Range Ao Jen (2D): 2.8 cm (1.4 cm-2.6 AV Vmax: 1.10 m/s (1 m/s-1.7 PV Vmax: 0.76 m/s (0.6 m/s-0.9 cm) m/s) m/s) IVSd (2D): 0.8 cm (0.6 cm-1.1 AV maxP mmHg ( - ) PV PGmax: 2 mmHg ( - ) cm) AV meanP mmHg ( - ) LVDd (2D): 4.3 cm (3.9 cm-5.3 LVOT Vmax: 0.71 m/s (0.7 m/s-1.1 cm) m/s) LVDs (2D): 3.0 cm (2.1 cm-4 KYARA (Vmax): 2.0 cm2 ( - ) cm) KYARA (VTI): 1.8 cm ( - ) LVPWd (2D): 0.8 cm ( - ) MV E Vmax: 0.94 m/s ( - ) LVOTd 2.0 cm 2.0 cm mm MV A Vmax: 0.51 m/s ( - ) LVEF (BP): 59 % (>=55 %) MV E/A: 1.84 ( - ) RVDd(2D): 2.5 cm (1.9 cm-3.8 MV PHT: 0.064 s ( - ) cmmm) MVA (PHT): 3.4 s ( - ) Continued Measurements: Patient: AKOSUA VILLA Study Date: 03/17/2018 Page 1 of 2 07:51 AM Chambers Valvular Assessment AV/MV Name Value Name Value LADs: 3.3 cm MV DecTime: 225 m/s LADs Lon.2 cm MV E/E' Septal: 9.00 LA Area: 15.6 cm2 MV E/E' Lateral: 9.70 Additional Vessels Name Value Ao Ascendin.6 cm Findings: Left Ventricle: Normal size left ventricle. No LV hypertrophy. Normal global systolic LV function. EF is 59 %. No regional wall motion abnormality. Normal diastolic LV function. Right Ventricle: Normal size right ventricle. Normal RV function. Left Atrium: The left atrium is normal in size. Right Atrium: The right atrium is normal in size. Mitral Valve: Mild mitral valve regurgitation is present. No mitral stenosis is present. There appears to be two pieces of vegetation attached to opposite sides of the mitral valve leaflet measuring .6 and .7 cm. Aortic Valve: The aortic valve is tri-leaflet. There is no significant aortic valve regurgitation. No aortic valve stenosis is present. Tricuspid Valve: The tricuspid valve is normal in appearance and function. Mild tricuspid regurgitation is present. Pulmonic Valve: The pulmonic valve is normal in appearance and function. Mild pulmonic valve regurgitation is noted. Aorta: The aorta is normal. Normal size aortic root measuring 2.8 cm. Normal size ascending aorta measuring 2.6 cm. IVC: The IVC is normal sized. Pericardium: Trivial pericardial effusion. No pleural effusion. (No Signature Object) Patient: AKOSUA VILLA Study Date: 03/17/2018 Page 2 of 2 07:51 AM [id number]
[2018-03-17] MEDS ORDERED: ALTEPLASE 2 MG VIAL IVP PRN (09:56)
--- NOTE | 2018-03-17 10:04 | HOSPPROG ---
Hospitalist Progress Note Assessment/Plan: # MSSA bacteremia/endocarditis - was non-compliant with PO doxy per report - check stat ECG, trasnfer to PCU, tele monitoring - cont iv abx per ID - Dr Post to consult # MSSA L5-S1 diskitis/osteo s/p anterior I&D 10/2017 # hx acetobacter PICC infection # sepsis - fevers (subjective), leukocytosis, bacteremia - place PICC # HCV - outpatient f/u Subjective: tearful; c/o diffuse body pain; diffuse (not focal) weakness and bilat feet numbness Objective: Vital Signs Temp Pulse Resp BP Pulse Ox 36.6 C 80 18 89/49 L 97 03/17/18 08:00 03/17/18 08:00 03/17/18 08:00 03/17/18 08:00 03/17/18 08:00 Microbiology 03/16/18 15:20 Respiratory Panel (PCR) - Final Nasal, Sinus - Swab No Organism Detected Laboratory Results 03/17/18 04:43 03/17/18 04:43 03/16/18 03/17/18 03/18/18 05:59 05:59 05:59 Intake Total 3900 Output Total 1550 Balance 2350 PT 14.3 SEC (12.0-15.0) 03/16/18 11:15 INR 1.09 (0.83-1.16) 03/16/18 11:15 chart reviewed echo/MRI reviewed discussed with Raoul Turner and ICD10 Worksheet Patient Problems: Problems Problem Status Onset Back pain Acute Uncontrolled pain Acute Discitis of lumbar region Acute Fever Acute Osteomyelitis of lumbar spine Acute
--- NOTE | 2018-03-17 10:07 | CPEKG ---
Heart Rate: 75 RR Interval: 800 P-R Interval: 156 QRSD Interval: 92 QT Interval: 412 QTC Interval: 461 P Hoxie: 41 QRS Hoxie: 72 T Wave Hoxie: 28 EKG Severity - NORMAL ECG - EKG Impression: SINUS RHYTHM Electronically Signed By: Tylor Ramirez 19-Mar-2018 12:14:02
--- NOTE | 2018-03-17 10:22 | PDMN ---
Medical Necessity Medical necessity: change to IP; los>2mn for Staph bacteremia with likely high disease burden, immediately positive blood cx's, suspected opiate withdrawal r/ t wean per PCP w/diffuse pain, diarrhea, anorexia, and hyponatremia; admit for IV abx, ID consult, IV boluses for hypotension, subsequent transfer to PCU; comorbid anxiety/depression, hep C, hx recent MSSA epidural abscess w/ noncompliance of oral abx and f/u with ID post discharge; per order and H&P 03/16
[2018-03-17] MEDS: NAFCILLIN SODIUM 2 GM in D5W 100 ML IV SCH ×4 (10:38→22:20)
[2018-03-17] MEDS ORDERED: NS 1,000 ML IV ONE ×2 (10:43→11:19)
--- NOTE | 2018-03-17 10:55 | PCMIDPN ---
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 Etiology for infection either recurrence of MSSA disease from back hardware while off suppressive doxycycline (MRI does not show evidence of recurrent infection however) versus concern for possibility of injection drug use although she denies injection drug use. Will transition vancomycin to nafcillin. Agree with plans for ONEAL. Also will plan for CT of abdomen and pelvis given abdominal pain to assess for any intra-abdominal embolic phenomena. Cardiothoracic surgery evaluation as potentially she will need surgical management. Follow-up blood cultures over time to assess for clearing of bacteremia. Time spent, greater than 35 min, of which greater than half was spent in education/counseling/coordination of care related to MSSA endocarditis and possible need for surgical management. Care coordinated with nursing staff, Dr. Turner, and Dr. Ferrer. 03/17/18 10:48 Subjective: Patient known to our service from prior care related to MSSA epidural abscess which required surgical drainage. Last seen by Dr. Royal in our office on 2017 at which point she was being maintained on suppressive doxycycline given indwelling hardware. Patient notes she ran out of her medications approximately 1 week ago and did not know she was post to continue taking them or not. Also describes having her narcotics discontinued with withdrawal symptoms. Notes fever and shaking chills over last week with low back pain. Also has diffuse joint pain and pain in her feet. Denies any recent skin infection. Denies injection drug use. Blood cultures obtained at time of admission showing both sets positive rapidly with growth of MSSA. Patient has been receiving vancomycin. Transthoracic echocardiogram shows 2 separate vegetations on the mitral valve measuring 0.6 and 0.7 cm respectively. ONEAL planned to further evaluate. MRI of lumbar spine performed yesterday does not show evidence of recurrent paraspinal abscess or diskitis. Patient also notes ongoing lower abdominal pain along prior surgical scar. Infectious disease service is now requested to assist in her ongoing management. Objective: Vital Signs Temp Pulse Resp BP Pulse Ox 36.6 C 80 18 89/49 L 97 03/17/18 08:00 03/17/18 08:00 03/17/18 08:00 03/17/18 08:00 03/17/18 08:00 Laboratory Results 03/17/18 04:43 03/17/18 04:43 03/16/18 03/17/18 03/18/18 05:59 05:59 05:59 Intake Total 3100 Output Total 850 Balance 2250 ESR 24 MM/HR (0-20) H 03/17/18 04:43 C-Reactive Protein 171.1 mg/L (<10.0) H 03/17/18 04:43 Vancomycin # 1 Blood cultures 2/2 sets MSSA Transthoracic echocardiogram with 2 discrete mitral valve vegetations measuring 0.6 and 0.7 cm respectively; mild mitral regurgitation present [place] interval 0.16 Laboratory Tests 03/17/18 04:43 Total Bilirubin 0.5 AST 77 H ALT 50 Alkaline Phosphatase 116 C-Reactive Protein 171.1 H Procalcitonin 2.28 H - Physical Exam General Appearance: apparent distress (Ill-appearing female) EENT: No scleral icterus, No thrush, No conjunctival petechiae Respiratory: lungs clear, No respiratory distress Cardiac/Chest: regular rate, rhythm, No systolic murmur Extremities: inflammation (Left ft over plantar aspect with several painful macules; diffuse sausage like swelling of toes and fingers) Abdomen: tender (Lower quadrant diffusely) Skin: embolic lesions (Embolic/vasculitic findings over palms and soles) Neuro/Psych: No confused ICD10 Worksheet Patient Problems: Problems Problem Status Onset Back pain Acute Uncontrolled pain Acute Discitis of lumbar region Acute Fever Acute Osteomyelitis of lumbar spine Acute
[2018-03-17] MEDS ORDERED: HYDROmorphONE/DILAUDID 1 MG/ML INJ IVP ONE (11:00)
[2018-03-17 12:50] LABS: PLATELET COUNT 102 10^3/uL (150-400)
--- NOTE | 2018-03-17 13:06 | GCON ---
[f rep st] CONSULTATION REASON FOR ADMISSION TO INTENSIVE CARE UNIT: Endocarditis. HISTORY OF PRESENT ILLNESS: The patient is a 27-year-old, white female with a past medical history i ncluding anxiety and depression, recurrent hemorrhoids and rectal bleeding, MSSA epidural abscess, L5 -S1 diskitis, Acinetobacter PICC line infection and hepatitis C. She was admitted with complaints of acute back pain on March 16, 2018 during subsequent workup which included an echocardiogram revealed endocarditis and she was admitted to the intensive care unit. In discussion with the patient with th e exception of back pain she states she is doing reasonably well. There is no cough or production of sputum. She denies any chest pain, pleuritic-type chest pain or angina equivalent. PAST MEDICAL HISTORY: Again, significant for anxiety and depression, epidural abscess at L5-S1, disk itis, Acinetobacter PICC line infection, hepatitis C virus and oral herpes simplex virus. PAST SURGICAL HISTORY: L5-S1 fusion 2014, cholecystectomy, colonoscopy. SOCIAL HISTORY: She is an every day smoker. Does not drink any alcohol. Apparently smokes some mar ijuana. She lives with her mother and has excellent family support. HOME MEDICATIONS: Include Zanaflex, oxycodone, Lidoderm, Abilify, Wellbutrin, Neurontin, Prozac. ALLERGIES: Ibuprofen, Tramadol and Benadryl. REVIEW OF SYSTEMS: 10-point review of systems was performed, negative with the exception of what is in the HPI. PHYSICAL EXAM: VITAL SIGNS: Blood pressure 76/47, pulse is 69, respirations are 13, temperature 36. 5, oxygen saturation 100% on 1 L. GENERAL: She is a well-developed 27-year-old, white female who is in moderate pain. HEENT: Eyes PERRLA. EOMI. Throat: She has poor dentition. NECK: Supple. Th ere is no cervical adenopathy. HEART: Regular rate and rhythm without murmurs, rubs, gallops. LUNG S: Clear to auscultation. No wheeze or rhonchi. ABDOMEN: Soft, nontender. Bowel sounds are prese nt. EXTREMITIES: No clubbing, cyanosis, or edema. LABORATORIES: White count is 8.6, hemoglobin 11, hematocrit 33, platelet count is 110. Sodium 129, potassium 3.5, chloride 99, CO2 24, BUN 8, creatinine 0.6, glucose 104. AST 77, ALT is 50. C-reactiv e protein is 171. Procalcitonin is 2.28. Urinalysis is negative. Lumbar spine MRI revealed improve ment of abscess and diskitis. Echocardiogram reveals vegetation on the mitral valve with ejection fr action 59%. IMPRESSION: 1. Mitral valve endocarditis. 2. Bacteremia. 3. History of Methicillin-sensitive Staphylococcus aureus epidural abscess. 4. Anxiety and depression. 5. Hepatitis C. RECOMMENDATIONS: 1. Agree with current antibiotic coverage. 2. Adequate pain control. 3. DVT and PE prophylaxis. 4. Stress ulcer prophylaxis. 5. Cardiothoracic surgical consult. /[id number]/MODL
[2018-03-17 13:28] LABS: INR 1.25 (0.83-1.16); PROTIME(PATIENT) 15.9 SEC (12.0-15.0)
--- NOTE | 2018-03-17 13:28 | PDCARPN ---
Cardiology Progress Note Chief Complaint: Patient presents with complaints of fever and not feeling well. Assessment/Plan: Assessment: Patient is a 27-year-old female, who we were asked to consult on for mitral valve endocarditis, bacteremia, and history of of MSSA. Patient has had a complex number of visits to the ER with several complaints. She presents to this admission with complaints of one week of fevers and not feeling well. She has a past medical history of anxiety, depression, MSSA epidural abscess, L5-S1 diskitis, Acinetobacter PICC line infection, and hepatitis C. Patient denies any recent use of IV drugs. She was weaned off Oxycodone and states her last dose was 2 weeks ago. She was admitted on 11/22/17 with complaints of low back pain. She was found to have diskitis, and associated osteomyelitis from L5-S1 with anterior paraspinal abscess. She had anterior exposure spinal surgery and a PICC line placed for outpatient antibiotics. She was discharged on 12/02/17 with orders for IV antibiotics but had compliance issues. On 01/17/18 she presented again to the ED with complaints of fevers after missing 3 days of her antibiotics. She had been following by [facility] for ID. PICC line culture results showed Acinetobacter baumanni infection. Patient was started on 7 days of Meropenem followed by 7 days of Ancef. She was then discharged with oral Doxycycline (unsure whether or not she was compliant with this). Echo done showed the following: normal size left ventricle, no LV hypertrophy, normal global systolic LV function, EF = 59%, no regional wall motion abnormalities, mild mitral valve regurgitation, two large vegetations to the mitral valve were noted (measuring .6 and .7 cm). Plan: Consideration for ONEAL to better visualize the left heart pathology. CT surgery is aware of the patient's admission and the surface echo findings Subjective: Patient complains of fevers and overall "not feeling well." Reviewed/Discussed With: hospitalist, multidisciplinary team Objective: Vital Signs (8 Hrs) Temp Pulse Resp BP Pulse Ox 03/17/18 13:00 75 21 H 76/47 L 100 03/17/18 12:09 69 13 76/47 L 100 03/17/18 11:47 36.5 C 75 11 L 84/62 L 12 L 03/17/18 11:02 12 79/51 L 95 07/16/18 08:00 36.6 C 80 18 89/49 L 97 Intake/Output (24 Hrs) 03/16/18 03/17/18 03/18/18 05:59 05:59 05:59 Intake Total 3100 Output Total 850 700 Balance 2250 -700 Intake: Oral (ml) 350 IV Infused (ml) 2750 NS W/ 20 KCl/L 1,000 ml @ 1000 100 mls/hr IV CONT [facility] Rx#:[id number] Ns 1,000 ml @ Wide Open 1000 IV ONCE ONE Rx#: [id number] Ns 500 ml @ Wide Open IV 500 ONCE ONE Rx#:[id number] Vancomycin HCl/Normal 250 Saline 250 ml @ 250 mls/ hr IV Q8H [facility] Rx#: [id number] Output: Urine (ml) 850 700 Bedpan 700 Toilet 850 Other: Weight 56.78 kg Result Diagrams: 03/17/18 12:25 03/17/18 12:25 Echocardiogram: Normal LVEF was noted Large vegetation to the mitral valve (both atrial and ventricular presence) - Physical Exam Constitutional: general pain, apparent distress Eyes: PERRL, EOMI Ears, Nose, Mouth, Throat: moist mucous membranes Cardiovascular: systolic murmur, diastolic murmur, pulses symmetric bilat, No jugular vein distention Peripheral Pulses: 2+: dorsalis-pedis (R), dorsalis-pedis (L) Respiratory: clear to auscultate bilat, no crackles Gastrointestinal: No ascites Skin: warm, other (questionable janeway lesions to feet) Musculoskeletal: joint tenderness, pain with ROM, muscular tenderness Neurologic: AAOx3, CN II-XII grossly intact Psychiatric: following commands, encephalopathic, anxious ICD10 Worksheet Patient Problems: Problems Problem Status Onset Back pain Acute Uncontrolled pain Acute Discitis of lumbar region Acute Fever Acute Osteomyelitis of lumbar spine Acute
[2018-03-17] MEDS ORDERED: DOPamine/DEXTROSE 400 MG/250 ML BAG IV ONE (14:17)
[2018-03-17] MEDS ORDERED: IOPAMIDOL (ISOVUE-300) 100 ML BTL ONE ×2 (14:34→20:54)
[2018-03-17] MEDS ORDERED: fentaNYL 100 MCG/2 ML INJ ONE (15:18)
[2018-03-17] MEDS ORDERED: PROTOCOL POTASSIUM 1 DOSE MISC PRN (15:18)
[2018-03-17] MEDS ORDERED: VASOPRESSIN/DEXTROSE 250 ML IV SCH (15:30)
[2018-03-17] MEDS ORDERED: PHENYLEPHRINE HCL 50 MG in D5W 250 ML IV SCH (15:30)
[2018-03-17] MEDS ORDERED: NOREPINEPHRINE/NS 500 ML IV SCH (15:30)
[2018-03-17] MEDS ORDERED: VASOPRESSIN 25 UNIT in NS 250 ML IV SCH (16:00)
[2018-03-17] MEDS ORDERED: VANCOMYCIN HCL/NORMAL SALINE 250 ML IV SCH ×2 (16:00→16:30)
[2018-03-17] MEDS ORDERED: fentaNYL 100 MCG/2 ML INJ IV ONE (16:00)
--- NOTE | 2018-03-17 16:13 | GCON ---
[f rep st] CONSULTATION DATE OF CONSULTATION: 03/17/2018 REFERRING PHYSICIAN: Truman Turner MD The patient is seen at the request of Dr. Turner with the patient's permission. IMPRESSION: 1. Subacute bacterial endocarditis with evidence of septic shock with Staph aureus. 2. History of complicated back prosthesis on suppressive therapy for previous infection. No evidenc e of ongoing infection based on Cardiothoracic and Infectious Disease evaluation. 3. Chronic cigarette abuse. 4. Hepatitis C positive. RECOMMENDATIONS: This patient has evidence of peripheral embolization. A CT scan of the head, abdom en, and spleen are currently being performed. Given the evidence of moderately large 7 and 8 mm hype r mobile vegetations attached to the ventricular and atrial side of the anterior mitral leaflet with prolapse into the outflow tract, I have concern she is at great risk for further embolization. We wi ll discuss it with her and her family. At the present time, the patient is in discomfort, emotionall y labile, and difficult to have any conversation about intervention. I will discuss it with her moth er as well. I will offer them surgery for removal to prevent embolization and particularly stroke as well as curative. It does not appear that the valve was significantly destroyed, although that daily ins to be seen intraoperatively. Given her young age and questionable responsible behavior, she woul d at first represent a mitral valve repair if possible and at last resort a tissue valve replacement. I do have concerns that the vegetations are such that they may not all be approachable through a ri ght thoracotomy and, for that reason, I will do a sternotomy. Risks and complications of not proceed ing with surgery, including stroke, peripheral embolization, worsening sepsis, and were reviewe d at length with the patient. I attempted to call her mother who did not answer her phone. We will continue to make attempts to reach her. CHIEF COMPLAINT: A 27-year-old female with a history of anxiety and depression with recurrent hemorr hoids and bleeding, MSSA epidural abscess, L5-S1 diskitis, Acinetobacter PICC line insertion infectio n, and hepatitis C, was admitted with complaints of acute back pain on March 16. During workup whic h included an echo which revealed endocarditis with vegetations as described. She has no other obvio usly known source. She denies IV drug abuse. PREVIOUS MEDICAL HISTORY: As stated above including anxiety, depression, epidural abscess at L5-S1 d iskitis, Acinetobacter PICC line infection, hepatitis C, and oral herpes simplex. SURGERIES: Include L5-S1 fusion in 2015, cholecystectomy, and colonoscopy. SOCIAL HISTORY: She is an everyday smoker. She does not drink. She occasionally smokes marijuana. She lives with her mother and has family support that is described as excellent. HOME MEDICATIONS: Include Zanaflex, oxycodone, Lidoderm, Abilify, Wellbutrin, Neurontin, and Prozac. ALLERGIES: Ibuprofen, tramadol, and Benadryl. REVIEW OF SYSTEMS: Difficult to elicit as the patient is basically moaning in bed and crying. PHYSICAL EXAMINATION: VITAL SIGNS: Blood pressure is 76/47, pulse 68, respirations 13. Temp is 36. 5. HEENT: Normocephalic. DUDLEY. EOMI. NECK: Without bruits. She has poor dentition. HEART: R ate regular without murmur. LUNGS: Clear. ABDOMEN: Soft, nontender. Bowel sounds are active. RE CTAL AND GENITAL: Deferred. NEUROLOGIC: She appears to be grossly intact. She responds appropriat kristine. Moves all extremities to command and is somewhat conversant. LABORATORY DATA: White count was 8.6, hematocrit 33, creatinine 0.6, CO2 24. /[id number]/MODL
[2018-03-17] MEDS: NOREPINEPHRINE BITARTRATE 4 MG in D5W 500 ML IV SCH ×2 (16:27→22:20)
[2018-03-17] MEDS: POTASSIUM Cl (KCl) 50 ML IV SCH ×3 (16:32→20:23)
--- NOTE | 2018-03-17 17:19 | ASMTCMCOM ---
CM Note CM Note Notes: 27yr old female, numerous admissions and ER visits. Admitted for opioid W/D, Hyponatremia, Fever. She has a Hx of Anxiety, Depression, Spinal surgery L5-S1 and prosthesis with infection, Smoker, HEP C. Patient has Vegetation on her ventricular and atrial side of mitral valve. MD interested in talking to patient and her mother about surgery. Many attempts to contact mother. Phone numbers in chart either not accessible or not correct. Contacted mother's work and farm field manager reported that mother called in to say she couldn't work due to her daughter's hospitalization. Date Signed: 03/17/2018 05:16 PM Electronically Signed By:Sunshine Hurley LCSW
[2018-03-17] MEDS ORDERED: ALBUMIN 5% 500 ML BOTTLE IV ONE (19:30)
[2018-03-17] MEDS ORDERED: ALBUMIN 5% 500 ML IV ONE (20:00)
[2018-03-17] MEDS ORDERED: CHLORHEXIDINE GLUC HIBICLENS 118 ML BTL TP SCH (21:00)
[2018-03-17] MEDS: MUPIROCIN 2% 22 GM OINT NS SCH (22:21)
[2018-03-18] MEDS: NAFCILLIN SODIUM 2 GM in D5W 100 ML IV SCH ×6 (02:10→22:00)
[2018-03-18] MEDS: HYDROmorphONE/DILAUDID 1 MG/ML INJ IVP PRN ×2 (02:10→06:06)
[2018-03-18] MEDS: ACETAMINOPHEN 325 MG TAB PO PRN (04:14)
[2018-03-18] MEDS: oxyCODONE IR 5 MG TAB PO PRN (04:14)
[2018-03-18 05:49] LABS: PLATELET COUNT 132 10^3/uL (150-400)
--- NOTE | 2018-03-18 08:42 | PDINTPN ---
Lead Presser Progress Note Assessment/Plan: Assessment/Plan: * Mitral valve endocarditis -to operating room today for mitral valve replacement * Bacteremia-antibiotics per Infectious Disease * Splenic infarction -agree surgical consultation * History of methicillin sensitive Staph aureus epidural abscess * Hepatitis-C * Anxiety depression * Abdominal pain-from splenic infarct * Shock-on pressors -wean as tolerated * Nutrition-continue NPO Subjective: Complains of abdominal pain. Objective: Vital Signs Temp Pulse Resp BP Pulse Ox 35.0 C L 56 L 17 90/64 L 96 03/18/18 07:00 03/18/18 07:00 03/18/18 07:00 03/18/18 07:00 03/18/18 07:00 Laboratory Results 03/18/18 05:05 03/18/18 05:05 03/17/18 03/18/18 03/19/18 05:59 05:59 05:59 Intake Total 3100 4374 Output Total 850 3325 Balance 2250 1049 PT 15.9 SEC (12.0-15.0) H 03/17/18 12:25 INR 1.25 (0.83-1.16) H 03/17/18 12:25 Laboratory Results 03/18/18 05:05 03/18/18 05:05 03/18/18 05:05 Glucose 158 mg/dL H mg/dL (70 - 100) Calcium 7.9 mg/dL L mg/dL (8.5 - 10.4) Total Bilirubin 0.8 mg/dL mg/dL (0.1 - 1.4) AST 23 IU/L IU/L (14 - 46) ALT 29 IU/L IU/L (9 - 52) Alkaline Phosphatase 88 IU/L IU/L (38 - 126) Total Protein 5.4 g/dL L g/dL (6.3 - 8.2) Albumin 2.7 g/dL L g/dL (3.5 - 5.0) 03/16/18 11:30 Blood Culture - Preliminary Blood Staphylococcus Aureus 03/16/18 11:15 Blood Culture - Preliminary Blood Blood Panel (PCR) - Final Staphylococcus Aureus S.aureus Methicillin Suscept. Chest [id number] by myself. The scoliosis is noted. Central venous catheter is present and a good position. Lungs appear clear - Time Spent With Patient Time Spent With Patient: 35 min of time spent with patient, over 1/2 involved with coordination of care or counseling Physical Exam - Physical Exam General Appearance: alert, no apparent distress, moderate distress EENT: PERRL/EOMI Neck: non-tender, full range of motion, supple, normal inspection Respiratory: chest non-tender, lungs clear, normal breath sounds Cardiac/Chest: normal peripheral pulses, regular rate, rhythm, systolic murmur Peripheral Pulses: 2+: carotid (R), carotid (L), femoral (R), femoral (L), dorsalis-pedis (R), dorsalis-pedis (L) Abdomen: normal bowel sounds, non-tender, soft Pelvic Exam: deferred Rectal: deferred Skin: normal color, warm/dry Extremities: normal range of motion, non-tender, normal inspection, normal capillary refill Neuro/Psych: no motor/sensory deficits, alert, normal mood/affect, oriented x 3 ICD10 Worksheet Patient Problems: Problems Problem Status Onset Back pain Acute Uncontrolled pain Acute Discitis of lumbar region Acute Fever Acute Osteomyelitis of lumbar spine Acute
--- NOTE | 2018-03-18 08:58 | PCMIDPN ---
Assessment/Plan: # MSSA mitral valve endocarditis with embolic disease to the kidney and spleen. Also with ascites. Large vegetations with evidence of embolic disease warrants urgent open heart for valve repair/replacement. Interestingly prior area of epidural abscess/diskitis at L5-S1 shows resolution of infection on imaging at admission --continue high-dose nafcillin --to the OR today --discussed serious nature of current infectious process with the patient and her mother at bedside. --no need to repeat blood cultures until 48 hr postoperatively. Care was coordinated with Dr. Post Medications Nafcillin 2 g IV Q 4 Subjective: Patient is complaining of abdominal pain and low back pain. She is tearful and scared regarding surgery. States that she wants to get the surgery done with immediately. Also complaining of nausea. Continues to completely deny IV drug use. Objective: Vital Signs Temp Pulse Resp BP Pulse Ox 35.0 C L 56 L 17 90/64 L 96 03/18/18 07:00 03/18/18 07:00 03/18/18 07:00 03/18/18 07:00 03/18/18 07:00 Laboratory Results 03/18/18 05:05 03/18/18 05:05 03/17/18 03/18/18 03/19/18 05:59 05:59 05:59 Intake Total 3100 4374 Output Total 850 3325 Balance 2250 1049 ESR 24 MM/HR (0-20) H 03/17/18 04:43 C-Reactive Protein 171.1 mg/L (<10.0) H 03/17/18 04:43 - Physical Exam General Appearance: alert, toxic EENT: pale conjunctiva, No scleral icterus Respiratory: bronchial breath sounds, No accessory muscle use Neck: supple Cardiac/Chest: regular rate, rhythm, systolic murmur Extremities: pedal edema, other (B-UE edema) Abdomen: soft, distended (mild) Pelvic Exam: godoy Skin: diaphoresis, embolic lesions Neuro/Psych: alert, depressed affect - Line/s other Lines: other (L IJ c/d/i), No drainage, No erythema - Time Spent With Patient Time Spent with Patient: greater than 35 minutes Time Spent with Patient: Greater than 35 minutes spent on this patients care, greater than 50% of time spent counseling, educating, and coordinating care regarding the above mentioned plan. ICD10 Worksheet Patient Problems: Problems Problem Status Onset Back pain Acute Uncontrolled pain Acute Discitis of lumbar region Acute Fever Acute Osteomyelitis of lumbar spine Acute
[2018-03-18] MEDS ORDERED: METOCLOPRAMIDE 10 MG/2 ML VIAL IVP ONE (08:59)
[2018-03-18] MEDS ORDERED: METOCLOPRAMIDE 10 MG/2 ML VIAL ONE (09:05)
[2018-03-18] MEDS ORDERED: HYDROmorphONE/DILAUDID 1 MG/ML INJ IVP PRN (09:13)
--- NOTE | 2018-03-18 09:33 | HOSPPROG ---
Hospitalist Progress Note Assessment/Plan: # MSSA mitral valve endocarditis and bacteremia - was non-compliant with PO doxy per report - cont nafcillin per ID - plan MV replacement today - surveillance cultures per ID # splenic infarcts d/t septic emboli - Dr Gtz consulted, there is a risk for bleeding during MV surgery # renal infarcts # septic shock on levophed - fevers (subjective), leukocytosis, bacteremia - L IJ placed yesterday # hx MSSA L5-S1 diskitis/osteo s/p anterior I&D 10/2017 # hx acetobacter PICC infection # HCV Subjective: still with significant abd pain, mostly in LUQ Objective: Vital Signs Temp Pulse Resp BP Pulse Ox 35.0 C L 56 L 17 90/64 L 96 03/18/18 07:00 03/18/18 07:00 03/18/18 07:00 03/18/18 07:00 03/18/18 07:00 Laboratory Results 03/18/18 05:05 03/18/18 05:05 03/17/18 03/18/18 03/19/18 05:59 05:59 05:59 Intake Total 3100 4374 Output Total 850 3325 Balance 2250 1049 PT 15.9 SEC (12.0-15.0) H 03/17/18 12:25 INR 1.25 (0.83-1.16) H 03/17/18 12:25 35 mins CC time managing endocarditis requiring mitral valve replacement - Physical Exam Constitutional: uncomfortable Cardiovascular: regular rate and rhythym, no murmur, rub, or gallop Respiratory: no respiratory distress, no rales or rhonchi, clear to auscultation Gastrointestinal: ascites (TTP LUQ), No guarding, No rebound ICD10 Worksheet Patient Problems: Problems Problem Status Onset Discitis of lumbar region Acute Fever Acute Osteomyelitis of lumbar spine Acute Back pain Acute Uncontrolled pain Acute
[2018-03-18] MEDS: ENOXAPARIN 40 MG/0.4 ML SYR SC SCH (09:45)
[2018-03-18] MEDS: NOREPINEPHRINE BITARTRATE 4 MG in D5W 500 ML IV SCH (09:46)
[2018-03-18] MEDS: MUPIROCIN 2% 22 GM OINT NS SCH ×2 (10:19→23:46)
[2018-03-18] MEDS: GABAPENTIN 300 MG CAP PO SCH (10:19)
[2018-03-18] MEDS ORDERED: CALCIUM CHLORIDE 1 GM/10 ML INJ ONE ×2 (10:46→10:50)
[2018-03-18] MEDS ORDERED: PROTAMINE SULFATE 50 MG/5 ML VIAL IVP ONE (10:46)
[2018-03-18] MEDS ORDERED: MILRINONE/DEXTROSE/100 ML BAG IV ONE (10:46)
[2018-03-18] MEDS ORDERED: DOPamine/DEXTROSE 400 MG/250 ML BAG IV ONE (10:47)
[2018-03-18] MEDS ORDERED: HEPARIN 10,000 UNIT/10 ML MDV (1,000 UNIT/ML) ONE ×2 (10:47→10:50)
[2018-03-18] MEDS ORDERED: ADENOSINE 6 MG/2 ML VIAL ONE (10:47)
[2018-03-18] MEDS ORDERED: NITROGLYCERIN/D5W 50 MG/250 ML BOTTLE IV ONE (10:47)
[2018-03-18] MEDS ORDERED: AMIODARONE HCL 150 MG/3 ML VIAL ONE ×2 (10:47→10:50)
[2018-03-18] MEDS ORDERED: ceFAZolin 1 GM VIAL ONE (10:47)
[2018-03-18] MEDS ORDERED: NA BICARBONATE 50 MEQ/50 ML VIAL ONE ×2 (10:47→16:31)
[2018-03-18] MEDS ORDERED: niCARdipine/NACL/200 ML BAG IV ONE ×2 (10:47→15:05)
[2018-03-18] MEDS ORDERED: ALBUMIN 5% 250 ML BOTTLE IV ONE ×3 (10:49→17:37)
[2018-03-18] MEDS ORDERED: LIDOCAINE 2% 100 MG/5 ML SYR ONE (10:50)
[2018-03-18] MEDS ORDERED: CITRATE DEXTROSE SOLN 500 ML BAG ONE (10:50)
[2018-03-18] MEDS ORDERED: MAGNESIUM SULFATE 1 GM/2 ML VIAL ONE (10:51)
[2018-03-18] MEDS ORDERED: methylPREDNISolone SOD SUCC 1 GM/8 ML VIAL ONE (10:51)
[2018-03-18] MEDS ORDERED: PHENYLEPHRINE HCL 50 MG in NS 250 ML IV ONE (12:00)
[2018-03-18] MEDS ORDERED: EPINEPHrine 8 MG in NS 250 ML IV ONE (12:00)
[2018-03-18] MEDS ORDERED: INSULIN REGULAR HUMAN 100 UNIT in NS 100 ML IV ONE (12:00)
[2018-03-18] MEDS ORDERED: NOREPINEPHRINE BITARTRATE 16 MG in NS 250 ML IV ONE (12:00)
[2018-03-18] MEDS ORDERED: niCARdipine/NACL 200 ML IV ONE (12:00)
[2018-03-18] MEDS ORDERED: AMINOCAPROIC ACID 5 GM/20 ML VIAL IV ONE (12:00)
[2018-03-18] MEDS ORDERED: SODIUM BICARBONATE 20 MEQ, LIDOCAINE 1% 10 ML in NORMOSOL-R 1,000 ML MISC ONE (12:00)
[2018-03-18] MEDS ORDERED: CITRATE DEXTROSE SOLN 500 ML BAG MISC ONE (12:00)
[2018-03-18] MEDS ORDERED: MANNITOL 25% 12.5 GM/50 ML VIAL IVP ONE (12:00)
--- NOTE | 2018-03-18 12:27 | PDANEPAE ---
ANE History of Present Illness here for MVR ANE Past Medical History - Cardiovascular History Hx Hypertension: No Hx Arrhythmias: No Hx Chest Pain: No Hx Coronary Artery / Peripheral Vascular Disease: No Hx CHF / Valvular Disease: No Hx Palpitations: No - Pulmonary History Hx COPD: No Hx Asthma/Reactive Airway Disease: No Hx Recent Upper Respiratory Infection: No Hx Oxygen in Use at Home: No Hx Sleep Apnea: No Sleep Apnea Screening Result - Last Documented: Negative - Endocrine History Hx Diabetes: No - Chronic Pain History Chronic Pain: Yes ANE Review of Systems Review of systems is: negative Review of Systems: - Exercise capacity Exercise capacity: >=4 METS ANE Patient History - Allergies Allergies/Adverse Reactions: ibuprofen Allergy (Intermediate, Verified 09/23/17 20:16) Rash tramadol Allergy (Intermediate, Verified 09/23/17 20:16) Rash diphenhydramine Allergy (Mild, Verified 01/19/18 11:29) Itching - Home Medications Home medications: home medication list seen and reviewed Home Medications: Gabapentin [Neurontin 300 MG (*)] 900 mg PO TID 11/22/17 [Last Taken 03/11/18] - NPO status NPO Status: no food or drink >8 hours NPO Since - Liquids (Date): 03/18/18 NPO Since - Liquids (Time): 00:00 NPO Since - Solids (Date): 03/18/18 NPO Since - Solids (Time): 00:00 - Anes Hx Anes Hx: no prior problems - Smoking Hx Smoking Status: Light smoker - Alcohol Use Alcohol Use: None ANE Labs/Vital Signs - Labs Result Diagrams: 03/18/18 05:05 03/18/18 05:05 - Vital Signs Vital Signs: reviewed preoperatively; see RN documention for details Blood Pressure: 90/67 Heart Rate: 62 Respiratory Rate: 10 O2 Sat (%): 99 Height: 160.02 cm Weight: 65.9 kg ANE Physical Exam - Airway Neck exam: FROM Mallampati Score: Class 1 - Pulmonary Pulmonary: no respiratory distress - Cardiovascular Cardiovascular: regular rate and rhythym - ASA Status ASA Status: IV ANE Anesthesia Plan Anesthesia Plan: general endotracheal anesthesia Lines/Monitors: arterial line, ONEAL
[2018-03-18] MEDS ORDERED: PROPOFOL/EMULSION 500 MG/50 ML BOTTLE IV ONE (12:31)
[2018-03-18] MEDS ORDERED: PHENYLEPHRINE HCL 100 MCG/ML SYR ONE (12:31)
[2018-03-18] MEDS ORDERED: fentaNYL 250 MCG/5 ML INJ ONE (12:34)
[2018-03-18] MEDS ORDERED: MIDAZOLAM 2 MG/2 ML VIAL ONE (12:43)
[2018-03-18] MEDS ORDERED: KETAMINE 500 MG/10 ML VIAL ONE (12:57)
--- NOTE | 2018-03-18 13:37 | PDCARPN ---
Cardiology Progress Note Chief Complaint: Patient continues to feel poorly. Pains to all joints were voiced. Assessment/Plan: Assessment: 03-18-18 Patient continues to feel poorly. Nursing has not appreciated fevers, but the patient continues to be very diaphoretic. Pressure support was required overnight ([facility]) given hypotension. Cutaneous manifestations of endocarditis continue to be noted. CT of abdomen/pelvis with likely embolic phenomenon to both kidney and spleen. CT surgery consultation with patient yesterday, and plans for OR today. ID consultation was greatly appreciated. Patient's mother was at bedside today. 03-17-18 Patient is a 27-year-old female, who we were asked to consult on for mitral valve endocarditis, bacteremia, and history of of MSSA. Patient has had a complex number of visits to the ER with several complaints. She presents to this admission with complaints of one week of fevers and not feeling well. She has a past medical history of anxiety, depression, MSSA epidural abscess, L5-S1 diskitis, Acinetobacter PICC line infection, and hepatitis C. Patient denies any recent use of IV drugs. She was weaned off Oxycodone and states her last dose was 2 weeks ago. She was admitted on 11/22/17 with complaints of low back pain. She was found to have diskitis, and associated osteomyelitis from L5-S1 with anterior paraspinal abscess. She had anterior exposure spinal surgery and a PICC line placed for outpatient antibiotics. She was discharged on 12/02/17 with orders for IV antibiotics but had compliance issues. On 01/17/18 she presented again to the ED with complaints of fevers after missing 3 days of her antibiotics. She had been following by [facility] for ID. PICC line culture results showed Acinetobacter baumanni infection. Patient was started on 7 days of Meropenem followed by 7 days of Ancef. She was then discharged with oral Doxycycline (unsure whether or not she was compliant with this). Echo done showed the following: normal size left ventricle, no LV hypertrophy, normal global systolic LV function, EF = 59%, no regional wall motion abnormalities, mild mitral valve regurgitation, two large vegetations to the mitral valve were noted (measuring .6 and .7 cm). 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 as per ID (3) We can follow this patient as requested, post surgery Subjective: Patient continues to feel poorly Reviewed/Discussed With: family, hospitalist, multidisciplinary team Objective: Vital Signs (8 Hrs) Temp Pulse Resp BP Pulse Ox 03/18/18 12:27 62 10 L 90/67 L 99 03/18/18 12:00 62 10 L 90/67 L 99 03/18/18 11:00 35.2 C L 64 14 90/64 L 99 03/18/18 10:24 35.4 C L 60 14 90/67 L 100 03/18/18 10:00 35.4 C L 61 15 90/65 L 98 03/18/18 09:00 59 L 16 96/61 L 98 03/18/18 08:00 35.4 C L 62 16 90/69 L 99 03/18/18 07:00 35.0 C L 56 L 17 90/64 L 96 03/18/18 06:00 63 19 93/66 L 97 Intake/Output (24 Hrs) 03/17/18 03/18/18 03/19/18 05:59 05:59 05:59 Intake Total 3100 4374 Output Total 850 3325 250 Balance 2250 1049 -250 Intake: Oral (ml) 350 900 IV Intake (ml) 169 IV Infused (ml) 2750 3305 DOPamine/DEXTROSE 250 ml 28 @ As Directed IV ONCALL ONE Rx#:[id number] NS W/ 20 KCl/L 1,000 ml @ 1000 286 100 mls/hr IV CONT [facility] Rx#:[id number] Norepinephrine Bitartrate 925 4 mg In D5w 500 ml @ Per Protocol IV CONT [facility] Rx# :[id number] Ns 1,000 ml @ Wide Open 1000 2066 IV ONCE ONE Rx#: [id number] Ns 500 ml @ Wide Open IV 500 ONCE ONE Rx#:[id number] Vancomycin HCl/Normal 250 Saline 250 ml @ 250 mls/ hr IV Q8H [facility] Rx#: [id number] Output: Urine (ml) 850 3325 250 Bedpan 1525 Catheter 1800 250 Toilet 850 Other: Weight 56.78 kg 65.9 kg 65.9 kg Number of Stools Bedpan 0 Result Diagrams: 03/18/18 05:05 03/18/18 05:05 Telemetry: sinus rhythm - Physical Exam Constitutional: general pain, other (Patient appears uncomfortable) Eyes: PERRL, EOMI Ears, Nose, Mouth, Throat: moist mucous membranes Cardiovascular: regular rate and rhythm, systolic murmur, pulses symmetric bilat , No jugular vein distention Peripheral Pulses: 2+: dorsalis-pedis (R), dorsalis-pedis (L) Respiratory: clear to auscultate bilat, reduced air movement Gastrointestinal: tenderness, ascites Skin: rash, other (anasarca with body swelling noted) Musculoskeletal: joint tenderness, pain with ROM, muscular tenderness Neurologic: AAOx3, CN II-XII grossly intact Psychiatric: cooperative, interactive, following commands, encephalopathic ICD10 Worksheet Patient Problems: Problems Problem Status Onset Back pain Acute Uncontrolled pain Acute Discitis of lumbar region Acute Fever Acute Osteomyelitis of lumbar spine Acute
[2018-03-18] MEDS ORDERED: DEXMEDETOMIDINE HCL 400 MCG in NS 100 ML IV SCH (14:30)
[2018-03-18] MEDS ORDERED: HYDROmorphONE/DILAUDID 2 MG/ML INJ ONE (14:57)
[2018-03-18] MEDS ORDERED: SUGAMMADEX SODIUM 200 MG/2 ML VIAL IVP ONE (15:23)
[2018-03-18] MEDS ORDERED: fentaNYL 100 MCG/2 ML INJ ONE ×2 (15:25→15:43)
[2018-03-18] MEDS ORDERED: ESMOLOL HCL 100 MG/10 ML VIAL IV ONE (15:30)
--- NOTE | 2018-03-18 15:37 | ASMTCMCOM ---
CM Note CM Note Notes: Met with Alesha, patient's mother in "Family Meeting". Alesha very teary and concerned about her daughter's critical situation. Alesha lacks support-no family, friends or neighbors to lean on. Has been a single Mom working and caring for her daughters. Alesha accepted the responsibility of being the patient's Medical Proxyand she can be reached at [phone]. Patient's sister, Elsa, lives in [place] phone# [phone]. Case Management to follow. Date Signed: 03/18/2018 03:36 PM Electronically Signed By:Sunshine Hurley LCSW
[2018-03-18] MEDS ORDERED: SODIUM CL NASAL 45 ML BTL EACHNARE PRN (15:42)
[2018-03-18] MEDS ORDERED: METOCLOPRAMIDE 10 MG/2 ML VIAL IVP PRN (15:42)
[2018-03-18] MEDS ORDERED: ONDANSETRON DISINTEGRATING 4 MG TAB PO PRN (15:42)
[2018-03-18] MEDS ORDERED: MEPERIDINE 25 MG/0.5 ML AMP IVP PRN (15:42)
[2018-03-18] MEDS ORDERED: MAGNESIUM HYDROXIDE 30 ML UDCUP PO PRN (15:42)
[2018-03-18] MEDS ORDERED: D50W 25 GM/50 ML SYR IVP PRN (15:42)
[2018-03-18] MEDS ORDERED: CEPACOL LOZENGE PO PRN (15:42)
[2018-03-18] MEDS ORDERED: LACTULOSE 20 GM/30 ML UDCUP PO PRN (15:42)
[2018-03-18] MEDS ORDERED: ACETAMINOPHEN 650 MG SUPP PR PRN (15:42)
[2018-03-18] MEDS ORDERED: BISACODYL 10 MG SUPP PR PRN (15:42)
[2018-03-18] MEDS ORDERED: POLYETHYLENE GLYCOL 3350 17 GM PKT PO PRN (15:42)
[2018-03-18] MEDS ORDERED: PANTOPRAZOLE SODIUM 40 MG VIAL IVP ONE (15:42)
[2018-03-18] MEDS ORDERED: NS 1,000 ML IV SCH (15:45)
[2018-03-18] MEDS ORDERED: ePHEDrine SULFATE 25 MG/5 ML SYR ONE (15:47)
[2018-03-18] MEDS ORDERED: niCARdipine/NACL 200 ML IV SCH (16:00)
[2018-03-18] MEDS ORDERED: INSULIN REGULAR HUMAN 100 UNIT in NS 100 ML IV SCH (16:00)
[2018-03-18] MEDS ORDERED: SODIUM BICARBONATE 50 MEQ/50 ML SYR ONE (16:16)
--- NOTE | 2018-03-18 16:18 | GOP ---
[f rep st] OPERATIVE REPORT DATE OF OPERATION: 03/18/2018 SURGEON: Romero Post DO CARE PROCESS MANAGER: Kristopher Beasley PA-C. ANESTHESIOLOGIST: Julio C Vincent MD. PREOPERATIVE DIAGNOSIS: Septic shock with staphylococcal bacteremia and mitral valve endocarditis wi th severe mitral insufficiency. POSTOPERATIVE DIAGNOSIS: Septic shock with staphylococcal bacteremia and mitral valve endocarditis w ith severe mitral insufficiency. PROCEDURE PERFORMED: 1. Emergent mitral valve repair with complex repair of the posterior leaflet with autologous pericar dial reconstruction of P1, chordal reconstruction to P1, and commissural advancement with subsequent 28 mm ring annuloplasty. 2. Ligated left atrial appendage. FINDINGS: Patient presented in septic shock with staphylococcal bacteremia with a history of IV drug abuse and was found to have large mobile vegetations on her mitral valve with severe mitral insuffic iency. She was ultimately consented when family was found, brought to the operating room on Levophed in septic shock, intubated. Monitoring lines were placed. She was prepped and draped in sterile cl assical manner. Intraoperative ONEAL confirmed preoperative findings. After time-out, a sternotomy wa s performed without touching the heart. The aorta and right atrium were cannulated. We then initiat ed cardiopulmonary bypass. Subsequently, inferior vena caval cannula was placed after the heart was empty. We then arrested the heart with antegrade cardioplegia, topical hypothermia, and systemic care coordination manager ling. We then doubly ligated the left atrial appendage with external sutures. We then opened the left atrium through the right superior pulmonary vein. The atrium was normal size d. The valve appeared to be normal except at the medial commissure where there was a large vegetatio n measuring 3 x 2 cm. There was evidence of complete disruption of P1 and part of P2, and part of th e commissure was eroded. I then spent a great deal of time debriding that area. We irrigated the ch vasyl and looked for any additional pathology. None was identified. I then took a piece of autologo us pericardium and closed it. It was a 1 x 2 cm defect with continuous running 5-0 Prolene suture, r econstructing P1 to the anulus. I then used some [place]-Jj sutures to reconstruct the chordae to that area. Distention of the ventricle revealed mild regurgitation at that commissure. I then used inte rrupted 5-0 Prolenes to advance that commissure approximately 4-5 mm, which eliminated regurgitation. I then felt that this was a very small valve and somewhat under tension, and I was concerned about le aving it without reinforcement. I considered a pericardial sling in order to substitute for an annul oplasty ring. However, I was confident we debrided all infected tissue and that this would endotheli prabha over time and, for that reason, I placed a 28 mm [place] ring annuloplasty with interrupted 2-0 Tycrons with excellent coaptation and no regurgitation on distention. Left atrium was closed after being irrigated. The cross-clamp was removed with suction on the ascending aortic vent and intermitt ent aspiration of the LV apex in Trendelenburg. When no further air was identified, she was easily w eaned from bypass. Transesophageal echo revealed a mean gradient of 3 and no regurgitation with good coaptation surfaces and no further vegetations identified. The heparin was reversed with protamine. The cannula was removed and oversewn. Two ventricular pacing wires, 1 right pleural and 2 mediasti nal drains were placed. The thymic fat and pericardium were closed. Chest was closed in standard fa shion. The patient was returned to ICU in critical condition. DESCRIPTION OF PROCEDURE: /[id number]/MODL
--- NOTE | 2018-03-18 16:25 | CPEKG ---
Heart Rate: 89 RR Interval: 674 P-R Interval: 160 QRSD Interval: 96 QT Interval: 400 QTC Interval: 487 P [place]: 71 QRS [place]: 100 T Wave [place]: 85 EKG Severity - BORDERLINE ECG - EKG Impression: SINUS RHYTHM EKG Impression: BORDERLINE RIGHT AXIS DEVIATION EKG Impression: BORDERLINE ST ELEVATION, INFERIOR LEADS EKG Impression: BORDERLINE PROLONGED QT INTERVAL EKG Impression: CONSIDER PERICARDITIS VERSUS MYOCARDIAL INJURY PATTERN, RECIPROCAL st EKG Impression: DEPRESSION IN LATERAL LEADS Electronically Signed By: Tylor Ramirez 19-Mar-2018 12:13:31
[2018-03-18] MEDS: POTASSIUM Cl (KCl) 50 ML IV PRN ×2 (16:35→20:18)
[2018-03-18] MEDS: ALBUMIN 5% 250 ML IV PRN ×3 (16:37→19:40)
[2018-03-18] MEDS ORDERED: SODIUM BICARBONATE 50 MEQ/50 ML SYR IV ONE (17:00)
[2018-03-18] MEDS: KETOROLAC 30 MG/1 ML SDV IVP SCH (17:13)
[2018-03-18] MEDS ORDERED: NOREPINEPHRINE BITARTRATE 16 MG in NS 250 ML IV SCH (17:30)
[2018-03-18] MEDS ORDERED: ALBUMIN 5% 250 ML IV ONE (18:00)
--- NOTE | 2018-03-18 19:09 | SOAPPROG ---
TIM Progress Note Assessment/Plan: Assessment: ASKED TO SEE PATIENT EARLIER TODAY PREOP FOR INFARCTED SPLEEN 27-YEAR-OLD FEMALE WITH COMPLICATED HISTORY SECONDARY TO IV DRUG USE INCLUDING LUMBAR SPINE ABSCESS AND NOW WITH INFECTED MITRAL VALVE/SHE HAS HAD EMBOLIC INFARCTION TO THE SPLEEN CAUSING SOME LEFT UPPER QUADRANT PAIN. SHE ALSO HAS SOME SMALL INFARCTS IN THE KIDNEY. SHE IS SCHEDULED TODAY FOR MITRAL VALVE REPAIR HEENT NONICTERIC CHEST CLEAR COR REGULAR RHYTHM ABDOMEN SOFT SLIGHTLY DISTENDED, WITH TENDERNESS IN THE LEFT UPPER QUADRANT WHICH IS MILD AND NO REAL PERITONEAL SIGNS EXTREMITIES FULL RANGE OF MOTION FULL PULSES NEUROLOGIC EXAM PHYSIOLOGIC PSYCH EXAM REVEALS HER TO BE ALERT ORIENTED AND COOPERATIVE IMPRESSION IS INFARCTED SPLEEN SECONDARY TO SEPTIC EMBOLI/ THIS CAN BE TREATED WITH OBSERVATION AND SERIAL. IMAGING STUDIES. IF SHE HAD BLEEDING OR INFECTIOUS SYMPTOMS SPLENECTOMY WOULD BE INDICATED. IS UNCLEAR IF SHE HAS ANY SIGNIFICANT RISK FROM THE HEPARINIZATION FOR OPEN HEART SURGERY BUT I HAVE DISCUSSED THIS WITH DR. DELEON CARDIAC SURGEON. I SUSPECT THE RISK OF BLEEDING RELATIVELY SMALL AND WOULD PROCEED WITH THE MORE URGENT CARDIAC SURGERY Plan: CLOSE FOLLOW-UP 03/18/18 19:04 Objective: Vital Signs Temp Pulse Resp BP Pulse Ox 33.8 C L 87 19 99/47 L 98 03/18/18 18:00 03/18/18 18:00 03/18/18 18:00 03/18/18 18:00 03/18/18 18:00 Microbiology 03/18/18 13:56 Gram Stain - Final Heart - Tissue Laboratory Results 03/18/18 05:05 03/18/18 05:05 03/17/18 03/18/18 03/19/18 05:59 05:59 05:59 Intake Total 3100 4374 1610 Output Total 850 3325 710 Balance 2250 1049 900 PT 15.9 SEC (12.0-15.0) H 03/17/18 12:25 INR 1.25 (0.83-1.16) H 03/17/18 12:25 ICD10 Worksheet Patient Problems: Problems Problem Status Onset Acute blood loss anemia Acute Anemia Acute Back pain Acute Endocarditis of mitral valve Acute Mitral regurgitation Acute Septic embolism Acute Status post mitral valve annuloplasty Acute Status post mitral valve repair Acute Uncontrolled pain Acute Discitis of lumbar region Acute Fever Acute Osteomyelitis of lumbar spine Acute
[2018-03-18] MEDS: ONDANSETRON 4 MG/2 ML VIAL IVP PRN (19:39)
[2018-03-18] MEDS: fentaNYL 100 MCG/2 ML INJ IVP PRN ×2 (19:40→22:00)
[2018-03-18] MEDS: HYDROCODONE/APAP 5/325 TAB PO PRN (23:12)
[2018-03-18] MEDS: SENNOSIDES/DOCUSATE SODIUM TAB PO SCH (23:47)
[2018-03-19] MEDS: KETOROLAC 30 MG/1 ML SDV IVP SCH ×3 (00:01→12:13)
[2018-03-19] MEDS ORDERED: ALBUMIN 5% 500 ML BOTTLE IV ONE (01:08)
[2018-03-19] MEDS: NAFCILLIN SODIUM 2 GM in D5W 100 ML IV SCH ×6 (02:08→21:43)
[2018-03-19] MEDS: fentaNYL 100 MCG/2 ML INJ IVP PRN (02:08)
[2018-03-19] MEDS: POTASSIUM Cl (KCl) 50 ML IV PRN (02:10)
[2018-03-19] MEDS: HYDROCODONE/APAP 5/325 TAB PO PRN ×6 (03:00→21:51)
[2018-03-19 06:08] LABS: PLATELET COUNT 109 10^3/uL (150-400)
[2018-03-19] MEDS: HEPARIN 5,000 UNIT/0.5 ML INJ SC SCH ×3 (06:15→21:43)
--- NOTE | 2018-03-19 07:17 | SOAPPROG ---
SOAP Progress Note Assessment/Plan: POD #1: emergent complex MV repair with #28 Physio annuloplasty ring, ligation left atrial appendage MV staph endocarditis with severe MR s/p complex repair with annuloplasty - FC out/chest tubes to bulb suction - ASA/Coumadin with INR goal 2-3 x 3 months Septic shock with embolic events d/t MV staph endocarditis - Wean Levophed as tolerated - ABX as per ID Acute blood loss anemia - s/p 1U PRBC, monitor IVDU - Continue supportive care Subjective: Comfortable without complaints. Objective: Vital Signs Temp Pulse Resp BP Pulse Ox 35.9 C L 88 21 H 107/56 L 98 03/19/18 05:58 03/19/18 05:58 03/19/18 05:58 03/19/18 05:58 03/19/18 05:58 Microbiology 03/18/18 13:56 Gram Stain - Final Heart - Tissue Laboratory Results 03/19/18 05:05 03/19/18 05:05 03/18/18 03/19/18 03/20/18 05:59 05:59 05:59 Intake Total 4374 3753 Output Total 3325 1870 Balance 1049 1883 PT 15.9 SEC (12.0-15.0) H 03/17/18 12:25 INR 1.25 (0.83-1.16) H 03/17/18 12:25 Physical Exam - Physical Exam General Appearance: no apparent distress EENT: No scleral icterus (R), No scleral icterus (L) Neck: normal inspection Respiratory: No respiratory distress Cardiac/Chest: regular rate, rhythm Abdomen: non-tender, soft, No distended Skin: pallor Extremities: pedal edema Neuro/Psych: no motor/sensory deficits, normal mood/affect ICD10 Worksheet Patient Problems: Problems Problem Status Onset Acute blood loss anemia Acute Anemia Acute Back pain Acute Endocarditis of mitral valve Acute Mitral regurgitation Acute Septic embolism Acute Status post mitral valve annuloplasty Acute Status post mitral valve repair Acute Uncontrolled pain Acute Discitis of lumbar region Acute Fever Acute Osteomyelitis of lumbar spine Acute
[2018-03-19] MEDS ORDERED: ALBUMIN 5% 250 ML BOTTLE IV ONE ×2 (08:19→14:27)
--- NOTE | 2018-03-19 09:03 | PDINTPN ---
Movie Critic Progress Note Assessment/Plan: Assessment/Plan: * Mitral valve endocarditis -status post mitral valve replacement * Bacteremia-antibiotics per Infectious Disease * Sepsis with septic shock-still on high-dose Levophed at this time. Has received blood products as well as albumin -will wean Levophed as tolerated * Splenic infarction -agree surgical consultation * History of methicillin sensitive Staph aureus epidural abscess * Hepatitis-C * Anxiety depression * Pain-moderately well controlled. * Shock-on pressors -wean as tolerated * Nutrition- * Out of bed to chair * PT/OT * Stress ulcer prophylaxis 03/19/18 09:00 Subjective: Sleepy this morning but arousable. Complains of some pain. Breathing easily. Objective: Vital Signs Temp Pulse Resp BP Pulse Ox 36.3 C 90 21 H 96/51 L 98 03/19/18 08:00 03/19/18 08:00 03/19/18 08:00 03/19/18 08:00 03/19/18 08:00 Microbiology 03/18/18 13:56 Gram Stain - Final Heart - Tissue Laboratory Results 03/19/18 05:05 03/19/18 05:05 03/18/18 03/19/18 03/20/18 05:59 05:59 05:59 Intake Total 4374 3753 Output Total 3325 1870 85 Balance 1049 1883 -85 PT 15.9 SEC (12.0-15.0) H 03/17/18 12:25 INR 1.25 (0.83-1.16) H 03/17/18 12:25 Chest [id number] by myself. Sternal wires and mitral valve in place. Mild pulmonary edema is present. Bilateral chest tubes are in place. Central line in good position. - Time Spent With Patient Time Spent With Patient: 35 min of critical care time spent with patient, over 1/2 involved with coordination of care counseling Physical Exam - Physical Exam General Appearance: alert, mild distress EENT: PERRL/EOMI Neck: non-tender, full range of motion, supple, normal inspection Respiratory: rhonchi (Few), No respiratory distress, No accessory muscle use, No wheezing Cardiac/Chest: normal peripheral pulses, regular rate, rhythm, systolic murmur Peripheral Pulses: 2+: carotid (R), carotid (L), femoral (R), femoral (L), dorsalis-pedis (R), dorsalis-pedis (L) Abdomen: normal bowel sounds, non-tender, soft Pelvic Exam: deferred Rectal: deferred Skin: normal color, warm/dry Extremities: normal range of motion, non-tender, normal inspection, normal capillary refill Neuro/Psych: alert ICD10 Worksheet Patient Problems: Problems Problem Status Onset Acute blood loss anemia Acute Anemia Acute Back pain Acute Endocarditis of mitral valve Acute Mitral regurgitation Acute Septic embolism Acute Status post mitral valve annuloplasty Acute Status post mitral valve repair Acute Uncontrolled pain Acute Discitis of lumbar region Acute Fever Acute Osteomyelitis of lumbar spine Acute
[2018-03-19] MEDS: SENNOSIDES/DOCUSATE SODIUM TAB PO SCH ×2 (09:32→21:41)
[2018-03-19] MEDS: MUPIROCIN 2% 22 GM OINT NS SCH ×2 (09:38→21:58)
[2018-03-19] MEDS ORDERED: ALBUMIN 5% 250 ML IV ONE ×4 (10:30→23:19)
--- NOTE | 2018-03-19 11:26 | PCMIDPN ---
Assessment/Plan: # MSSA mitral valve endocarditis with embolic disease to the kidney and spleen. s/p emergent MV repair with ring annuloplasty 03/18/18. Gram stain of heart tissue floridly positive. Interestingly prior area of epidural abscess/diskitis at L5-S1 shows resolution of infection on imaging at admission. Noted hypothermia overnight, likely related to infection - better this AM. WBC remains elevated, which is expected. --continue nafcillin --check blood cultures tomorrow, but may not be cleared yet --Cr stable today, check LFTs Medications Nafcillin 2 g IV Q 4h, #2 micro 03/16 blood cx : MSSA 03/18 heart tissue 4+ GPC Subjective: expected post op pain associated with sternal incision and chest tubes Objective: Vital Signs Temp Pulse Resp BP Pulse Ox 36.2 C 86 24 H 103/58 L 100 03/19/18 10:00 03/19/18 10:00 03/19/18 10:00 03/19/18 10:00 03/19/18 10:00 Microbiology 03/18/18 13:56 Gram Stain - Final Heart - Tissue Laboratory Results 03/19/18 05:05 03/19/18 05:05 03/18/18 03/19/18 03/20/18 05:59 05:59 05:59 Intake Total 4374 3753 1250 Output Total 3325 1870 170 Balance 1049 1883 1080 ESR 24 MM/HR (0-20) H 03/17/18 04:43 C-Reactive Protein 171.1 mg/L (<10.0) H 03/17/18 04:43 - Physical Exam General Appearance: alert, apparent distress EENT: pale conjunctiva, dry mucous membranes Respiratory: other (very shallow inspiratory effort), No accessory muscle use Neck: supple, other (L IJ central line) Cardiac/Chest: regular rate, rhythm, other (SM much improved to resolved), No systolic murmur Abdomen: non-tender, soft, distended (mild) Pelvic Exam: [place] Skin: embolic lesions Neuro/Psych: oriented x 3, depressed affect - Time Spent With Patient Time Spent with Patient: greater than 35 minutes Time Spent with Patient: Greater than 35 minutes spent on this patients care, greater than 50% of time spent counseling, educating, and coordinating care regarding the above mentioned plan. ICD10 Worksheet Patient Problems: Problems Problem Status Onset Acute blood loss anemia Acute Anemia Acute Back pain Acute Endocarditis of mitral valve Acute Mitral regurgitation Acute Septic embolism Acute Status post mitral valve annuloplasty Acute Status post mitral valve repair Acute Uncontrolled pain Acute Discitis of lumbar region Acute Fever Acute Osteomyelitis of lumbar spine Acute
--- NOTE | 2018-03-19 15:34 | ASMTCMCOM ---
CM Note CM Note Notes: Prepared letter was given to patient's nurse to give to patient's mother when she arrives today. CM will follow. Date Signed: 03/19/2018 03:33 PM Electronically Signed By:Christen Simpson LCSW
[2018-03-19] MEDS ORDERED: PANTOPRAZOLE SODIUM 40 MG TAB PO SCH (15:43)
[2018-03-19] MEDS: ASPIRIN 81 MG CHEWABLE TAB PO SCH (16:09)
[2018-03-19] MEDS ORDERED: POTASSIUM Cl (KCl) 50 ML IV ONE (17:00)
[2018-03-19] MEDS ORDERED: HYDROmorphONE/DILAUDID 6 MG/30 ML PCA IV PRN (17:35)
[2018-03-19] MEDS ORDERED: NALOXONE HCL 0.4 MG/ML INJ IVP PRN (17:35)
--- NOTE | 2018-03-19 17:36 | HOSPPROG ---
Hospitalist Progress Note Assessment/Plan: #MSSA MV endocarditis, bacteremia.septic emboli to spleen/kidney -s/p MV repair, annuloplasty 03/18 -repeat blood cultures tomorrow, Nafcillin #hx MSSA L5-S1 diskitis: s/p anterior I&D, 11/17 #Septic shock: Levophed #ABLA: expected with surgery. s/p transfusion #HCV #IVDU: counseled on cessation #Chronic pain: restart gabapentin when clinically improved #Diet: regular #DVT ppx: SQH # Subjective: c/o pain at chest incision Objective: Vital Signs Temp Pulse Resp BP Pulse Ox 36.4 C 86 23 H 99/53 L 94 03/19/18 16:00 03/19/18 17:00 03/19/18 17:00 03/19/18 17:00 03/19/18 17:00 Microbiology 03/18/18 13:56 Gram Stain - Final Heart - Tissue Laboratory Results 03/19/18 05:05 03/19/18 16:00 03/18/18 03/19/18 03/20/18 05:59 05:59 05:59 Intake Total 4374 3753 2404.7 Output Total 3325 1870 546 Balance 1049 1883 1858.7 PT 15.9 SEC (12.0-15.0) H 03/17/18 12:25 INR 1.25 (0.83-1.16) H 03/17/18 12:25 - Time Spent With Patient Time Spent with Patient: greater than 35 minutes Time Spent with Patient: Greater than 35 minutes spent on this patients care, greater than 50% of time spent counseling, educating, and coordinating care regarding the above mentioned plan. - Physical Exam Constitutional: other (ill-appearing) Eyes: PERRL Ears, Nose, Mouth, Throat: moist mucous membranes Cardiovascular: regular rate and rhythym, other (surgical drains in place) Respiratory: no respiratory distress Gastrointestinal: normoactive bowel sounds Neurologic: AAOx3, CN II-XII Intact ICD10 Worksheet Patient Problems: Problems Problem Status Onset Acute blood loss anemia Acute Anemia Acute Back pain Acute Endocarditis of mitral valve Acute Mitral regurgitation Acute Septic embolism Acute Status post mitral valve annuloplasty Acute Status post mitral valve repair Acute Uncontrolled pain Acute Discitis of lumbar region Acute Fever Acute Osteomyelitis of lumbar spine Acute
[2018-03-19] MEDS: KETOROLAC 15 MG/1 ML SDV IVP SCH (18:10)
[2018-03-19] MEDS ORDERED: D5W 1/2 NS 1,000 ML IV SCH (21:00)
[2018-03-20] MEDS: NAFCILLIN SODIUM 2 GM in D5W 100 ML IV SCH ×6 (01:15→21:58)
[2018-03-20] MEDS: KETOROLAC 15 MG/1 ML SDV IVP SCH ×3 (05:36→11:32)
[2018-03-20 05:39] LABS: PLATELET COUNT 147 10^3/uL (150-400)
--- NOTE | 2018-03-20 06:37 | SOAPPROG ---
SOAP Progress Note Assessment/Plan: POD #2: emergent complex MV repair with #28 Physio annuloplasty ring, ligation left atrial appendage MV MSSA endocarditis with severe MR s/p complex repair with annuloplasty - ASA alone for AC Septic shock with embolic events d/t MV staph endocarditis - Wean Levophed as tolerated - ABX as per ID Acute blood loss anemia - s/p 3U PRBC, monitor IVDU - Continue supportive care Post-op left sided facial droop/slurred speech - CTH negative for acute hemorrhage - Neurology consult - Continue supportive care Subjective: following commands Objective: Vital Signs Temp Pulse Resp BP Pulse Ox 36.8 C 98 29 H 101/57 L 94 03/19/18 23:57 03/20/18 05:00 03/20/18 05:00 03/20/18 05:00 03/20/18 05:00 Microbiology 03/18/18 13:56 Gram Stain - Final Heart - Tissue Laboratory Results 03/20/18 05:25 03/20/18 05:25 03/19/18 03/20/18 03/21/18 05:59 05:59 05:59 Intake Total 3753 3380.6 Output Total 1870 1224 Balance 1883 2156.6 PT 15.9 SEC (12.0-15.0) H 03/17/18 12:25 INR 1.25 (0.83-1.16) H 03/17/18 12:25 Physical Exam - Physical Exam General Appearance: mild distress EENT: No scleral icterus (R), No scleral icterus (L) Neck: normal inspection Respiratory: respiratory distress Cardiac/Chest: regular rate, rhythm Abdomen: non-tender, soft, No distended Skin: pallor Extremities: pedal edema Neuro/Psych: facial droop, motor weakness, sensory deficit, cognition abnormalities, speech abnormalities ICD10 Worksheet Patient Problems: Problems Problem Status Onset Acute blood loss anemia Acute Anemia Acute Back pain Acute Endocarditis of mitral valve Acute Mitral regurgitation Acute Septic embolism Acute Status post mitral valve annuloplasty Acute Status post mitral valve repair Acute Uncontrolled pain Acute Discitis of lumbar region Acute Fever Acute Osteomyelitis of lumbar spine Acute
[2018-03-20] MEDS ORDERED: ALBUMIN 5% 500 ML BOTTLE IV ONE (07:12)
[2018-03-20] MEDS: HEPARIN 5,000 UNIT/0.5 ML INJ SC SCH (07:13)
[2018-03-20] MEDS ORDERED: ALBUMIN 5% 500 ML IV ONE (07:30)
[2018-03-20] MEDS ORDERED: PROTOCOL POTASSIUM 1 DOSE MISC PRN (07:42)
--- NOTE | 2018-03-20 08:50 | PDINTPN ---
[employer]ist[employer] Progress Note Assessment/Plan: Assessment/Plan: * Mitral valve endocarditis -status post mitral valve replacement -echo results pending * Bacteremia-antibiotics per Infectious Disease * Sepsis with septic shock-still on high-dose Levophed at this time. Has received blood products as well as albumin -will wean Levophed as tolerated * Splenic infarction -agree surgical consultation * Probable stroke-CT scan of the head is negative -consult Neurology -will obtain a CT angiogram of the head and neck -patient is apparently not a stroke alert candidate per surgery * History of methicillin sensitive Staph aureus epidural abscess * Hepatitis-C * Anxiety depression * Pain-moderately well controlled. * Shock-on pressors -wean as tolerated * Nutrition- * Out of bed to chair * PT/OT * Stress ulcer prophylaxis 03/20/18 08:50 Subjective: Awakens easily. Speech somewhat slurred. Objective: Vital Signs Temp Pulse Resp BP Pulse Ox 36.4 C 103 H 40 H 105/58 L 100 03/20/18 08:00 03/20/18 08:00 03/20/18 08:00 03/20/18 08:00 03/20/18 08:00 Microbiology 03/18/18 13:56 Gram Stain - Final Heart - Tissue Laboratory Results 03/20/18 05:25 03/20/18 05:25 03/19/18 03/20/18 03/21/18 05:59 05:59 05:59 Intake Total 3753 5148.6 Output Total 1870 1224 325 Balance 1883 3924.6 -325 PT 15.9 SEC (12.0-15.0) H 03/17/18 12:25 INR 1.25 (0.83-1.16) H 03/17/18 12:25 CT scan of the head shows nothing acute - Time Spent With Patient Time Spent With Patient: 35 min of time spent with patient, over 1/2 involved with coordination of care or counseling. Case discussed with Neurology, cardiothoracic surgery and nursing Physical Exam - Physical Exam General Appearance: alert EENT: PERRL/EOMI Neck: non-tender Respiratory: chest non-tender, lungs clear, normal breath sounds Cardiac/Chest: normal peripheral pulses, regular rate, rhythm, systolic murmur Peripheral Pulses: 2+: carotid (R), carotid (L), femoral (R), femoral (L), dorsalis-pedis (R), dorsalis-pedis (L) Abdomen: normal bowel sounds, non-tender, soft Pelvic Exam: deferred Rectal: deferred Skin: normal color, warm/dry Extremities: non-tender Neuro/Psych: alert, motor weakness ICD10 Worksheet Patient Problems: Problems Problem Status Onset Acute blood loss anemia Acute Anemia Acute Back pain Acute Endocarditis of mitral valve Acute Mitral regurgitation Acute Septic embolism Acute Status post mitral valve annuloplasty Acute Status post mitral valve repair Acute Uncontrolled pain Acute Discitis of lumbar region Acute Fever Acute Osteomyelitis of lumbar spine Acute
[2018-03-20] MEDS ORDERED: POTASSIUM Cl (KCl) 50 ML IV ONE (08:51)
[2018-03-20] MEDS: SENNOSIDES/DOCUSATE SODIUM TAB PO SCH ×2 (09:47→21:58)
[2018-03-20] MEDS: PANTOPRAZOLE SODIUM 40 MG VIAL IVP SCH (09:50)
[2018-03-20] MEDS: MUPIROCIN 2% 22 GM OINT NS SCH (09:56)
--- NOTE | 2018-03-20 10:01 | ECHO ---
[email or web address] [address] [address] Main: [phone] Fax: [email or web address] Echocardiogram Name: AKOSUA VILLA MR#: [id number] Study Date: 03/20/2018 Study Time: 08:28 AM Date of : 1990 Age: 27 year(s) Height: 160 cm (63 in.) Weight: 74.84 kg (165 lb.) BSA: 1.78 m2 Gender: Female Examination: Echo Indication: Mitral repair Image Quality: Contrast: Requested by: Romero Post BP: 113 mmHg/63 mmHg Heart Rate: Rhythm: Indication: Mitral repair Procedure Staff Emergency Department Nurse: Sakina Lassiter RUST Reading Physician: Abdulaziz Pelayo MD Requesting Provider: Conclusions: No pericardial effusion. Hypercontractile left ventricle with ejection fraction of 65%. Regional wall motion abnormalities described above. Mitral annuloplasty ring. Mean gradient of 6 mm of mercury. Measurements: Chambers Valvular Assessment AV/MV Valvular Assessment TV/PV Normal Normal Normal Name Value Range Name Value Range Name Value Range Ao Jen (MM): 3.1 cm (2.2 cm-3.7 AV Vmax: 1.20 m/s (1 m/s-1.7 TR Vmax: 2.19 mm/s ( - ) cm) m/s) TR PGmax: 19 mmHg ( - ) IVSd (2D): 0.8 cm (0.6 cm-1.1 AV meanP mmHg ( - ) syst. PAP: 24 mmHg ( - ) cm) MV E Vmax: 1.64 m/s ( - ) LVDd (2D): 4.3 cm (3.9 cm-5.3 MV A Vmax: 0.94 m/s ( - ) cm) MV E/A: 1.74 ( - ) LVDs (2D): 2.8 cm (2.1 cm-4 MV meanP mmHg ( - ) cm) LVPWd (2D): 0.6 cm ( - ) LVEF (2D): 64 (>=54 %) EF Range: 60-65 % Continued Measurements: Chambers Valvular Assessment AV/MV Valvular Assessment TV/PV Name Value Name Value Name Value LADs: 3.8 cm MV E' Septal: 0.08 m/s CVP (est.): 5 mmHg LADs Lon.7 cm MV E/E' Septal: 21.30 LA Area: 20.4 cm2 MV E/E' Lateral: 15.00 MV VTI: 41.60 cm Patient: AKOSUA VILLA Study Date: 03/20/2018 Page 1 of 2 08:28 AM Findings: Left Ventricle: Normal size left ventricle. No LV hypertrophy. Global hypercontractility of the left ventricle. The ejection fraction is estimated to be 60-65 %. Diastolic dysfunction is present. . LV basal inferoseptal wall appears dyskinetic. All remaining segments have normal segmental motion.. Right Ventricle: Normal size right ventricle. Left Atrium: The left atrium is normal in size. Right Atrium: The right atrium is normal in size. Mitral Valve: There is no mitral valve regurgitation. An annuloplasty ring is noted in the mitral valve position. MV mean PG is 6mmHG.. Aortic Valve: The aortic valve is normal in appearance and function. The aortic valve is tri-leaflet. There is no aortic valve regurgitation. Tricuspid Valve: The tricuspid valve is normal in appearance and function. Mild tricuspid regurgitation is present. The pulmonary artery pressure is normal. Pulmonic Valve: The pulmonic valve is normal in appearance and function. Trivial pulmonic valve regurgitation. Aorta: The aorta is normal. Pericardium: Trivial anterior pericardial effusion. (No Signature Object) Patient: AKOSUA VILLA Study Date: 03/20/2018 Page 2 of 2 08:28 AM [id number]
--- NOTE | 2018-03-20 10:19 | NEUROPROG ---
Assessment: [id number] - Neurology Consult: - CC: Possible Stroke - HPI: Pt admitted for endocarditis with bacteremia and septic emboli to spleen/kidney received mitral valve repair on 03/18/18. She does have L5-S1 discitis s/p anterior I&D on 11/17. Pt noted on the morning of 03/20/18 to have left facial weakness and slurred speech. Head CT showed no acute changes. I initially saw the patient on 03/20/18. Her neurologic exam on 03/20/18 showed left facial weakness, dysarthric speech, and global weakness in arms/legs that appeared possibly worse in left arm. Pt also reported decreased sensation in left face. I felt she likely had a stroke. Her cardiothoracic surgeon reported she was not safe to transfer to another facility so if she is found to have a large vessel occlusion she can not be transferred. She is not a TPA candidate due to her recent cardiac surgery. I spoke with the ICU provider and he will order a stat head/neck CTA. I ordered a brain MRI w/o con and labs (H1AC, Lipid panel) . Pt will continue aspirin use at this time as it was she was previously on this but her stroke source is likely her endocarditis or possibly her recent cardiac surgery. - PMHx: anxiety/depression, hemorrhoids, stress incontinence, MSSA epidural abscess, Hx L5/S1 discitis, PICC line infx, Hep C infx, oral HSV PSHx: L5/S1 fusion in 2014, choli, colonoscopy - SHx: +tobacco use FHx: denied problems - ROS: Pt denied acute fever, total vision loss, active severe chest pain, respiratory failure, total body severe rash, total bowel/bladder incontinence, psychosis, active seizures, or active bleeding - O: VS reviewed General: Alert Eyes: Fundoscopic exam not able to visualize optic disks CV: Heart RRR, no murmur, no carotid bruit Lungs: Clear to auscultation bilaterally, no rhonchi or rales Neuro: - Mental: . Oriented x person but her dysarthic speech makes additional questions difficult . concentration appears normal . speech fluency/comprehension reduced due to dysarthic speech . memory appears normal . fund of knowledge appear intact - Cranial Nerves: . II: PERRL, VFFTC . III/IV/: eyes are oscillating . V: facial sensation intact to LT but left cheek with reduced sensation per patient . VII: left facial weakness . VIII: hearing intact to conversation . IX/X: dysarthric speech . XI: SCM 4/5 B/L strength . XII: tongue protrudes midline w/nl strength - Motor: . Tone: normal tone in all 4 extremity . Strength: globally 4+/5 but left arm may be slightly weaker than right - Reflexes: B/L patella trace/4 - Sensory: all 4 extremity intact to light touch - Coord: no coordination issues noted - Gait: deferred - NIH SS 14 - Labs: 03/20/18- Na 136 - Rads: 03/20/18- Head CT w/o con: negative, no acute intracranial hemorrhage or evidence of acute cortical ischemia (I personally visualized the images on ) - Assessment: 1. Suspected Stroke in setting of endocarditis and recent cardiac surgery on : Pt admitted for endocarditis with bacteremia and septic emboli to spleen/ kidney received mitral valve repair on 03/18/18. She does have L5-S1 discitis s/ p anterior I&D on 11/17. Pt noted on the morning of 03/20/18 to have left facial weakness and slurred speech. Head CT showed no acute changes. I initially saw the patient on 03/20/18. Her neurologic exam on 03/20/18 showed left facial weakness, dysarthric speech, and global weakness in arms/legs that appeared possibly worse in left arm. Pt also reported decreased sensation in left face. I felt she likely had a stroke. Her cardiothoracic surgeon reported she was not safe to transfer to another facility so if she is found to have a large vessel occlusion she can not be transferred. She is not a TPA candidate due to her recent cardiac surgery. I spoke with the ICU provider and he will order a stat head/neck CTA. TTE pending. I ordered a brain MRI w/o con and labs (H1AC , Lipid panel). Stroke source is likely her endocarditis or possibly her recent cardiac surgery. - Plan: - Agree with plan to check head/neck CTA - Brain MRI w/o con - TTE - Continue Telemetry - [facility] says aspirin has been held since 03/19/18, since stroke source is likely endocarditis no aspirin is indicated at this time - Blood pressure goal < 220/120 x 72 hours then < 140/90 - LDL goal < 70 (lipid panel ordered) - H1AC < 7.0 (H1AC ordered) - PT/OT/Speech to determine any rehab needs - F/U in neurology clinic 1-4 weeks after hospital discharge Objective: Vital Signs Temp Pulse Resp BP Pulse Ox 36.4 C 90 29 H 102/64 100 03/20/18 08:00 03/20/18 10:00 03/20/18 10:00 03/20/18 10:00 03/20/18 10:00 Microbiology 03/18/18 13:56 Gram Stain - Final Heart - Tissue Laboratory Results 03/20/18 05:25 03/20/18 05:25 03/19/18 03/20/18 03/21/18 05:59 05:59 05:59 Intake Total 3753 5148.6 Output Total 1870 1224 460 Balance 1883 3924.6 -460 PT 15.9 SEC (12.0-15.0) H 03/17/18 12:25 INR 1.25 (0.83-1.16) H 03/17/18 12:25 Allergies/Adverse Reactions: ibuprofen Allergy (Intermediate, Verified 09/23/17 20:16) Rash tramadol Allergy (Intermediate, Verified 09/23/17 20:16) Rash diphenhydramine Allergy (Mild, Verified 01/19/18 11:29) Itching
[2018-03-20] MEDS ORDERED: LIDOCAINE 1% 2 ML INJ ONE (10:20)
--- NOTE | 2018-03-20 10:37 | PDCONSULT ---
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
--- NOTE | 2018-03-20 10:41 | PCMIDPN ---
Assessment/Plan: 1. 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 Status post mitral valve repair with ring annuloplasty 03/18: Await results of repeat blood cultures. Continue nafcillin as is. Check liver function tests in the morning. No evidence of rash. Workup for CVA as outlined by Dr. Dial. No new recommendations at this point in time. Subjective: Nurse reports that patient was being transferred from bed to chair this morning , and complained of not being able to see out of her left eye. She then developed a left facial droop. Neurology was consulted, who agreed that patient was having an acute stroke, although head CT without contrast negative. She is scheduled to have a CTA of her head and neck today along with an MRI. Repeat echocardiogram did not show any vegetations, or significant abnormality in her mitral valve after surgery. Some wall motion abnormalities noted. Patient is complaining of pain in her chest this morning. Left facial droop is obvious along with dysarthria. Nurse reports that her Levophed dose is now down to 3 from 8. Objective: Nafcillin 2 g IV q.4 hours day 3 No fevers Vital Signs Temp Pulse Resp BP Pulse Ox 36.4 C 90 29 H 102/64 100 03/20/18 08:00 03/20/18 10:00 03/20/18 10:00 03/20/18 10:00 03/20/18 10:00 Microbiology 03/18/18 13:56 Gram Stain - Final Heart - Tissue Laboratory Results 03/20/18 05:25 03/20/18 05:25 03/19/18 03/20/18 03/21/18 05:59 05:59 05:59 Intake Total 3753 5148.6 Output Total 1870 1224 460 Balance 1883 3924.6 -460 ESR 24 MM/HR (0-20) H 03/17/18 04:43 C-Reactive Protein 171.1 mg/L (<10.0) H 03/17/18 04:43 Blood cultures 719 x 2 pending 717 heart cultures 4+ MSSA Blood cultures March 16 with MSSA Previous HIV testing negative in October. - Physical Exam General Appearance: alert, no apparent distress, other (Left facial droop and dysarthria noted.) EENT: No thrush Respiratory: other (Decreased breath sounds bilaterally) Cardiac/Chest: tachycardia, other (Median sternotomy incision looks fine with glue in place. No erythema, or tenderness. Multiple drains protruding from her anterior lower chest/upper abdomen with serosanguineous fluid.) Extremities: other (PICC line right upper extremity) Abdomen: non-tender, soft Skin: No rash, No embolic lesions ICD10 Worksheet Patient Problems: Problems Problem Status Onset Acute blood loss anemia Acute Anemia Acute Back pain Acute Endocarditis of mitral valve Acute Mitral regurgitation Acute Septic embolism Acute Status post mitral valve annuloplasty Acute Status post mitral valve repair Acute Uncontrolled pain Acute Discitis of lumbar region Acute Fever Acute Osteomyelitis of lumbar spine Acute
[2018-03-20] MEDS: HYDROCODONE/APAP 5/325 TAB PO PRN ×2 (10:56→18:26)
[2018-03-20] MEDS ORDERED: LIDOCAINE 2% 2 ML INJ IF ONE (11:45)
[2018-03-20] MEDS ORDERED: LIDOCAINE 1% 2 ML INJ IF ONE (12:00)
[2018-03-20] MEDS ORDERED: IOPAMIDOL (ISOVUE 370) 100 ML BTL IV ONE (13:10)
--- NOTE | 2018-03-20 13:55 | HOSPPROG ---
Hospitalist Progress Note Assessment/Plan: #MSSA MV endocarditis, bacteremia.septic emboli to spleen/kidney -s/p MV repair, annuloplasty 03/18 -repeat blood cultures pending -Nafcillin per ID #Possible stroke, likely from emboli -w/u is pending per Neuro -Her neuro deficits appears to be improving mid morning #hx MSSA L5-S1 diskitis: s/p anterior I&D, 11/17 #Septic shock: - Still requiring Levophed #ABLA: expected with surgery. s/p transfusion -Hgb today is 8.9 #HCV #IVDU: counseled on cessation #Chronic pain: restart gabapentin when clinically improved #Pedal Edema, consider diuretics once BP is stable #Diet: regular #DVT ppx: SQH Plan: -cont Levophed for BP support -Await CTA Head/Neck -Cont Nafcillin -Cont ASA -Heparin for DVT proph total critical care time spent on this patient with persistent hypotension on pressors and likely acute CVA is 40 minutes. Subjective: could not see out of left eye earlier, now able to see and track. Had left facial droop earlier this morning, now slightly improved. Denies CP or SOB. Objective: Vital Signs Temp Pulse Resp BP Pulse Ox 36.7 C 91 34 H 124/68 H 97 03/20/18 12:00 03/20/18 12:00 03/20/18 12:00 03/20/18 12:00 03/20/18 12:00 Microbiology 03/18/18 13:56 Gram Stain - Final Heart - Tissue Laboratory Results 03/20/18 05:25 03/20/18 05:25 03/19/18 03/20/18 03/21/18 05:59 05:59 05:59 Intake Total 3753 5148.6 Output Total 1870 1224 845 Balance 1883 3924.6 -845 PT 15.9 SEC (12.0-15.0) H 03/17/18 12:25 INR 1.25 (0.83-1.16) H 03/17/18 12:25 - Physical Exam Constitutional: no apparent distress Eyes: PERRL Ears, Nose, Mouth, Throat: moist mucous membranes Cardiovascular: regular rate and rhythym, edema Respiratory: no respiratory distress Gastrointestinal: normoactive bowel sounds, soft, non-tender abdomen Skin: warm Neurologic: AAOx3 Psychiatric: interacting appropriately, not anxious, not encephalopathic ICD10 Worksheet Patient Problems: Problems Problem Status Onset Acute blood loss anemia Acute Anemia Acute Back pain Acute Endocarditis of mitral valve Acute Mitral regurgitation Acute Septic embolism Acute Status post mitral valve annuloplasty Acute Status post mitral valve repair Acute Uncontrolled pain Acute Discitis of lumbar region Acute Fever Acute Osteomyelitis of lumbar spine Acute
[2018-03-20] MEDS: oxyCODONE IR 5 MG TAB PO PRN ×2 (15:37→20:07)
[2018-03-20] MEDS: HEPARIN/DEXTROSE 500 ML IV SCH (16:21)
--- NOTE | 2018-03-20 19:47 | SOAPPROG ---
TIM Progress Note Assessment/Plan: Assessment: ASKED TO SEE PATIENT EARLIER TODAY PREOP FOR INFARCTED SPLEEN 27-YEAR-OLD FEMALE WITH COMPLICATED HISTORY SECONDARY TO IV DRUG USE INCLUDING LUMBAR SPINE ABSCESS AND NOW WITH INFECTED MITRAL VALVE/SHE HAS HAD EMBOLIC INFARCTION TO THE SPLEEN CAUSING SOME LEFT UPPER QUADRANT PAIN. SHE ALSO HAS SOME SMALL INFARCTS IN THE KIDNEY. SHE IS SCHEDULED TODAY FOR MITRAL VALVE REPAIR HEENT NONICTERIC CHEST CLEAR COR REGULAR RHYTHM ABDOMEN SOFT SLIGHTLY DISTENDED, WITH TENDERNESS IN THE LEFT UPPER QUADRANT WHICH IS MILD AND NO REAL PERITONEAL SIGNS EXTREMITIES FULL RANGE OF MOTION FULL PULSES NEUROLOGIC EXAM PHYSIOLOGIC PSYCH EXAM REVEALS HER TO BE ALERT ORIENTED AND COOPERATIVE IMPRESSION IS INFARCTED SPLEEN SECONDARY TO SEPTIC EMBOLI/ THIS CAN BE TREATED WITH OBSERVATION AND SERIAL. IMAGING STUDIES. IF SHE HAD BLEEDING OR INFECTIOUS SYMPTOMS SPLENECTOMY WOULD BE INDICATED. IS UNCLEAR IF SHE HAS ANY SIGNIFICANT RISK FROM THE HEPARINIZATION FOR OPEN HEART SURGERY BUT I HAVE DISCUSSED THIS WITH DR. DELEON CARDIAC SURGEON. I SUSPECT THE RISK OF BLEEDING RELATIVELY SMALL AND WOULD PROCEED WITH THE MORE URGENT CARDIAC SURGERY Plan: CLOSE FOLLOW-UP 03/18/18 19:04 03/20/18 19:46 HEMATOCRIT REASONABLY STABLE/ ULTRASOUND OF THE ABDOMEN SHOWED NO EVIDENCE OF BLEEDING FROM THE SPLEEN/ UNFORTUNATELY SHE APPEARS TO HAVE HAD A CVA TODAY Objective: Vital Signs Temp Pulse Resp BP Pulse Ox 36.8 C 91 32 H 128/70 H 100 03/20/18 16:00 03/20/18 18:00 03/20/18 18:00 03/20/18 18:00 03/20/18 18:00 Microbiology 03/18/18 13:56 Gram Stain - Final Heart - Tissue Laboratory Results 03/20/18 05:25 03/20/18 18:00 03/19/18 03/20/18 03/21/18 05:59 05:59 05:59 Intake Total 3753 5148.6 1177 Output Total 1870 1224 1720 Balance 1883 3924.6 -543 PT 15.9 SEC (12.0-15.0) H 03/17/18 12:25 INR 1.25 (0.83-1.16) H 03/17/18 12:25 ICD10 Worksheet Patient Problems: Problems Problem Status Onset Acute blood loss anemia Acute Anemia Acute Back pain Acute Endocarditis of mitral valve Acute Mitral regurgitation Acute Septic embolism Acute Status post mitral valve annuloplasty Acute Status post mitral valve repair Acute Uncontrolled pain Acute Discitis of lumbar region Acute Fever Acute Osteomyelitis of lumbar spine Acute
[2018-03-20] MEDS: HEPARIN 10,000 UNIT/10 ML MDV (1,000 UNIT/ML) IVP PRN (22:31)
[2018-03-21] MEDS: oxyCODONE IR 5 MG TAB PO PRN ×6 (00:12→21:40)
[2018-03-21] MEDS: NAFCILLIN SODIUM 2 GM in D5W 100 ML IV SCH ×6 (01:53→21:40)
[2018-03-21 05:18] LABS: PLATELET COUNT 187 10^3/uL (150-400)
[2018-03-21] MEDS: HEPARIN 10,000 UNIT/10 ML MDV (1,000 UNIT/ML) IVP PRN (05:50)
--- NOTE | 2018-03-21 05:59 | GCON ---
[f rep st] CONSULTATION NEUROSURGERY CONSULT DATE OF CONSULTATION: 03/20/2018 Patient was seen and evaluated at approximately 6:30 p.m. in the ICU at [facility]. HPI: The patient is a 27-year-old woman who is familiar to me as I had previously done an anterior s taryn washout with Dr. Gtz, given her spinal infection. She has remained symptomatic with multiple infections and was found to have endocarditis. She underwent mitral valve repair on 03/18/2018, wit lorri Post. The details of her hospitalization are well detailed within the medical chart. Apparen tly, around 6 o'clock this morning, the patient was found to have some left arm weakness, left-sided facial droop, and left leg weakness. It sounds as though these symptoms were fluctuating some over t he morning, but she also developed some dysarthria. Stroke Neurology was called to see her, but her cardiothoracic surgeon did not feel that she was stable for any transfers or scans at that time. Lat er on this afternoon, I discussed the case with Dr. Post and suggested a CT angiography followed by MRI. This was completed, and the CT angiogram does show a focal luminal narrowing of the left V4 seg ment of the vertebral artery. This is consistent with either a nonocclusive thrombus or possibly a d issection. She subsequently had an MRI scan which reveals multiple tiny embolic strokes consistent w ith her history of cardiothoracic surgery. She does have a few small strokes that are DWI positive i n the posterior fossa including the left middle cerebellar peduncle and several within the cerebellum . She has improved significantly throughout the day. PAST MEDICAL HISTORY: 1. Anxiety, depression. 2. MSSA L5-S1 epidural abscess. 3. L5-S1 diskitis. 4. PICC line infection. 5. Hepatitis C. PAST SURGICAL HISTORY: 1. L5-S1 fusion in 2014. 2. Mitral valve repair. SOCIAL HISTORY: The patient is positive for tobacco use, but she denies other drug use. FAMILY HISTORY: Was reviewed with the patient but is noncontributory to this admission. REVIEW OF SYSTEMS: Currently, patient is mainly complaining of chest pain, but otherwise the review of systems is negative other than that described above in the HPI. PHYSICAL EXAM: VITAL SIGNS: Currently, she is afebrile with normal stable vital signs. She is on m ultiple vasoactive medications consistent with her heart surgery. GENERAL: She is awake, alert, and oriented x3. NEUROLOGICAL: Her speech is clear and fluent. Tongue is midline. She does have a ma rkedly lower left facial droop. She has a left-sided pronator drift and relatively mild guitar repairer weaknes s, which I would grade at 4/5. In the lower extremity, she also has a slight drift of the left leg, but is able to easily lift the leg off the bed and plantar and dorsiflexion are 5/5. Her sensation a ppears to be intact. Her reflexes are normal. IMAGING REVIEW: See HPI. ASSESSMENT AND PLAN: The patient is a 27-year-old woman who recently had a mitral valve repair, has a history of endocarditis and bacteremia. She is on appropriate treatment for the infections that seng sena has, but she did have a relatively acute onset of stroke-like symptoms this morning. I think that based on her MRI scan, the strokes in the posterior fossa, and particularly the left middle cerebella r peduncle would explain a lot of the symptoms that she has currently. She also has a few small embo lic infarcts in the bilateral cerebral hemispheres. She has a small nonocclusive luminal irregularit y of the left V4 segment of the vertebral artery. I discussed this at length with both Dr. Post and Dr. Dial. I do not think there would be significant benefit from an interventional standpoint of go ing after this small irregularity as it may represent dissection versus thrombus. It does not curren tly appear to be flow-limiting and is certainly not causing her current symptoms. The risk of going after this small clot would be to loosen it and cause it to embolize to the basilar artery, which we may not be able to recover from. I discussed with both Doctors Jayro and Sincere, the possibility of pl acing her on at least a low-dose heparin drip as this may help her to reabsorb the clot on her own. Otherwise, I would continue to minimize her stroke risk factors. From an endovascular standpoint, I am available to help at any time, although we do not have extensive resources at this hospital for [facility] care. If she should require a mechanical thrombectomy, she likely would need to transfer to [facility] for further stroke care. Please do not hesitate to call me if there ar e any further questions or concerns or changes in neurologic exam. Thanks for the kind consult. Sincerely, /[id number]/MODL
[2018-03-21] MEDS ORDERED: POTASSIUM Cl (KCl) 10 MEQ in D5W 50 ML IV SCH (07:30)
--- NOTE | 2018-03-21 07:59 | SOAPPROG ---
SOAP Progress Note Assessment/Plan: Assessment:POD#3 Emergent complex MV repair incl #28 Physio annuloplasty ring, prophylactic ligation left atrial appendage MV MSSA endocarditis with severe MR s/p complex repair with annuloplasty - AC as per neuro Septic shock with embolic events d/t MV staph endocarditis - Successfully weaned off pressor support yest. Yolanda out. - ABX as per ID Acute blood loss anemia - Stable s/p 3U PRBC, monitor IVDU - Continue supportive care Post-op left sided facial droop/slurred speech - CTH negative for acute hemorrhage. - Neurology consulted. ? vert art thrombus. No acute intervention. Started on hep gtt. Transition to oral AC at their discretion. - Oral nutrition cleared by SYRUP MACHINE LABORER. - Continue supportive care. IPR consulted. Plan: Remove rt pleural tube. Remove godoy. Add toradol. Begin IV diuresis. 03/21/18 07:59 Subjective: Intelligible speech. Ongoing facial droop. Able to move left extremities. Hurting. Objective: Vital Signs Temp Pulse Resp BP Pulse Ox 37.2 C 104 H 34 H 116/56 L 95 03/21/18 04:00 03/21/18 06:00 03/21/18 06:00 03/21/18 06:00 03/21/18 05:00 Microbiology 03/20/18 05:30 Blood Panel (PCR) - Final Blood S.aureus Methicillin Suscept. 03/18/18 13:56 Gram Stain - Final Heart - Tissue Laboratory Results 03/21/18 05:00 03/21/18 05:00 03/20/18 03/21/18 03/22/18 05:59 05:59 05:59 Intake Total 5148.6 1998 Output Total 1224 2770 Balance 3924.6 -771 PT 15.9 SEC (12.0-15.0) H 03/17/18 12:25 INR 1.25 (0.83-1.16) H 03/17/18 12:25 Holding SBP > [address], likely reactive to pain. Min suppl O2 req. Sig fluid overload, > 15 kg. CTOP dissipating. CXR-> hypovent, no pulm vasc congestion, no undrained pl eff Physical Exam - Physical Exam General Appearance: alert, mild distress (pain) Respiratory: normal breath sounds (upper airways), other (Blakes x 3 to bulb suction, serosang drainage) Cardiac/Chest: regular rate, rhythm, tachycardia, other (Sternotomy CDI) Abdomen: non-tender, soft Skin: warm/dry Extremities: swelling (2+ gen) ICD10 Worksheet Patient Problems: Problems Problem Status Onset Acute blood loss anemia Acute Anemia Acute Back pain Acute Endocarditis of mitral valve Acute Mitral regurgitation Acute Septic embolism Acute Status post mitral valve annuloplasty Acute Status post mitral valve repair Acute Uncontrolled pain Acute Discitis of lumbar region Acute Fever Acute Osteomyelitis of lumbar spine Acute
[2018-03-21] MEDS: POTASSIUM Cl (KCl) 50 ML IV SCH ×3 (08:17→11:23)
[2018-03-21] MEDS: FUROSEMIDE 20 MG/2 ML VIAL IVP SCH ×2 (08:20→17:04)
[2018-03-21] MEDS: SENNOSIDES/DOCUSATE SODIUM TAB PO SCH ×2 (09:08→21:41)
[2018-03-21] MEDS: PANTOPRAZOLE SODIUM 40 MG VIAL IVP SCH (09:12)
--- NOTE | 2018-03-21 09:25 | PDINTPN ---
Bobbin Drier Progress Note Assessment/Plan: Assessment/Plan: * Mitral valve endocarditis -status post mitral valve replacement * Bacteremia-antibiotics per Infectious Disease * Sepsis with septic shock-still on high-dose Levophed at this time. Has received blood products as well as albumin -will wean Levophed as tolerated * Splenic infarction -agree surgical consultation * Probable stroke-MRA is negative. CT angiogram of the head shows thrombus in the left vertebral artery -will discuss with Neurology * History of methicillin sensitive Staph aureus epidural abscess * Hepatitis-C * Anxiety depression * Pain-moderately well controlled. * Shock-on pressors -wean as tolerated * Nutrition- * Out of bed to chair * PT/OT * Stress ulcer prophylaxis Subjective: Sitting up in chair. Conversant. Continues to be somnolent. Objective: Vital Signs Temp Pulse Resp BP Pulse Ox 37.2 C 92 28 H 108/58 L 100 03/21/18 04:00 03/21/18 08:00 03/21/18 08:00 03/21/18 08:00 03/21/18 08:00 Microbiology 03/20/18 05:30 Blood Panel (PCR) - Final Blood S.aureus Methicillin Suscept. 03/18/18 13:56 Gram Stain - Final Heart - Tissue Laboratory Results 03/21/18 05:00 03/21/18 05:00 03/20/18 03/21/18 03/22/18 05:59 05:59 05:59 Intake Total 5148.6 1999 Output Total 1224 2770 Balance 3924.6 -771 PT 15.9 SEC (12.0-15.0) H 03/17/18 12:25 INR 1.25 (0.83-1.16) H 03/17/18 12:25 Chest [id number] by myself. Central line in good position. Chest tube in good position. Smallish lung volumes. - Time Spent With Patient Time Spent With Patient: 35 min of time spent with patient, over 1/2 involved with coordination of care counseling. Case discussed with nursing as well as surgery Physical Exam - Physical Exam General Appearance: alert, no apparent distress EENT: PERRL/EOMI Neck: non-tender, full range of motion, supple, normal inspection Respiratory: chest non-tender, normal breath sounds, crackles (Few basilar) Cardiac/Chest: normal peripheral pulses, regular rate, rhythm, systolic murmur Peripheral Pulses: 2+: carotid (R), carotid (L), femoral (R), femoral (L), dorsalis-pedis (R), dorsalis-pedis (L) Abdomen: normal bowel sounds, non-tender, soft Pelvic Exam: deferred Rectal: deferred Skin: normal color, warm/dry Extremities: non-tender, normal inspection Neuro/Psych: alert ICD10 Worksheet Patient Problems: Problems Problem Status Onset Acute blood loss anemia Acute Anemia Acute Back pain Acute Endocarditis of mitral valve Acute Mitral regurgitation Acute Septic embolism Acute Status post mitral valve annuloplasty Acute Status post mitral valve repair Acute Uncontrolled pain Acute Discitis of lumbar region Acute Fever Acute Osteomyelitis of lumbar spine Acute
[2018-03-21] MEDS: KETOROLAC 30 MG/1 ML SDV IVP PRN ×2 (10:05→17:04)
--- NOTE | 2018-03-21 10:17 | NEUROPROG ---
Assessment: [id number] - Neurology Consult: - CC: F/U for Stroke - Narrative Summary: Pt admitted for endocarditis with bacteremia and septic emboli to spleen/kidney received mitral valve repair on 03/18/18. She does have L5-S1 discitis s/p anterior I&D on 11/17. Pt noted on the morning of 03/20/18 to have left facial weakness and slurred speech. Head CT showed no acute changes. I initially saw the patient on 03/20/18. Her neurologic exam on 03/20/18 showed left facial weakness, dysarthric speech, and global weakness in arms/legs that appeared possibly worse in left arm. Pt also reported decreased sensation in left face. I felt she likely had a stroke. Her cardiothoracic surgeon reported she was not safe to transfer to another facility so if she is found to have a large vessel occlusion she can not be transferred. She is not a TPA candidate due to her recent cardiac surgery. I spoke with the ICU provider and he will order a stat head/neck CTA. I ordered a brain MRI w/o con and labs (H1AC, Lipid panel) . Pt will continue aspirin use at this time as it was she was previously on this but her stroke source is likely her endocarditis or possibly her recent cardiac surgery. - HPI: F/U 03/21/18. Pt doing better today with less dysarthria and improved strength in left arm and face (deficits still present however). LDL was 16 and H1AC 5.8. Brain MRI showed multiple small lacunar infarcts of the left cerebral hemisphere and cerebellum with one in the left cerebellar peduncle that likely explained her neurologic stroke deficits on 03/20/18. CTA head/neck showed a focal narrowing of the left vert with clot or dissection but brain MRA performed later showed resolution of this clot. I discussed the case on with Dr. Dawson (neurosurgeon) and our consensus was that catheter based intervention on the left vert was more likely to harm the patient than improve her condition. I feel the stroke is most likely from her known endocarditis. It is possible but unlikely that the stroke was from the cardiac surgery. I recommend treating the endocarditis with abx as ID is doing but not using antiplatelet or anticoagulation therapy at this time due to bleeding risk in endocarditis. - PMHx: anxiety/depression, hemorrhoids, stress incontinence, MSSA epidural abscess, Hx L5/S1 discitis, PICC line infx, Hep C infx, oral HSV PSHx: L5/S1 fusion in 2015, choli, colonoscopy - SHx: +tobacco use FHx: denied problems - ROS: Pt denied acute fever, total vision loss, active severe chest pain, respiratory failure, total body severe rash, total bowel/bladder incontinence, psychosis, active seizures, or active bleeding - Labs: 03/20/18- H1AC 5.8 03/21/18- LDL 16L - Rads: 03/20/18- Head CT w/o con: negative, no acute intracranial hemorrhage or evidence of acute cortical ischemia - 03/20/18- TTE: no cardiac thrombus noted - 03/20/18- CTA head/neck: Focal thrombus versus less likely focal dissection distal left vertebral artery just proximal to the basilar artery confluence. This causes moderate narrowing of the lumen measuring about 60-70%. Normal CT angiogram of the [place]. Normal CT angiogram of the neck. - 03/20/18- Brain MRI w/o con: Multiple small recent lacunar infarcts involving the cerebellum, left cerebellar peduncle, as well as cerebral hemispheres - 03/20/18- Brain MRA: Normal MRA of the [place] as detailed above. The previously identified thrombus within the distal left vertebral artery on prior CT angiogram procedure is not appreciated on MRA imaging. This may have subsequently lysed or flipped distally without occlusion - Assessment: 1. Left cerebral and cerebellar strokes on 03/20/18 in setting of endocarditis and recent cardiac surgery: LDL 16 and H1AC 5.8. Brain MRI showed multiple small lacunar infarcts of the left cerebral hemisphere and cerebellum with one in the left cerebellar peduncle that likely explained her neurologic stroke deficits on 03/20/18. CTA head/neck showed a focal narrowing of the left vert with clot or dissection but brain MRA performed later showed resolution of this clot. I discussed the case on 03/20/[address] Dawson (neurosurgeon) and our consensus was that catheter based intervention on the left vert was more likely to harm the patient than improve her condition. I feel the stroke is most likely from her known endocarditis. It is possible but unlikely that the stroke was from the cardiac surgery. I recommend treating the endocarditis with abx as ID is doing but not using antiplatelet or anticoagulation therapy at this time due to bleeding risk in endocarditis. - Plan: - Treat endocarditis as ID is doing, this is the primary method of preventing future strokes from endocarditis - I do not recommend any catheter based procedures for her current stroke - since stroke source is likely endocarditis, no aspirin or anticoagulant is indicated at this time - Blood pressure goal < 220/120 x 48 hours then < 140/90 - LDL goal < 70 (LDL 16) - H1AC < 7.0 (5.8) - PT/OT/Speech to determine any rehab needs - F/U in neurology clinic 1-4 weeks after hospital discharge - No further neurologic w/u needed at this time, neurology will sign off Objective: Vital Signs Temp Pulse Resp BP Pulse Ox 37.2 C 92 28 H 108/58 L 100 03/21/18 04:00 03/21/18 08:00 03/21/18 08:00 03/21/18 08:00 03/21/18 08:00 Microbiology 03/20/18 05:30 Blood Panel (PCR) - Final Blood S.aureus Methicillin Suscept. 03/18/18 13:56 Gram Stain - Final Heart - Tissue Laboratory Results 03/21/18 05:00 03/21/18 05:00 03/20/18 03/21/18 03/22/18 05:59 05:59 05:59 Intake Total 5148.6 1998 Output Total 1224 2770 Balance 3924.6 -771 PT 15.9 SEC (12.0-15.0) H 03/17/18 12:25 INR 1.25 (0.83-1.16) H 03/17/18 12:25 Allergies/Adverse Reactions: ibuprofen Allergy (Intermediate, Verified 09/23/17 20:16) Rash tramadol Allergy (Intermediate, Verified 09/23/17 20:16) Rash diphenhydramine Allergy (Mild, Verified 01/19/18 11:29) Itching
[2018-03-21] MEDS: HEPARIN/DEXTROSE 500 ML IV SCH (11:26)
--- NOTE | 2018-03-21 11:26 | PCMIDPN ---
Assessment/Plan: 1. 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 Status post mitral valve repair with ring annuloplasty 03/18: Patient continues to have high-grade bacteremia, with blood cultures turning rapidly positive early this morning. This is quite concerning. Reviewed her previous imaging. The patient had a very large embolus to her spleen, involving over 30-40% of her spleen. She could not have a splenic abscess at this location. Other potential sites of seeding include her lumbar spine, with known hardware in place (previous MRI did not show evidence of active infection) , or renal abscess given embolic phenomenon to her right kidney. For now, will start with repeat CT scan of the abdomen and pelvis. Patient may require splenectomy moving forward. Continue nafcillin. Safety labs stable. Consider repeat ONEAL in short order as well given persistent bacteremia, but for now will start with plan as outlined above. 2. CVA: This is almost certainly secondary to her underlying endocarditis. Radiographic imaging does not look consistent with a mycotic aneurysm. Over 35 min spent with this patient today. 03/21/18 11:27 Subjective: Patient is now off Levophed! Complaining of ongoing total body pain, including her abdomen and back and chest. Tearful. Regaining strength in her left upper extremity, and less dysarthric today. Blood cultures unfortunately rapidly turned positive at 1:00 a.m. This morning. Objective: Nafcillin 2 g IV q.4 hours day for T-max 37.2 degrees Vital Signs Temp Pulse Resp BP Pulse Ox 37.2 C 92 28 H 108/58 L 100 03/21/18 04:00 03/21/18 08:00 03/21/18 08:00 03/21/18 08:00 03/21/18 08:00 Microbiology 03/20/18 05:30 Blood Panel (PCR) - Final Blood S.aureus Methicillin Suscept. 03/18/18 13:56 Gram Stain - Final Heart - Tissue Laboratory Results 03/21/18 05:00 03/21/18 05:00 03/20/18 03/21/18 03/22/18 05:59 05:59 05:59 Intake Total 5148.6 1999 Output Total 1224 2770 Balance 3924.6 -771 ESR 24 MM/HR (0-20) H 03/17/18 04:43 C-Reactive Protein 171.1 mg/L (<10.0) H 03/17/18 04:43 Blood cultures 719 with gram-positive cocci in cultures in all 4 bottles - Physical Exam General Appearance: alert, other (Tearful. Less dysarthric. Left facial droop is less prominent) EENT: No scleral icterus, No thrush Respiratory: lungs clear Neck: other (Patient has a right single lumen EJ, and left quad lumen IJ) Cardiac/Chest: other (Median sternotomy incision looks fine with no click, or erythema or discharge), No systolic murmur Abdomen: other (Diffusely tender. Multiple drains) Skin: No embolic lesions ICD10 Worksheet Patient Problems: Problems Problem Status Onset Acute blood loss anemia Acute Anemia Acute Back pain Acute Endocarditis of mitral valve Acute Mitral regurgitation Acute Septic embolism Acute Status post mitral valve annuloplasty Acute Status post mitral valve repair Acute Uncontrolled pain Acute Discitis of lumbar region Acute Fever Acute Osteomyelitis of lumbar spine Acute
[2018-03-21] MEDS ORDERED: IOPAMIDOL (ISOVUE-300) 100 ML BTL ONE (12:56)
--- NOTE | 2018-03-21 13:17 | HOSPPROG ---
Hospitalist Progress Note Assessment/Plan: #MSSA MV endocarditis, bacteremia.septic emboli to spleen/kidney -s/p MV repair, annuloplasty 03/18 -repeat blood positive -Nafcillin per ID #stroke, likely from emboli/endocarditis -still with Left sided face and UE deficits -Her neuro deficits appears to be improving mid morning #hx MSSA L5-S1 diskitis: s/p anterior I&D, 11/17 #Septic shock: - Still requiring Levophed #ABLA: expected with surgery. s/p transfusion -Hgb today is 8.9 #HCV #IVDU: counseled on cessation earlier during this hospitalization. #Chronic pain: restart gabapentin when clinically improved #Pedal Edema -IV Lasix started today #Diet: regular #DVT ppx: SQH Plan: -The concern is that the patient continues to have bacteremia despite abx. she has had emboli to her spleen and kidney. She does not have any abd pain at this time. ID is ordering a CT scan abd/pelvis to evaluate. She may need a splenectomy. She could have emboli to other areas -She has been started on a heparin drip. Her stroke was likely due to her endocarditis and emboli -Off pressors currently, may need PRN -Lasix per above if able to tolerate, monitor closely -PT total critical care time spent on this patient with endocarditis, ongoing bacteremia, on AC, and with pedal edema is 35 mins. D/W ID and ICU team. Subjective: no cp or sob. still with left facial and LUE weakness. Objective: Vital Signs Temp Pulse Resp BP Pulse Ox 37.2 C 92 28 H 108/58 L 100 03/21/18 04:00 03/21/18 08:00 03/21/18 08:00 03/21/18 08:00 03/21/18 08:00 Microbiology 03/20/18 05:30 Blood Panel (PCR) - Final Blood S.aureus Methicillin Suscept. 03/18/18 13:56 Gram Stain - Final Heart - Tissue Laboratory Results 03/21/18 05:00 03/21/18 05:00 03/20/18 03/21/18 03/22/18 05:59 05:59 05:59 Intake Total 5148.6 1999 Output Total 1224 2770 Balance 3924.6 -771 PT 15.9 SEC (12.0-15.0) H 03/17/18 12:25 INR 1.25 (0.83-1.16) H 03/17/18 12:25 - Physical Exam Constitutional: no apparent distress Eyes: PERRL, EOMI Ears, Nose, Mouth, Throat: moist mucous membranes, hearing normal Cardiovascular: regular rate and rhythym, no murmur, rub, or gallop, No JVD Respiratory: no respiratory distress, no rales or rhonchi Gastrointestinal: normoactive bowel sounds, soft, non-tender abdomen Skin: warm Musculoskeletal: generalized weakness Neurologic: AAOx3 Psychiatric: interacting appropriately, not anxious, not encephalopathic Lymph, Heme, Immunologic: No petechiae ICD10 Worksheet Patient Problems: Problems Problem Status Onset Acute blood loss anemia Acute Anemia Acute Back pain Acute Endocarditis of mitral valve Acute Mitral regurgitation Acute Septic embolism Acute Status post mitral valve annuloplasty Acute Status post mitral valve repair Acute Uncontrolled pain Acute Discitis of lumbar region Acute Fever Acute Osteomyelitis of lumbar spine Acute
--- NOTE | 2018-03-21 16:05 | ASMTCMCOM ---
CM Note CM Note Notes: Patient's mother came today and so letter was given to her with a copy for her records. PT/OT are recommending Inpatient rehab. Spoke with Sudha this morning and she is following patient's progress. CM will follow. Date Signed: 03/21/2018 04:04 PM Electronically Signed By:Christen Simpson LCSW
[2018-03-21] MEDS: HYDROCODONE/APAP 5/325 TAB PO PRN (19:05)
[2018-03-21] MEDS ORDERED: POTASSIUM CL 10 MEQ TAB PO ONE (19:22)
[2018-03-22] MEDS: oxyCODONE IR 5 MG TAB PO PRN ×3 (01:55→16:21)
[2018-03-22] MEDS: KETOROLAC 30 MG/1 ML SDV IVP PRN ×3 (01:55→14:09)
[2018-03-22] MEDS: NAFCILLIN SODIUM 2 GM in D5W 100 ML IV SCH ×6 (01:56→22:45)
[2018-03-22] MEDS: HYDROCODONE/APAP 5/325 TAB PO PRN ×2 (07:54→19:19)
--- NOTE | 2018-03-22 08:18 | SOAPPROG ---
SOAP Progress Note Assessment/Plan: Assessment:POD#4 Emergent complex MV repair incl #28 Physio annuloplasty ring, prophylactic ligation left atrial appendage MV MSSA endocarditis with severe MR s/p complex repair with annuloplasty - Antithrombotic prophylaxis with coumadin when cleared by neuro Septic shock with embolic events d/t MV staph endocarditis - Successfully weaned off pressor support. Yolanda out. - ABX, timing of PICC as per ID - Surveillance splenic infarct per gen surg Acute blood loss anemia - Stable s/p 3U PRBC, monitor IVDU - Continue supportive care Post-op left sided facial droop/slurred speech - CTH negative for acute hemorrhage. - Neurology consulted. ? vert art thrombus. No acute intervention. Transient hep gtt. - Oral nutrition cleared by MECHANIC/WELDER. - Continue supportive care. IPR consulted. Plan: Cont bid IV diuresis. Remove mediastinal tube. Cont toradol. Repeat echo tomorrow if remains bacteremic. Start coumadin tomorrow if blood cxs and/or echo ok. 03/22/18 08:14 Subjective: Doing ok. Hungry. Less puffy. Objective: Vital Signs Temp Pulse Resp BP Pulse Ox 37.1 C 94 27 H 97/68 L 97 03/22/18 04:00 03/22/18 08:00 03/22/18 08:00 03/22/18 08:00 03/22/18 08:00 Microbiology 03/20/18 05:30 Blood Panel (PCR) - Final Blood S.aureus Methicillin Suscept. 03/18/18 13:56 Gram Stain - Final Heart - Tissue Laboratory Results 03/21/18 05:00 03/22/18 05:45 03/21/18 03/22/18 03/23/18 05:59 05:59 05:59 Intake Total 1998 2869 Output Total 0 3030 Balance -771 -160 PT 15.9 SEC (12.0-15.0) H 03/17/18 12:25 INR 1.25 (0.83-1.16) H 03/17/18 12:25 Physical Exam - Physical Exam General Appearance: alert, no apparent distress Respiratory: lungs clear (grossly), other (blakes x 2 to bulb suction, serosang drainage) Cardiac/Chest: regular rate, rhythm, other (Sternotomy CDI, Vwire intact.) Abdomen: non-tender, soft Skin: warm/dry Extremities: swelling (1-2+ gen) ICD10 Worksheet Patient Problems: Problems Problem Status Onset Acute blood loss anemia Acute Anemia Acute Back pain Acute Endocarditis of mitral valve Acute Mitral regurgitation Acute Septic embolism Acute Status post mitral valve annuloplasty Acute Status post mitral valve repair Acute Uncontrolled pain Acute Discitis of lumbar region Acute Fever Acute Osteomyelitis of lumbar spine Acute
[2018-03-22] MEDS: SENNOSIDES/DOCUSATE SODIUM TAB PO SCH ×2 (08:57→20:40)
[2018-03-22] MEDS: FUROSEMIDE 20 MG/2 ML VIAL IVP SCH ×2 (08:57→16:00)
[2018-03-22] MEDS: PANTOPRAZOLE SODIUM 40 MG TAB PO SCH (08:57)
[2018-03-22] MEDS ORDERED: POTASSIUM CL 10 MEQ TAB PO ONE ×2 (09:27→19:21)
--- NOTE | 2018-03-22 09:28 | PDINTPN ---
Software Technical Lead Progress Note Assessment/Plan: Assessment/Plan: * Mitral valve endocarditis -status post mitral valve replacement * Bacteremia-antibiotics per Infectious Disease * Sepsis * Splenic infarction-repeat CT scan of the abdomen reveals no change in infarction. There is some concern this is the source of her continued bacteremia -will discuss with surgery * Probable stroke-MRA is negative. CT angiogram of the head shows thrombus in the left vertebral artery -close neurologic monitoring * History of methicillin sensitive Staph aureus epidural abscess * Hepatitis-C * Anxiety depression * Pain-moderately well controlled. * Shock-off pressors * Nutrition- * Out of bed to chair * PT/OT * Stress ulcer prophylaxis Subjective: Pain well tolerated. Is uncomfortable sitting up in a chair. Eating, but not very hungry Objective: Vital Signs Temp Pulse Resp BP Pulse Ox 37.1 C 94 27 H 97/68 L 97 03/22/18 04:00 03/22/18 08:00 03/22/18 08:00 03/22/18 08:00 03/22/18 08:00 Microbiology 03/20/18 05:30 Blood Panel (PCR) - Final Blood S.aureus Methicillin Suscept. 03/18/18 13:56 Gram Stain - Final Heart - Tissue Laboratory Results 03/21/18 05:00 03/22/18 05:45 03/21/18 03/22/18 03/23/18 05:59 05:59 05:59 Intake Total 1998 2869 Output Total 2770 3030 770 Balance -771 -160 -770 PT 15.9 SEC (12.0-15.0) H 03/17/18 12:25 INR 1.25 (0.83-1.16) H 03/17/18 12:25 - Time Spent With Patient Time Spent With Patient: 35 min of time spent with patient, over 1/2 involved coordination of care counseling. Case discussed with nursing Physical Exam - Physical Exam General Appearance: alert, no apparent distress EENT: PERRL/EOMI Neck: non-tender, full range of motion, supple, normal inspection Respiratory: chest non-tender, lungs clear, normal breath sounds Cardiac/Chest: normal peripheral pulses, regular rate, rhythm, systolic murmur Peripheral Pulses: 2+: carotid (R), carotid (L), femoral (R), femoral (L), dorsalis-pedis (R), dorsalis-pedis (L) Abdomen: normal bowel sounds, non-tender, soft Pelvic Exam: deferred Rectal: deferred Skin: normal color, warm/dry Extremities: normal range of motion, non-tender, normal inspection, normal capillary refill Neuro/Psych: alert, normal mood/affect, oriented x 3 ICD10 Worksheet Patient Problems: Problems Problem Status Onset Acute blood loss anemia Acute Anemia Acute Back pain Acute Endocarditis of mitral valve Acute Mitral regurgitation Acute Septic embolism Acute Status post mitral valve annuloplasty Acute Status post mitral valve repair Acute Uncontrolled pain Acute Discitis of lumbar region Acute Fever Acute Osteomyelitis of lumbar spine Acute
--- NOTE | 2018-03-22 10:29 | PCMIDPN ---
Assessment/Plan: Assessment: Ongoing MSSA bacteremia-in setting of new mitral valve as of 03/18/2018. In the interim patient has had neurologic symptom onset consistent with embolic CVA. Brain MRI corroborates multiple lacunar infarcts. Blood cultures remain high- grade positive for methicillin sensitive Staph aureus. Concern for ongoing intracardiac pathology. We will repeat the transesophageal echocardiogram tomorrow. Will make her NPO at midnight tonight. Meanwhile continue IV nafcillin. Plan: 1. Continue IV nafcillin at current dose. Creatinine is stable. 2. Plan for transesophageal echocardiogram tomorrow. 3. Continue to manage symptomatically including pain medications for postoperative discomfort. 03/22/18 10:25 Subjective: Patient is resting in her hospital chair. She complains of ongoing chest pain that radiates to her back. No significant fevers or chills. Objective: Nafcillin # 5 Vital Signs Temp Pulse Resp BP Pulse Ox 37.1 C 94 27 H 97/68 L 97 03/22/18 04:00 03/22/18 08:00 03/22/18 08:00 03/22/18 08:00 03/22/18 08:00 Microbiology 03/20/18 05:30 Blood Panel (PCR) - Final Blood S.aureus Methicillin Suscept. 03/18/18 13:56 Gram Stain - Final Heart - Tissue Laboratory Results 03/21/18 05:00 03/22/18 05:45 03/21/18 03/22/18 03/23/18 05:59 05:59 05:59 Intake Total 1998 2869 Output Total 2770 3030 770 Balance -771 -160 -770 ESR 24 MM/HR (0-20) H 03/17/18 04:43 C-Reactive Protein 171.1 mg/L (<10.0) H 03/17/18 04:43 - Physical Exam General Appearance: WD/WN, alert, no apparent distress, non-toxic Respiratory: lungs clear, normal breath sounds, No respiratory distress Cardiac/Chest: regular rate, rhythm, No tachycardia Skin: normal color, warm/dry, No rash Neuro/Psych: alert, normal mood/affect, oriented x 3 ICD10 Worksheet Patient Problems: Problems Problem Status Onset Acute blood loss anemia Acute Anemia Acute Back pain Acute Endocarditis of mitral valve Acute Mitral regurgitation Acute Septic embolism Acute Status post mitral valve annuloplasty Acute Status post mitral valve repair Acute Uncontrolled pain Acute Discitis of lumbar region Acute Fever Acute Osteomyelitis of lumbar spine Acute
--- NOTE | 2018-03-22 11:41 | HOSPPROG ---
Hospitalist Progress Note Assessment/Plan: #MSSA MV endocarditis, bacteremia.septic emboli to spleen/kidney -s/p MV repair, annuloplasty 03/18 -repeat blood positive. Leukocytosis is getting worse -repeat CT abd/pelvis with no splenic abscess. -Nafcillin per ID -Will have ONEAL tomorrow per Cardiology -She is c/o increased tenderness to her upper spine and we will obtain an MRI thoracic spine to r/o abscess/diskitis. She has no cervical or lumbar pain. #stroke, likely from emboli/endocarditis -still with Left sided face and UE deficits #hx MSSA L5-S1 diskitis: s/p anterior I&D, 11/17 #Septic shock: - Still requiring Levophed #ABLA: expected with surgery. s/p transfusion -Hgb stable #HCV #IVDU: counseled on cessation earlier during this hospitalization. #Chronic pain: restart gabapentin when clinically improved #Pedal Edema -cont with IV Lasix BID. Edema is improving #Diet: regular. NPO at midnight. #DVT ppx: SQH PT/OT Subjective: c/o upper back pain. also chest pain. no sob, n/v. Pedal edema is getting better Objective: Vital Signs Temp Pulse Resp BP Pulse Ox 37.1 C 96 16 105/64 97 03/22/18 04:00 03/22/18 10:00 03/22/18 10:00 03/22/18 10:00 03/22/18 10:00 Microbiology 03/20/18 05:30 Blood Panel (PCR) - Final Blood S.aureus Methicillin Suscept. 03/18/18 13:56 Gram Stain - Final Heart - Tissue Laboratory Results 03/21/18 05:00 03/22/18 05:45 03/21/18 03/22/18 03/23/18 05:59 05:59 05:59 Intake Total 1998 2869 Output Total 0 3030 770 Balance -771 -160 -770 PT 15.9 SEC (12.0-15.0) H 03/17/18 12:25 INR 1.25 (0.83-1.16) H 03/17/18 12:25 - Physical Exam Constitutional: no apparent distress Eyes: PERRL, EOMI Ears, Nose, Mouth, Throat: moist mucous membranes, hearing normal Cardiovascular: regular rate and rhythym, edema Respiratory: no respiratory distress, no rales or rhonchi Gastrointestinal: normoactive bowel sounds, soft, non-tender abdomen Genitourinary: no bladder fullness Skin: warm Musculoskeletal: other (ttp at midline of thoracic spine) Neurologic: AAOx3 Psychiatric: interacting appropriately, not anxious, not encephalopathic Lymph, Heme, Immunologic: No petechiae ICD10 Worksheet Patient Problems: Problems Problem Status Onset Acute blood loss anemia Acute Anemia Acute Back pain Acute Endocarditis of mitral valve Acute Mitral regurgitation Acute Septic embolism Acute Status post mitral valve annuloplasty Acute Status post mitral valve repair Acute Uncontrolled pain Acute Discitis of lumbar region Acute Fever Acute Osteomyelitis of lumbar spine Acute
[2018-03-22] MEDS: ENOXAPARIN 40 MG/0.4 ML SYR SC SCH (12:01)
--- NOTE | 2018-03-22 14:52 | SOAPPROG ---
SOAP Progress Note Assessment/Plan: Assessment: Plan: 03/22/18 14:50 Pt hemodynamically stable. Add BB. Continue lasix. MRI brain today Subjective: C/o pain. NO shortness of breath Objective: Vital Signs Temp Pulse Resp BP Pulse Ox 36.9 C 111 H 30 H 102/66 97 03/22/18 12:00 03/22/18 14:00 03/22/18 14:00 03/22/18 14:00 03/22/18 14:00 Microbiology 03/20/18 05:30 Blood Panel (PCR) - Final Blood S.aureus Methicillin Suscept. 03/18/18 13:56 Gram Stain - Final Heart - Tissue Laboratory Results 03/21/18 05:00 03/22/18 05:45 03/21/18 03/22/18 03/23/18 05:59 05:59 05:59 Intake Total 1998 2869 Output Total 2770 3030 770 Balance -771 -160 -770 PT 15.9 SEC (12.0-15.0) H 03/17/18 12:25 INR 1.25 (0.83-1.16) H 03/17/18 12:25 Awake and laert. VSS HR 110 Slight facial droop. ICD10 Worksheet Patient Problems: Problems Problem Status Onset Acute blood loss anemia Acute Anemia Acute Back pain Acute Endocarditis of mitral valve Acute Mitral regurgitation Acute Septic embolism Acute Status post mitral valve annuloplasty Acute Status post mitral valve repair Acute Uncontrolled pain Acute Discitis of lumbar region Acute Fever Acute Osteomyelitis of lumbar spine Acute
[2018-03-22] MEDS ORDERED: GADOBUTROL 10 ML VIAL IVP ONE (15:09)
[2018-03-22] MEDS: METOPROLOL TARTRATE 25 MG TAB PO SCH ×2 (16:27→21:15)
[2018-03-23] MEDS: NAFCILLIN SODIUM 2 GM in D5W 100 ML IV SCH ×6 (01:42→21:26)
[2018-03-23] MEDS: KETOROLAC 30 MG/1 ML SDV IVP PRN ×3 (05:06→20:27)
[2018-03-23] MEDS ORDERED: NS 1,000 ML IV ONE (06:00)
[2018-03-23] MEDS: oxyCODONE IR 5 MG TAB PO PRN ×4 (06:23→21:26)
[2018-03-23] MEDS: FUROSEMIDE 20 MG/2 ML VIAL IVP SCH (08:20)
[2018-03-23] MEDS: ENOXAPARIN 40 MG/0.4 ML SYR SC SCH (08:21)
--- NOTE | 2018-03-23 08:24 | PDGENHP ---
History & Physical Chief Complaint: Endocarditis History of Present Illness: 27-year-old female with history of IV drug abuse presenting with MS S a endocarditis and underwent mitral valve repair with Dr. Post. Has persistent bacteremia complicated by stroke and therefore requires repeat ONEAL. Pertinent Past, Social, Family History: Reviewed Relevant Physical Exam: Regular rate and rhythm. No murmur. Lungs clear without wheezes rhonchi rales. Cardiorespiratory Assessment: Stable for conscious sedation.
--- NOTE | 2018-03-23 08:27 | PDPROPOC ---
Sedation Plan of Care Sedation Plan of Care: vital signs stable, mental status noted ASA Classification: ASA 2 Planned drugs: fentanyl, midazolam Mallampati Score: Class 2 Mallampati Reference Image: Patient passed 3-3-2 rule?: Yes
--- NOTE | 2018-03-23 09:14 | PDINTPN ---
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 There is some concern this is the source of her continued bacteremia -surgery following * Probable stroke-MRA is negative. CT angiogram of the head shows thrombus in the left vertebral artery -close neurologic monitoring * History of methicillin sensitive Staph aureus epidural abscess * Hepatitis-C * Anxiety/depression -likely start home antidepressant * Pain-moderately well controlled. * Shock-off pressors * Nutrition- * Out of bed to chair * PT/OT * Stress ulcer prophylaxis Subjective: Up in chair. Complains of severe chest pain when awake. Appears depressed Objective: Vital Signs Temp Pulse Resp BP Pulse Ox 36.8 C 91 13 94/68 L 100 03/23/18 08:00 03/23/18 08:00 03/23/18 08:00 03/23/18 08:00 03/23/18 08:00 Microbiology 03/20/18 05:30 Blood Panel (PCR) - Final Blood S.aureus Methicillin Suscept. Laboratory Results 03/23/18 05:15 03/23/18 05:15 03/22/18 03/23/18 03/24/18 05:59 05:59 05:59 Intake Total 2870 1727 Output Total 3030 1890 Balance -160 -163 PT 15.9 SEC (12.0-15.0) H 03/17/18 12:25 INR 1.25 (0.83-1.16) H 03/17/18 12:25 - Time Spent With Patient Time Spent With Patient: 35 min of time spent with patient, over 1/2 involved with coordination of care or counseling Case discussed with nursing as well as pharmacy Physical Exam - Physical Exam General Appearance: alert, mild distress EENT: PERRL/EOMI Neck: non-tender Respiratory: chest non-tender, lungs clear, normal breath sounds Cardiac/Chest: normal peripheral pulses, regular rate, rhythm, No systolic murmur Peripheral Pulses: 2+: carotid (R), carotid (L), femoral (R), femoral (L), dorsalis-pedis (R), dorsalis-pedis (L) Abdomen: normal bowel sounds, non-tender, soft Pelvic Exam: deferred Rectal: deferred Skin: normal color, warm/dry Extremities: normal range of motion, non-tender, normal inspection, normal capillary refill Neuro/Psych: alert, oriented x 3, No normal mood/affect (Depressed) ICD10 Worksheet Patient Problems: Problems Problem Status Onset Acute blood loss anemia Acute Anemia Acute Back pain Acute Endocarditis of mitral valve Acute Mitral regurgitation Acute Septic embolism Acute Status post mitral valve annuloplasty Acute Status post mitral valve repair Acute Uncontrolled pain Acute Discitis of lumbar region Acute Fever Acute Osteomyelitis of lumbar spine Acute
--- NOTE | 2018-03-23 09:46 | SOAPPROG ---
SOAP Progress Note Assessment/Plan: Assessment:POD#5 Emergent complex MV repair incl #28 Physio annuloplasty ring, prophylactic ligation left atrial appendage MV MSSA endocarditis with severe MR s/p complex repair with annuloplasty - Antithrombotic prophylaxis with coumadin when cleared by cards Septic shock with embolic events d/t MV staph endocarditis - Successfully weaned off pressor support. Yolanda out. - ABX, timing of PICC as per ID - Surveillance splenic infarct per gen surg Acute blood loss anemia - Stable s/p 3U PRBC, monitor IVDU - Continue supportive care Post-op left sided facial droop/slurred speech/left limb weakness - CTH negative for acute hemorrhage. - Neurology consulted. ? vert art thrombus. No acute intervention. Transient hep gtt. - Speech normalized and swallow passed. 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 - Continue supportive care. IPR consulted. Plan: Cont bid IV diuresis. Keep left pleural tube x 1 more day. Cont toradol. Await ONEAL result. Start coumadin if ONEAL ok. 03/23/18 09:42 Subjective: Doing ok. Bearable pain. Able to walk outside room. Objective: Vital Signs Temp Pulse Resp BP Pulse Ox 36.8 C 91 13 94/68 L 100 03/23/18 08:00 03/23/18 08:00 03/23/18 08:00 03/23/18 08:00 03/23/18 08:00 Microbiology 03/20/18 05:30 Blood Panel (PCR) - Final Blood S.aureus Methicillin Suscept. Laboratory Results 03/23/18 05:15 03/23/18 05:15 03/22/18 03/23/18 03/24/18 05:59 05:59 05:59 Intake Total 2870 1727 Output Total 3030 1890 Balance -160 -163 PT 15.9 SEC (12.0-15.0) H 03/17/18 12:25 INR 1.25 (0.83-1.16) H 03/17/18 12:25 Holding SR/ST and SBP > 90. Afeb. 03/22 blood cx NGTD. CXR -> small rt PTX, bibasilar atelectasis. O2 sats on RA remain > 95%. Left pleural tube output still a bit too high for removal. Physical Exam - Physical Exam General Appearance: alert, no apparent distress Respiratory: decreased breath sounds (bases), other (mimi x 1 to bulb suction, serosang drainage) Cardiac/Chest: regular rate, rhythm, tachycardia, other (Sternotomy CDI) Abdomen: non-tender, soft Skin: warm/dry Extremities: swelling (trace) ICD10 Worksheet Patient Problems: Problems Problem Status Onset Acute blood loss anemia Acute Anemia Acute Back pain Acute Endocarditis of mitral valve Acute Mitral regurgitation Acute Septic embolism Acute Status post mitral valve annuloplasty Acute Status post mitral valve repair Acute Uncontrolled pain Acute Discitis of lumbar region Acute Fever Acute Osteomyelitis of lumbar spine Acute
[2018-03-23] MEDS ORDERED: MIDAZOLAM 2 MG/2 ML VIAL ONE (10:30)
[2018-03-23] MEDS ORDERED: fentaNYL 100 MCG/2 ML INJ ONE (10:30)
[2018-03-23] MEDS ORDERED: fentaNYL 100 MCG/2 ML INJ IVP ONE (11:30)
[2018-03-23] MEDS ORDERED: MIDAZOLAM 2 MG/2 ML VIAL IVP ONE (11:30)
--- NOTE | 2018-03-23 12:23 | HOSPPROG ---
Hospitalist Progress Note Assessment/Plan: #MSSA MV endocarditis, bacteremia.septic emboli to spleen/kidney -s/p MV repair, annuloplasty 03/18 -repeat blood culture from 03/22 with no growth thus far. Leukocytosis shows improvement today. Afebrile -repeat CT abd/pelvis with no splenic abscess. -Nafcillin per ID -MRI thoracic spine with no abscess -Will have ONEAL today #stroke, likely from emboli/endocarditis -still with Left sided face and UE deficits #hx MSSA L5-S1 diskitis: s/p anterior I&D, 11/17 #Septic shock: -Off pressors #ABLA: expected with surgery. s/p transfusion -Hgb with drop overnight, monitor closely #HCV #IVDU: counseled on cessation earlier during this hospitalization. #Chronic pain: restart gabapentin when clinically improved -on Toradol for acute pain #Pedal Edema -cont with IV Lasix BID. Edema is improving #Depression: start Prozac #Diet: regular once back from ONEAL #DVT ppx: Lovenox PT/OT Plan: Med mgmt per above AC per surgery Aspirin on hold follow blood culture ID reccs Subjective: generalized pain. will have ONEAL today. no sob. Pedal edema is improving Objective: Vital Signs Temp Pulse Resp BP Pulse Ox 36.8 C 91 27 H 92/67 L 100 03/23/18 08:00 03/23/18 11:15 03/23/18 11:15 03/23/18 11:15 03/23/18 11:15 Microbiology 03/20/18 05:30 Blood Panel (PCR) - Final Blood S.aureus Methicillin Suscept. Laboratory Results 03/23/18 05:15 03/23/18 05:15 03/22/18 03/23/18 03/24/18 05:59 05:59 05:59 Intake Total 2870 1727 Output Total 3030 1890 1065 Balance -160 -163 -1065 PT 15.9 SEC (12.0-15.0) H 03/17/18 12:25 INR 1.25 (0.83-1.16) H 03/17/18 12:25 - Physical Exam Constitutional: no apparent distress Eyes: PERRL, EOMI Ears, Nose, Mouth, Throat: moist mucous membranes, No dry mucous membranes Cardiovascular: regular rate and rhythym, edema Respiratory: no respiratory distress, reduced air movement Gastrointestinal: normoactive bowel sounds, soft, non-tender abdomen Skin: warm Neurologic: AAOx3 Psychiatric: interacting appropriately, not anxious, not encephalopathic Lymph, Heme, Immunologic: No petechiae ICD10 Worksheet Patient Problems: Problems Problem Status Onset Acute blood loss anemia Acute Anemia Acute Back pain Acute Endocarditis of mitral valve Acute Mitral regurgitation Acute Septic embolism Acute Status post mitral valve annuloplasty Acute Status post mitral valve repair Acute Uncontrolled pain Acute Discitis of lumbar region Acute Fever Acute Osteomyelitis of lumbar spine Acute
[2018-03-23] MEDS ORDERED: POTASSIUM CL 10 MEQ TAB PO ONE ×2 (13:13→18:27)
--- NOTE | 2018-03-23 13:28 | PCMIDPN ---
Assessment/Plan: 1. Mitral valve endocarditis secondary to MSSA complicated by emboli to the kidney and spleen as well as CVA. Status post mitral valve repair with ring annuloplasty 03/18: Much better today! ONEAL without evidence of progressive endocarditis/ring abscess. Small pericardial effusion; doubt purulent effusion at this point. Repeat blood culture remains sterile at over 24 hr! Agree with removing external jugular line in her neck, quad lumen, and PICC line placement. Continue nafcillin; safety labs on this drug have been fine, no evidence of drug eruption. 2. CVA: Markedly improved neurologic exam. 03/23/18 13:29 Subjective: ONEAL today without evidence of progressive endocarditis. Small pericardial effusion. Patient is slightly groggy after conscious sedation, but tells me she feels better overall. Only has 1 small drain remaining. Neurologic exam has improved as well with obvious improvement in dysarthria. No diarrhea. Would Like to eat lunch. Objective: Nafcillin 2 g IV q.4 hours day 6 T-max 37.2 degrees Vital Signs Temp Pulse Resp BP Pulse Ox 36.8 C 92 26 H 101/61 100 03/23/18 08:00 03/23/18 12:00 03/23/18 12:00 03/23/18 12:00 03/23/18 12:00 Microbiology 03/20/18 05:30 Blood Panel (PCR) - Final Blood S.aureus Methicillin Suscept. Laboratory Results 03/23/18 05:15 03/23/18 05:15 03/22/18 03/23/18 03/24/18 05:59 05:59 05:59 Intake Total 2870 1727 Output Total 3030 1890 1065 Balance -160 -163 -1065 ESR 24 MM/HR (0-20) H 03/17/18 04:43 C-Reactive Protein 171.1 mg/L (<10.0) H 03/17/18 04:43 Blood culture 03/22 no growth so far Blood cultures March 20 MSSA - Physical Exam General Appearance: other (Laying in bed, slightly groggy but opens eyes to voice and responds appropriately.) EENT: No scleral icterus, No thrush Respiratory: lungs clear, other (Anterolaterally) Neck: other (External jugular on the left, quad lumen on the right IJ) Cardiac/Chest: regular rate, rhythm, No systolic murmur Abdomen: non-tender, soft, other (1 drain remaining) Skin: No rash, No embolic lesions ICD10 Worksheet Patient Problems: Problems Problem Status Onset Acute blood loss anemia Acute Anemia Acute Back pain Acute Endocarditis of mitral valve Acute Mitral regurgitation Acute Septic embolism Acute Status post mitral valve annuloplasty Acute Status post mitral valve repair Acute Uncontrolled pain Acute Discitis of lumbar region Acute Fever Acute Osteomyelitis of lumbar spine Acute
[2018-03-23] MEDS: PANTOPRAZOLE SODIUM 40 MG TAB PO SCH (13:32)
[2018-03-23] MEDS: ASPIRIN 81 MG CHEWABLE TAB PO SCH (13:33)
[2018-03-23] MEDS: SENNOSIDES/DOCUSATE SODIUM TAB PO SCH ×2 (13:35→20:27)
[2018-03-23] MEDS: METOPROLOL TARTRATE 25 MG TAB PO SCH ×2 (13:38→20:23)
[2018-03-23] MEDS: FLUoxetine 10 MG CAP PO SCH (14:12)
[2018-03-24] MEDS: NAFCILLIN SODIUM 2 GM in D5W 100 ML IV SCH ×6 (01:56→22:28)
[2018-03-24] MEDS: KETOROLAC 30 MG/1 ML SDV IVP PRN ×3 (01:57→21:40)
[2018-03-24] MEDS: oxyCODONE IR 5 MG TAB PO PRN ×5 (03:56→22:26)
[2018-03-24 04:42] LABS: PLATELET COUNT 402 10^3/uL (150-400)
[2018-03-24 04:47] LABS: INR 1.09 (0.83-1.16); PROTIME(PATIENT) 14.3 SEC (12.0-15.0)
[2018-03-24] MEDS: ENOXAPARIN 40 MG/0.4 ML SYR SC SCH (08:16)
[2018-03-24] MEDS: FLUoxetine 10 MG CAP PO SCH (08:16)
[2018-03-24] MEDS: PANTOPRAZOLE SODIUM 40 MG TAB PO SCH (08:16)
--- NOTE | 2018-03-24 08:55 | SOAPPROG ---
SOAP Progress Note Assessment/Plan: Assessment:POD#6 Emergent complex MV repair incl #28 Physio annuloplasty ring, prophylactic ligation left atrial appendage MV MSSA endocarditis with severe MR s/p complex repair with annuloplasty - Antithrombotic prophylaxis with coumadin; target INR 2-3; duration 3 mon. - Competent valve without evidence of veg or abscess by yest ONEAL - 2 of 3 chest tubes out. Postop pericardial effusion - Incidental finding by yest ONEAL. Moderate sized without apparent hemodynamic compromise. - Care with filling pressures/diuresis. - Possible communication with left pleural tube and plan retention of tube until drainage clearly declining. Septic shock with embolic events d/t MV staph endocarditis - Successfully weaned off pressor support. [place] out. - Blood cxs from 03/22 NGTD. Abx per PICC. - Surveillance splenic infarct per gen surg Acute blood loss anemia - Stable s/p 3U PRBC, monitor IVDU - Continue supportive care Post-op left sided facial droop/slurred speech/left limb weakness - CTH negative for acute hemorrhage. - Neurology consulted. ? vert art thrombus. No acute intervention. Transient hep gtt. - Speech normalized and swallow passed. Dietary advancement as per [employer]. - Continue supportive care. IPR consulted. Plan: Vwire removed. Maintain left pleural tube until drainage < 100 ml/shift. Start coumadin. 2.5 mg today. Limited echo tomorrow to f/u pericardial effusion. 03/24/18 08:53 Subjective: Achey. Objective: Vital Signs Temp Pulse Resp BP Pulse Ox 36.7 C 96 23 H 98/73 L 98 03/24/18 08:00 03/24/18 08:00 03/24/18 08:00 03/24/18 08:00 03/24/18 08:00 Microbiology 03/20/18 05:30 Blood Panel (PCR) - Final Blood S.aureus Methicillin Suscept. Laboratory Results 03/24/18 04:00 03/24/18 04:00 03/23/18 03/24/18 03/25/18 05:59 05:59 05:59 Intake Total 1727 1782 Output Total 1890 1730 95 Balance -163 52 -95 PT 14.3 SEC (12.0-15.0) 03/24/18 04:00 INR 1.09 (0.83-1.16) 03/24/18 04:00 Holding SR/ST. Excellent sats on RA. Balanced I/Os. CXR -> Decr rt PTX, small rt pl eff. CTOP still a bit too high to pull. Physical Exam - Physical Exam General Appearance: alert, no apparent distress Respiratory: crackles (bases), other (mimi to bulb suction, serosang drainage) Cardiac/Chest: regular rate, rhythm, tachycardia, friction rub, other ( Sternotomy CDI. Vwire removed without difficulty) Abdomen: non-tender, soft Skin: warm/dry Extremities: swelling (1+) ICD10 Worksheet Patient Problems: Problems Problem Status Onset Acute blood loss anemia Acute Anemia Acute Back pain Acute Endocarditis of mitral valve Acute Mitral regurgitation Acute Septic embolism Acute Status post mitral valve annuloplasty Acute Status post mitral valve repair Acute Uncontrolled pain Acute Discitis of lumbar region Acute Fever Acute Osteomyelitis of lumbar spine Acute
[2018-03-24] MEDS: ONDANSETRON 4 MG/2 ML VIAL IVP PRN ×3 (09:50→22:26)
--- NOTE | 2018-03-24 10:10 | ECHO ---
[email or web address] [address] [address] Main: [phone] Fax: Transesophageal Echocardiography Name: AKOSUA VILLA MR#: [id number] Study Date: 03/23/2018 Study Time: 10:37 AM Date of : 1990 Age: 27 year(s) Height: 160 cm (63 in.) Weight: 75.75 kg (167 lb.) BSA: 1.79 m2 Gender: Female Examination: ONEAL Indication: Evaluate MV Repair, hx endocarditis Image Quality: Adequate Contrast: Requested by: Gwendolyn hAuja Heart Rate: Rhythm: BP: 94 mmHg/75 mmHg Procedure Staff Rocket Assembly Operator: Yamila Johnson [facility] Reading Physician: Gwendolyn Ahuja MD Requesting Provider: Romero Post ONEAL Exam Details Patient Consent: Risks, alternatives of procedure explained to patient, informed consent obtained. Conclusions: Normal size left ventricle. Normal global systolic LV function. The ejection fraction is estimated to be 55-60 %. There is no mitral valve vegetation. Mitral valve repair. No MV prosthesis regurgitation. Moderate pericardial effusion. No echocardiographic evidence of hemodynamic compromise. No evidence of endocarditis on this study Measurements: Chambers Valvular Assessment AV/MV Valvular Assessment TV/PV Normal Normal Normal Name Value Range Name Value Range Name Value Range EF Range: 55-60 % Additional Measurements: Findings: Left Ventricle: Normal size left ventricle. No LV hypertrophy. Normal global systolic LV function. The ejection fraction is estimated to be 55-60 %. No regional wall motion abnormality. Patient: AKOSUA VILLA Study Date: 03/23/2018 Page 1 of 2 10:37 AM Right Ventricle: Normal size right ventricle. Normal RV function. Left Atrium: The left atrium is normal in size. Right Atrium: The right atrium is normal in size. Mitral Valve: There is no mitral valve vegetation. Mitral valve repair. No MV prosthesis regurgitation. Aortic Valve: The aortic valve is tri-leaflet. There is no aortic valve regurgitation. There is no aortic valve vegetation. Tricuspid Valve: The tricuspid valve is normal in appearance and function. Trivial tricuspid valve regurgitation. Pulmonic Valve: The pulmonic valve is normal in appearance and function. Trivial pulmonic valve regurgitation. Aorta: The aorta is normal. Pericardium: Moderate pericardial effusion. No echocardiographic evidence of hemodynamic compromise. There is a pleural effusion present. l1n (No Signature Object) Patient: AKOSUA VILLA Study Date: 03/23/2018 Page 2 of 2 10:37 AM [id number]
--- NOTE | 2018-03-24 10:43 | PCMIDPN ---
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 Patient had positive blood cultures on 03/20 but repeat blood cultures on 03/22 are no growth to date. Patient has repeat ONEAL yesterday did not show any extension of cardiac abscess or recurrent vegetations. She is resting comfortably currently. Plan to continue the IV nafcillin at present dose. Follow laboratories going forward. Plan: 1. Continue IV nafcillin at current dose. Creatinine is stable. 2. Continue to manage symptomatically including pain medications for postoperative discomfort. Subjective: Patient is sleeping in her chair in her room. She has not had any significant overnight events. No fevers or chills. Objective: Nafcillin # 7 Vital Signs Temp Pulse Resp BP Pulse Ox 36.7 C 110 H 28 H 101/73 94 03/24/18 08:00 03/24/18 10:00 03/24/18 10:00 03/24/18 10:00 03/24/18 10:00 Microbiology 03/20/18 05:30 Blood Panel (PCR) - Final Blood S.aureus Methicillin Suscept. Laboratory Results 03/24/18 04:00 03/24/18 04:00 03/23/18 03/24/18 03/25/18 05:59 05:59 05:59 Intake Total 1727 1782 250 Output Total 1890 1730 165 Balance -163 52 85 ESR 24 MM/HR (0-20) H 03/17/18 04:43 C-Reactive Protein 171.1 mg/L (<10.0) H 03/17/18 04:43 - Physical Exam General Appearance: WD/WN, no apparent distress, non-toxic Respiratory: lungs clear, normal breath sounds, No respiratory distress Cardiac/Chest: regular rate, rhythm, tachycardia Skin: normal color, warm/dry, No rash ICD10 Worksheet Patient Problems: Problems Problem Status Onset Acute blood loss anemia Acute Anemia Acute Back pain Acute Endocarditis of mitral valve Acute Mitral regurgitation Acute Septic embolism Acute Status post mitral valve annuloplasty Acute Status post mitral valve repair Acute Uncontrolled pain Acute Discitis of lumbar region Acute Fever Acute Osteomyelitis of lumbar spine Acute
[2018-03-24] MEDS: ASPIRIN 81 MG CHEWABLE TAB PO SCH (10:51)
[2018-03-24] MEDS: SENNOSIDES/DOCUSATE SODIUM TAB PO PRN (10:52)
[2018-03-24] MEDS: METOPROLOL TARTRATE 25 MG TAB PO SCH ×2 (10:54→20:11)
--- NOTE | 2018-03-24 12:09 | HOSPPROG ---
Hospitalist Progress Note Assessment/Plan: #MSSA MV endocarditis, bacteremia.septic emboli to spleen/kidney -s/p MV repair, annuloplasty 03/18 -repeat blood culture from 03/22 with no growth thus far. Leukocytosis shows improvement today. Afebrile -repeat CT abd/pelvis with no splenic abscess. -Nafcillin per ID -MRI thoracic spine with no abscess -ONEAL did not show worsening endocarditis #stroke, likely from emboli/endocarditis -still with Left sided face and UE deficits #hx MSSA L5-S1 diskitis: s/p anterior I&D, 11/17 #Septic shock: -Off pressors #ABLA: expected with surgery. s/p transfusion -Hgb with drop overnight, monitor closely #HCV #IVDU: counseled on cessation earlier during this hospitalization. #Chronic pain: restart gabapentin when clinically improved -on Toradol for acute pain #Pedal Edema -cont with IV Lasix BID. Edema is improving #Depression: start Prozac #Diet: regular once back from ONEAL #DVT ppx: Lovenox PT/OT Plan: She appears to be improving. Cont abx. Cont pain mgmt. Cont IV diuretics as ordered. AC per surgery Aspirin on hold follow blood culture monitor Hgb which has dropped slightly today Subjective: no cp or sob. no n/v. Objective: Vital Signs Temp Pulse Resp BP Pulse Ox 36.7 C 110 H 28 H 101/73 94 03/24/18 08:00 03/24/18 10:00 03/24/18 10:00 03/24/18 10:00 03/24/18 10:00 Microbiology 03/20/18 05:30 Blood Panel (PCR) - Final Blood S.aureus Methicillin Suscept. Laboratory Results 03/24/18 04:00 03/24/18 04:00 03/23/18 03/24/18 03/25/18 05:59 05:59 05:59 Intake Total 1727 1782 250 Output Total 1890 1730 165 Balance -163 52 85 PT 14.3 SEC (12.0-15.0) 03/24/18 04:00 INR 1.09 (0.83-1.16) 03/24/18 04:00 - Physical Exam Constitutional: no apparent distress Eyes: PERRL, EOMI Ears, Nose, Mouth, Throat: moist mucous membranes, hearing normal Cardiovascular: regular rate and rhythym, edema (trace bilateral LE) Respiratory: no respiratory distress, no rales or rhonchi Gastrointestinal: normoactive bowel sounds Skin: warm Neurologic: AAOx3 Psychiatric: interacting appropriately, not anxious, not encephalopathic ICD10 Worksheet Patient Problems: Problems Problem Status Onset Acute blood loss anemia Acute Anemia Acute Back pain Acute Endocarditis of mitral valve Acute Mitral regurgitation Acute Septic embolism Acute Status post mitral valve annuloplasty Acute Status post mitral valve repair Acute Uncontrolled pain Acute Discitis of lumbar region Acute Fever Acute Osteomyelitis of lumbar spine Acute
[2018-03-24] MEDS ORDERED: POTASSIUM CL 10 MEQ TAB PO ONE ×2 (12:58→20:13)
[2018-03-24] MEDS ORDERED: LIDOCAINE 1% 300 MG/30 ML SDV ONE (13:05)
[2018-03-24] MEDS: ARIPiprazole 2 MG TAB PO SCH (13:26)
--- NOTE | 2018-03-24 15:22 | ASMTCMCOM ---
CM Note CM Note Notes: Patient up walking around the Unit, has 1 chest tube, on Prozac for depression. In-pt Rehab interested in admitted when patient medically clear. Date Signed: 03/24/2018 03:21 PM Electronically Signed By:Sunshine Hurley LCSW
[2018-03-24] MEDS ORDERED: POTASSIUM Cl (KCl) 10 MEQ/50 ML BAG IV ONE (15:48)
[2018-03-24] MEDS ORDERED: WARFARIN SODIUM 2.5 MG TAB PO ONE (16:00)
--- NOTE | 2018-03-24 18:09 | PDINTPN ---
Life Cycle Assessment Analyst Progress Note Assessment/Plan: Assessment: * Mitral valve endocarditis-status post complex mitral valve repair: MSSA * Bilateral pleural effusions and atelectasis. Pneumothorax. Bilateral chest tubes in place. * Bacteremia-antibiotics per Infectious Disease. Latest cultures negative 03/22 * Sepsis/hypotension: Resolved * Splenic infarction: Stable * Probable stroke-MRA is negative. CT angiogram of the head shows thrombus in the left vertebral artery. Neurologic changes have for the most part resolved * History of methicillin sensitive Staph aureus epidural abscess * Hepatitis-C * Anxiety/depression * Pain-moderately well controlled. * Nutrition: Eating * Stress ulcer prophylaxis: On pantoprazole * DVT: On enoxaparin and aspirin. Coumadin started today. Plan: Continue present care. Continue antibiotics. Increase mobilization as tolerated. Continue to follow neurologic status. Follow chest tube drainage. Follow laboratory, chest x-ray intermittently. Objective: Vital Signs Temp Pulse Resp BP Pulse Ox 36.4 C 96 28 H 97/62 L 95 03/24/18 16:00 03/24/18 16:00 03/24/18 16:00 03/24/18 16:00 03/24/18 16:00 Microbiology 03/18/18 13:56 Gram Stain - Final Heart - Tissue Laboratory Results 03/24/18 04:00 03/24/18 04:00 03/23/18 03/24/18 03/25/18 05:59 05:59 05:59 Intake Total 1727 1782 600 Output Total 1890 1730 205 Balance -163 52 395 PT 14.3 SEC (12.0-15.0) 03/24/18 04:00 INR 1.09 (0.83-1.16) 03/24/18 04:00 CXR: Hypoventilatory changes with bibasilar effusions/atelectasis. Small pneumothorax right apex Physical Exam - Physical Exam General Appearance: alert, no apparent distress, other (In chair) EENT: PERRL/EOMI, other (On room air) Neck: normal inspection (No JVD) Respiratory: lungs clear (Anteriorly), decreased breath sounds (At bases. Shallow inspirations. ), pleural rub (On left anteriorly), other (Chest tube in place) Cardiac/Chest: regular rate, rhythm, systolic murmur, No gallop Abdomen: normal bowel sounds, non-tender, soft Skin: warm/dry, pallor Extremities: pedal edema (Trace +) Neuro/Psych: no motor/sensory deficits (Moves all extremities equally), No cognition abnormalities ICD10 Worksheet Patient Problems: Problems Problem Status Onset Mitral regurgitation Acute Septic embolism Acute Anemia Acute Acute blood loss anemia Acute Status post mitral valve annuloplasty Acute Status post mitral valve repair Acute Endocarditis of mitral valve Acute Discitis of lumbar region Acute Fever Acute Osteomyelitis of lumbar spine Acute Back pain Acute Uncontrolled pain Acute
[2018-03-24] MEDS: HYDROCODONE/APAP 5/325 TAB PO PRN (20:12)
[2018-03-25] MEDS: NAFCILLIN SODIUM 2 GM in D5W 100 ML IV SCH ×6 (02:54→21:49)
[2018-03-25] MEDS: oxyCODONE IR 5 MG TAB PO PRN ×3 (04:55→17:38)
[2018-03-25] MEDS: ACETAMINOPHEN 325 MG TAB PO PRN (04:55)
[2018-03-25 05:25] LABS: INR 1.1 (0.83-1.16); PROTIME(PATIENT) 14.4 SEC (12.0-15.0)
[2018-03-25 05:28] LABS: PLATELET COUNT 502 10^3/uL (150-400)
--- NOTE | 2018-03-25 07:55 | SOAPPROG ---
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 Abx as per ID. - Surveillance splenic infarct per gen surg Acute blood loss anemia - s/p 3U PRBC, monitor IVDU - Continue supportive care Post-op left sided facial droop/slurred speech/left-sided weakness - All imaging negative for acute CVA - Speech normalized and swallow passed. Dietary advancement as per [employer] C[employer]. - Continue supportive care. IPR consulted. Postop pericardial effusion - For drainage today - Care with filling pressures/diuresis. Subjective: c/o mild pain. Denies SOB. Has been ambulating. Objective: Vital Signs Temp Pulse Resp BP Pulse Ox 37.2 C 93 20 95/73 L 97 03/25/18 04:00 03/25/18 04:00 03/25/18 04:00 03/25/18 04:00 03/25/18 04:00 Microbiology 03/20/18 05:30 Blood Culture - Final Blood Staphylococcus Aureus Blood Panel (PCR) - Final S.aureus Methicillin Suscept. 03/20/18 05:25 Blood Culture - Final Blood Staphylococcus Aureus 03/18/18 13:56 Gram Stain - Final Heart - Tissue Laboratory Results 03/25/18 05:05 03/25/18 05:05 03/24/18 03/25/18 03/26/18 05:59 05:59 05:59 Intake Total 1782 2000 Output Total 1730 205 Balance 52 1795 PT 14.4 SEC (12.0-15.0) 03/25/18 05:05 INR 1.10 (0.83-1.16) 03/25/18 05:05 Physical Exam - Physical Exam General Appearance: WD/WN, alert, no apparent distress EENT: No scleral icterus (R), No scleral icterus (L) Neck: normal inspection Respiratory: No respiratory distress Cardiac/Chest: regular rate, rhythm Abdomen: non-tender, soft, No distended Skin: normal color, warm/dry Extremities: pedal edema Neuro/Psych: alert, normal mood/affect, facial droop, motor weakness, speech abnormalities ICD10 Worksheet Patient Problems: Problems Problem Status Onset Pericardial effusion Acute Mitral regurgitation Acute Septic embolism Acute Anemia Acute Acute blood loss anemia Acute Status post mitral valve annuloplasty Acute Status post mitral valve repair Acute Endocarditis of mitral valve Acute Discitis of lumbar region Acute Fever Acute Osteomyelitis of lumbar spine Acute Back pain Acute Uncontrolled pain Acute
[2018-03-25] MEDS: KETOROLAC 30 MG/1 ML SDV IVP PRN ×2 (07:59→14:17)
--- NOTE | 2018-03-25 08:13 | SOAPPROG ---
SOAP Progress Note Assessment/Plan: Assessment: ASKED TO SEE PATIENT EARLIER TODAY PREOP FOR INFARCTED SPLEEN 27-YEAR-OLD FEMALE WITH COMPLICATED HISTORY SECONDARY TO IV DRUG USE INCLUDING LUMBAR SPINE ABSCESS AND NOW WITH INFECTED MITRAL VALVE/SHE HAS HAD EMBOLIC INFARCTION TO THE SPLEEN CAUSING SOME LEFT UPPER QUADRANT PAIN. SHE ALSO HAS SOME SMALL INFARCTS IN THE KIDNEY. SHE IS SCHEDULED TODAY FOR MITRAL VALVE REPAIR HEENT NONICTERIC CHEST CLEAR COR REGULAR RHYTHM ABDOMEN SOFT SLIGHTLY DISTENDED, WITH TENDERNESS IN THE LEFT UPPER QUADRANT WHICH IS MILD AND NO REAL PERITONEAL SIGNS EXTREMITIES FULL RANGE OF MOTION FULL PULSES NEUROLOGIC EXAM PHYSIOLOGIC PSYCH EXAM REVEALS HER TO BE ALERT ORIENTED AND COOPERATIVE IMPRESSION IS INFARCTED SPLEEN SECONDARY TO SEPTIC EMBOLI/ THIS CAN BE TREATED WITH OBSERVATION AND SERIAL. IMAGING STUDIES. IF SHE HAD BLEEDING OR INFECTIOUS SYMPTOMS SPLENECTOMY WOULD BE INDICATED. IS UNCLEAR IF SHE HAS ANY SIGNIFICANT RISK FROM THE HEPARINIZATION FOR OPEN HEART SURGERY BUT I HAVE DISCUSSED THIS WITH DR. DELEON CARDIAC SURGEON. I SUSPECT THE RISK OF BLEEDING RELATIVELY SMALL AND WOULD PROCEED WITH THE MORE URGENT CARDIAC SURGERY Plan: CLOSE FOLLOW-UP 03/18/18 19:04 03/20/18 19:46 HEMATOCRIT REASONABLY STABLE/ ULTRASOUND OF THE ABDOMEN SHOWED NO EVIDENCE OF BLEEDING FROM THE SPLEEN/ UNFORTUNATELY SHE APPEARS TO HAVE HAD A CVA TODAY 03/25/18 08:10 recovering from cva/ ambulating, still aphasic/ abd soft, no signs of splenic leak Objective: Vital Signs Temp Pulse Resp BP Pulse Ox 37.2 C 93 20 95/73 L 97 03/25/18 04:00 03/25/18 04:00 03/25/18 04:00 03/25/18 04:00 03/25/18 04:00 Microbiology 03/20/18 05:30 Blood Culture - Final Blood Staphylococcus Aureus Blood Panel (PCR) - Final S.aureus Methicillin Suscept. 03/20/18 05:25 Blood Culture - Final Blood Staphylococcus Aureus 03/18/18 13:56 Gram Stain - Final Heart - Tissue Laboratory Results 03/25/18 05:05 03/25/18 05:05 03/24/18 03/25/18 03/26/18 05:59 05:59 05:59 Intake Total 1782 2000 Output Total 1730 205 Balance 52 1795 PT 14.4 SEC (12.0-15.0) 03/25/18 05:05 INR 1.10 (0.83-1.16) 03/25/18 05:05 ICD10 Worksheet Patient Problems: Problems Problem Status Onset Acute blood loss anemia Acute Anemia Acute Back pain Acute Endocarditis of mitral valve Acute Mitral regurgitation Acute Septic embolism Acute Status post mitral valve annuloplasty Acute Status post mitral valve repair Acute Uncontrolled pain Acute Discitis of lumbar region Acute Fever Acute Osteomyelitis of lumbar spine Acute
[2018-03-25] MEDS: METOPROLOL TARTRATE 25 MG TAB PO SCH ×2 (08:21→20:18)
[2018-03-25] MEDS: HYDROCODONE/APAP 5/325 TAB PO PRN ×2 (08:22→20:01)
[2018-03-25] MEDS: ARIPiprazole 2 MG TAB PO SCH (09:28)
[2018-03-25] MEDS: PANTOPRAZOLE SODIUM 40 MG TAB PO SCH (09:28)
[2018-03-25] MEDS: ASPIRIN 81 MG CHEWABLE TAB PO SCH (09:28)
[2018-03-25] MEDS: FLUoxetine 10 MG CAP PO SCH (09:28)
[2018-03-25] MEDS: ENOXAPARIN 40 MG/0.4 ML SYR SC SCH (09:30)
[2018-03-25] MEDS ORDERED: DEXAMETHASONE 4 MG/ML VIAL ONE (10:06)
[2018-03-25] MEDS ORDERED: BUPIVACAINE 0.25% 30 ML SDV ONE (10:06)
[2018-03-25] MEDS ORDERED: EPINEPHrine 1 MG/ML INJ ONE (10:06)
[2018-03-25] MEDS ORDERED: fentaNYL 100 MCG/2 ML INJ ONE ×2 (10:08→12:07)
[2018-03-25] MEDS ORDERED: fentaNYL 100 MCG/2 ML INJ IVP PRN ×2 (10:14→12:03)
--- NOTE | 2018-03-25 10:16 | PDANEPAE ---
ANE History of Present Illness here for pericardial window ANE Past Medical History - Cardiovascular History Hx Hypertension: No Hx Arrhythmias: No Hx Chest Pain: No Hx Coronary Artery / Peripheral Vascular Disease: No Hx CHF / Valvular Disease: No Hx Palpitations: No - Pulmonary History Hx COPD: No Hx Asthma/Reactive Airway Disease: No Hx Recent Upper Respiratory Infection: No Hx Oxygen in Use at Home: No Hx Sleep Apnea: No Sleep Apnea Screening Result - Last Documented: Negative - Endocrine History Hx Diabetes: No - Renal History Hx Renal Disorders: No - Liver History Hx Hepatic Disorders: No - Neurological & Psychiatric Hx Hx Neurological and Psychiatric Disorders: Yes Neurological / Psychiatric History Comment: recent poss CVA with resovling symptoms - Cancer History Hx Cancer: No - Chronic Pain History Chronic Pain: Yes ANE Review of Systems Review of systems is: negative Review of Systems: - Exercise capacity Exercise capacity: >=4 METS - Pacemaker Pacemaker Set Rate: 50 ANE Patient History - Allergies Allergies/Adverse Reactions: ibuprofen Allergy (Intermediate, Verified 09/23/17 20:16) Rash tramadol Allergy (Intermediate, Verified 09/23/17 20:16) Rash diphenhydramine Allergy (Mild, Verified 01/19/18 11:29) Itching - Home Medications Home medications: home medication list seen and reviewed Home Medications: Gabapentin [Neurontin 300 MG (*)] 900 mg PO TID 11/22/17 [Last Taken 03/11/18] - NPO status NPO Status: no food or drink >8 hours NPO Since - Liquids (Date): 03/18/18 NPO Since - Liquids (Time): 00:00 NPO Since - Solids (Date): 03/18/18 NPO Since - Solids (Time): 00:00 - Anes Hx Anes Hx: no prior problems - Smoking Hx Smoking Status: Light smoker - Alcohol Use Alcohol Use: None ANE Labs/Vital Signs - Labs Result Diagrams: 03/25/18 05:05 03/25/18 05:05 - Vital Signs Blood Pressure: 98/67 Heart Rate: 93 Respiratory Rate: 24 O2 Sat (%): 97 Height: 160.02 cm Weight: 73.8 kg ANE Physical Exam - Airway Neck exam: FROM Mallampati Score: Class 1 - Pulmonary Pulmonary: no respiratory distress - Cardiovascular Cardiovascular: regular rate and rhythym - ASA Status ASA Status: III ANE Anesthesia Plan Anesthesia Plan: general endotracheal anesthesia Lines/Monitors: ONEAL
--- NOTE | 2018-03-25 10:22 | ECHO ---
[email or web address] [address] [address] Main: [phone] Fax: Transthoracic Echocardiogram Name: AKOSUA VILLA MR#: [id number] Study Date: 03/25/2018 Study Time: 07:58 AM Date of : 1990 Age: 27 year(s) Height: ( ) Weight: ( ) BSA: Gender: Female Examination: Limited Echo Indication: F/U pericardial effusion; s/p mitral valve repair Image Quality: Adequate Contrast: Requested by: Veronika Redmond BP: / Heart Rate: Rhythm: Indication: F/U pericardial effusion; s/p mitral valve repair Procedure Staff Fur Blower Operator: [facility] Reading Physician: Romero Sen MD Requesting Provider: Conclusions: Normal size left ventricle. Normal global systolic LV function. No regional wall motion abnormality. Large circumferential pericardial effusion. Respiratory variation noted in the RV inflow pattern. IVC not well visualized due to limited imaging.. No visual evidence of RA or RV collapse. However, peak tricuspid inflow velocity varies with respiration by aproximatley 40% indicating that the effusion is starting to have a hemodynamic impact. The effusion has significantly increased in size compared to 03/23/2018. Measurements: Chambers Valvular Assessment AV/MV Valvular Assessment TV/PV Normal Normal Normal Name Value Range Name Value Range Name Value Range Continued Measurements: Findings: Left Ventricle: Normal size left ventricle. Normal global systolic LV function. No regional wall motion abnormality. Right Ventricle: Normal size right ventricle. Normal RV function. Left Atrium: The left atrium is normal in size. Right Atrium: The right atrium is normal in size. Pericardium: Large circumferential pericardial effusion. Respiratory variation noted in the RV inflow pattern. IVC Patient: AKOSUA VILLA Study Date: 03/25/2018 Page 1 of 2 07:58 AM not well visualized due to limited imaging.. (No Signature Object) Patient: AKOSUA VILLA Study Date: 03/25/2018 Page 2 of 2 07:58 AM D[id number]
[2018-03-25] MEDS ORDERED: fentaNYL 250 MCG/5 ML INJ ONE (10:24)
[2018-03-25] MEDS ORDERED: PROPOFOL/EMULSION 500 MG/50 ML BOTTLE IV ONE (10:35)
[2018-03-25] MEDS ORDERED: MIDAZOLAM 2 MG/2 ML VIAL ONE (10:37)
[2018-03-25] MEDS ORDERED: ePHEDrine SULFATE 25 MG/5 ML SYR ONE (10:41)
[2018-03-25] MEDS ORDERED: SUGAMMADEX SODIUM 200 MG/2 ML VIAL IVP ONE (11:17)
--- NOTE | 2018-03-25 11:27 | POSTOPPROG ---
Post Op Note Date of Operation: 03/25/18 Surgeon: Marian Araujo Chief Of Police: Kristopher Beasley PA-C Anesthesia: GET(General Endotracheal) Pre-op Diagnosis: Pericardial Effusion Post-op Diagnosis: Pericardial Effusion Procedure: Sub-xiphoid pericardial window Findings: 300ml of serosanguinous pericardial effusion drained. Inf/Abcess present in the surg proc area at time of surgery?: No EBL: Minimal Complications: None Drains: Other (36 Fr chest tube) Specimen(s): None
--- NOTE | 2018-03-25 11:58 | GOP ---
[f rep st] OPERATIVE REPORT DATE OF OPERATION: 03/25/2018 SURGEON: Marian Araujo MD IT NETWORK ENGINEER: Kristopher Beasley PA-C. ANESTHESIA: General. PREOPERATIVE DIAGNOSIS: Pericardial effusion. POSTOPERATIVE DIAGNOSIS: Pericardial effusion. PROCEDURE PERFORMED: Subxiphoid pericardial window. FINDINGS: 300 mL of serosanguineous pericardial effusion drained with no residual pericardial effusi on noted on intraoperative ONEAL. SPECIMENS: None. ESTIMATED BLOOD LOSS: Minimal. INDICATIONS: The patient is a 27-year-old female who was initially admitted with sepsis secondary to Staphylococcus bacteremia. She did undergo emergent mitral valve repair for mitral valve bacterial endocarditis on March 18, 2018. More recently, routine ONEAL revealed a pericardial effusion for which routine transthoracic echo revealed a small pericardial effusion and followup transthoracic echo perf ormed earlier today showed significant increased pericardial effusion with early tamponade physiology . Given then findings, decision was made to urgently take the patient to the operating room for a pe ricardial window for drainage of her pericardial effusion. The risks, benefits, and alternatives wer e detailed to her and an informed consent was obtained. DESCRIPTION OF PROCEDURE: The patient was brought into the operating room and placed on the operatin g room table in the supine position. General anesthesia was induced and the airway was secured with an endotracheal tube. Once appropriate anesthesia monitoring lines were placed, the chest and abdome n were prepped and draped in the standard surgical fashion utilizing Betadine secondary to open chest tube wound as well as an existing chest tube in place. A surgical time-out was performed. Prophyla ctic antibiotics were not administered given that the patient is on standing therapeutic antibiotics. The existing sternotomy incision was opened up at its very inferior portion. Dissection was carried further deeper behind the sternum to enter the pericardial space. Upon initial entry, significant se rosanguineous pericardial effusion was drained which was under pressure. Approximately 300 mL of flu id was drained. Intraoperative ONEAL at this point revealed complete evacuation of her pericardial eff usion with no remaining pockets. Utilizing Yankauer suction, gentle dissection was carried out betwe en the heart and the diaphragm to ensure no loculated collections did exist and then a single 36-Fren ch angle chest tube was placed through another incision just lateral to the midline and tunneled into the pericardial space and placed over the diaphragm. This was secured in place with a silk suture. The wound was irrigated with saline and then closed in a layered fashion utilizing absorbable suture . Sterile dressings were applied and the chest tube was connected to suction drainage. The patient was then awoken from general anesthesia and extubated. She was then transferred to the recovery room in satisfactory condition after having tolerated the procedure well. At the end of the procedure, needle, sponge, and instrument counts were all noted to be correct. SURGEON: Marian Araujo MD. COMPLICATIONS: None. DRAINS: 36-Lithuanian chest tube x1. /[id number]/MODL
[2018-03-25] MEDS ORDERED: NALOXONE HCL 0.4 MG/ML INJ IVP PRN (12:03)
[2018-03-25] MEDS ORDERED: ALBUTEROL 3 ML DEYVIAL IH PRN (12:03)
[2018-03-25] MEDS ORDERED: ONDANSETRON 4 MG/2 ML VIAL IVP PRN (12:03)
[2018-03-25] MEDS ORDERED: DEXAMETHASONE 4 MG/ML VIAL IVP PRN (12:03)
[2018-03-25] MEDS ORDERED: HYDROmorphONE/DILAUDID 1 MG/ML INJ IVP PRN ×2 (12:03→13:26)
[2018-03-25] MEDS ORDERED: HYDROmorphONE/DILAUDID 1 MG/ML INJ ONE (12:07)
--- NOTE | 2018-03-25 12:07 | POSTANESTH ---
Post Anesthetic Evaluation Cardiovascular Status: Normal, Stable Respiratory Status: Normal, Stable Level of Consciousness/Mental Status: Mildly Sleepy, Arousable Pain Control: Adequate, Prn Tx Ordered Nausea/Vomiting Control: Adequate, Prn Tx Ordered Complications Possibly Related to Anesthesia: None Noted
--- NOTE | 2018-03-25 15:15 | HOSPPROG ---
Hospitalist Progress Note Assessment/Plan: 27 yo F w MSSA endocarditis now s/p pericardial window for early tamponade tamponade: s/p window MSSA MV endocarditis, bacteremia.septic emboli to spleen/kidney s/p MV repair, annuloplasty 03/18 repeat blood culture from 03/22 with no growth thus far. Leukocytosis shows improvement today. Afebrile repeat CT abd/pelvis with no splenic abscess. Nafcillin per ID MRI thoracic spine with no abscess ONEAL did not show worsening endocarditis stroke, likely from emboli/endocarditis still with Left sided face and UE deficits hx MSSA L5-S1 diskitis: s/p anterior I&D, 11/17 Septic shock: Off pressors ABLA: expected with surgery. s/p transfusion Hgb with drop overnight, monitor closely HCV IVDU: counseled on cessation earlier during this hospitalization. Chronic pain: restart gabapentin when clinically improved on Toradol for acute pain Pedal Edema cont with IV Lasix BID. Edema is improving Depression: start Prozac Diet: regular once back from ONEAL DVT ppx: Lovenox PT/OT Subjective: case d/w dr munoz Objective: Vital Signs Temp Pulse Resp BP Pulse Ox 36.3 C 73 27 H 107/79 100 03/25/18 12:25 03/25/18 13:08 03/25/18 13:08 03/25/18 13:08 03/25/18 13:08 Microbiology 03/18/18 13:56 Gram Stain - Final Heart - Tissue Anaerobic Culture - Final Staphylococcus Aureus 03/20/18 05:30 Blood Culture - Final Blood Staphylococcus Aureus Blood Panel (PCR) - Final S.aureus Methicillin Suscept. 03/20/18 05:25 Blood Culture - Final Blood Staphylococcus Aureus Laboratory Results 03/25/18 05:05 03/25/18 05:05 03/24/18 03/25/18 03/26/18 05:59 05:59 05:59 Intake Total 1782 2000 600 Output Total 1730 205 225 Balance 52 1795 375 PT 14.4 SEC (12.0-15.0) 03/25/18 05:05 INR 1.10 (0.83-1.16) 03/25/18 05:05 - Physical Exam Constitutional: no apparent distress, appears nourished Eyes: PERRL, anicteric sclera Ears, Nose, Mouth, Throat: moist mucous membranes, hearing normal Cardiovascular: regular rate and rhythym, no murmur, rub, or gallop Respiratory: no respiratory distress, no rales or rhonchi Gastrointestinal: normoactive bowel sounds, soft, non-tender abdomen Genitourinary: No godoy in urethra Skin: warm, normal color Musculoskeletal: no muscle tenderness Neurologic: AAOx3, sensation intact bilaterally ICD10 Worksheet Patient Problems: Problems Problem Status Onset Acute blood loss anemia Acute Anemia Acute Back pain Acute Endocarditis of mitral valve Acute Mitral regurgitation Acute Pericardial effusion Acute Septic embolism Acute Status post mitral valve annuloplasty Acute Status post mitral valve repair Acute Uncontrolled pain Acute Discitis of lumbar region Acute Fever Acute Osteomyelitis of lumbar spine Acute
[2018-03-25] MEDS: HYDROmorphONE/DILAUDID 1 MG/ML INJ IVP PRN ×2 (16:01→20:01)
[2018-03-25] MEDS: FUROSEMIDE 20 MG/2 ML VIAL IVP SCH (16:02)
--- NOTE | 2018-03-25 17:30 | PDINTPN ---
[employer] Progress Note Assessment/Plan: Assessment: * Mitral valve endocarditis-status post complex mitral valve repair: MSSA * Per cardial effusion. 300 mL of serosanguineous fluid drained today with a pericardial window. Drain in place. Clinically doing well. * Bilateral pleural effusions and atelectasis. Pneumothorax. Bilateral chest tubes in place. * Bacteremia-antibiotics per Infectious Disease. Latest cultures negative 03/22 * Sepsis/hypotension: Resolved * Splenic infarction: Stable * Probable stroke-MRA is negative. CT angiogram of the head shows thrombus in the left vertebral artery. Neurologic changes have for the most part resolved * History of methicillin sensitive Staph aureus epidural abscess * Hepatitis-C * Anxiety/depression * Pain-moderately well controlled. * Nutrition: Eating * Stress ulcer prophylaxis: On pantoprazole * DVT: On enoxaparin and aspirin. Coumadin started today. Plan: Continue present care. Continue antibiotics. Increase mobilization as tolerated. Continue to follow neurologic status. Follow chest/pericardial tube drainage. Follow laboratory prn, chest x-ray. Subjective: Complains of ongoing chest pain after pericardial window. Objective: Vital Signs Temp Pulse Resp BP Pulse Ox 36.6 C 77 19 103/68 97 03/25/18 15:46 03/25/18 16:05 03/25/18 16:05 03/25/18 16:05 03/25/18 16:05 Microbiology 03/18/18 13:56 Gram Stain - Final Heart - Tissue Anaerobic Culture - Final Staphylococcus Aureus 03/20/18 05:30 Blood Culture - Final Blood Staphylococcus Aureus Blood Panel (PCR) - Final S.aureus Methicillin Suscept. 03/20/18 05:25 Blood Culture - Final Blood Staphylococcus Aureus Laboratory Results 03/25/18 05:05 03/25/18 05:05 03/24/18 03/25/18 03/26/18 05:59 05:59 05:59 Intake Total 1782 2000 950 Output Total 2888 425 7177 Balance 52 1795 -75 PT 14.4 SEC (12.0-15.0) 03/25/18 05:05 INR 1.10 (0.83-1.16) 03/25/18 05:05 Laboratory Tests 03/25/18 05:05 Calcium 8.0 L Physical Exam - Physical Exam General Appearance: mild distress, other (Sleepy post procedure) EENT: PERRL/EOMI, other (Nasal cannula at 2 L) Neck: normal inspection Respiratory: lungs clear (Anteriorly), decreased breath sounds (At bases) Cardiac/Chest: regular rate, rhythm, other (New pericardial drain tube in place) , No gallop, No friction rub Abdomen: non-tender, soft, No normal bowel sounds (Decreased, present) Skin: normal color, warm/dry Extremities: pedal edema (Trace) Neuro/Psych: no motor/sensory deficits, No cognition abnormalities ICD10 Worksheet Patient Problems: Problems Problem Status Onset Pericardial effusion Acute Mitral regurgitation Acute Septic embolism Acute Anemia Acute Acute blood loss anemia Acute Status post mitral valve annuloplasty Acute Status post mitral valve repair Acute Endocarditis of mitral valve Acute Discitis of lumbar region Acute Fever Acute Osteomyelitis of lumbar spine Acute Back pain Acute Uncontrolled pain Acute
--- NOTE | 2018-03-25 17:46 | PCMIDPN ---
Assessment/Plan: # MSSA mitral valve endocarditis with embolic disease to the kidney and spleen. s/p emergent MV repair with ring annuloplasty 03/18/18. S/p pericardial drain/ window today, 300 cc removed. Single set of blood cultures-03/22/2018 are negative --continue high-dose nafcillin, tolerating without side effects. LFT is normal 03/21/2018 and creatinine is stable --discuss with team whether we should repeat 2 sets of blood cultures to document clearance # Leukocytosis: Recent re-evaluation with ONEAL, MRI of spine and repeat CT abdomen pelvis shows no area needing drainage at this point. Patient did develop a worsening pericardial effusion which required drainage today. # Interestingly prior area of epidural abscess/diskitis at L5-S1 shows resolution of infection on imaging at admission. Medications Nafcillin 2 g IV Q 4h,# 8 micro 03/16 blood cx : MSSA 03/18 heart tissue 4+ GPC; MSSA 03/20 blood cultures (2 sets) MSSA 03/22 blood cultures (1 set): no growth today 03/25/18 17:52 Subjective: Increased chest pain today following pericardial window Objective: Vital Signs Temp Pulse Resp BP Pulse Ox 36.6 C 77 19 103/68 97 03/25/18 15:46 03/25/18 16:05 03/25/18 16:05 03/25/18 16:05 03/25/18 16:05 Microbiology 03/18/18 13:56 Gram Stain - Final Heart - Tissue Anaerobic Culture - Final Staphylococcus Aureus 03/20/18 05:30 Blood Culture - Final Blood Staphylococcus Aureus Blood Panel (PCR) - Final S.aureus Methicillin Suscept. 03/20/18 05:25 Blood Culture - Final Blood Staphylococcus Aureus Laboratory Results 03/25/18 05:05 03/25/18 05:05 03/24/18 03/25/18 03/26/18 05:59 05:59 05:59 Intake Total 1782 2000 1500 Output Total 7930 816 5438 Balance 52 1795 475 ESR 24 MM/HR (0-20) H 03/17/18 04:43 C-Reactive Protein 171.1 mg/L (<10.0) H 03/17/18 04:43 - Physical Exam General Appearance: alert EENT: pale conjunctiva, other (No oral ulceration), No scleral icterus, No thrush Respiratory: other (Decreased breath sounds in the bilateral bases), No accessory muscle use Neck: supple Cardiac/Chest: regular rate, rhythm, other (Occasional squeak heard, query pericardial rub; midline chest tube in place and smaller pericardial drain) Extremities: pedal edema, other (Anasarca) Abdomen: non-tender, soft Skin: pallor, No rash Neuro/Psych: alert, oriented x 3, depressed affect - Line/s RUE PICC Lines: No drainage, No erythema - Time Spent With Patient Time Spent with Patient: greater than 35 minutes Time Spent with Patient: Greater than 35 minutes spent on this patients care, greater than 50% of time spent counseling, educating, and coordinating care regarding the above mentioned plan. ICD10 Worksheet Patient Problems: Problems Problem Status Onset Acute blood loss anemia Acute Anemia Acute Back pain Acute Endocarditis of mitral valve Acute Mitral regurgitation Acute Pericardial effusion Acute Septic embolism Acute Status post mitral valve annuloplasty Acute Status post mitral valve repair Acute Uncontrolled pain Acute Discitis of lumbar region Acute Fever Acute Osteomyelitis of lumbar spine Acute
[2018-03-25] MEDS ORDERED: POTASSIUM CL 20 MEQ TAB PO SCH (21:00)
[2018-03-26] MEDS: KETOROLAC 30 MG/1 ML SDV IVP PRN ×2 (00:20→06:30)
[2018-03-26] MEDS: oxyCODONE IR 5 MG TAB PO PRN ×6 (00:20→22:51)
[2018-03-26] MEDS: NAFCILLIN SODIUM 2 GM in D5W 100 ML IV SCH ×6 (01:38→21:44)
[2018-03-26] MEDS: HYDROmorphONE/DILAUDID 1 MG/ML INJ IVP PRN ×6 (05:15→23:55)
[2018-03-26 05:41] LABS: INR 1.1 (0.83-1.16); PROTIME(PATIENT) 14.4 SEC (12.0-15.0)
[2018-03-26] MEDS ORDERED: POTASSIUM CL 20 MEQ TAB PO ONE (07:19)
[2018-03-26] MEDS ORDERED: FUROSEMIDE 40 MG/4 ML VIAL IVP ONE ×2 (07:19→22:25)
--- NOTE | 2018-03-26 07:22 | SOAPPROG ---
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 Denies SOB. Objective: Vital Signs Temp Pulse Resp BP Pulse Ox 36.6 C 82 16 95/65 L 96 03/26/18 04:00 03/26/18 04:00 03/26/18 04:00 03/26/18 04:00 03/26/18 04:00 Microbiology 03/18/18 13:56 Gram Stain - Final Heart - Tissue Anaerobic Culture - Final Staphylococcus Aureus 03/20/18 05:30 Blood Culture - Final Blood Staphylococcus Aureus Blood Panel (PCR) - Final S.aureus Methicillin Suscept. 03/20/18 05:25 Blood Culture - Final Blood Staphylococcus Aureus Laboratory Results 03/25/18 05:05 03/25/18 05:05 03/25/18 03/26/18 03/27/18 05:59 05:59 05:59 Intake Total 1999 2400 Output Total 2005 Balance 1795 394 PT 14.4 SEC (12.0-15.0) 03/26/18 05:15 INR 1.10 (0.83-1.16) 03/26/18 05:15 Physical Exam - Physical Exam General Appearance: WD/WN, alert, no apparent distress EENT: No scleral icterus (R), No scleral icterus (L) Neck: normal inspection Respiratory: No respiratory distress Cardiac/Chest: regular rate, rhythm Abdomen: non-tender, soft, No distended Skin: warm/dry, pallor Extremities: pedal edema Neuro/Psych: alert, normal mood/affect, motor weakness, speech abnormalities ICD10 Worksheet Patient Problems: Problems Problem Status Onset Acute blood loss anemia Acute Anemia Acute Back pain Acute Endocarditis of mitral valve Acute Mitral regurgitation Acute Pericardial effusion Acute Septic embolism Acute Status post mitral valve annuloplasty Acute Status post mitral valve repair Acute Uncontrolled pain Acute Discitis of lumbar region Acute Fever Acute Osteomyelitis of lumbar spine Acute
[2018-03-26] MEDS: FLUoxetine 10 MG CAP PO SCH (08:34)
[2018-03-26] MEDS: ASPIRIN 81 MG CHEWABLE TAB PO SCH (08:35)
[2018-03-26] MEDS: ARIPiprazole 2 MG TAB PO SCH (08:35)
[2018-03-26] MEDS: PANTOPRAZOLE SODIUM 40 MG TAB PO SCH (08:35)
[2018-03-26] MEDS: ENOXAPARIN 40 MG/0.4 ML SYR SC SCH (09:44)
[2018-03-26] MEDS: ACETAMINOPHEN 325 MG TAB PO PRN (14:04)
--- NOTE | 2018-03-26 15:13 | ASMTCMCOM ---
CM Note CM Note Notes: Therapies recommending In-pt Rehab, patient doing well physically. In-pt Rehab concerned of her need for Nafcilin 2g IV Q4 for the next 7 days and how that can be administered. In-pt thinking that if the ABX need Q4 tx it might be better if patient went to a LTC. Another requirement for In-pt is that be willing to work with the therapists. IF ABX need to be admin Q4 and she needs LTC we will need to complete a ULTC-100 and find placement. Date Signed: 03/26/2018 03:12 PM Electronically Signed By:Sunshine Hurley LCSW
--- NOTE | 2018-03-26 15:47 | HOSPPROG ---
Hospitalist Progress Note Assessment/Plan: 27 yo F w MSSA endocarditis now s/p pericardial window for early tamponade tamponade: s/p window MSSA MV endocarditis, bacteremia.septic emboli to spleen/kidney s/p MV repair, annuloplasty 03/18 repeat blood culture from 03/22 with no growth thus far. Leukocytosis shows improvement today. Afebrile repeat CT abd/pelvis with no splenic abscess. Nafcillin per ID MRI thoracic spine with no abscess ONEAL did not show worsening endocarditis stroke, likely from emboli/endocarditis still with Left sided face and UE deficits hx MSSA L5-S1 diskitis: s/p anterior I&D, 11/17 Septic shock: Off pressors ABLA: expected with surgery. s/p transfusion Hgb with drop overnight, monitor closely HCV IVDU: counseled on cessation earlier during this hospitalization. Chronic pain: restart gabapentin when clinically improved on Toradol for acute pain Pedal Edema cont with IV Lasix BID. Edema is improving Depression: start Prozac Diet: regular once back from ONEAL DVT ppx: Lovenox PT/OT Subjective: case d/w bernie fisher, ct surgery PA Objective: Vital Signs Temp Pulse Resp BP Pulse Ox 36.8 C 89 16 98/67 L 93 03/26/18 11:47 03/26/18 11:47 03/26/18 11:47 03/26/18 11:47 03/26/18 11:47 Microbiology 03/18/18 13:56 Gram Stain - Final Heart - Tissue Anaerobic Culture - Final Staphylococcus Aureus Laboratory Results 03/25/18 05:05 03/25/18 05:05 03/25/18 03/26/18 03/27/18 05:59 05:59 05:59 Intake Total 19990 Output Total 2005 600 Balance 1795 394 -600 PT 14.4 SEC (12.0-15.0) 03/26/18 05:15 INR 1.10 (0.83-1.16) 03/26/18 05:15 - Physical Exam Constitutional: no apparent distress, appears nourished Eyes: PERRL, anicteric sclera Ears, Nose, Mouth, Throat: moist mucous membranes, ears appear normal Cardiovascular: regular rate and rhythym, no murmur, rub, or gallop Respiratory: no respiratory distress, no rales or rhonchi Gastrointestinal: normoactive bowel sounds, soft, non-tender abdomen Genitourinary: no bladder fullness, No godoy in urethra Skin: warm, normal color Musculoskeletal: full muscle strength, no muscle tenderness Neurologic: AAOx3 ICD10 Worksheet Patient Problems: Problems Problem Status Onset Acute blood loss anemia Acute Anemia Acute Back pain Acute Endocarditis of mitral valve Acute Mitral regurgitation Acute Pericardial effusion Acute Septic embolism Acute Status post mitral valve annuloplasty Acute Status post mitral valve repair Acute Uncontrolled pain Acute Discitis of lumbar region Acute Fever Acute Osteomyelitis of lumbar spine Acute
[2018-03-26] MEDS ORDERED: WARFARIN SODIUM 2.5 MG TAB PO ONE (16:00)
[2018-03-26] MEDS: FUROSEMIDE 40 MG/4 ML VIAL IVP SCH (16:19)
--- NOTE | 2018-03-26 16:40 | SOAPPROG ---
TIM Progress Note Assessment/Plan: Assessment: 1. Status post mitral valve repair. 2. Status post pericardial window placement. I have discussed her case with cardiovascular surgical service and they are following her and do not feel like Cardiology as needed. Will sign off case this time. We are always available come back at any. Plan: 03/26/18 16:39 Objective: Vital Signs Temp Pulse Resp BP Pulse Ox 37.1 C 98 20 107/66 93 03/26/18 15:59 03/26/18 15:59 03/26/18 15:59 03/26/18 15:59 03/26/18 15:59 Microbiology 03/18/18 13:56 Gram Stain - Final Heart - Tissue Anaerobic Culture - Final Staphylococcus Aureus Laboratory Results 03/25/18 05:05 03/25/18 05:05 03/25/18 03/26/18 03/27/18 05:59 05:59 05:59 Intake Total 1999 2400 Output Total 205 2005 600 Balance 1795 394 -600 PT 14.4 SEC (12.0-15.0) 03/26/18 05:15 INR 1.10 (0.83-1.16) 03/26/18 05:15 ICD10 Worksheet Patient Problems: Problems Problem Status Onset Acute blood loss anemia Acute Anemia Acute Back pain Acute Endocarditis of mitral valve Acute Mitral regurgitation Acute Pericardial effusion Acute Septic embolism Acute Status post mitral valve annuloplasty Acute Status post mitral valve repair Acute Uncontrolled pain Acute Discitis of lumbar region Acute Fever Acute Osteomyelitis of lumbar spine Acute
--- NOTE | 2018-03-26 17:09 | PDINTPN ---
Social Worker Aide Progress Note Assessment/Plan: Assessment: * Mitral valve endocarditis-status post complex mitral valve repair: MSSA * Per cardial effusion. 300 mL of serosanguineous fluid drained today with a pericardial window. Drain in place. Clinically doing well. * Bilateral pleural effusions and atelectasis. Pneumothorax. Bilateral chest tubes in place. * Bacteremia-antibiotics per Infectious Disease. Latest cultures negative 03/22 * Sepsis/hypotension: Resolved * Splenic infarction: Stable * Probable stroke-MRA is negative. CT angiogram of the head showed thrombus in the left vertebral artery. Neurologic changes have for the most part resolved * History of methicillin sensitive Staph aureus epidural abscess * Hepatitis-C * Anxiety/depression * Pain-moderately well controlled. * Nutrition: Eating * Stress ulcer prophylaxis: On pantoprazole * DVT: On enoxaparin and aspirin. Coumadin started today. Plan: Continue present care. Pain control as we are doing. Continue antibiotics per Infectious Disease. Increase mobilization. Continue to follow neurologic status. Follow chest/pericardial tube drainage. Follow laboratory prn, chest x-ray. Subjective: Overall feels better today. Still with anterior chest pain but this seems a little better Objective: Vital Signs Temp Pulse Resp BP Pulse Ox 37.1 C 98 20 107/66 93 03/26/18 15:59 03/26/18 15:59 03/26/18 15:59 03/26/18 15:59 03/26/18 15:59 Microbiology 03/18/18 13:56 Gram Stain - Final Heart - Tissue Anaerobic Culture - Final Staphylococcus Aureus Laboratory Results 03/25/18 05:05 03/25/18 05:05 03/25/18 03/26/18 03/27/18 05:59 05:59 05:59 Intake Total 1999 2400 Output Total 2005 1600 Balance 1795 394 -1600 PT 14.4 SEC (12.0-15.0) 03/26/18 05:15 INR 1.10 (0.83-1.16) 03/26/18 05:15 CXR: Hypoventilatory change with bibasilar atelectasis/effusions. Tubes in good position Physical Exam - Physical Exam General Appearance: alert, no apparent distress EENT: PERRL/EOMI, other (Nasal cannula at 1 L) Neck: normal inspection (No obvious JVD) Respiratory: lungs clear (Anteriorly), decreased breath sounds (At bases), other (Chest tube in place), No rhonchi, No pleural rub Cardiac/Chest: regular rate, rhythm, systolic murmur, other (Pericardial drainage tube), No gallop, No friction rub Abdomen: normal bowel sounds, non-tender, soft Skin: normal color, warm/dry Extremities: pedal edema (Trace +) Neuro/Psych: no motor/sensory deficits, No cognition abnormalities ICD10 Worksheet Patient Problems: Problems Problem Status Onset Pericardial effusion Acute Mitral regurgitation Acute Septic embolism Acute Anemia Acute Acute blood loss anemia Acute Status post mitral valve annuloplasty Acute Status post mitral valve repair Acute Endocarditis of mitral valve Acute Discitis of lumbar region Acute Fever Acute Osteomyelitis of lumbar spine Acute Back pain Acute Uncontrolled pain Acute
--- NOTE | 2018-03-26 18:03 | PCMIDPN ---
Assessment/Plan: Assessment/Plan: * MSSA mitral valve endocarditis with emboli to kidney and spleen status post mitral valve repair with ring annuloplasty and subsequent pericardial window yesterday: 1 set of blood cultures from 03/22/2018 shows no growth of MSSA. Continues slow clinical improvement. Continue nafcillin with follow-up of CBC and metabolic profile over time. Will repeat blood cultures x2 sets today to ensure cultures drawn on 03/22/2018 represent true clearance of bacteremia. Clinical findings and plan reviewed with patient, case management and nursing staff today. 03/26/18 18:00 Subjective: Patient complains of chest pain post pericardial window. No diarrhea. Objective: Vital Signs Temp Pulse Resp BP Pulse Ox 37.1 C 98 20 107/66 93 03/26/18 15:59 03/26/18 15:59 03/26/18 15:59 03/26/18 15:59 03/26/18 15:59 Microbiology 03/18/18 13:56 Gram Stain - Final Heart - Tissue Anaerobic Culture - Final Staphylococcus Aureus Laboratory Results 03/25/18 05:05 03/25/18 05:05 03/25/18 03/26/18 03/27/18 05:59 05:59 05:59 Intake Total 2000 2400 Output Total 205 2005 1600 Balance 1795 394 -1600 ESR 24 MM/HR (0-20) H 03/17/18 04:43 C-Reactive Protein 171.1 mg/L (<10.0) H 03/17/18 04:43 Nafcillin # 9 Blood cultures x1 set 03/22/2018 no growth Pericardial effusion drained yesterday measuring 300 mL and noted to be serosanguineous in character - Physical Exam General Appearance: alert, no apparent distress EENT: No scleral icterus, No thrush, No conjunctival petechiae Respiratory: lungs clear (Anterolaterally), No respiratory distress Cardiac/Chest: regular rate, rhythm, other (Sternotomy intact without erythema or drainage; chest tubes in place) Extremities: other (Prior inflammatory macules over left plantar region no longer tender) Abdomen: non-tender, No distended - Line/s RUE PICC Lines: No drainage, No erythema - Time Spent With Patient Time Spent with Patient: greater than 25 minutes Time Spent with Patient: Greater than 25 minutes spent on this patients care, greater than 50% of time spent counseling, educating, and coordinating care regarding the above mentioned plan. ICD10 Worksheet Patient Problems: Problems Problem Status Onset Acute blood loss anemia Acute Anemia Acute Back pain Acute Endocarditis of mitral valve Acute Mitral regurgitation Acute Pericardial effusion Acute Septic embolism Acute Status post mitral valve annuloplasty Acute Status post mitral valve repair Acute Uncontrolled pain Acute Discitis of lumbar region Acute Fever Acute Osteomyelitis of lumbar spine Acute
[2018-03-26] MEDS: POTASSIUM CL 20 MEQ TAB PO SCH (19:55)
[2018-03-26] MEDS: SENNOSIDES/DOCUSATE SODIUM TAB PO PRN (21:44)
[2018-03-27] MEDS: NAFCILLIN SODIUM 2 GM in D5W 100 ML IV SCH ×6 (01:01→21:00)
[2018-03-27] MEDS: CYCLOBENZAPRINE 10 MG TAB PO PRN ×3 (01:46→21:00)
[2018-03-27] MEDS: HYDROmorphONE/DILAUDID 1 MG/ML INJ IVP PRN ×7 (01:47→23:33)
[2018-03-27] MEDS: LORazepam 2 MG/ML INJ IVP PRN (01:47)
[2018-03-27 05:47] LABS: INR 1.05 (0.83-1.16); PLATELET COUNT 738 10^3/uL (150-400); PROTIME(PATIENT) 13.9 SEC (12.0-15.0)
[2018-03-27] MEDS: oxyCODONE IR 5 MG TAB PO PRN ×4 (07:12→23:33)
--- NOTE | 2018-03-27 07:56 | SOAPPROG ---
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 - Competent valve without evidence of veg or abscess by surveillance ONEAL on POD# 5. - Massive fluid overload well tolerated. - TCPW and 2 of 3 chest tubes out. Postop pericardial effusion - Incidental finding by postop ONEAL. - Moderate sized with evidence of hemodynamic compromise. Taken to OR for evacuation. - Anticoagulation resumed yest. Post-op CVA with left sided facial droop/slurred speech/LUE weakness - Brain MRI notable for multiple small lacunar infarcts of the left cerebral hemisphere and cerebellum c/w septic emboli. - Speech normalized and swallow passed. Dietary advancement as per CAREER LAW CLERK. - Daily PT/OT. Eventual IPR. Septic shock with emboli to spleen and kidney - Successfully weaned off pressor support. [place] out. - Blood cxs from 03/22 NGTD. Repeat blood cxs from 03/26 pending. Abx per PICC as directed by ID. - Surveillance splenic infarct per gen surg Acute expected blood loss anemia - Stable s/p 3U PRBC, monitor IVDU - Continue supportive care Plan: Left pleural tube removed. Keep pericardial drain until output < 50 ml/24h. Cont BID IV diuresis. Coumadin 5 mg today. 03/27/18 07:47 Subjective: Pain all over but especially rt foot, dorsum towards toes. Objective: Vital Signs Temp Pulse Resp BP Pulse Ox 36.8 C 101 H 25 H 104/68 96 03/27/18 07:16 03/27/18 07:16 03/27/18 07:16 03/27/18 07:16 03/27/18 07:16 Microbiology 03/22/18 05:45 Blood Culture - Final Blood Laboratory Results 03/27/18 05:25 03/27/18 05:25 03/26/18 03/27/18 03/28/18 05:59 05:59 05:59 Intake Total 0 1589 Output Total 2005 4280 70 Balance 394 -5671 -70 PT 13.9 SEC (12.0-15.0) 03/27/18 05:25 INR 1.05 (0.83-1.16) 03/27/18 05:25 SR/ST with SBPs > 100. Excellent sats on 1 lpm O2. Excellent UOP on IV lasix. Pleural tube output below removal criteria. Mediastinal output falling (100 -> 90 -> 70). Await CXR. INR yet to budge. Physical Exam - Physical Exam General Appearance: alert, no apparent distress Respiratory: normal breath sounds (anteriorly), other (mimi to bulb suction, serosang drainage; removed without incident) Cardiac/Chest: regular rate, rhythm, tachycardia, other (Subxiphoid dressing CDI. CT to pleurovac, serosang drainage) Abdomen: non-tender, soft Skin: warm/dry Extremities: swelling (2+), other (rt foot pink and warm) ICD10 Worksheet Patient Problems: Problems Problem Status Onset Acute blood loss anemia Acute Anemia Acute Back pain Acute Endocarditis of mitral valve Acute Mitral regurgitation Acute Pericardial effusion Acute Septic embolism Acute Status post mitral valve annuloplasty Acute Status post mitral valve repair Acute Uncontrolled pain Acute Discitis of lumbar region Acute Fever Acute Osteomyelitis of lumbar spine Acute
[2018-03-27] MEDS: FUROSEMIDE 40 MG/4 ML VIAL IVP SCH ×2 (08:52→16:01)
[2018-03-27] MEDS: PANTOPRAZOLE SODIUM 40 MG TAB PO SCH (08:52)
[2018-03-27] MEDS: SENNOSIDES/DOCUSATE SODIUM TAB PO PRN (08:52)
[2018-03-27] MEDS: ENOXAPARIN 40 MG/0.4 ML SYR SC SCH (08:52)
[2018-03-27] MEDS: POTASSIUM CL 20 MEQ TAB PO SCH ×2 (08:52→21:00)
[2018-03-27] MEDS: ARIPiprazole 2 MG TAB PO SCH (08:52)
[2018-03-27] MEDS: ASPIRIN 81 MG CHEWABLE TAB PO SCH (08:52)
[2018-03-27] MEDS: FLUoxetine 10 MG CAP PO SCH (08:52)
[2018-03-27] MEDS: ACETAMINOPHEN 325 MG TAB PO PRN (09:44)
--- NOTE | 2018-03-27 10:30 | PCMIDPN ---
Assessment/Plan: 1. Mitral valve endocarditis secondary to MSSA complicated by emboli to the kidney and spleen as well as CVA. Status post mitral valve repair with ring annuloplasty 03/18 and subxiphoid pericardial window 03/25: Repeat blood cultures from yesterday pending; blood cultures from 03/22 remain negative. Spoke to pharmacy today about obtaining continuous infusion nafcillin over at rehab--they are working on it. Continue nafcillin as is. Check liver function tests tomorrow (order placed) 2.Severe right foot and ankle pain: Differential diagnosis includes reactive arthritis, septic arthritis (seems less likely but still possible), or crystalline arthropathy. On exam, this appears to be monoarticular. Excellent dopplerable pulses, and foot is warm. Will obtain MRI to further evaluate the foot and joint and look for evidence of effusion that could be tapped. Check uric acid and HLA B27. Plan conveyed to patient's nurse. Over 25 min spent with this patient today. Subjective: Complaining of severe right foot and ankle pain. Patient is tearful, and tells me that the pain is 10/10. Denies trauma, or sleeping on it wrong. States that she fractured this ankle years ago from a horse accident. No tingling or numbness in the foot. Just severe pain when I touch the dorsum of the foot, and severe pain with dorsi and plantar flexion of the foot. Objective: Nafcillin 2 g IV q.4 hours day 10 T-max 37.1 degrees Vital Signs Temp Pulse Resp BP Pulse Ox 36.8 C 101 H 25 H 104/68 96 03/27/18 07:16 03/27/18 07:16 03/27/18 07:16 03/27/18 07:16 03/27/18 07:16 Microbiology 03/22/18 05:45 Blood Culture - Final Blood Laboratory Results 03/27/18 05:25 03/27/18 05:25 03/26/18 03/27/18 03/28/18 05:59 05:59 05:59 Intake Total 2400 1589 Output Total 2005 4870 70 Balance 394 -2313 -70 ESR 24 MM/HR (0-20) H 03/17/18 04:43 C-Reactive Protein 171.1 mg/L (<10.0) H 03/17/18 04:43 Blood culture 725 pending Blood culture 721 no growth - Physical Exam General Appearance: other (Tearful today given pain.) EENT: pharynx normal, No thrush Respiratory: lungs clear Cardiac/Chest: regular rate, rhythm Extremities: other (Right foot appears mildly swollen compared with the left. Perhaps faint pinkish erythema noted along the dorsum of the right foot, but this could be from recent pressure from being in bed. Blanches. Exquisite pain touching the dorsum of the foot. Exquisite pain touching lateral and medial malleolus. Exquisite pain when she flexes and extends her foot. Palpable and dopplerable pulses. Foot is warm. Toes are normal color. No evidence of arthritis of other joints or pain in other joints. PICC line right upper extremity looks fine.) Skin: No rash ICD10 Worksheet Patient Problems: Problems Problem Status Onset Acute blood loss anemia Acute Anemia Acute Back pain Acute Endocarditis of mitral valve Acute Mitral regurgitation Acute Pericardial effusion Acute Septic embolism Acute Status post mitral valve annuloplasty Acute Status post mitral valve repair Acute Uncontrolled pain Acute Discitis of lumbar region Acute Fever Acute Osteomyelitis of lumbar spine Acute
--- NOTE | 2018-03-27 13:31 | HOSPPROG ---
Hospitalist Progress Note Assessment/Plan: 27 yo F w MSSA endocarditis now s/p pericardial window for early tamponade tamponade: s/p window MSSA MV endocarditis, bacteremia.septic emboli to spleen/kidney s/p MV repair, annuloplasty 03/18 repeat blood culture from 03/22 with no growth thus far. Leukocytosis shows improvement today. Afebrile repeat CT abd/pelvis with no splenic abscess. Nafcillin per ID MRI thoracic spine with no abscess ONEAL did not show worsening endocarditis stroke, likely from emboli/endocarditis still with Left sided face and UE deficits hx MSSA L5-S1 diskitis: s/p anterior I&D, 11/17 Septic shock: Off pressors ABLA: expected with surgery. s/p transfusion Hgb with drop overnight, monitor closely HCV IVDU: counseled on cessation earlier during this hospitalization. Chronic pain: restart gabapentin when clinically improved on Toradol for acute pain Pedal Edema cont with IV Lasix BID. Edema is improving Depression: start Prozac Diet: regular once back from ONEAL DVT ppx: Lovenox PT/OT Subjective: case d.w dr blankenship Objective: Vital Signs Temp Pulse Resp BP Pulse Ox 36.9 C 106 H 19 95/75 L 94 03/27/18 11:52 03/27/18 11:52 03/27/18 11:52 03/27/18 11:52 03/27/18 11:52 Microbiology 03/22/18 05:45 Blood Culture - Final Blood Laboratory Results 03/27/18 05:25 03/27/18 05:25 03/26/18 03/27/18 03/28/18 05:59 05:59 05:59 Intake Total 2400 1589 Output Total 2005 4280 2170 Balance 394 -6912 -7140 PT 13.9 SEC (12.0-15.0) 03/27/18 05:25 INR 1.05 (0.83-1.16) 03/27/18 05:25 - Physical Exam Constitutional: no apparent distress, appears nourished Eyes: PERRL, anicteric sclera Ears, Nose, Mouth, Throat: moist mucous membranes, hearing normal Cardiovascular: regular rate and rhythym, no murmur, rub, or gallop Respiratory: no respiratory distress, no rales or rhonchi Gastrointestinal: normoactive bowel sounds, soft, non-tender abdomen Genitourinary: no bladder fullness, No godoy in urethra Skin: warm, normal color Musculoskeletal: full muscle strength ICD10 Worksheet Patient Problems: Problems Problem Status Onset Acute blood loss anemia Acute Anemia Acute Back pain Acute Endocarditis of mitral valve Acute Mitral regurgitation Acute Pericardial effusion Acute Septic embolism Acute Status post mitral valve annuloplasty Acute Status post mitral valve repair Acute Uncontrolled pain Acute Discitis of lumbar region Acute Fever Acute Osteomyelitis of lumbar spine Acute
[2018-03-27] MEDS: GABAPENTIN 300 MG CAP PO SCH ×2 (14:04→21:00)
[2018-03-27] MEDS ORDERED: GADOBUTROL 10 ML VIAL IVP ONE (14:26)
[2018-03-27] MEDS ORDERED: WARFARIN SODIUM 5 MG TAB PO ONE (16:00)
--- NOTE | 2018-03-27 16:56 | PDINTPN ---
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 300 mL of serosanguineous fluid drained today with a pericardial window. Drain in place. Clinically doing well. * Early cellulitis, right lower extremity. Dorsal aspect of the foot is quite warm and tender. Obvious erythema not present. We will need to follow closely. She has an allergy to ibuprofen so nonsteroidals will not be given. To elevate right lower extremity as much as possible with cool compresses. ID aware * Bilateral pleural effusions and atelectasis. Pneumothorax. Chest tubes now out. * Bacteremia-antibiotics per Infectious Disease. Latest cultures negative . More recent cultures negative so far. * Sepsis/hypotension: Resolved * Splenic infarction: Stable * Probable stroke-MRA is negative. CT angiogram of the head showed thrombus in the left vertebral artery. Neurologic changes have for the most part resolved * History of methicillin sensitive Staph aureus epidural abscess. History of IVDU * Hepatitis-C * Anxiety/depression * Pain-moderately well controlled. * Nutrition: Eating * Stress ulcer prophylaxis: On pantoprazole * DVT: On enoxaparin and aspirin, on Coumadin now, INR still normal.. Plan: Continue present care. Pain control as we are doing. Close follow-up of her right lower extremity for now. If findings worsen and erythema develops then surgical consult will need to be considered. Continue antibiotics per Infectious Disease. Continue to follow neurologic status. Follow pericardial tube drainage. Follow laboratory, chest x-ray. 30 min of critical care time spent directly with the patient. Discussed with Infectious Disease. Subjective: Chest pain somewhat better chest pain is better after removal of her 2nd chest tube. Complains of right foot pain. Objective: Vital Signs Temp Pulse Resp BP Pulse Ox 36.8 C 98 20 107/66 97 03/27/18 15:17 03/27/18 16:02 03/27/18 15:17 03/27/18 16:02 03/27/18 15:17 Microbiology 03/22/18 05:45 Blood Culture - Final Blood Laboratory Results 03/27/18 05:25 03/27/18 05:25 03/26/18 03/27/18 03/28/18 05:59 05:59 05:59 Intake Total 2400 1589 Output Total 2005 7375 2173 Balance 878 -9772 -7597 PT 13.9 SEC (12.0-15.0) 03/27/18 05:25 INR 1.05 (0.83-1.16) 03/27/18 05:25 MRI of the foot shows local cellulitis and mild myositis/tendinitis of the dorsum of the foot. No abscess or osteomyelitis noted. Physical Exam - Physical Exam General Appearance: other (Sleepy, arousable, responsive and appropriate.) EENT: PERRL/EOMI, other (On room air) Neck: normal inspection Respiratory: lungs clear, decreased breath sounds (At bases), rales (Few rales at bases), No pleural rub Cardiac/Chest: tachycardia (Sinus), No friction rub Abdomen: normal bowel sounds, non-tender, soft Skin: warm/dry, mottled Extremities: pedal edema (Trace +bilaterally), swelling (Right lower extremity) , other (Right lower extremity very warm over the dorsal aspect of the foot and ankle with warmth extending about a [address] up the lower leg. Quite tender to palpation especially over the ankle laterally and over the forefoot. No significant erythema. No fluctuance.) Neuro/Psych: no motor/sensory deficits, No cognition abnormalities ICD10 Worksheet Patient Problems: Problems Problem Status Onset Pericardial effusion Acute Mitral regurgitation Acute Septic embolism Acute Anemia Acute Acute blood loss anemia Acute Status post mitral valve annuloplasty Acute Status post mitral valve repair Acute Endocarditis of mitral valve Acute Discitis of lumbar region Acute Fever Acute Osteomyelitis of lumbar spine Acute Back pain Acute Uncontrolled pain Acute
[2018-03-28] MEDS: NAFCILLIN SODIUM 2 GM in D5W 100 ML IV SCH ×3 (02:46→09:52)
[2018-03-28] MEDS: LORazepam 2 MG/ML INJ IVP PRN (04:49)
[2018-03-28] MEDS: HYDROmorphONE/DILAUDID 1 MG/ML INJ IVP PRN ×4 (04:49→16:56)
[2018-03-28 05:09] LABS: INR 1.1 (0.83-1.16); PROTIME(PATIENT) 14.4 SEC (12.0-15.0)
--- NOTE | 2018-03-28 07:48 | SOAPPROG ---
SOAP Progress Note Assessment/Plan: Assessment:POD#10 Emergent complex MV repair incl #28 Physio annuloplasty ring, prophylactic ligation left atrial appendage POD#3 subxiphoid pericardial window MV MSSA endocarditis with severe MR s/p complex repair with annuloplasty - Antithrombotic prophylaxis with coumadin; target INR 2-3; duration 3 mo. - Competent valve without evidence of veg or abscess by surveillance ONEAL on POD# 5. - Massive fluid overload well tolerated. - TCPW and chest tubes out. Postop pericardial effusion - Incidental finding by postop ONEAL. - Moderate sized with evidence of hemodynamic compromise. Taken to OR for evacuation. - Anticoagulation resumed without incident. Post-op CVA with left sided facial droop/slurred speech/LUE weakness - Brain MRI notable for multiple small lacunar infarcts of the left cerebral hemisphere and cerebellum c/w septic emboli. - Speech normalized and swallow passed. Dietary advancement as per [employer]. - Daily PT/OT. Eventual IPR. Septic shock with emboli to spleen and kidney - Successfully weaned off pressor support. Yolanda out. - Blood cxs from 03/22 neg. Repeat blood cxs from 03/26 NGTD. Abx per PICC as directed by ID. - Surveillance splenic infarct per gen surg Acute expected blood loss anemia - Stable s/p 3U PRBC, monitor IVDU - Continue supportive care Plan: Pericardial drain removed. Cont BID IV diuresis. Cont coumadin 5 mg daily. Resume toradol prn breakthrough pain. ? tx to PCU. 03/28/18 08:32 Subjective: Persistent hyperesthesia rt foot dorsum. Objective: Vital Signs Temp Pulse Resp BP Pulse Ox 37.2 C 106 H 28 H 99/60 L 95 03/27/18 23:29 03/28/18 04:00 03/28/18 04:00 03/28/18 04:00 03/28/18 04:00 Microbiology 03/22/18 05:45 Blood Culture - Final Blood Laboratory Results 03/27/18 05:25 03/28/18 04:50 03/27/18 03/28/18 03/29/18 05:59 05:59 05:59 Intake Total 1589 1700 Output Total 4280 3188 Balance -2691 -1488 PT 14.4 SEC (12.0-15.0) 03/28/18 04:50 INR 1.10 (0.83-1.16) 03/28/18 04:[address] and SBPs > 90. Cont to diurese well. CXR yest neg for sig pleural effusion. MRI of RLE neg for abscess or osteo. Mediastinal drain output < 50 ml/last 24hr. INR beginning to rise. Physical Exam - Physical Exam General Appearance: alert, mild distress (pain) Respiratory: lungs clear (grossly) Cardiac/Chest: regular rate, rhythm, tachycardia, other (Chest tube to pleurovac , serosang drainage. Removed without incident.) Abdomen: non-tender, soft Skin: warm/dry Extremities: swelling (1-2+), other (rt foot pink and warm, exquisitely tender to touch) ICD10 Worksheet Patient Problems: Problems Problem Status Onset Acute blood loss anemia Acute Anemia Acute Back pain Acute Endocarditis of mitral valve Acute Mitral regurgitation Acute Pericardial effusion Acute Septic embolism Acute Status post mitral valve annuloplasty Acute Status post mitral valve repair Acute Uncontrolled pain Acute Discitis of lumbar region Acute Fever Acute Osteomyelitis of lumbar spine Acute
[2018-03-28] MEDS: FUROSEMIDE 40 MG/4 ML VIAL IVP SCH ×2 (08:00→15:42)
[2018-03-28] MEDS: ARIPiprazole 2 MG TAB PO SCH (08:00)
[2018-03-28] MEDS: GABAPENTIN 300 MG CAP PO SCH ×3 (08:00→21:47)
[2018-03-28] MEDS: POTASSIUM CL 20 MEQ TAB PO SCH ×2 (08:01→19:55)
[2018-03-28] MEDS: PANTOPRAZOLE SODIUM 40 MG TAB PO SCH (08:01)
[2018-03-28] MEDS: ENOXAPARIN 40 MG/0.4 ML SYR SC SCH (08:01)
[2018-03-28] MEDS: CYCLOBENZAPRINE 10 MG TAB PO PRN ×2 (08:01→15:48)
[2018-03-28] MEDS: FLUoxetine 20 MG CAP PO SCH (08:01)
[2018-03-28] MEDS: ASPIRIN 81 MG CHEWABLE TAB PO SCH (08:01)
[2018-03-28] MEDS: KETOROLAC 30 MG/1 ML SDV IVP PRN ×3 (09:56→21:53)
--- NOTE | 2018-03-28 10:14 | HOSPPROG ---
Hospitalist Progress Note Assessment/Plan: 27 yo F w MSSA endocarditis now s/p pericardial window for early tamponade foot infection: unusual to have developed in hospital on abx d/w ID broaden to vanc zosyn follow no need for surgical management now tamponade: s/p window MSSA MV endocarditis, bacteremia.septic emboli to spleen/kidney s/p MV repair, annuloplasty 03/18 repeat blood culture from 03/22 with no growth thus far. Leukocytosis shows improvement today. Afebrile repeat CT abd/pelvis with no splenic abscess. Nafcillin per ID MRI thoracic spine with no abscess ONEAL did not show worsening endocarditis stroke, likely from emboli/endocarditis still with Left sided face and UE deficits hx MSSA L5-S1 diskitis: s/p anterior I&D, 11/17 Septic shock: Off pressors ABLA: expected with surgery. s/p transfusion Hgb with drop overnight, monitor closely HCV IVDU: counseled on cessation earlier during this hospitalization. Chronic pain: restart gabapentin when clinically improved on Toradol for acute pain Pedal Edema cont with IV Lasix BID. Edema is improving Depression: start Prozac Diet: regular once back from ONEAL DVT ppx: Lovenox PT/OT Subjective: MRI w cellulitis and myositis of dorsum of foot w no joint involvement. case d/w dr blankenship Objective: Vital Signs Temp Pulse Resp BP Pulse Ox 37 C 100 18 108/64 93 03/28/18 08:00 03/28/18 08:00 03/28/18 08:00 03/28/18 08:00 03/28/18 08:00 Microbiology 03/22/18 05:45 Blood Culture - Final Blood Laboratory Results 03/27/18 05:25 03/28/18 04:50 03/27/18 03/28/18 03/29/18 05:59 05:59 05:59 Intake Total 1589 1700 200 Output Total 4280 3188 1000 Balance -2691 -1488 -800 PT 14.4 SEC (12.0-15.0) 03/28/18 04:50 INR 1.10 (0.83-1.16) 03/28/18 04:50 - Physical Exam Constitutional: no apparent distress, appears nourished Eyes: PERRL, anicteric sclera Ears, Nose, Mouth, Throat: moist mucous membranes, hearing normal Cardiovascular: regular rate and rhythym, no murmur, rub, or gallop, other ( midline incision c/d/i) Respiratory: no respiratory distress, no rales or rhonchi Gastrointestinal: normoactive bowel sounds, soft, non-tender abdomen Genitourinary: no bladder fullness, No gdooy in urethra Skin: warm, normal color Musculoskeletal: full muscle strength, no muscle tenderness, other (dorsum of R foot edematous, slightly warm w no fluctuance) ICD10 Worksheet Patient Problems: Problems Problem Status Onset Acute blood loss anemia Acute Anemia Acute Back pain Acute Endocarditis of mitral valve Acute Mitral regurgitation Acute Pericardial effusion Acute Septic embolism Acute Status post mitral valve annuloplasty Acute Status post mitral valve repair Acute Uncontrolled pain Acute Discitis of lumbar region Acute Fever Acute Osteomyelitis of lumbar spine Acute
--- NOTE | 2018-03-28 10:18 | PCMIDPN ---
Assessment/Plan: 1. Mitral valve endocarditis secondary to MSSA complicated by emboli to the kidney and spleen as well as CVA. Status post mitral valve repair with ring annuloplasty 03/18 and subxiphoid pericardial window 03/25: Please see below regarding antibiotic change. This change should be temporary until she has improvement in the cellulitis/myositis, then will revert back to nafcillin. 2. Right foot cellulitis/extensor tendinitis and myositis: I am less worried about the joint today given significant improvement in flexion and extension without pain, as well as radiographic findings that do not show significant joint effusion, or osteomyelitis. This does not seem consistent with embolic phenomenon either; foot is well perfused. A non infectious cause seems unlikely as well. Will cover for hospital associated pathogens, such as MRSA, resistant gram negatives with vancomycin and Pip/tazo, with a close eye on her renal function in the setting of this combination. Hopefully this will be temporary, and can change back to nafcillin in short order. Counseled the patient to please keep her right lower extremity elevated. Check CK and repeat white blood cell count today. Do not feel that a surgical evaluation is necessary at this point in time, given lack of drainable focus, and low suspicion for septic arthritis of the ankle. Over 25 min spent with this patient today. 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 03/28/18 10:11 Subjective: MRI reviewed with Dr. Tavares; patient is noted to have some cellulitis on the foot dorsum, as well as mild myositis of the extensor digitorum brevis, and tendinitis of the extensor tendons along the dorsum of the foot. Minimal effusion of the tibial talar joint. Patient is complaining of ongoing pain in the right foot. It is more swollen today, with worsening brawny discoloration over the foot dorsum. It is exquisitely tender along the dorsum of the foot. No bullae. No lack of sensation. The foot is well perfused and warm. Denies any trauma to the area, no history of peripheral IVs in the foot. Denies pain in any other joints. History of trauma to the right foot years ago from a horse accident. Pericardial drain removed today. Objective: Nafcillin 2 g IV q.4 hours day 11 T-max 37.2 degrees Vital Signs Temp Pulse Resp BP Pulse Ox 37 C 100 18 108/64 93 03/28/18 08:00 03/28/18 08:00 03/28/18 08:00 03/28/18 08:00 03/28/18 08:00 Microbiology 03/22/18 05:45 Blood Culture - Final Blood Laboratory Results 03/27/18 05:25 03/28/18 04:50 03/27/18 03/28/18 03/29/18 05:59 05:59 05:59 Intake Total 1589 1700 200 Output Total 4280 3188 1000 Balance -2691 -1488 -800 ESR 24 MM/HR (0-20) H 03/17/18 04:43 C-Reactive Protein 79.4 mg/L (<10.0) H 03/27/18 07:00 Blood cultures March 26 x2 no growth Blood culture x1 set March 22 no growth Laboratory Tests 03/20/18 03/27/18 03/27/18 05:25 07:00 07:00 Creatinine 0.6 Uric Acid 5.0 AST ALT C-Reactive Protein 79.4 H HLA-B27 Pending 03/28/18 04:50 Creatinine Uric Acid AST 14 ALT 15 C-Reactive Protein HLA-B27 - Physical Exam General Appearance: alert, no apparent distress EENT: pharynx normal, No thrush Respiratory: other (Poor inspiratory effort) Cardiac/Chest: regular rate, rhythm Extremities: other (PICC line right upper extremity looks fine. Right foot: There is a patch of brawny blanching erythema on the foot dorsum that is exquisitely painful. The foot is warm compared to the left, although both are swollen. She is able to flex and extend her foot today without significant discomfort. Both feet are well perfused. No evidence of embolic phenomena.) Abdomen: non-tender, soft Skin: No embolic lesions ICD10 Worksheet Patient Problems: Problems Problem Status Onset Acute blood loss anemia Acute Anemia Acute Back pain Acute Endocarditis of mitral valve Acute Mitral regurgitation Acute Pericardial effusion Acute Septic embolism Acute Status post mitral valve annuloplasty Acute Status post mitral valve repair Acute Uncontrolled pain Acute Discitis of lumbar region Acute Fever Acute Osteomyelitis of lumbar spine Acute
[2018-03-28 11:15] LABS: PLATELET COUNT 871 10^3/uL (150-400)
--- NOTE | 2018-03-28 11:20 | ASMTCMCOM ---
CM Note CM Note Notes: Patient has developed an infection, cellulitis in her foot. Her IV ABX will be changed today. Pain management remains an issue. Patient will be given Toradol today. Patient will need another eval from inpatient rehab early next week. Overall she is improving. CM will follow. Date Signed: 03/28/2018 11:19 AM Electronically Signed By:Christen Simpson LCSW
[2018-03-28] MEDS: VANCOMYCIN 1.25 GM in NS 250 ML IV SCH ×2 (11:32→21:47)
[2018-03-28 11:49] LABS: CREATINE KINASE 63 IU/L (0-156)
[2018-03-28] MEDS: PIPERACILLIN/TAZO 3.375 GM/DEX 50 ML IV SCH ×2 (12:13→19:55)
--- NOTE | 2018-03-28 14:41 | PDINTPN ---
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 300 mL of serosanguineous fluid drained with a pericardial window. Drain removed today. Clinically doing well. * Early cellulitis, right lower extremity. Dorsal aspect of the foot remains quite warm and tender. Some erythema is present. We will need to follow closely. On Toradol. To elevate right lower extremity as much as possible with cool compresses. Seen and discussed with Dr. Reynolds * Bilateral pleural effusions and atelectasis. Pneumothorax. Chest tubes now out. * Bacteremia-antibiotics per Infectious Disease. Latest cultures negative . More recent cultures negative so far. * Sepsis/hypotension: Resolved * Splenic infarction: Stable * Probable stroke-MRA is negative. CT angiogram of the head showed thrombus in the left vertebral artery. Neurologic changes have for the most part resolved * History of methicillin sensitive Staph aureus epidural abscess. History of IVDU * Hepatitis-C * Anxiety/depression * Pain-moderately well controlled. * Nutrition: Eating * Stress ulcer prophylaxis: On pantoprazole * DVT: On enoxaparin and aspirin, on Coumadin now, INR still normal.. Plan: Continue present care. Pain control as we are doing. Close follow-up of her right lower extremity for now. If findings worsen and erythema develops then surgical consult will need to be considered. Empiric broadening of antibiotics per Infectious Disease. Continue to follow neurologic status. Increase ambulation as tolerated. Follow laboratory, chest x-ray. 30 min of critical care time spent directly with the patient. Discussed with Infectious Disease, nursing and the ICU multi disciplinary team. Subjective: Complains of ongoing foot pain, some chest discomfort. Objective: Vital Signs Temp Pulse Resp BP Pulse Ox 37.2 C 107 H 20 101/69 95 03/28/18 11:45 03/28/18 11:45 03/28/18 11:45 03/28/18 11:45 03/28/18 11:45 Laboratory Results 03/28/18 10:40 03/28/18 04:50 03/27/18 03/28/18 03/29/18 05:59 05:59 05:59 Intake Total 1589 1700 820 Output Total 4280 3188 1800 Balance -1021 -9426 -791 PT 14.4 SEC (12.0-15.0) 03/28/18 04:50 INR 1.10 (0.83-1.16) 03/28/18 04:50 Laboratory Tests 03/27/18 03/28/18 03/28/18 07:00 04:50 10:40 Calcium 8.4 L Total Bilirubin 0.9 AST 14 ALT 15 Creatine Kinase 63 C-Reactive Protein 79.4 H Albumin 2.8 L Chest x-ray: Significant improvement in hypoventilatory changes and bibasilar atelectasis/effusions. Physical Exam - Physical Exam General Appearance: other (Resting comma sleepy, arouses, responsive) EENT: PERRL/EOMI, other (On room air) Neck: normal inspection Respiratory: lungs clear (Anteriorly), decreased breath sounds (At bases), No rales, No rhonchi, No pleural rub Cardiac/Chest: tachycardia Abdomen: normal bowel sounds, non-tender, soft Skin: warm/dry, pallor Extremities: pedal edema, swelling (An tenderness over the dorsal aspect of the right foot extending up into the distal ankle area. Swelling laterally. Some erythema present as well today on the dorsum) Neuro/Psych: no motor/sensory deficits (Moves all extremities equally), No cognition abnormalities ICD10 Worksheet Patient Problems: Problems Problem Status Onset Pericardial effusion Acute Mitral regurgitation Acute Septic embolism Acute Anemia Acute Acute blood loss anemia Acute Status post mitral valve annuloplasty Acute Status post mitral valve repair Acute Endocarditis of mitral valve Acute Discitis of lumbar region Acute Fever Acute Osteomyelitis of lumbar spine Acute Back pain Acute Uncontrolled pain Acute
[2018-03-28] MEDS: WARFARIN SODIUM 5 MG TAB PO SCH (15:43)
[2018-03-28] MEDS: oxyCODONE IR 5 MG TAB PO PRN (19:55)
[2018-03-29] MEDS: PIPERACILLIN/TAZO 3.375 GM/DEX 50 ML IV SCH ×4 (00:18→17:24)
[2018-03-29] MEDS: CYCLOBENZAPRINE 10 MG TAB PO PRN ×3 (00:19→19:21)
[2018-03-29] MEDS: oxyCODONE IR 5 MG TAB PO PRN ×4 (00:19→22:20)
[2018-03-29] MEDS: KETOROLAC 30 MG/1 ML SDV IVP PRN ×3 (06:04→19:20)
[2018-03-29 06:30] LABS: INR 1.1 (0.83-1.16); PROTIME(PATIENT) 14.4 SEC (12.0-15.0)
[2018-03-29 06:32] LABS: PLATELET COUNT 759 10^3/uL (150-400)
--- NOTE | 2018-03-29 07:54 | SOAPPROG ---
SOAP Progress Note Assessment/Plan: POD#11 Emergent complex MV repair incl #28 Physio annuloplasty ring, prophylactic ligation left atrial appendage POD#4 subxiphoid pericardial window MV MSSA endocarditis with severe MR s/p complex repair with annuloplasty - Antithrombotic prophylaxis with coumadin; target INR 2-3; duration 3 mo. - Competent valve without evidence of veg or abscess by surveillance ONEAL on POD# 5. - Massive fluid overload well tolerated. - TCPW and chest tubes out. Postop pericardial effusion - Incidental finding by postop ONEAL. - Moderate sized with evidence of hemodynamic compromise. Taken to OR for evacuation. - Anticoagulation resumed without incident. Post-op CVA with left sided facial droop/slurred speech/LUE weakness - Brain MRI notable for multiple small lacunar infarcts of the left cerebral hemisphere and cerebellum c/w septic emboli. - Speech normalized and swallow passed. Dietary advancement as per [employer]. - Daily PT/OT. Eventual IPR. Septic shock with emboli to spleen and kidney - Successfully weaned off pressor support. Yolanda out. - Blood cxs from 7 neg. Repeat blood cxs from 03/26 NGTD. Abx per PICC as directed by ID. - Surveillance splenic infarct per gen surg Acute expected blood loss anemia - Patient symptomatic with H&H 7.7/24.3. Will transfuse 1U PRBC. Has already received 3U PRBC. - Will monitor. Right ankle/foot pain - No evidence of osteomyelitis or joint effusion. - Pain persists, however no evidence of cellulitis. - ID following. IVDU - Continue supportive care Plan: Transfuse 1U PRBC. Cont Coumadin 5 mg daily. Will switch to Oxycontin ER 10mg BID/Oxy IR prn for breakthrough pain. Tx to PCU. Subjective: Patient complains of feeling lightheaded and dizzy when ambulating as well as feeling very weak this am. Reports continued pain in right ankle/foot. Objective: Vital Signs Temp Pulse Resp BP Pulse Ox 36.8 C 99 17 97/50 L 94 03/29/18 04:00 03/29/18 04:00 03/29/18 04:00 03/29/18 04:00 03/29/18 04:00 Laboratory Results 03/29/18 06:10 03/29/18 06:10 03/28/18 03/29/18 03/30/18 05:59 05:59 05:59 Intake Total 1700 2270 Output Total 3188 2550 Balance -1488 -280 PT 14.4 SEC (12.0-15.0) 03/29/18 06:10 INR 1.10 (0.83-1.16) 03/29/18 06:10 Physical Exam - Physical Exam General Appearance: WD/WN, alert, no apparent distress Neck: supple Respiratory: lungs clear, decreased breath sounds (right base) Cardiac/Chest: tachycardia, other (no murmurs, rubs, gallops. Sternum stable, sternotomy c/d/i. ) Abdomen: normal bowel sounds, non-tender, soft, other (non-distended) Skin: normal color, warm/dry, pallor Extremities: other (warm, mild lower extremity edema. mild swelling and pain right foot/ankle.) Neuro/Psych: alert, normal mood/affect, oriented x 3 ICD10 Worksheet Patient Problems: Problems Problem Status Onset Acute blood loss anemia Acute Anemia Acute Back pain Acute Endocarditis of mitral valve Acute Mitral regurgitation Acute Pericardial effusion Acute Septic embolism Acute Status post mitral valve annuloplasty Acute Status post mitral valve repair Acute Uncontrolled pain Acute Discitis of lumbar region Acute Fever Acute Osteomyelitis of lumbar spine Acute
[2018-03-29] MEDS: ASPIRIN 81 MG CHEWABLE TAB PO SCH (08:36)
[2018-03-29] MEDS: ARIPiprazole 2 MG TAB PO SCH (08:36)
[2018-03-29] MEDS: PANTOPRAZOLE SODIUM 40 MG TAB PO SCH (08:36)
[2018-03-29] MEDS: GABAPENTIN 300 MG CAP PO SCH ×3 (08:36→22:20)
[2018-03-29] MEDS: FUROSEMIDE 40 MG/4 ML VIAL IVP SCH ×2 (08:36→14:12)
[2018-03-29] MEDS: POTASSIUM CL 20 MEQ TAB PO SCH ×2 (08:36→19:21)
[2018-03-29] MEDS: FLUoxetine 20 MG CAP PO SCH (08:36)
[2018-03-29] MEDS: HYDROmorphONE/DILAUDID 1 MG/ML INJ IVP PRN ×2 (08:36→14:09)
[2018-03-29] MEDS: ENOXAPARIN 40 MG/0.4 ML SYR SC SCH (08:37)
[2018-03-29] MEDS: FERROUS SULFATE 325 MG TAB PO SCH ×2 (10:16→19:21)
[2018-03-29] MEDS: VANCOMYCIN 1.25 GM in NS 250 ML IV SCH ×2 (10:17→22:28)
--- NOTE | 2018-03-29 11:41 | PCMIDPN ---
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 s/p emergent MV repair with ring annuloplasty . S/p pericardial drain/window 03/25. All drains are now out. Blood cultures cleared since 03/22. She is also afebrile --MSSA covered with Vancomycin / Zosyn currently. # R foot cellulitis/extensor tendinitis and myositis - unclear inciting event: this is my first exam but there appears to be recession from lines previously drawn and patient endorses less pain and increased mobility. Nursing also confirms improvement. Interesting, white count also improved today --improved on vancomycin and Zosyn - since developed while on nafcillin considering pathogens such as gram-negative rods or MRSA --follow-up blood cultures, plan short course of vancomycin and Zosyn with rapid clinical improvement with transition back to nafcillin Medications Zosyn 3.375 g IV Q 8h, # 1 Vancomycin 1.25 g IV Q 12, level 12.7 before 3rd dose today is okay and creatinine is 0.8; # 2 S/p 11 days of nafcillin micro 03/16 blood cx : MSSA 03/18 heart tissue 4+ GPC; MSSA 03/20 blood cultures (2 sets) MSSA, oxacillin <0.5, Vanco =1 03/22 blood cultures (1 set): no growth today 03/26 blood cx (2) NGTD 03/28 blood cx (2) pending Subjective: Patient is stating that her right foot pain is significantly improved, but is still painful. She is concerned about the loss of hearing associated with her stroke and if this will return. Objective: Vital Signs Temp Pulse Resp BP Pulse Ox 36.7 C 93 23 H 101/68 95 03/29/18 08:00 03/29/18 08:00 03/29/18 08:00 03/29/18 08:00 03/29/18 08:00 Laboratory Results 03/29/18 06:10 03/29/18 06:10 03/28/18 03/29/18 03/30/18 05:59 05:59 05:59 Intake Total 1700 2270 485 Output Total 3188 2550 900 Balance -1488 -280 -415 ESR 24 MM/HR (0-20) H 07/16/18 04:43 C-Reactive Protein 79.4 mg/L (<10.0) H 03/27/18 07:00 - Physical Exam General Appearance: alert, no apparent distress EENT: pale conjunctiva, No scleral icterus Respiratory: other (Decreased breath sounds in the bases), No accessory muscle use Neck: supple Extremities: erythema (Focal erythema over the mid region of her dorsum right foot, mild tenderness to palpation, range of motion of ankle is intact, no fluctuance, minimal warmth. Obvious recession of erythema from previously drawn line) Abdomen: non-tender, soft Skin: pallor, No diaphoresis, No jaundice, No rash Neuro/Psych: oriented x 3, depressed affect, other (Left facial weakness, no difficulties with speech) - Line/s RUE PICC Lines: No drainage, No erythema - Time Spent With Patient Time Spent with Patient: greater than 35 minutes Time Spent with Patient: Greater than 35 minutes spent on this patients care, greater than 50% of time spent counseling, educating, and coordinating care regarding the above mentioned plan. ICD10 Worksheet Patient Problems: Problems Problem Status Onset Acute blood loss anemia Acute Anemia Acute Back pain Acute Endocarditis of mitral valve Acute Mitral regurgitation Acute Pericardial effusion Acute Septic embolism Acute Status post mitral valve annuloplasty Acute Status post mitral valve repair Acute Uncontrolled pain Acute Discitis of lumbar region Acute Fever Acute Osteomyelitis of lumbar spine Acute
--- NOTE | 2018-03-29 12:51 | PDINTPN ---
Supply Room Clerk Progress Note Assessment/Plan: Assessment: * Mitral valve endocarditis-status post complex mitral valve repair: MSSA * Pericardial effusion. 300 mL of serosanguineous fluid drained with a pericardial window. Drain removed today. Clinically doing well. * Cellulitis, right lower extremity. Dorsal aspect of the foot. Tenderness, swelling and erythema is significantly better. On Toradol. Antibiotics broadened yesterday. Being followed by ID. * Bilateral pleural effusions and atelectasis. Pneumothorax. Improved/ resolving. Chest tubes now out. * Bacteremia-antibiotics per Infectious Disease. Cultures negative 03/22. * Sepsis/hypotension: Resolved * Splenic infarction: Stable * Probable stroke-MRA is negative. CT angiogram of the head showed thrombus in the left vertebral artery. Neurologic changes have for the most part resolved. On Coumadin * History of methicillin sensitive Staph aureus epidural abscess. History of IVDU * Hepatitis-C * Anxiety/depression * Pain-moderately well controlled. * Nutrition: Eating * Stress ulcer prophylaxis: On pantoprazole * DVT: On enoxaparin and aspirin, on Coumadin now, INR still normal.. Plan: Continue present care. Pain control as we are doing. Continue to follow right lower extremity. Follow neurologic status. Increase ambulation as tolerated. Follow laboratory, chest x-ray intermittently. Can transfer to PCU. 20 min of critical care time spent directly with the patient. Discussed with [facility], nursing and the ICU multi disciplinary team. Subjective: Fluid little bit better, but still painful. She has ambulated. Chest pain seems better. Objective: Vital Signs Temp Pulse Resp BP Pulse Ox 36.9 C 99 23 H 99/64 L 98 03/29/18 12:06 03/29/18 12:06 03/29/18 12:06 03/29/18 12:06 03/29/18 12:06 Laboratory Results 03/29/18 06:10 03/29/18 09:30 03/28/18 03/29/18 03/30/18 05:59 05:59 05:59 Intake Total 1700 2270 785 Output Total 3188 2550 900 Balance -1488 -280 -115 PT 14.4 SEC (12.0-15.0) 03/29/18 06:10 INR 1.10 (0.83-1.16) 03/29/18 06:10 Physical Exam - Physical Exam General Appearance: other (Lethargic, arouses, responsive) EENT: PERRL/EOMI, other (On room air) Neck: normal inspection Respiratory: lungs clear (Anteriorly), decreased breath sounds (At bases), No pleural rub Cardiac/Chest: regular rate, rhythm, systolic murmur, No gallop, No friction rub Abdomen: normal bowel sounds, non-tender, soft Skin: normal color, warm/dry Extremities: pedal edema (Trace +), swelling (Swelling over the right forefoot and ankle is significantly better. Erythema gone.) Neuro/Psych: no motor/sensory deficits, No cognition abnormalities ICD10 Worksheet Patient Problems: Problems Problem Status Onset Pericardial effusion Acute Mitral regurgitation Acute Septic embolism Acute Anemia Acute Acute blood loss anemia Acute Status post mitral valve annuloplasty Acute Status post mitral valve repair Acute Endocarditis of mitral valve Acute Discitis of lumbar region Acute Fever Acute Osteomyelitis of lumbar spine Acute Back pain Acute Uncontrolled pain Acute
--- NOTE | 2018-03-29 13:57 | HOSPPROG ---
Hospitalist Progress Note Assessment/Plan: 27 yo F w MSSA endocarditis now s/p pericardial window for early tamponade foot infection: unusual to have developed in hospital on abx d/w ID broaden to vanc zosyn follow no need for surgical management now 03/29 improved tamponade: s/p window MSSA MV endocarditis, bacteremia.septic emboli to spleen/kidney s/p MV repair, annuloplasty 03/18 repeat blood culture from 03/22 with no growth thus far. Leukocytosis shows improvement today. Afebrile repeat CT abd/pelvis with no splenic abscess. Nafcillin per ID MRI thoracic spine with no abscess ONEAL did not show worsening endocarditis stroke, likely from emboli/endocarditis still with Left sided face and UE deficits hx MSSA L5-S1 diskitis: s/p anterior I&D, 11/17 Septic shock: Off pressors ABLA: expected with surgery. s/p transfusion Hgb with drop overnight, monitor closely HCV IVDU: counseled on cessation earlier during this hospitalization. Chronic pain: restart gabapentin when clinically improved on Toradol for acute pain Pedal Edema cont with IV Lasix BID. Edema is improving Depression: start Prozac Diet: regular once back from ONEAL DVT ppx: Lovenox PT/OT Subjective: case d/w dr jain. foot improved Objective: Vital Signs Temp Pulse Resp BP Pulse Ox 36.9 C 99 23 H 99/64 L 98 03/29/18 12:06 03/29/18 12:06 03/29/18 12:06 03/29/18 12:06 03/29/18 12:06 Laboratory Results 03/29/18 06:10 03/29/18 09:30 03/28/18 03/29/18 03/30/18 05:59 05:59 05:59 Intake Total 1700 2270 840 Output Total 3188 2550 1750 Balance -1488 -280 -910 PT 14.4 SEC (12.0-15.0) 03/29/18 06:10 INR 1.10 (0.83-1.16) 03/29/18 06:10 - Physical Exam Constitutional: no apparent distress, appears nourished Eyes: PERRL, anicteric sclera Ears, Nose, Mouth, Throat: moist mucous membranes, hearing normal Cardiovascular: regular rate and rhythym, no murmur, rub, or gallop Respiratory: no respiratory distress, no rales or rhonchi Gastrointestinal: normoactive bowel sounds, soft, non-tender abdomen Genitourinary: no bladder fullness, No godoy in urethra Skin: warm, normal color Musculoskeletal: full muscle strength, no muscle tenderness Neurologic: AAOx3 ICD10 Worksheet Patient Problems: Problems Problem Status Onset Acute blood loss anemia Acute Anemia Acute Back pain Acute Endocarditis of mitral valve Acute Mitral regurgitation Acute Pericardial effusion Acute Septic embolism Acute Status post mitral valve annuloplasty Acute Status post mitral valve repair Acute Uncontrolled pain Acute Discitis of lumbar region Acute Fever Acute Osteomyelitis of lumbar spine Acute
[2018-03-29] MEDS ORDERED: WARFARIN SODIUM 5 MG TAB PO ONE (16:00)
[2018-03-29] MEDS: WARFARIN SODIUM 5 MG TAB PO SCH (16:26)
[2018-03-29] MEDS: LORazepam 2 MG/ML INJ IVP PRN (22:19)
[2018-03-30] MEDS: PIPERACILLIN/TAZO 3.375 GM/DEX 50 ML IV SCH ×4 (01:00→18:40)
[2018-03-30] MEDS: KETOROLAC 30 MG/1 ML SDV IVP PRN ×2 (01:04→07:43)
[2018-03-30] MEDS: LORazepam 2 MG/ML INJ IVP PRN (02:14)
[2018-03-30] MEDS: ACETAMINOPHEN 325 MG TAB PO PRN ×2 (02:14→09:27)
[2018-03-30] MEDS: CYCLOBENZAPRINE 10 MG TAB PO PRN (02:15)
[2018-03-30] MEDS: oxyCODONE IR 5 MG TAB PO PRN ×4 (02:15→16:00)
[2018-03-30] MEDS: ARIPiprazole 2 MG TAB PO SCH (07:42)
[2018-03-30] MEDS: ENOXAPARIN 40 MG/0.4 ML SYR SC SCH (07:42)
[2018-03-30] MEDS: GABAPENTIN 300 MG CAP PO SCH ×3 (07:43→21:09)
[2018-03-30] MEDS: POTASSIUM CL 20 MEQ TAB PO SCH ×2 (07:43→21:09)
[2018-03-30] MEDS: FUROSEMIDE 40 MG/4 ML VIAL IVP SCH ×2 (07:43→16:00)
[2018-03-30] MEDS: PANTOPRAZOLE SODIUM 40 MG TAB PO SCH (07:43)
[2018-03-30] MEDS: ASPIRIN 81 MG CHEWABLE TAB PO SCH (07:44)
[2018-03-30] MEDS: FERROUS SULFATE 325 MG TAB PO SCH ×2 (07:44→21:09)
[2018-03-30] MEDS: FLUoxetine 20 MG CAP PO SCH (07:44)
[2018-03-30 08:11] LABS: INR 1.03 (0.83-1.16); PROTIME(PATIENT) 13.7 SEC (12.0-15.0)
--- NOTE | 2018-03-30 09:13 | SOAPPROG ---
SOAP Progress Note Assessment/Plan: POD#12 Emergent complex MV repair incl #28 Physio annuloplasty ring, prophylactic ligation left atrial appendage POD#5 subxiphoid pericardial window MV MSSA endocarditis with severe MR s/p complex repair with annuloplasty - Antithrombotic prophylaxis with coumadin; target INR 2-3; duration 3 mo. - Competent valve without evidence of veg or abscess by surveillance ONEAL on POD# 5. - Massive fluid overload well tolerated. - TCPW and chest tubes out. Postop pericardial effusion - Incidental finding by postop ONEAL. - Moderate sized with evidence of hemodynamic compromise. Taken to OR for evacuation. - Anticoagulation resumed without incident. Post-op CVA with left sided facial droop/slurred speech/LUE weakness - Brain MRI notable for multiple small lacunar infarcts of the left cerebral hemisphere and cerebellum c/w septic emboli. - Speech normalized and swallow passed. Dietary advancement as per [employer]. - Daily PT/OT. Eventual IPR. Septic shock with emboli to spleen and kidney - Successfully weaned off pressor support. [place] out. - Blood cxs from 03/22 neg. Repeat blood cxs from 03/26 NGTD. Abx per PICC as directed by ID. - Surveillance splenic infarct per gen surg Acute expected blood loss anemia - Improving with H&H 8.2/26.8 s/p 1U PRBC yesterday. Has already received 3U PRBC. - Will monitor. Depression - Stable. On Prozac. Right ankle tendinitis - No evidence of osteomyelitis or joint effusion on MRI. - Pain improving with no evidence of cellulitis. - ID following. IVDU - Continue supportive care Plan: Coumadin 10 mg daily Will d/c IV pain meds and transition to Motrin, Oxycontin ER 10mg BID/Oxy IR prn for breakthrough pain. Subjective: Patient reports adequate pain relief with current regimen. Improved right ankle pain. Objective: Vital Signs Temp Pulse Resp BP Pulse Ox 37 C 92 20 109/75 96 03/30/18 07:54 03/30/18 08:16 03/30/18 08:16 03/30/18 08:16 03/30/18 08:16 Laboratory Results 03/30/18 06:35 03/30/18 06:35 03/29/18 03/30/18 03/31/18 05:59 05:59 05:59 Intake Total 2270 2025 115 Output Total 2550 2800 Balance -280 -775 115 PT 13.7 SEC (12.0-15.0) 03/30/18 07:55 INR 1.03 (0.83-1.16) 03/30/18 07:55 Physical Exam - Physical Exam General Appearance: WD/WN, alert, no apparent distress Neck: supple Respiratory: lungs clear, decreased breath sounds (bases), other (No wheezing, rhonchi, rales. ) Cardiac/Chest: regular rate, rhythm, other (No mumurs, rubs, gallops. Sternum stable, sternotomy c/d/i. ) Abdomen: normal bowel sounds, non-tender, soft, other (non-distended) Skin: normal color, warm/dry Extremities: other (Warm, mild lower extremity edema. Right ankle swelling improved. ) Neuro/Psych: alert, normal mood/affect, oriented x 3 ICD10 Worksheet Patient Problems: Problems Problem Status Onset Acute blood loss anemia Acute Anemia Acute Back pain Acute Endocarditis of mitral valve Acute Mitral regurgitation Acute Pericardial effusion Acute Septic embolism Acute Status post mitral valve annuloplasty Acute Status post mitral valve repair Acute Uncontrolled pain Acute Discitis of lumbar region Acute Fever Acute Osteomyelitis of lumbar spine Acute
[2018-03-30] MEDS ORDERED: VANCOMYCIN 1 GM in NS 250 ML IV SCH (10:28)
--- NOTE | 2018-03-30 10:31 | PCMIDPN ---
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 s/p emergent MV repair with ring annuloplasty . S/p pericardial drain/window 03/25. All drains are now out. Blood cultures cleared since 03/22. She is also afebrile --MSSA covered with Vancomycin / Zosyn currently. --disappointed regarding potential need for rehab. I also discussed that we did not feel comfortable discharging her with PICC line due to poor compliance in the past. I provided encouragement rehab could really help her in the critical importance to completing full therapy for her infection. I ordered behavioral health RN consult. # R foot cellulitis/extensor tendinitis and myositis - unclear inciting event: Cellulitis completely resolved --since developed while on nafcillin considering pathogens such as gram- negative rods or MRSA, plan 5-7 days of Zosyn and vancomycin in light of rapid improvement --vanco T 18, will decrease vancomycin dose a little 1gm IV q12 Medications Zosyn 3.375 g IV Q 8h, # 3 Vancomycin 1.25 g IV Q 12; # 3 S/p 11 days of nafcillin micro 03/16 blood cx : MSSA 03/18 heart tissue 4+ GPC; MSSA 03/20 blood cultures (2 sets) MSSA, oxacillin <0.5, Vanco =1 03/22 blood cultures (1 set): no growth today 03/26 blood cx (2) NGTD 03/28 blood cx (2) NGTD Subjective: Patient reports that pain in right foot is almost resolved Chest pain improved Objective: Vital Signs Temp Pulse Resp BP Pulse Ox 37 C 92 20 109/75 96 03/30/18 07:54 03/30/18 08:16 03/30/18 08:16 03/30/18 08:16 03/30/18 08:16 Laboratory Results 03/30/18 06:35 03/30/18 09:40 03/29/18 03/30/18 03/31/18 05:59 05:59 05:59 Intake Total 2270 2025 115 Output Total 2550 2800 Balance -280 -775 115 ESR 24 MM/HR (0-20) H 03/17/18 04:43 C-Reactive Protein 79.4 mg/L (<10.0) H 03/27/18 07:00 - Physical Exam General Appearance: alert, no apparent distress Respiratory: crackles, No accessory muscle use Neck: supple Cardiac/Chest: regular rate, rhythm Extremities: inflammation (Very mild inflammation remains at the very apex of the dorsum of her foot, otherwise erythema and tenderness has resolved) Abdomen: non-tender, soft Skin: pallor, No rash Neuro/Psych: alert, oriented x 3, depressed affect (Intermittently tearful) - Line/s RUE PICC Lines: No drainage, No erythema - Time Spent With Patient Time Spent with Patient: greater than 35 minutes Time Spent with Patient: Greater than 35 minutes spent on this patients care, greater than 50% of time spent counseling, educating, and coordinating care regarding the above mentioned plan. ICD10 Worksheet Patient Problems: Problems Problem Status Onset Acute blood loss anemia Acute Anemia Acute Back pain Acute Endocarditis of mitral valve Acute Mitral regurgitation Acute Pericardial effusion Acute Septic embolism Acute Status post mitral valve annuloplasty Acute Status post mitral valve repair Acute Uncontrolled pain Acute Discitis of lumbar region Acute Fever Acute Osteomyelitis of lumbar spine Acute
[2018-03-30] MEDS: VANCOMYCIN 1.25 GM in NS 250 ML IV SCH (10:41)
[2018-03-30] MEDS: ALTEPLASE 2 MG VIAL IVP PRN (11:55)
[2018-03-30] MEDS: VANCOMYCIN 1 GM in NS 250 ML IV SCH ×2 (12:11→22:24)
[2018-03-30] MEDS: IBUPROFEN 600 MG TAB PO SCH ×3 (13:49→22:24)
--- NOTE | 2018-03-30 14:38 | HOSPPROG ---
Hospitalist Progress Note Assessment/Plan: 27 yo F w MSSA endocarditis now s/p pericardial window for early tamponade foot infection: unusual to have developed in hospital on abx d/w ID broaden to vanc zosyn follow no need for surgical management now 03/29 improved 03/30 continues to improve tamponade: s/p window MSSA MV endocarditis, bacteremia.septic emboli to spleen/kidney s/p MV repair, annuloplasty 03/18 repeat blood culture from 03/22 with no growth thus far. Leukocytosis shows improvement today. Afebrile repeat CT abd/pelvis with no splenic abscess. Nafcillin per ID MRI thoracic spine with no abscess ONEAL did not show worsening endocarditis stroke, likely from emboli/endocarditis still with Left sided face and UE deficits hx MSSA L5-S1 diskitis: s/p anterior I&D, 11/17 Septic shock: Off pressors ABLA: expected with surgery. s/p transfusion Hgb with drop overnight, monitor closely HCV IVDU: counseled on cessation earlier during this hospitalization. Chronic pain: restart gabapentin when clinically improved on Toradol for acute pain Pedal Edema cont with IV Lasix BID. Edema is improving Depression: start Prozac Diet: regular once back from ONEAL DVT ppx: Lovenox PT/OT Subjective: case d/w dr jain. cxr unchanged Objective: Vital Signs Temp Pulse Resp BP Pulse Ox 37.1 C 97 14 120/78 91 L 03/30/18 14:06 03/30/18 14:06 03/30/18 14:06 03/30/18 14:06 03/30/18 14:06 Laboratory Results 03/30/18 06:35 03/30/18 09:40 03/29/18 03/30/18 03/31/18 05:59 05:59 05:59 Intake Total 2270 2025 1135 Output Total 2550 2800 Balance -280 -775 1135 PT 13.7 SEC (12.0-15.0) 03/30/18 07:55 INR 1.03 (0.83-1.16) 03/30/18 07:55 - Physical Exam Constitutional: no apparent distress, appears nourished Eyes: PERRL, anicteric sclera Ears, Nose, Mouth, Throat: moist mucous membranes, hearing normal Cardiovascular: regular rate and rhythym, no murmur, rub, or gallop Respiratory: no respiratory distress, no rales or rhonchi Gastrointestinal: normoactive bowel sounds, soft, non-tender abdomen Genitourinary: no bladder fullness, No godoy in urethra Skin: warm, normal color Musculoskeletal: full muscle strength, no muscle tenderness Neurologic: AAOx3 Psychiatric: interacting appropriately ICD10 Worksheet Patient Problems: Problems Problem Status Onset Acute blood loss anemia Acute Anemia Acute Back pain Acute Endocarditis of mitral valve Acute Mitral regurgitation Acute Pericardial effusion Acute Septic embolism Acute Status post mitral valve annuloplasty Acute Status post mitral valve repair Acute Uncontrolled pain Acute Discitis of lumbar region Acute Fever Acute Osteomyelitis of lumbar spine Acute
[2018-03-30] MEDS: WARFARIN SODIUM 5 MG TAB PO SCH (16:00)
[2018-03-30] MEDS ORDERED: NALOXONE HCL 0.4 MG/ML INJ IVP PRN (16:34)
[2018-03-31] MEDS: PIPERACILLIN/TAZO 3.375 GM/DEX 50 ML IV SCH ×3 (00:35→11:57)
[2018-03-31] MEDS: oxyCODONE IR 5 MG TAB PO PRN ×2 (02:47→10:24)
[2018-03-31] MEDS: IBUPROFEN 600 MG TAB PO SCH ×4 (06:02→20:44)
[2018-03-31 06:38] LABS: INR 1.11 (0.83-1.16); PROTIME(PATIENT) 14.5 SEC (12.0-15.0)
--- NOTE | 2018-03-31 07:45 | SOAPPROG ---
SOAP Progress Note Assessment/Plan: POD#13 Emergent complex MV repair incl #28 Physio annuloplasty ring, prophylactic ligation left atrial appendage POD#6 subxiphoid pericardial window MV MSSA endocarditis with severe MR s/p complex repair with annuloplasty - Antithrombotic prophylaxis with coumadin; target INR 2-3; duration 3 mo. - Competent valve without evidence of veg or abscess by surveillance ONEAL on POD# 5. - Massive fluid overload well tolerated. - TCPW and chest tubes out. Postop pericardial effusion - Incidental finding by postop ONEAL. - Moderate sized with evidence of hemodynamic compromise. Taken to OR for evacuation. - Anticoagulation resumed without incident. Post-op CVA with left sided facial droop/slurred speech/LUE weakness - Brain MRI notable for multiple small lacunar infarcts of the left cerebral hemisphere and cerebellum c/w septic emboli. - Speech normalized and swallow passed. Dietary advancement as per [employer]. - Daily PT/OT - IPR on DC Septic shock with emboli to spleen and kidney - Successfully weaned off pressor support. [place] out. - Blood cxs from 03/22 neg. Repeat blood cxs from 03/26 NGTD. Abx per PICC as directed by ID. - Surveillance splenic infarct per gen surg Acute expected blood loss anemia - Stable Depression - Stable. On Prozac. Right ankle tendinitis - No evidence of osteomyelitis or joint effusion on MRI. - Pain improving with resolution of cellulitis. - ID following. IVDU - Continue supportive care Disposition - Medically stable for transfer to [facility] or SNF pending approval Subjective: c/o pain "all over". Denies SOB. Objective: Vital Signs Temp Pulse Resp BP Pulse Ox 36.7 C 89 16 98/76 L 94 03/31/18 04:00 03/31/18 04:00 03/31/18 04:00 03/31/18 04:00 03/31/18 04:00 Laboratory Results 03/30/18 06:35 03/31/18 06:14 03/30/18 03/31/18 04/01/18 05:59 05:59 05:59 Intake Total 2024 1685 Output Total 2800 1350 600 Balance -775 335 -600 PT 14.5 SEC (12.0-15.0) 03/31/18 06:14 INR 1.11 (0.83-1.16) 03/31/18 06:14 Physical Exam - Physical Exam General Appearance: WD/WN, alert, no apparent distress EENT: No scleral icterus (R), No scleral icterus (L) Neck: normal inspection Respiratory: No respiratory distress Cardiac/Chest: regular rate, rhythm Abdomen: non-tender, soft, No distended Skin: normal color, warm/dry, signs of IVDA Extremities: pedal edema, other (right hand swelling) Neuro/Psych: alert, normal mood/affect, oriented x 3, motor weakness, speech abnormalities ICD10 Worksheet Patient Problems: Problems Problem Status Onset Acute blood loss anemia Acute Anemia Acute Back pain Acute Endocarditis of mitral valve Acute Mitral regurgitation Acute Pericardial effusion Acute Septic embolism Acute Status post mitral valve annuloplasty Acute Status post mitral valve repair Acute Uncontrolled pain Acute Discitis of lumbar region Acute Fever Acute Osteomyelitis of lumbar spine Acute
[2018-03-31] MEDS: ENOXAPARIN 40 MG/0.4 ML SYR SC SCH (08:19)
[2018-03-31] MEDS: FLUoxetine 20 MG CAP PO SCH (08:20)
[2018-03-31] MEDS: PANTOPRAZOLE SODIUM 40 MG TAB PO SCH (08:20)
[2018-03-31] MEDS: GABAPENTIN 300 MG CAP PO SCH ×3 (08:20→20:43)
[2018-03-31] MEDS: FERROUS SULFATE 325 MG TAB PO SCH ×2 (08:20→20:44)
[2018-03-31] MEDS: POTASSIUM CL 20 MEQ TAB PO SCH (08:20)
[2018-03-31] MEDS: FUROSEMIDE 40 MG/4 ML VIAL IVP SCH (08:20)
[2018-03-31] MEDS: ASPIRIN 81 MG CHEWABLE TAB PO SCH (08:20)
[2018-03-31] MEDS: ARIPiprazole 2 MG TAB PO SCH (08:21)
[2018-03-31] MEDS: VANCOMYCIN 1 GM in NS 250 ML IV SCH (09:57)
--- NOTE | 2018-03-31 13:33 | HOSPPROG ---
Hospitalist Progress Note Assessment/Plan: 27 yo F w MSSA endocarditis now s/p pericardial window for early tamponade ? drug use: she is not admitting transferred to ICU advised that continued IVDU will have fatal outcome foot infection: unusual to have developed in hospital on abx d/w ID broaden to vanc zosyn follow no need for surgical management now 03/29 improved 03/30 continues to improve tamponade: s/p window MSSA MV endocarditis, bacteremia.septic emboli to spleen/kidney s/p MV repair, annuloplasty 03/18 repeat blood culture from 03/22 with no growth thus far. Leukocytosis shows improvement today. Afebrile repeat CT abd/pelvis with no splenic abscess. Nafcillin per ID MRI thoracic spine with no abscess ONEAL did not show worsening endocarditis stroke, likely from emboli/endocarditis still with Left sided face and UE deficits hx MSSA L5-S1 diskitis: s/p anterior I&D, 11/17 Septic shock: Off pressors ABLA: expected with surgery. s/p transfusion Hgb with drop overnight, monitor closely HCV IVDU: counseled on cessation earlier during this hospitalization. Chronic pain: restart gabapentin when clinically improved on Toradol for acute pain Pedal Edema cont with IV Lasix BID. Edema is improving Depression: start Prozac Diet: regular once back from ONEAL DVT ppx: Lovenox PT/OT Subjective: cased/e dr jain. concern for surreptitious IVDU in room- was altered in rooom last evening after shower and picc cap was off. she denies Objective: Vital Signs Temp Pulse Resp BP Pulse Ox 37.0 C 98 20 109/74 96 03/31/18 12:00 03/31/18 12:45 03/31/18 12:45 03/31/18 12:45 03/31/18 12:45 Laboratory Results 03/30/18 06:35 03/31/18 06:14 03/30/18 03/31/18 04/01/18 05:59 05:59 05:59 Intake Total 5 1685 300 Output Total 2800 1350 2900 Balance -775 335 -2600 PT 14.5 SEC (12.0-15.0) 03/31/18 06:14 INR 1.11 (0.83-1.16) 03/31/18 06:14 ICD10 Worksheet Patient Problems: Problems Problem Status Onset Acute blood loss anemia Acute Anemia Acute Back pain Acute Endocarditis of mitral valve Acute Mitral regurgitation Acute Pericardial effusion Acute Septic embolism Acute Status post mitral valve annuloplasty Acute Status post mitral valve repair Acute Uncontrolled pain Acute Discitis of lumbar region Acute Fever Acute Osteomyelitis of lumbar spine Acute
--- NOTE | 2018-03-31 14:04 | PCMIDPN ---
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 s/p emergent MV repair with ring annuloplasty . S/p pericardial drain/window 03/25. All drains are now out. Blood cultures cleared since 03/22. She is also afebrile --return to nafcillin --check a creatinine tomorrow morning # R foot cellulitis/extensor tendinitis and myositis - unclear inciting event: concern for injection site. Now completely resolved --DC zosyn, vancomycin # Suspect IVDU but patient continues to deny. Now under no visitor policy --added on drug screen that delineates different opioid derivatives Medications Abx #15 Zosyn 3.375 g IV Q 8h, # 4 Vancomycin 1.25 g IV Q 12; # 4 S/p 11 days of nafcillin micro 03/16 blood cx : MSSA 03/18 heart tissue 4+ GPC; MSSA 03/20 blood cultures (2 sets) MSSA, oxacillin <0.5, Vanco =1 03/22 blood cultures (1 set): no growth today 03/26 blood cx (2) NGTD Subjective: has no clue why she was put on no visitor policy no residual foot pain Objective: Vital Signs Temp Pulse Resp BP Pulse Ox 37.0 C 98 20 109/74 96 03/31/18 12:00 03/31/18 12:45 03/31/18 12:45 03/31/18 12:45 03/31/18 12:45 Laboratory Results 03/30/18 06:35 03/31/18 06:14 03/30/18 03/31/18 04/01/18 05:59 05:59 05:59 Intake Total 2024 1685 300 Output Total 2800 1350 2900 Balance -775 335 -2600 ESR 24 MM/HR (0-20) H 03/17/18 04:43 C-Reactive Protein 79.4 mg/L (<10.0) H 03/27/18 07:00 - Physical Exam General Appearance: alert, no apparent distress EENT: pale conjunctiva, No thrush Respiratory: crackles, No accessory muscle use Cardiac/Chest: regular rate, rhythm, No systolic murmur Extremities: pedal edema (mild), other (erythema and swelling R foot completely resolved) Abdomen: non-tender, soft Skin: No rash Neuro/Psych: alert, oriented x 3, depressed affect - Line/s RUE PICC Lines: No drainage, No erythema - Time Spent With Patient Time Spent with Patient: greater than 25 minutes Time Spent with Patient: Greater than 25 minutes spent on this patients care, greater than 50% of time spent counseling, educating, and coordinating care regarding the above mentioned plan. ICD10 Worksheet Patient Problems: Problems Problem Status Onset Acute blood loss anemia Acute Anemia Acute Back pain Acute Endocarditis of mitral valve Acute Mitral regurgitation Acute Pericardial effusion Acute Septic embolism Acute Status post mitral valve annuloplasty Acute Status post mitral valve repair Acute Uncontrolled pain Acute Discitis of lumbar region Acute Fever Acute Osteomyelitis of lumbar spine Acute
[2018-03-31] MEDS: OXYCODONE/APAP 5/325 TAB PO PRN ×2 (14:26→19:05)
[2018-03-31] MEDS: NAFCILLIN SODIUM 2 GM in D5W 100 ML IV SCH ×3 (14:26→22:22)
[2018-03-31] MEDS: WARFARIN SODIUM 5 MG TAB PO SCH (16:15)
[2018-03-31] MEDS: CYCLOBENZAPRINE 10 MG TAB PO PRN (16:16)
[2018-04-01] MEDS: NAFCILLIN SODIUM 2 GM in D5W 100 ML IV SCH ×6 (01:00→21:40)
[2018-04-01] MEDS: IBUPROFEN 600 MG TAB PO SCH (05:32)
[2018-04-01] MEDS: OXYCODONE/APAP 5/325 TAB PO PRN ×3 (05:40→17:17)
[2018-04-01 05:54] LABS: INR 1.32 (0.83-1.16); PROTIME(PATIENT) 16.6 SEC (12.0-15.0)
--- NOTE | 2018-04-01 07:47 | SOAPPROG ---
SOAP Progress Note Assessment/Plan: POD#14 Emergent complex MV repair incl #28 Physio annuloplasty ring, prophylactic ligation left atrial appendage POD#7 subxiphoid pericardial window MV MSSA endocarditis with severe MR s/p complex repair with annuloplasty - Antithrombotic prophylaxis with Coumadin; target INR 2-3; duration 3 mo - Competent valve without evidence of veg or abscess by surveillance ONEAL on POD# 5 - TCPW and chest tubes out Postop pericardial effusion - s/p evacuation - Stable Post-op CVA with left sided facial droop/slurred speech/LUE weakness - Brain MRI notable for multiple small lacunar infarcts of the left cerebral hemisphere and cerebellum c/w septic emboli - Speech normalized and swallow passed - Continue PT/OT/AUDIO VISUAL AIDS DIRECTOR - IPR refused patient Septic shock with emboli to spleen and kidney - Blood cxs from 7 neg. Repeat blood cxs from 03/26 NGTD. Abx per PICC as directed by ID. - Surveillance splenic infarct per gen surg Acute expected blood loss anemia - Stable Depression - Stable on Prozac. Right ankle tendinitis - No evidence of osteomyelitis or joint effusion on MRI. - Pain improving with resolution of cellulitis. - ID following. IVDU - Transfused to SDU om 03/31 under strict no-visitor policy as pt may have obtained IV drugs from an outside source - Continue supportive care Disposition - SNF when medially stable Subjective: Comfortable. Objective: Vital Signs Temp Pulse Resp BP Pulse Ox 36.7 C 93 16 113/69 95 04/01/18 04:00 04/01/18 04:00 04/01/18 04:00 04/01/18 04:00 04/01/18 04:00 Microbiology 03/26/18 18:15 Blood Culture - Final Blood 03/26/18 17:18 Blood Culture - Final Blood Laboratory Results 03/30/18 06:35 04/01/18 05:35 03/31/18 04/01/18 04/02/18 05:59 05:59 05:59 Intake Total 1685 1950 Output Total 1350 3700 Balance 335 -1750 PT 16.6 SEC (12.0-15.0) H 04/01/18 05:35 INR 1.32 (0.83-1.16) H 04/01/18 05:35 Physical Exam - Physical Exam General Appearance: WD/WN, alert, no apparent distress EENT: No scleral icterus (R), No scleral icterus (L) Neck: normal inspection Respiratory: No respiratory distress Cardiac/Chest: regular rate, rhythm Abdomen: non-tender, soft, No distended Skin: normal color, warm/dry Extremities: pedal edema Neuro/Psych: alert, normal mood/affect, oriented x 3, motor weakness, speech abnormalities ICD10 Worksheet Patient Problems: Problems Problem Status Onset Acute blood loss anemia Acute Anemia Acute Back pain Acute Endocarditis of mitral valve Acute Mitral regurgitation Acute Pericardial effusion Acute Septic embolism Acute Status post mitral valve annuloplasty Acute Status post mitral valve repair Acute Uncontrolled pain Acute Discitis of lumbar region Acute Fever Acute Osteomyelitis of lumbar spine Acute
--- NOTE | 2018-04-01 09:12 | HOSPPROG ---
Hospitalist Progress Note Assessment/Plan: 27 yo F with h/o IVDA and MSSA endocarditis s/p MV repair and pericardial window for early tamponade ? drug use: found with decreased responsiveness, pinpoint pupils, syringe in pocket and PICC line disconnected in PCU, transferred back to ICU for closer monitoring prelim drug screen with pos opiates (receiving percocet and recent IV dilaudid here, await confirmatory testing) pt aware ongoing use could have life threatening complications foot infection: unusual to have developed in hospital on abx, again query IVDA nafcillin per ID tamponade: s/p window MSSA MV endocarditis, bacteremia with septic emboli to spleen/kidney s/p MV repair, annuloplasty 03/18 repeat BCxs 03/[address] abd/pelvis with no splenic abscess. Nafcillin per ID, will need to complete 6 weeks IV atbx, not candidate for oral therapy. Discussed with ID MRI thoracic spine with no abscess ONEAL did not show worsening endocarditis started coumadin 2 d ago, INR 1.3, not on bridging therapy stroke, likely from emboli/endocarditis still with Left sided face and UE deficits hx MSSA L5-S1 diskitis: s/p anterior I&D, 11/17 Septic shock: resolved Off pressors ABLA: expected with surgery. s/p transfusion, hgb stable over past week, 8.0 -> 8.2 HCV: outpt f/u IVDU: counseled on cessation earlier during this hospitalization. CM to provide resources / tx options Chronic pain: restart gabapentin when clinically improved on Toradol for acute pain wean opiates, aim to d/c without opiates Pedal Edema 2/2 volume overload cont with po Lasix. Edema is improving Depression: cont Nieves psychologist educational consult appreciated Diet: regular once back from ONEAL DVT ppx: Lovenox Dispo: cont inpt, ICU. Will likely complete her IV atbx treatment course as inpt, CM working on SNF options though not promising Subjective: Pt is depressed, withdrawn. Denies IVDA here, though later told applied psychology teacher her mother provided her with oxycodone, which she injected into her PICC line. No fevers/chills. Objective: Vital Signs Temp Pulse Resp BP Pulse Ox 36.7 C 91 16 116/81 H 99 04/01/18 08:00 04/01/18 08:00 04/01/18 08:00 04/01/18 08:00 04/01/18 08:00 Microbiology 03/26/18 18:15 Blood Culture - Final Blood 03/26/18 17:18 Blood Culture - Final Blood Laboratory Results 03/30/18 06:35 04/01/18 05:35 03/31/18 04/01/18 04/02/18 05:59 05:59 05:59 Intake Total 1685 1950 Output Total 1350 3700 Balance 335 -1750 PT 16.6 SEC (12.0-15.0) H 04/01/18 05:35 INR 1.32 (0.83-1.16) H 04/01/18 05:35 - Physical Exam Constitutional: no apparent distress Eyes: PERRL Ears, Nose, Mouth, Throat: moist mucous membranes Cardiovascular: regular rate and rhythym Respiratory: no respiratory distress, clear to auscultation Gastrointestinal: normoactive bowel sounds, soft, non-tender abdomen Skin: warm Musculoskeletal: full muscle strength Neurologic: AAOx3 Psychiatric: interacting appropriately ICD10 Worksheet Patient Problems: Problems Problem Status Onset Acute blood loss anemia Acute Anemia Acute Back pain Acute Endocarditis of mitral valve Acute Mitral regurgitation Acute Pericardial effusion Acute Septic embolism Acute Status post mitral valve annuloplasty Acute Status post mitral valve repair Acute Uncontrolled pain Acute Discitis of lumbar region Acute Fever Acute Osteomyelitis of lumbar spine Acute
[2018-04-01] MEDS: ARIPiprazole 2 MG TAB PO SCH (09:14)
[2018-04-01] MEDS: FUROSEMIDE 40 MG TAB PO SCH (09:14)
[2018-04-01] MEDS: SENNOSIDES/DOCUSATE SODIUM TAB PO PRN (09:14)
[2018-04-01] MEDS: CYCLOBENZAPRINE 10 MG TAB PO PRN ×3 (09:14→20:02)
[2018-04-01] MEDS: FERROUS SULFATE 325 MG TAB PO SCH ×2 (09:14→20:02)
[2018-04-01] MEDS: GABAPENTIN 300 MG CAP PO SCH ×3 (09:14→21:40)
[2018-04-01] MEDS: FLUoxetine 20 MG CAP PO SCH (09:14)
[2018-04-01] MEDS: ASPIRIN 81 MG CHEWABLE TAB PO SCH (09:14)
[2018-04-01] MEDS: ENOXAPARIN 40 MG/0.4 ML SYR SC SCH (09:14)
[2018-04-01] MEDS: IBUPROFEN 600 MG TAB PO PRN ×3 (10:01→20:02)
--- NOTE | 2018-04-01 12:59 | PDINTPN ---
Emissions Technician Progress Note Assessment/Plan: 27 F admitted with endocarditis in setting of suspected IVDA complicated by septic emboli to spleen and kidneys. She required urgent MV repair 03/15 when she developed brain emboli, followed by a pericardial window for pericardial effusion 03/25. She had been recovering well and transferred to the floor, but was returned to the ICU 03/31 when she was found somnolent with pinpoint pupils and a syringe was found on her person. Apparently her mother was involved in assisting with her illicit drug use while in the hospital (by report). * MSSA endocarditis- stable VS; planning nafcillin for several weeks per ID * IVDA- transferred into ICU for more detailed monitoring and no visitors allowed. Not sure if adult protective services has a role here but will discuss with staff. Patient has denied IVDA throughout her stay despite details strongly suggesting the contrary * Depression- she has been on a complex array of medications and appears acutely depressed to me. Plans to contact her outpatient psychiatrist are underway to clarify Objective: Vital Signs Temp Pulse Resp BP Pulse Ox 36.7 C 91 16 116/81 H 99 04/01/18 08:00 04/01/18 08:00 04/01/18 08:00 04/01/18 08:00 04/01/18 08:00 Microbiology 03/26/18 18:15 Blood Culture - Final Blood 03/26/18 17:18 Blood Culture - Final Blood Laboratory Results 03/30/18 06:35 04/01/18 05:35 03/31/18 04/01/18 04/02/18 05:59 05:59 05:59 Intake Total 1685 1950 400 Output Total 1350 3700 Balance 335 -1750 400 PT 16.6 SEC (12.0-15.0) H 04/01/18 05:35 INR 1.32 (0.83-1.16) H 04/01/18 05:35 Physical Exam - Physical Exam General Appearance: alert, no apparent distress EENT: PERRL/EOMI Neck: supple Respiratory: lungs clear, normal breath sounds Cardiac/Chest: regular rate, rhythm, No edema Abdomen: non-tender, soft, No distended Skin: warm/dry, No cyanosis Lymphatic: no adenopathy Extremities: other (about 4x4 cm right dorsal fout wound warm, non erythematous) , No pedal edema Neuro/Psych: alert, oriented x 3, depressed affect ICD10 Worksheet Patient Problems: Problems Problem Status Onset Acute blood loss anemia Acute Anemia Acute Back pain Acute Endocarditis of mitral valve Acute Mitral regurgitation Acute Pericardial effusion Acute Septic embolism Acute Status post mitral valve annuloplasty Acute Status post mitral valve repair Acute Uncontrolled pain Acute Discitis of lumbar region Acute Fever Acute Osteomyelitis of lumbar spine Acute
--- NOTE | 2018-04-01 14:20 | PCMIDPN ---
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 s/p emergent MV repair with ring annuloplasty . S/p pericardial drain/window 03/25. All drains are now out. Blood cultures cleared since 03/22. She is also afebrile --return to nafcillin, stop date 04/28/18 --check a creatinine tomorrow morning # R foot cellulitis/extensor tendinitis and myositis - suspect site of injection while in house, s/p 3 day vancomycin/zosyn w complete resolution # admitted IV drug use. Awaiting drug screen to delineate if heroine used in house Medications Abx #16 Nafcillin 2gm IV q4 micro 03/16 blood cx : MSSA 03/18 heart tissue 4+ GPC; MSSA 03/20 blood cultures (2 sets) MSSA, oxacillin <0.5, Vanco =1 03/22 blood cultures (1 set): no growth today 03/26 blood cx (2) NGTD Patient was asleep at the time of my exam noted and I did not wake her. Greatly appreciate Isa Webb and her assessment today and reviewed her notes. Patient needs a total of 6 weeks of IV antibiotics post surgery due to positive valve cultures from the OR Objective: Vital Signs Temp Pulse Resp BP Pulse Ox 36.7 C 91 16 116/81 H 99 04/01/18 08:00 04/01/18 08:00 04/01/18 08:00 04/01/18 08:00 04/01/18 08:00 Microbiology 03/26/18 18:15 Blood Culture - Final Blood 03/26/18 17:18 Blood Culture - Final Blood Laboratory Results 03/30/18 06:35 04/01/18 05:35 03/31/18 04/01/18 04/02/18 05:59 05:59 05:59 Intake Total 1685 1950 400 Output Total 1350 3700 Balance 335 -1750 400 ESR 24 MM/HR (0-20) H 03/17/18 04:43 C-Reactive Protein 79.4 mg/L (<10.0) H 03/27/18 07:00 ICD10 Worksheet Patient Problems: Problems Problem Status Onset Acute blood loss anemia Acute Anemia Acute Back pain Acute Endocarditis of mitral valve Acute Mitral regurgitation Acute Pericardial effusion Acute Septic embolism Acute Status post mitral valve annuloplasty Acute Status post mitral valve repair Acute Uncontrolled pain Acute Discitis of lumbar region Acute Fever Acute Osteomyelitis of lumbar spine Acute
[2018-04-01] MEDS: ONDANSETRON 4 MG/2 ML VIAL IVP PRN ×2 (14:27→20:45)
[2018-04-01] MEDS: WARFARIN SODIUM 5 MG TAB PO SCH (15:55)
[2018-04-01] MEDS: ACETAMINOPHEN 325 MG TAB PO PRN (17:16)
--- NOTE | 2018-04-01 18:02 | ASMTCMCOM ---
CM Note CM Note Notes: Patient returned to ICU due to possible drug use, mother's involvement, tampering w/picc line, change in patient's demeanor. It was brought up in ICU Rounds that APS should be contacted. This CM contacted Erin ANTHONY, the officer stated they would need proof of intent, tox screens, proof of what was in the syringe, charges by pt against her mother, proof that it was mother, etc. He said this would be very hard to gather info needed to make a case. He reports the best we can do is restrict people's access to her room. Patient is to have No visitors. Patient will need 4 more weeks of IV ABX. This could possible be done at a SNF. A ULTC-100 will need to be done and referrals made. Contacted [facility]-not interested because no security. Left a message for [facility] to see if pt might qualify for LTC Medicaid-may not. Isa Webb to have Family Mtg w/pt, her mother and Urszula MONTES MD. Date Signed: 04/01/2018 03:21 PM Electronically Signed By:Sunshine Hurley LCSW
[2018-04-02] MEDS: NAFCILLIN SODIUM 2 GM in D5W 100 ML IV SCH ×6 (01:34→22:43)
[2018-04-02] MEDS: OXYCODONE/APAP 5/325 TAB PO PRN ×3 (01:34→20:45)
[2018-04-02 06:23] LABS: INR 1.65 (0.83-1.16); PROTIME(PATIENT) 19.6 SEC (12.0-15.0)
--- NOTE | 2018-04-02 07:38 | SOAPPROG ---
SOAP Progress Note Assessment/Plan: Assessment:POD#15 Emergent complex MV repair incl #28 Physio annuloplasty ring, prophylactic ligation left atrial appendage POD#8 subxiphoid pericardial window MV MSSA endocarditis with severe MR s/p complex repair with annuloplasty - Antithrombotic prophylaxis with coumadin; target INR 2-3; duration 3 mo. - Competent valve without evidence of veg or abscess by surveillance ONEAL on POD# 5. - Massive fluid overload well tolerated. - TCPW and chest tubes out. Postop pericardial effusion s/p evacuation for early tamponade physiology - Drain out. - Anticoagulation resumed without incident. Post-op CVA with left sided facial droop/slurred speech/LUE weakness - Brain MRI notable for multiple small lacunar infarcts of the left cerebral hemisphere and cerebellum c/w septic emboli. - Speech normalized and swallow passed. - Cont PT/OT/[employer]. - Declined by IPR for insufficient deficits. SNF rehab when appropriate. Septic shock with emboli to spleen and kidney - Successfully weaned off pressor support. [place] out. - Blood cxs neg since 03/22. Abx per PICC as directed by ID. - Surveillance splenic infarct per gen surg Acute expected blood loss anemia - Stable s/p 3U PRBC - Started on Fe suppl Depression with IVDU - SSRI resumed. - Transferred back to SDU for closer monitoring (strict no-visitor policy) s/p suspicion may have obtained drugs for injection from an outside source - Tox screen pending - Continue supportive care Right foot tendinitis/myositis/cellulitis - Suspected site of narc injection while in house - No evidence of osteomyelitis or joint effusion on MRI. - Complete resolution s/p course of broadened Abx as per ID. Plan: Cont lasix 40 mg daily. Decr coumadin to 7.5 mg today. Resume metoprolol 12.5 mg BID w conservative hold parameters. Dispo - SNF when medically stable. Hospitalist now primary team. 04/02/18 07:25 Subjective: Doing ok. Increasing strength and stamina. Good appetite. No rt foot pain. "Can' t hear out of left ear" o/w feels recovered from stroke. Objective: Vital Signs Temp Pulse Resp BP Pulse Ox 36.9 C 95 16 113/71 95 04/02/18 04:00 04/02/18 04:00 04/02/18 04:00 04/02/18 04:00 04/02/18 04:00 Microbiology 03/26/18 18:15 Blood Culture - Final Blood 03/26/18 17:18 Blood Culture - Final Blood Laboratory Results 03/30/18 06:35 04/02/18 05:35 04/01/18 04/02/18 04/03/18 05:59 05:59 05:59 Intake Total 1950 1778 Output Total 3700 2250 Balance -1750 -472 PT 19.6 SEC (12.0-15.0) H 04/02/18 05:35 INR 1.65 (0.83-1.16) H 04/02/18 05:35 SR/ST. SBPs > 100. Stable sats on RA. Adequate fluid balance. +8 kg overall. INR on the rise. Physical Exam - Physical Exam General Appearance: alert, no apparent distress Respiratory: lungs clear Cardiac/Chest: regular rate, rhythm, tachycardia, other (Sternum grossly sternum. Sternotomy and CT sites healing well.) Abdomen: non-tender, soft Skin: warm/dry Extremities: swelling (trace to 1+ dependent) ICD10 Worksheet Patient Problems: Problems Problem Status Onset Acute blood loss anemia Acute Anemia Acute Back pain Acute Endocarditis of mitral valve Acute Mitral regurgitation Acute Pericardial effusion Acute Septic embolism Acute Status post mitral valve annuloplasty Acute Status post mitral valve repair Acute Uncontrolled pain Acute Discitis of lumbar region Acute Fever Acute Osteomyelitis of lumbar spine Acute
[2018-04-02] MEDS: FERROUS SULFATE 325 MG TAB PO SCH ×2 (08:40→22:42)
[2018-04-02] MEDS: GABAPENTIN 300 MG CAP PO SCH ×3 (08:40→22:43)
[2018-04-02] MEDS: FUROSEMIDE 40 MG TAB PO SCH (08:40)
[2018-04-02] MEDS: POTASSIUM CL 10 MEQ TAB PO SCH (08:40)
[2018-04-02] MEDS: ARIPiprazole 2 MG TAB PO SCH (08:40)
[2018-04-02] MEDS: FLUoxetine 20 MG CAP PO SCH (08:40)
[2018-04-02] MEDS: ASPIRIN 81 MG CHEWABLE TAB PO SCH (08:40)
[2018-04-02] MEDS: CYCLOBENZAPRINE 10 MG TAB PO PRN ×2 (08:40→20:46)
[2018-04-02] MEDS: ENOXAPARIN 40 MG/0.4 ML SYR SC SCH (08:41)
[2018-04-02] MEDS: ACETAMINOPHEN 325 MG TAB PO PRN (08:41)
[2018-04-02] MEDS: IBUPROFEN 600 MG TAB PO PRN ×2 (08:52→15:10)
[2018-04-02] MEDS: METOPROLOL TARTRATE 25 MG TAB PO SCH ×2 (10:15→20:46)
[2018-04-02] MEDS: ONDANSETRON 4 MG/2 ML VIAL IVP PRN (12:24)
--- NOTE | 2018-04-02 12:46 | PDINTPN ---
Grounds Cleaner Progress Note Assessment/Plan: 27 F admitted with endocarditis in setting of suspected IVDA complicated by septic emboli to spleen and kidneys. She required urgent MV repair 03/15 when she developed brain emboli, followed by a pericardial window for pericardial effusion 03/25. She had been recovering well and transferred to the floor, but was returned to the ICU 03/31 when she was found somnolent with pinpoint pupils and a syringe was found on her person. Apparently her mother was involved in assisting with her illicit drug use while in the hospital (by report). * MSSA endocarditis- stable VS; planning nafcillin for 6 weeks per ID * IVDA- transferred into ICU for more detailed monitoring and no visitors allowed. Adult protective services contacted and family meeting to be held today (by phone). Patient has denied IVDA throughout her stay despite details strongly suggesting the contrary * Depression- she has been on a complex array of medications and appears acutely depressed to me. Plans to contact her outpatient psychiatrist are underway to clarify * Dispo: CM looking into SNF for intermediate IV abx, but chances low. She will likely remain in ICU as med/surg status to complete her abx 04/02/18 12:42 Subjective: no events Objective: Vital Signs Temp Pulse Resp BP Pulse Ox 36.9 C 91 21 H 114/79 98 04/02/18 12:00 04/02/18 12:00 04/02/18 12:00 04/02/18 12:00 04/02/18 12:00 Microbiology 03/26/18 18:15 Blood Culture - Final Blood 03/26/18 17:18 Blood Culture - Final Blood Laboratory Results 03/30/18 06:35 04/02/18 05:35 04/01/18 04/02/18 04/03/18 05:59 05:59 05:59 Intake Total 1950 1778 Output Total 3700 2250 Balance -1750 -472 PT 19.6 SEC (12.0-15.0) H 04/02/18 05:35 INR 1.65 (0.83-1.16) H 04/02/18 05:35 Physical Exam - Physical Exam General Appearance: alert, no apparent distress EENT: PERRL/EOMI Neck: supple Respiratory: lungs clear, normal breath sounds, No respiratory distress, No accessory muscle use Cardiac/Chest: regular rate, rhythm, No edema Abdomen: non-tender, soft, No distended Skin: normal color, warm/dry, No cyanosis Lymphatic: no adenopathy Extremities: No pedal edema Neuro/Psych: alert, oriented x 3, depressed affect ICD10 Worksheet Patient Problems: Problems Problem Status Onset Acute blood loss anemia Acute Anemia Acute Back pain Acute Endocarditis of mitral valve Acute Mitral regurgitation Acute Pericardial effusion Acute Septic embolism Acute Status post mitral valve annuloplasty Acute Status post mitral valve repair Acute Uncontrolled pain Acute Discitis of lumbar region Acute Fever Acute Osteomyelitis of lumbar spine Acute
--- NOTE | 2018-04-02 14:24 | HOSPPROG ---
Hospitalist Progress Note Assessment/Plan: 27 yo F with h/o IVDA and MSSA endocarditis s/p MV repair and pericardial window for early tamponade MSSA MV endocarditis, bacteremia with septic emboli to spleen/kidney and brain. s/p MV repair, annuloplasty 03/18. repeat BCxs 03/[address] abd/ pelvis with no splenic abscess. MRI thoracic spine with no abscess. ONEAL 03/23 showed competent valve, no endocarditis. Nafcillin per ID, will need to complete 6 weeks IV atbx, likely as inpt started coumadin 3 d ago, INR 1.6, not on bridging therapy due to recent CVA , will ask pharmacy to dose IVDA with ongoing drug use: found 03/31 with decreased responsiveness, pinpoint pupils, syringe in pocket and PICC line disconnected in PCU, transferred back to ICU for closer monitoring, no visitors (told psychology instructor her mom brought her oxycodone, which she injected). Lengthy discussion today about addiction hx, pt finally admits to IV heroin use. prelim drug screen with pos opiates (receiving percocet and recent IV dilaudid here), await confirmatory testing pt aware ongoing use could have life threatening complications discussed option to start suboxone prior to dc, she is agreeable. this will manage her cravings to use IV drugs will work on securing pcp in [facility] who can manage suboxone after dc foot infection: unusual to have developed in hospital on abx, again suspect in- house IVDA oericardial effusion with tamponade: s/p window stroke, likely from emboli/endocarditis still with Left sided face and UE deficits hx MSSA L5-S1 diskitis: s/p anterior I&D, 11/17 Septic shock: resolved Off pressors ABLA: expected with surgery. s/p transfusion, hgb stable over past week, 8.0 -> 8.2 HCV: outpt f/u Chronic pain: continue gabapentin, toradol wean opiates, aim to d/c opiates and likely initiate suboxone therapy as above prior to dc, which should also help with pain Anxiety: prn hydroxyzine Pedal Edema 2/2 volume overload, weight down 5 kg over past few days. Admit weight 59 kg, aiming for 2-3 kg lower than this per CV surg (discussed with Dr. Post) cont with po Lasix follow I&O, daily weights Depression: cont Nieves, psychologist personnel consult appreciated Diet: regular once back from ONEAL DVT ppx: Lovenox Dispo: cont inpt, ICU. Will likely complete her IV atbx treatment course as inpt, CM working on SNF options though not promising, will likely remain med/ surg status in ICU in order to restrict visitors given ongoing IV drug use in the hospital Subjective: Pt doing ok, c/o chest wall pain. She admits to using IV drugs, injecting both oxycodone and heroin. Acknowledges her opioid addiction has taken over her life. She is open to treatment. Has a lot of anxiety. It seems she was using IV drugs as inpt because she felt she wasn't getting enough opiates. No fevers/chills. Objective: Vital Signs Temp Pulse Resp BP Pulse Ox 36.9 C 91 21 H 114/79 98 04/02/18 12:00 04/02/18 12:00 04/02/18 12:00 04/02/18 12:00 04/02/18 12:00 Laboratory Results 03/30/18 06:35 04/02/18 05:35 04/01/18 04/02/18 04/03/18 05:59 05:59 05:59 Intake Total 1950 1778 Output Total 3700 2250 Balance -1750 -472 PT 19.6 SEC (12.0-15.0) H 04/02/18 05:35 INR 1.65 (0.83-1.16) H 04/02/18 05:35 - Physical Exam Constitutional: no apparent distress Eyes: PERRL Ears, Nose, Mouth, Throat: moist mucous membranes Cardiovascular: regular rate and rhythym Respiratory: no respiratory distress, clear to auscultation Gastrointestinal: normoactive bowel sounds, soft, non-tender abdomen Skin: warm Musculoskeletal: full muscle strength Neurologic: AAOx3 Psychiatric: interacting appropriately ICD10 Worksheet Patient Problems: Problems Problem Status Onset Acute blood loss anemia Acute Anemia Acute Back pain Acute Endocarditis of mitral valve Acute Mitral regurgitation Acute Pericardial effusion Acute Septic embolism Acute Status post mitral valve annuloplasty Acute Status post mitral valve repair Acute Uncontrolled pain Acute Discitis of lumbar region Acute Fever Acute Osteomyelitis of lumbar spine Acute
--- NOTE | 2018-04-02 14:59 | ASMTCMCOM ---
CM Note CM Note Notes: Attempted a phone conference with patient's mother, patient, Isa Webb and myself. Patient's mother did not answer the phone. We will try again tomorrow morning. Left a message for Scot with [facility] to inquire if patient even qualifies for termite control technician care. Awaiting Scot's return call. This will be a difficult placement as SNF facilities do not have the kind of security to deal with addiction problems. Most likely patient will have to remian here for IV ABX. Patient has been added to the complex care list for review.CM will follow. Date Signed: 04/02/2018 02:58 PM Electronically Signed By:Christen Simpson LCSW
[2018-04-02] MEDS ORDERED: hydrOXYzine HCL 25 MG TAB PO PRN (15:27)
[2018-04-02] MEDS ORDERED: WARFARIN SODIUM 7.5 MG TAB PO SCH (16:00)
--- NOTE | 2018-04-02 18:01 | PCMIDPN ---
Assessment/Plan: Assessment/Plan: * MSSA mitral valve endocarditis with emboli to kidney and spleen status post mitral valve repair with ring annuloplasty and subsequent pericardial window: Blood culture show clearing of bacteremia. Continue nafcillin with anticipated 6 week course of therapy post valve replacement which is scheduled to complete on 04/28/2018. Continue to monitor weekly CBC and CMP on nafcillin. * Right foot cellulitis: Likely associated with injection drug use. Now resolved. 04/02/18 17:58 04/02/18 18:01 Subjective: Patient complains of sternal pain. Foot pain has resolved. Patient notes she cannot walk on right foot. Objective: Vital Signs Temp Pulse Resp BP Pulse Ox 36.8 C 103 H 25 H 109/66 99 04/02/18 16:00 04/02/18 16:00 04/02/18 16:00 04/02/18 16:00 04/02/18 16:00 Laboratory Results 03/30/18 06:35 04/02/18 05:35 04/01/18 04/02/18 04/03/18 05:59 05:59 05:59 Intake Total 1950 1778 869 Output Total 3700 2250 Balance -1750 -472 869 ESR 24 MM/HR (0-20) H 03/17/18 04:43 C-Reactive Protein 79.4 mg/L (<10.0) H 03/27/18 07:00 Nafcillin 2 g IV q.4 hours, antibiotics # 17 - Physical Exam General Appearance: alert, no apparent distress EENT: No scleral icterus, No thrush, No conjunctival petechiae Respiratory: lungs clear, No respiratory distress Cardiac/Chest: tachycardia, other (Sternotomy site intact without erythema or drainage) Extremities: inflammation (Right foot erythema and edema fully resolved, nontender with range of motion) Abdomen: non-tender, No distended - Line/s RUE PICC Lines: No drainage, No erythema ICD10 Worksheet Patient Problems: Problems Problem Status Onset Acute blood loss anemia Acute Anemia Acute Back pain Acute Endocarditis of mitral valve Acute Mitral regurgitation Acute Pericardial effusion Acute Septic embolism Acute Status post mitral valve annuloplasty Acute Status post mitral valve repair Acute Uncontrolled pain Acute Discitis of lumbar region Acute Fever Acute Osteomyelitis of lumbar spine Acute
[2018-04-03] MEDS: NAFCILLIN SODIUM 2 GM in D5W 100 ML IV SCH ×6 (03:05→21:34)
[2018-04-03] MEDS: OXYCODONE/APAP 5/325 TAB PO PRN ×2 (05:06→21:34)
[2018-04-03 06:16] LABS: INR 1.56 (0.83-1.16); PROTIME(PATIENT) 18.8 SEC (12.0-15.0)
[2018-04-03] MEDS: ARIPiprazole 2 MG TAB PO SCH (09:44)
[2018-04-03] MEDS: METOPROLOL TARTRATE 25 MG TAB PO SCH ×2 (09:44→21:14)
[2018-04-03] MEDS: FLUoxetine 20 MG CAP PO SCH (09:44)
[2018-04-03] MEDS: GABAPENTIN 300 MG CAP PO SCH ×3 (09:44→21:34)
[2018-04-03] MEDS: FERROUS SULFATE 325 MG TAB PO SCH ×2 (09:44→19:38)
[2018-04-03] MEDS: ASPIRIN 81 MG CHEWABLE TAB PO SCH (09:44)
[2018-04-03] MEDS: POTASSIUM CL 10 MEQ TAB PO SCH (09:44)
[2018-04-03] MEDS: ENOXAPARIN 40 MG/0.4 ML SYR SC SCH (09:45)
[2018-04-03] MEDS: FUROSEMIDE 40 MG TAB PO SCH (09:45)
--- NOTE | 2018-04-03 11:22 | PCMIDPN ---
Assessment/Plan: 1. Mitral valve endocarditis secondary to MSSA complicated by emboli to the kidney and spleen as well as CVA. Status post mitral valve repair with ring annuloplasty 03/18 and subxiphoid pericardial window 03/25: Now back on nafcillin. Stop date tentatively scheduled for April 28. This was conveyed to the patient today, who looked extremely despondent about needing antibiotics this long. Proceeded to have long conversation with her about the seriousness of her infection, risk of , etc. Thanked her for telling us the truth, and tried to conveyed the fact that her addiction is not her fault, and we are here to help her. 2. Right foot cellulitis/extensor tendinitis and myositis: Resolved. Subjective: Patient was in the room with Isa, nurse junior linux systems administrator and her mother was on speaker phone. This conversation ultimately terminated when I walked in the room. Isa told me they were discussing disposition moving forward. Patient apparently was taking her mother's oxycodone from her purse, and injecting it. She has no significant complaints today. Tells me that she injected into her foot prior to coming to the hospital, and not during this hospitalization. Objective: Nafcillin 2 g IV q.4 hours day , stop date April 28 Vital Signs Temp Pulse Resp BP Pulse Ox 36.6 C 92 22 H 117/72 96 04/03/18 08:00 04/03/18 08:00 04/03/18 08:00 04/03/18 08:00 04/03/18 08:00 Microbiology 03/28/18 11:26 Blood Culture - Final Blood 03/28/18 11:06 Blood Culture - Final Blood Laboratory Results 03/30/18 06:35 04/02/18 05:35 04/02/18 04/03/18 04/04/18 05:59 05:59 05:59 Intake Total 1778 1591 Output Total 2250 Balance -472 1591 ESR 24 MM/HR (0-20) H 03/17/18 04:43 C-Reactive Protein 79.4 mg/L (<10.0) H 03/27/18 07:00 Recent blood cultures no growth - Physical Exam General Appearance: alert, no apparent distress EENT: pharynx normal, No thrush Cardiac/Chest: other (He in sternotomy looks fine) Extremities: other (Foot cellulitis right foot resolved) Skin: No rash ICD10 Worksheet Patient Problems: Problems Problem Status Onset Acute blood loss anemia Acute Anemia Acute Back pain Acute Endocarditis of mitral valve Acute Mitral regurgitation Acute Pericardial effusion Acute Septic embolism Acute Status post mitral valve annuloplasty Acute Status post mitral valve repair Acute Uncontrolled pain Acute Discitis of lumbar region Acute Fever Acute Osteomyelitis of lumbar spine Acute
--- NOTE | 2018-04-03 11:58 | HOSPPROG ---
Hospitalist Progress Note Assessment/Plan: 27 yo F with h/o IVDA and MSSA endocarditis s/p MV repair and pericardial window for early tamponade PLANNING SUBOXONE INDUCTION IN AM 04/04. NO OPIATES OVERNIGHT PLEASE. 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 s/p MV repair, annuloplasty 03/18. repeat BCxs 03/[address] abd/ pelvis with no splenic abscess. MRI thoracic spine with no abscess. ONEAL 03/23 showed competent valve, no endocarditis. Nafcillin per ID, will need to complete 6 weeks IV atbx, likely as inpt started coumadin, INR 1.6, not on bridging therapy due to recent CVA, will ask pharmacy to dose IVDA with ongoing drug use: found 03/31 with decreased responsiveness, pinpoint pupils, syringe in pocket and PICC line disconnected in PCU, transferred back to ICU for closer monitoring, no visitors (she admits to stealing oxy from her mom's purse and injecting). Lengthy discussion about addiction hx, pt admits to IV heroin use. Drug screen 03/31 pos for morphine, which suggests heroin use. pt aware ongoing use could have life threatening complications plan to stop opiates today (last dose this am), suboxone induction in am when in mild withdrawal. Will review COWS with RN and provide staff education. Dr. Enio Renae, [facility] PCP, will manage after discharge. I will provide 1 week Rx supply to cover between d/c and PCP appt. foot infection: unusual to have developed in hospital on abx, again suspect in- house IVDA pericardial effusion with tamponade: s/p window stroke, likely from emboli/endocarditis still with Left sided face and UE deficits hx MSSA L5-S1 diskitis: s/p anterior I&D, 11/17 Septic shock: resolved Off pressors ABLA: expected with surgery. s/p transfusion, hgb stable over past week, 8.0 -> 8.2 HCV: outpt f/u Chronic pain: continue gabapentin, toradol. Stopping opiates for suboxone induction tomorrow, which should help with pain. Anxiety: prn hydroxyzine, ativan today for possible withdrawal symptoms Pedal Edema 2/2 volume overload, weight down 5 kg over past few days. Admit weight 59 kg, aiming for 2-3 kg lower than this per CV surg (discussed with Dr. Post) cont with po Lasix follow I&O, daily weights Depression: cont Remy Pickett RN psych consult appreciated Diet: regular DVT ppx: Lovenox Dispo: cont inpt, ICU. Will likely complete her IV atbx treatment course as inpt, CM working on SNF options though not promising, will likely remain med/ surg status in ICU in order to restrict visitors given ongoing IV drug use in the hospital Subjective: Pt doing ok today. Still c/o incisional chest pain. No fevers/ chills. Denies back pain. She is optimistic about starting suboxone. Objective: Vital Signs Temp Pulse Resp BP Pulse Ox 36.6 C 92 22 H 117/72 96 04/03/18 08:00 04/03/18 08:00 04/03/18 08:00 04/03/18 08:00 04/03/18 08:00 Microbiology 03/28/18 11:26 Blood Culture - Final Blood 03/28/18 11:06 Blood Culture - Final Blood Laboratory Results 03/30/18 06:35 04/02/18 05:35 04/02/18 04/03/18 04/04/18 05:59 05:59 05:59 Intake Total 1778 1591 Output Total 2250 Balance -472 1591 PT 18.8 SEC (12.0-15.0) H 04/03/18 05:10 INR 1.56 (0.83-1.16) H 04/03/18 05:10 - Physical Exam Constitutional: no apparent distress Eyes: PERRL Ears, Nose, Mouth, Throat: moist mucous membranes Cardiovascular: regular rate and rhythym Respiratory: no respiratory distress, clear to auscultation Gastrointestinal: normoactive bowel sounds, soft, non-tender abdomen Skin: warm Musculoskeletal: full muscle strength Neurologic: AAOx3 Psychiatric: interacting appropriately ICD10 Worksheet Patient Problems: Problems Problem Status Onset Acute blood loss anemia Acute Anemia Acute Back pain Acute Endocarditis of mitral valve Acute Mitral regurgitation Acute Pericardial effusion Acute Septic embolism Acute Status post mitral valve annuloplasty Acute Status post mitral valve repair Acute Uncontrolled pain Acute Discitis of lumbar region Acute Fever Acute Osteomyelitis of lumbar spine Acute
[2018-04-03] MEDS: LORazepam 0.5 MG TAB PO PRN ×2 (12:12→19:37)
[2018-04-03] MEDS: KETOROLAC 15 MG/1 ML SDV IVP SCH ×3 (12:12→23:03)
--- NOTE | 2018-04-03 13:04 | SOAPPROG ---
SOAP Progress Note Assessment/Plan: Assessment:POD#16 Emergent complex MV repair incl #28 Physio annuloplasty ring, prophylactic ligation left atrial appendage POD#9 subxiphoid pericardial window MV MSSA endocarditis with severe MR s/p complex repair with annuloplasty - Competent valve without evidence of veg or abscess by surveillance ONEAL on POD# 5. - TCPW and chest tubes out. - Antithrombotic prophylaxis with coumadin; target INR 2-3; duration 3 mo. Adjunctive baby ASA until INR stable in therapeutic range. - Massive fluid overload well tolerated. Active diuresis in progress. Postop pericardial effusion s/p evacuation for early tamponade physiology - Drain out. - Anticoagulation resumed without incident. Post-op CVA with left sided facial droop/slurred speech/LUE weakness - Brain MRI notable for multiple small lacunar infarcts of the left cerebral hemisphere and cerebellum c/w septic emboli. - Speech normalized and swallow passed. - Cont PT/OT/ELECTRIC MOTOR FITTER. - Declined by IPR for insufficient deficits. SNF rehab when appropriate. Septic shock with emboli to spleen and kidney - Successfully weaned off pressor support. [place] out. - Blood cxs neg since 03/22. Abx per PICC as directed by ID. - Surveillance splenic infarct per gen surg Acute expected blood loss anemia - Stable s/p 3U PRBC - Started on Fe suppl x 2 weeks. - VTE prophylaxis with Lovenox until INR > 1.7 Depression with IVDU - SSRI resumed. - Transferred back to SDU for closer monitoring (strict no-visitor policy) s/p suspicion may have obtained drugs for injection from an outside source - Tox screen pending - Continue supportive care Right foot tendinitis/myositis/cellulitis - Suspected site of narc injection while in house - No evidence of osteomyelitis or joint effusion on MRI. - Complete resolution s/p course of broadened Abx as per ID. Plan: Cont lasix 40 mg daily until back to baseline weight. Resume coumadin 10 mg daily. Cont metoprolol 12.5 mg BID w conservative hold parameters. CV surgery will sign off - please call w any questions/concerns. 04/03/18 13:02 Objective: Vital Signs Temp Pulse Resp BP Pulse Ox 36.6 C 92 22 H 117/72 96 04/03/18 08:00 04/03/18 08:00 04/03/18 08:00 04/03/18 08:00 04/03/18 08:00 Microbiology 03/28/18 11:26 Blood Culture - Final Blood 03/28/18 11:06 Blood Culture - Final Blood Laboratory Results 03/30/18 06:35 04/02/18 05:35 04/02/18 04/03/18 04/04/18 05:59 05:59 05:59 Intake Total 1778 1591 Output Total 2250 Balance -472 1591 PT 18.8 SEC (12.0-15.0) H 04/03/18 05:10 INR 1.56 (0.83-1.16) H 04/03/18 05:10 Improved HR control on metoprolol. INR dip on 7.5 mg coumadin. ICD10 Worksheet Patient Problems: Problems Problem Status Onset Acute blood loss anemia Acute Anemia Acute Back pain Acute Endocarditis of mitral valve Acute Mitral regurgitation Acute Pericardial effusion Acute Septic embolism Acute Status post mitral valve annuloplasty Acute Status post mitral valve repair Acute Uncontrolled pain Acute Discitis of lumbar region Acute Fever Acute Osteomyelitis of lumbar spine Acute
[2018-04-03] MEDS ORDERED: WARFARIN SODIUM 5 MG TAB PO SCH (16:00)
--- NOTE | 2018-04-03 16:52 | ASMTCMCOM ---
CM Note CM Note Notes: Patient to begin suboxone treatments tomorrow under Dr. Hanna's supervision. Patient was given clothes today since she will be here for her IV ABX treatments until a safe plan for d/c can be made. CM will follow. Date Signed: 04/03/2018 04:51 PM Electronically Signed By:Christen Simpson LCSW
[2018-04-03] MEDS: LOPERAMIDE HCL 2 MG CAP PO PRN (16:53)
[2018-04-04] MEDS: NAFCILLIN SODIUM 2 GM in D5W 100 ML IV SCH ×6 (01:56→22:43)
[2018-04-04] MEDS: LORazepam 0.5 MG TAB PO PRN ×3 (01:56→18:37)
[2018-04-04] MEDS: OXYCODONE/APAP 5/325 TAB PO PRN (01:59)
[2018-04-04] MEDS: CYCLOBENZAPRINE 10 MG TAB PO PRN ×2 (03:57→20:20)
[2018-04-04] MEDS: hydrOXYzine HCL 25 MG TAB PO PRN ×2 (04:08→17:50)
[2018-04-04] MEDS: KETOROLAC 15 MG/1 ML SDV IVP SCH ×4 (05:45→23:00)
[2018-04-04 06:08] LABS: PLATELET COUNT 579 10^3/uL (150-400)
[2018-04-04 06:13] LABS: INR 1.54 (0.83-1.16); PROTIME(PATIENT) 18.6 SEC (12.0-15.0)
[2018-04-04] MEDS: METOPROLOL TARTRATE 25 MG TAB PO SCH ×2 (09:10→20:20)
[2018-04-04] MEDS: ASPIRIN 81 MG CHEWABLE TAB PO SCH (09:10)
[2018-04-04] MEDS: FUROSEMIDE 40 MG TAB PO SCH (09:10)
[2018-04-04] MEDS: ARIPiprazole 2 MG TAB PO SCH (09:11)
[2018-04-04] MEDS: ENOXAPARIN 40 MG/0.4 ML SYR SC SCH (09:11)
[2018-04-04] MEDS: FERROUS SULFATE 325 MG TAB PO SCH ×2 (09:11→20:20)
[2018-04-04] MEDS: GABAPENTIN 300 MG CAP PO SCH ×3 (09:11→20:20)
[2018-04-04] MEDS: FLUoxetine 20 MG CAP PO SCH (09:11)
[2018-04-04] MEDS: POTASSIUM CL 10 MEQ TAB PO SCH (09:11)
--- NOTE | 2018-04-04 10:26 | HOSPPROG ---
Hospitalist Progress Note Assessment/Plan: 27 yo F with h/o IVDA and MSSA endocarditis s/p MV repair and pericardial window for early tamponade PLANNING SUBOXONE INDUCTION IN AM 04/05 (post-poned by 1 day to clarify regulatory issues, all good) . NO OPIATES OVERNIGHT PLEASE. 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 s/p MV repair, annuloplasty 03/18. Repeat BCxs 03/[address] abd/ pelvis with no splenic abscess. MRI thoracic spine- no abscess. ONEAL 03/23 showed competent valve, no endocarditis. Nafcillin per ID, will need to complete 6 weeks IV atbx, likely as inpt, stop date 04/28 started coumadin, INR 1.5, not on bridging therapy due to recent CVA, pharmacy dosing IVDA with ongoing drug use: found 03/31 with decreased responsiveness, pinpoint pupils, syringe in pocket and PICC line disconnected in PCU. Transferred back to ICU (med/surg status) for closer monitoring, no visitors. She admits to stealing oxy from her mom's purse and injecting. Lengthy discussion about addiction hx, pt admits to IV heroin use. Drug screen 03/31 pos for morphine, which suggests heroin use here. pt aware ongoing use could have life threatening complications plan to stop opiates today (last dose this am), suboxone induction in am when in mild withdrawal. Reviewed COWS with RN and provided staff education. Dr. Enio Renae, [facility] PCP, will manage after discharge. I will provide 1 week Rx supply to cover between d/c and PCP appt. please call my cell [phone] with any questions or concerns about suboxone management foot infection: resolved, unusual to have developed in hospital on abx, again suspect in-house IVDA pericardial effusion with tamponade: s/p window stroke, likely from emboli/endocarditis still with Left sided face and UE deficits hx MSSA L5-S1 diskitis: s/p anterior I&D, 11/17 Septic shock: resolved Off pressors ABLA: expected with surgery. s/p transfusion, hgb stable over past week, 8.0 -> 8.2 HCV: outpt f/u Chronic pain: continue gabapentin, toradol. Stopping opiates for suboxone induction tomorrow, which should help with pain. Anxiety: prn hydroxyzine, ativan today for possible withdrawal symptoms Pedal Edema 2/2 volume overload, weight down 5 kg over past few days. Admit weight 59 kg, aiming for 2-3 kg lower than this per CV surg (discussed with Dr. Post) cont with po Lasix follow I&O, daily weights Depression: cont Remy Pickett, social worker psychiatric consult appreciated Diet: regular DVT ppx: Lovenox Dispo: cont inpt, ICU. Will likely complete her IV atbx treatment course as inpt, CM working on SNF options though not promising, will likely remain med/ surg status in ICU in order to restrict visitors given ongoing IV drug use in the hospital Subjective: Pt feels okay this am, optimistic about starting suboxone tomorrow. Pain is fairly well controlled on toradol. No fevers/chills. No back pain. Objective: Vital Signs Temp Pulse Resp BP Pulse Ox 36.9 C 109 H 12 112/60 95 04/04/18 07:19 04/04/18 07:19 04/04/18 07:19 04/04/18 07:19 04/04/18 07:19 Microbiology 03/28/18 11:26 Blood Culture - Final Blood 03/28/18 11:06 Blood Culture - Final Blood Laboratory Results 04/04/18 05:50 04/04/18 05:50 04/03/18 04/04/18 04/05/18 05:59 05:59 05:59 Intake Total 1591 1801 Balance 1591 1801 PT 18.6 SEC (12.0-15.0) H 04/04/18 05:50 INR 1.54 (0.83-1.16) H 04/04/18 05:50 - Physical Exam Constitutional: no apparent distress Eyes: PERRL Ears, Nose, Mouth, Throat: moist mucous membranes Cardiovascular: regular rate and rhythym, no murmur, rub, or gallop Respiratory: no respiratory distress, clear to auscultation Gastrointestinal: normoactive bowel sounds, soft, non-tender abdomen Skin: warm Musculoskeletal: full muscle strength Neurologic: AAOx3 Psychiatric: interacting appropriately ICD10 Worksheet Patient Problems: Problems Problem Status Onset Acute blood loss anemia Acute Anemia Acute Back pain Acute Endocarditis of mitral valve Acute Mitral regurgitation Acute Pericardial effusion Acute Septic embolism Acute Status post mitral valve annuloplasty Acute Status post mitral valve repair Acute Uncontrolled pain Acute Discitis of lumbar region Acute Fever Acute Osteomyelitis of lumbar spine Acute
--- NOTE | 2018-04-04 12:34 | PCMIDPN ---
Assessment/Plan: 1. Mitral valve endocarditis secondary to MSSA complicated by emboli to the kidney and spleen as well as CVA. Status post mitral valve repair with ring annuloplasty 03/18 and subxiphoid pericardial window 03/25: Continue nafcillin. Stop date tentatively scheduled for April 28. Patient will likely need to stay in house for the duration of therapy. 2. Right foot cellulitis/extensor tendinitis and myositis: Resolved. 04/04/18 12:33 Subjective: Patient is presently in the shower. I was unable to examine her. Spoke with nursing staff, who told me no overnight events. Patient will start Suboxone induction therapy tomorrow. Objective: Nafcillin 2 g IV q.4 hours day No fevers Vital Signs Temp Pulse Resp BP Pulse Ox 36.9 C 109 H 12 112/60 95 04/04/18 07:19 04/04/18 07:19 04/04/18 07:19 04/04/18 07:19 04/04/18 07:19 Microbiology 03/28/18 11:26 Blood Culture - Final Blood 03/28/18 11:06 Blood Culture - Final Blood Laboratory Results 04/04/18 05:50 04/04/18 05:50 04/03/18 04/04/18 04/05/18 05:59 05:59 05:59 Intake Total 1591 1801 Balance 1591 1801 ESR 24 MM/HR (0-20) H 03/17/18 04:43 C-Reactive Protein 79.4 mg/L (<10.0) H 03/27/18 07:00 No new microbiology ICD10 Worksheet Patient Problems: Problems Problem Status Onset Acute blood loss anemia Acute Anemia Acute Back pain Acute Endocarditis of mitral valve Acute Mitral regurgitation Acute Pericardial effusion Acute Septic embolism Acute Status post mitral valve annuloplasty Acute Status post mitral valve repair Acute Uncontrolled pain Acute Discitis of lumbar region Acute Fever Acute Osteomyelitis of lumbar spine Acute
[2018-04-04] MEDS: LOPERAMIDE HCL 2 MG CAP PO PRN (13:13)
[2018-04-04] MEDS ORDERED: WARFARIN SODIUM 5 MG TAB PO SCH (16:00)
[2018-04-04] MEDS ORDERED: WARFARIN SODIUM 7.5 MG TAB PO SCH (16:00)
--- NOTE | 2018-04-04 16:03 | ASMTCMCOM ---
CM Note CM Note Notes: Patient was asking if her mother can bring her clothes. We gave the patient clothes yesterday and patient's mother is not allowed on the premises. Precautions are being taken to make sure patient is not given any drugs from an outside source. CM will follow. Date Signed: 04/04/2018 04:02 PM Electronically Signed By:Christen Simpson LCSW
[2018-04-04] MEDS: ACETAMINOPHEN 325 MG TAB PO PRN (21:10)
[2018-04-04] MEDS ORDERED: PROMETHAZINE HCL 25 MG/ML INJ IVP PRN (21:41)
[2018-04-05] MEDS: NAFCILLIN SODIUM 2 GM in D5W 100 ML IV SCH ×6 (02:24→21:35)
[2018-04-05] MEDS: KETOROLAC 15 MG/1 ML SDV IVP SCH ×4 (05:51→23:10)
--- NOTE | 2018-04-05 08:20 | HOSPPROG ---
Hospitalist Progress Note Assessment/Plan: 27 yo F with h/o IVDA and MSSA endocarditis s/p MV repair and pericardial window for early tamponade SUBOXONE INDUCTION TODAY. 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 s/p MV repair, annuloplasty 03/18. Repeat BCxs 03/[address] abd/ pelvis with no splenic abscess. MRI thoracic spine- no abscess. ONEAL 03/23 showed competent valve, no endocarditis. Nafcillin per ID, complete 6 weeks IV atbx, likely as inpt, stop date 04/28 coumadin, INR 1.6, not on bridging therapy due to recent CVA, pharmacy dosing IVDA with in-house drug use: found 03/31 with decreased responsiveness, pinpoint pupils, syringe in pocket and PICC line disconnected in PCU. Transferred back to ICU (med/surg status) for closer monitoring, no visitors. She admits to stealing oxy from her mom's purse and injecting. Lengthy discussion about addiction hx, pt admits to IV heroin use. Drug screen 03/31 pos for morphine, which suggests heroin use here. suboxone induction today: COWS 7-8 this am, mild withdrawal. received 4 mg x2 this am, intended for addl 4 mg this afternoon, but she inadvertently received 8 mg and felt a bit sedated. Dose tomorrow: 8 mg daily. Reviewed COWS with RN and provided staff education Dr. Enio Renae, [facility] PCP to manage after dc. I will provide 1 week Rx supply to cover between d/c and PCP appt. please call my cell [phone] with any questions or concerns about suboxone management foot infection: resolved, unusual to have developed in hospital on abx, again suspect in-house IVDA pericardial effusion with tamponade: s/p window stroke, likely from emboli/endocarditis still with Left sided face and UE deficits hx MSSA L5-S1 diskitis: s/p anterior I&D, 11/17 Septic shock: resolved Off pressors ABLA: post-op, s/p transfusion, hgb stable over past week, 8.0 -> 8.2 HCV: outpt f/u Chronic pain: continue gabapentin, toradol. Suboxone should help with pain. Pedal Edema / volume overload. cont po Lasix follow I&O, daily weights Depression: cont Remy Pickett, psychology tech consult appreciated Diet: regular DVT ppx: Lovenox until INR therapeutic Dispo: cont inpt, ICU. Will likely complete her IV atbx treatment course as inpt. However, SNF may accept her if she is stable on Suboxone so could re- consider SNF d/c. Subjective: Pt doing ok this am, feeling mild w/d symptoms, stomach cramps, sweaty, restlessness. No fevers/chills. Objective: Vital Signs Temp Pulse Resp BP Pulse Ox 36.7 C 83 18 109/71 98 04/05/18 00:00 04/05/18 04:22 04/05/18 04:22 04/05/18 04:22 04/05/18 04:22 Laboratory Results 04/04/18 05:50 04/04/18 05:50 04/04/18 04/05/18 04/06/18 05:59 05:59 05:59 Intake Total 1801 1787 Balance 1801 1787 PT 18.6 SEC (12.0-15.0) H 04/04/18 05:50 INR 1.54 (0.83-1.16) H 04/04/18 05:50 - Physical Exam Constitutional: no apparent distress Eyes: PERRL Ears, Nose, Mouth, Throat: moist mucous membranes Cardiovascular: regular rate and rhythym Respiratory: no respiratory distress, clear to auscultation Gastrointestinal: normoactive bowel sounds, soft, non-tender abdomen Skin: warm Musculoskeletal: full muscle strength Neurologic: AAOx3 Psychiatric: interacting appropriately ICD10 Worksheet Patient Problems: Problems Problem Status Onset Acute blood loss anemia Acute Anemia Acute Back pain Acute Endocarditis of mitral valve Acute Mitral regurgitation Acute Pericardial effusion Acute Septic embolism Acute Status post mitral valve annuloplasty Acute Status post mitral valve repair Acute Uncontrolled pain Acute Discitis of lumbar region Acute Fever Acute Osteomyelitis of lumbar spine Acute
[2018-04-05] MEDS: POTASSIUM CL 10 MEQ TAB PO SCH (08:42)
[2018-04-05] MEDS: GABAPENTIN 300 MG CAP PO SCH ×3 (08:42→21:35)
[2018-04-05] MEDS: METOPROLOL TARTRATE 25 MG TAB PO SCH ×2 (08:43→21:35)
[2018-04-05] MEDS: FERROUS SULFATE 325 MG TAB PO SCH ×2 (08:44→21:35)
[2018-04-05] MEDS: ASPIRIN 81 MG CHEWABLE TAB PO SCH (08:45)
[2018-04-05] MEDS: ARIPiprazole 2 MG TAB PO SCH (08:45)
[2018-04-05] MEDS: FUROSEMIDE 40 MG TAB PO SCH (08:45)
[2018-04-05] MEDS: FLUoxetine 20 MG CAP PO SCH (08:45)
[2018-04-05] MEDS: ENOXAPARIN 40 MG/0.4 ML SYR SC SCH (08:46)
[2018-04-05 08:51] LABS: INR 1.58 (0.83-1.16)
--- NOTE | 2018-04-05 15:23 | PCMIDPN ---
Assessment/Plan: Assessment/Plan: * MSSA mitral valve endocarditis with emboli to kidney and spleen status post mitral valve repair with ring annuloplasty and subsequent pericardial window: Continued clinical improvement. Blood cultures have documented clearing of bacteremia. Completing 6 weeks of IV nafcillin post valve surgery. Monitor weekly CBC and CMP on nafcillin therapy. Anticipate a completion of therapy in house given patient's active injection drug use issues (started on Suboxone today). * Right foot cellulitis: Likely associated with injection drug use. Now resolved. 04/05/18 15:18 Subjective: Patient complains of feeling anxious. No further right foot pain. Objective: Vital Signs Temp Pulse Resp BP Pulse Ox 36.4 C 84 24 H 102/70 95 04/05/18 08:00 04/05/18 08:43 04/05/18 08:00 04/05/18 08:43 04/05/18 08:00 Laboratory Results 04/04/18 05:50 04/04/18 05:50 04/04/18 04/05/18 04/06/18 05:59 05:59 05:59 Intake Total 1801 1787 Balance 1801 1787 ESR 24 MM/HR (0-20) H 03/17/18 04:43 C-Reactive Protein 79.4 mg/L (<10.0) H 03/27/18 07:00 Nafcillin # 20 Laboratory Tests 04/04/18 05:50 Total Bilirubin 0.8 AST 17 ALT 16 Alkaline Phosphatase 81 - Physical Exam General Appearance: alert, no apparent distress EENT: No scleral icterus, No thrush, No conjunctival petechiae Respiratory: lungs clear, No respiratory distress Cardiac/Chest: regular rate, rhythm, other (Sternotomy intact without erythema or drainage), No systolic murmur Extremities: No inflammation Abdomen: non-tender, No distended - Line/s RUE PICC Lines: No drainage, No erythema ICD10 Worksheet Patient Problems: Problems Problem Status Onset Acute blood loss anemia Acute Anemia Acute Back pain Acute Endocarditis of mitral valve Acute Mitral regurgitation Acute Pericardial effusion Acute Septic embolism Acute Status post mitral valve annuloplasty Acute Status post mitral valve repair Acute Uncontrolled pain Acute Discitis of lumbar region Acute Fever Acute Osteomyelitis of lumbar spine Acute
[2018-04-05] MEDS: WARFARIN SODIUM 7.5 MG TAB PO SCH (15:33)
[2018-04-05] MEDS: ALTEPLASE 2 MG VIAL IVP PRN (17:46)
[2018-04-06] MEDS: NAFCILLIN SODIUM 2 GM in D5W 100 ML IV SCH ×6 (02:28→21:13)
[2018-04-06] MEDS: ACETAMINOPHEN 325 MG TAB PO PRN ×3 (03:56→19:38)
[2018-04-06] MEDS: KETOROLAC 15 MG/1 ML SDV IVP SCH ×4 (05:11→23:02)
[2018-04-06 06:33] LABS: INR 2.01 (0.83-1.16); PROTIME(PATIENT) 22.8 SEC (12.0-15.0)
[2018-04-06] MEDS: ENOXAPARIN 40 MG/0.4 ML SYR SC SCH (08:12)
[2018-04-06] MEDS: ASPIRIN 81 MG CHEWABLE TAB PO SCH (08:22)
[2018-04-06] MEDS: FLUoxetine 20 MG CAP PO SCH (08:22)
[2018-04-06] MEDS: POTASSIUM CL 10 MEQ TAB PO SCH (08:22)
[2018-04-06] MEDS: FERROUS SULFATE 325 MG TAB PO SCH ×2 (08:22→21:13)
[2018-04-06] MEDS: ARIPiprazole 2 MG TAB PO SCH (08:22)
[2018-04-06] MEDS: GABAPENTIN 300 MG CAP PO SCH ×3 (08:22→21:13)
[2018-04-06] MEDS: METOPROLOL TARTRATE 25 MG TAB PO SCH ×2 (08:23→21:10)
[2018-04-06] MEDS: FUROSEMIDE 40 MG TAB PO SCH (08:23)
--- NOTE | 2018-04-06 08:30 | HOSPPROG ---
Hospitalist Progress Note Assessment/Plan: #MSSA MV endocarditis, bacteremia septic emboli to spleen/kidney/brain -s/p MV repair, annuloplasty 03/18, pericardial window -Nafcillin #IVDU: Suboxone started 04/05, 8mg. Dr. Renae to cont outpatient tx #Right foot cellulitis: resolved #hx MSSA L5-S1 diskitis: s/p anterior I&D, 11/17 #Septic shock: Levophed #ABLA: expected with surgery. s/p transfusion #Embolic CVA: left facial droop. hearing loss #HCV #Diet: regular #DVT ppx: SQH #Disp:cont inpatient admission for IV abx Subjective: No nausea. Anxiety improved Objective: Vital Signs Temp Pulse Resp BP Pulse Ox 36.7 C 90 13 106/68 92 04/06/18 07:46 04/06/18 08:23 04/06/18 07:46 04/06/18 07:46 04/06/18 07:46 Laboratory Results 04/04/18 05:50 04/04/18 05:50 04/05/18 04/06/18 04/07/18 05:59 05:59 05:59 Intake Total 1787 950 Balance 1787 950 PT 22.8 SEC (12.0-15.0) H 04/06/18 05:10 INR 2.01 (0.83-1.16) H 04/06/18 05:10 - Time Spent With Patient Time Spent with Patient: greater than 35 minutes Time Spent with Patient: Greater than 35 minutes spent on this patients care, greater than 50% of time spent counseling, educating, and coordinating care regarding the above mentioned plan. - Physical Exam Constitutional: no apparent distress Eyes: PERRL Ears, Nose, Mouth, Throat: moist mucous membranes Cardiovascular: regular rate and rhythym, other (sternal incision healing well) Respiratory: no respiratory distress Gastrointestinal: normoactive bowel sounds Genitourinary: no bladder fullness, No godoy in urethra Musculoskeletal: full muscle strength Neurologic: CN II-XII Intact, facial droop (left) Psychiatric: interacting appropriately ICD10 Worksheet Patient Problems: Problems Problem Status Onset Acute blood loss anemia Acute Anemia Acute Back pain Acute Endocarditis of mitral valve Acute Mitral regurgitation Acute Pericardial effusion Acute Septic embolism Acute Status post mitral valve annuloplasty Acute Status post mitral valve repair Acute Uncontrolled pain Acute Discitis of lumbar region Acute Fever Acute Osteomyelitis of lumbar spine Acute
[2018-04-06] MEDS: WARFARIN SODIUM 7.5 MG TAB PO SCH (15:37)
[2018-04-07] MEDS: NAFCILLIN SODIUM 2 GM in D5W 100 ML IV SCH ×6 (01:52→21:51)
[2018-04-07] MEDS: KETOROLAC 15 MG/1 ML SDV IVP SCH ×4 (05:32→23:03)
[2018-04-07] MEDS: ACETAMINOPHEN 325 MG TAB PO PRN ×2 (07:31→14:24)
[2018-04-07] MEDS: FLUoxetine 20 MG CAP PO SCH (08:03)
[2018-04-07] MEDS: FUROSEMIDE 40 MG TAB PO SCH (08:03)
[2018-04-07] MEDS: ARIPiprazole 2 MG TAB PO SCH (08:03)
[2018-04-07] MEDS: ASPIRIN 81 MG CHEWABLE TAB PO SCH (08:04)
[2018-04-07] MEDS: POTASSIUM CL 10 MEQ TAB PO SCH (08:04)
[2018-04-07] MEDS: FERROUS SULFATE 325 MG TAB PO SCH ×2 (08:04→20:35)
[2018-04-07] MEDS: METOPROLOL TARTRATE 25 MG TAB PO SCH ×2 (08:04→20:35)
[2018-04-07] MEDS: GABAPENTIN 300 MG CAP PO SCH ×3 (08:04→20:35)
[2018-04-07 08:32] LABS: INR 1.93 (0.83-1.16); PROTIME(PATIENT) 22.1 SEC (12.0-15.0)
--- NOTE | 2018-04-07 10:13 | PCMIDPN ---
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 Status post mitral valve replacement and annuloplasty. Blood cultures are negative. Patient is doing well and is much improved after initiating treatment with Suboxone. Plan: 1. Continue IV nafcillin at current dose. Asked for repeat CBC and BMP today. 2. Continue to manage symptomatically including pain medications for postoperative discomfort. 3. Continue management for narcotic addiction. 04/07/18 10:08 Subjective: Patient is resting comfortably in her hospital bed. She notes no new complaint. Pain seems better controlled as of late. No fevers or chills. No rash. Objective: Nafcillin # 20/42 Vital Signs Temp Pulse Resp BP Pulse Ox 36.7 C 97 15 121/75 H 94 04/06/18 23:09 04/07/18 08:00 04/07/18 08:00 04/07/18 08:00 04/07/18 08:00 Laboratory Results 04/04/18 05:50 04/04/18 05:50 04/06/18 04/07/18 04/08/18 05:59 05:59 05:59 Intake Total 950 1900 Balance 950 1900 ESR 24 MM/HR (0-20) H 03/17/18 04:43 C-Reactive Protein 79.4 mg/L (<10.0) H 03/27/18 07:00 - Physical Exam General Appearance: WD/WN, alert, no apparent distress, non-toxic Respiratory: lungs clear, normal breath sounds, No respiratory distress Cardiac/Chest: regular rate, rhythm, other (Sternal incision without erythema or drainage.), No tachycardia Skin: normal color, warm/dry, No rash Neuro/Psych: alert, normal mood/affect, oriented x 3 ICD10 Worksheet Patient Problems: Problems Problem Status Onset Acute blood loss anemia Acute Anemia Acute Back pain Acute Endocarditis of mitral valve Acute Mitral regurgitation Acute Pericardial effusion Acute Septic embolism Acute Status post mitral valve annuloplasty Acute Status post mitral valve repair Acute Uncontrolled pain Acute Discitis of lumbar region Acute Fever Acute Osteomyelitis of lumbar spine Acute
--- NOTE | 2018-04-07 14:34 | HOSPPROG ---
Hospitalist Progress Note Assessment/Plan: #MSSA MV endocarditis, bacteremia septic emboli to spleen/kidney/brain -s/p MV repair, annuloplasty 03/18, pericardial window -Nafcillin #IVDU/chronic pain: symptoms improved with Suboxone started 04/05, 8mg. Dr. Renae to cont outpatient tx #Right foot cellulitis: resolved #Left hearing loss/pain: otoscope exam normal. Loss due to CVA, will need audiogram in future #hx MSSA L5-S1 diskitis: s/p anterior I&D, 11/17 #Septic shock: Levophed #ABLA: expected with surgery. s/p transfusion #Embolic CVA: left facial droop. hearing loss #Depression/PTSD: cont home meds #HCV #Diet: regular #DVT ppx: SQH #Disp:cont inpatient admission for IV abx Subjective: c/o deep left ear pain Objective: Vital Signs Temp Pulse Resp BP Pulse Ox 36.7 C 97 15 121/75 H 94 04/06/18 23:09 04/07/18 08:00 04/07/18 08:00 04/07/18 08:00 04/07/18 08:00 Laboratory Results 04/07/18 10:15 04/07/18 10:15 04/06/18 04/07/18 04/08/18 05:59 05:59 05:59 Intake Total 950 1900 Balance 950 1900 PT 22.1 SEC (12.0-15.0) H 04/07/18 08:05 INR 1.93 (0.83-1.16) H 04/07/18 08:05 - Time Spent With Patient Time Spent with Patient: greater than 35 minutes Time Spent with Patient: Greater than 35 minutes spent on this patients care, greater than 50% of time spent counseling, educating, and coordinating care regarding the above mentioned plan. - Physical Exam Constitutional: no apparent distress Eyes: PERRL Ears, Nose, Mouth, Throat: moist mucous membranes, hearing normal, hard of hearing (left ear. TM normal, no redness or fluid) Cardiovascular: regular rate and rhythym, other (sternal surgical incision healing well) Respiratory: no respiratory distress, no rales or rhonchi Gastrointestinal: normoactive bowel sounds Genitourinary: no bladder fullness Skin: warm Musculoskeletal: full muscle strength Neurologic: AAOx3, CN II-XII Intact ICD10 Worksheet Patient Problems: Problems Problem Status Onset Acute blood loss anemia Acute Anemia Acute Back pain Acute Endocarditis of mitral valve Acute Mitral regurgitation Acute Pericardial effusion Acute Septic embolism Acute Status post mitral valve annuloplasty Acute Status post mitral valve repair Acute Uncontrolled pain Acute Discitis of lumbar region Acute Fever Acute Osteomyelitis of lumbar spine Acute
--- NOTE | 2018-04-07 14:36 | ASMTCMCOM ---
CM Note CM Note Notes: Patient receiving suboxone for narcotic W/D, pain. Appreciate Behavior [facility] RN comments and recommendations. Date Signed: 04/07/2018 02:35 PM Electronically Signed By:Sunshine Hurley LCSW
[2018-04-07] MEDS: WARFARIN SODIUM 7.5 MG TAB PO SCH (16:24)
[2018-04-08] MEDS: NAFCILLIN SODIUM 2 GM in D5W 100 ML IV SCH ×6 (01:42→22:02)
[2018-04-08] MEDS: KETOROLAC 15 MG/1 ML SDV IVP SCH (05:26)
[2018-04-08 05:56] LABS: INR 1.99 (0.83-1.16); PROTIME(PATIENT) 22.7 SEC (12.0-15.0)
[2018-04-08] MEDS: FUROSEMIDE 40 MG TAB PO SCH (08:04)
[2018-04-08] MEDS: METOPROLOL TARTRATE 25 MG TAB PO SCH ×2 (08:05→20:19)
[2018-04-08] MEDS: ASPIRIN 81 MG CHEWABLE TAB PO SCH (08:05)
[2018-04-08] MEDS: FERROUS SULFATE 325 MG TAB PO SCH ×2 (08:06→20:19)
[2018-04-08] MEDS: POTASSIUM CL 10 MEQ TAB PO SCH (08:06)
[2018-04-08] MEDS: FLUoxetine 20 MG CAP PO SCH (08:06)
[2018-04-08] MEDS: GABAPENTIN 300 MG CAP PO SCH ×3 (08:06→22:02)
[2018-04-08] MEDS: ARIPiprazole 2 MG TAB PO SCH (08:06)
--- NOTE | 2018-04-08 09:46 | HOSPPROG ---
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 Cultures negative 03/28 -Nafcillin #IVDU/chronic pain: symptoms improved with Suboxone started 04/05, 8mg. Dr. Renae to cont outpatient tx #Right foot cellulitis: resolved #Left hearing loss/pain: otoscope exam normal. Loss due to CVA, will need audiogram in future #hx MSSA L5-S1 diskitis: s/p anterior I&D, 11/17 #Septic shock: Levophed #ABLA: expected with surgery. s/p transfusion #Embolic CVA: left facial droop. hearing loss #Depression/PTSD: Dr. Alexandre for med management #HCV #Diet: regular #DVT ppx: SQH #Disp:cont inpatient admission for IV abx, d/w Dr. Alexandre Subjective: pain controlled. No SOB Objective: Vital Signs Temp Pulse Resp BP Pulse Ox 36.9 C 90 16 111/77 95 04/08/18 07:48 04/08/18 08:05 04/08/18 07:48 04/08/18 07:48 04/08/18 07:48 Laboratory Results 04/07/18 10:15 04/07/18 10:15 04/07/18 04/08/18 04/09/18 05:59 05:59 05:59 Intake Total 1900 1950 Balance 1900 1950 PT 22.7 SEC (12.0-15.0) H 04/08/18 05:30 INR 1.99 (0.83-1.16) H 04/08/18 05:30 - Time Spent With Patient Time Spent with Patient: greater than 35 minutes Time Spent with Patient: Greater than 35 minutes spent on this patients care, greater than 50% of time spent counseling, educating, and coordinating care regarding the above mentioned plan. - Physical Exam Constitutional: no apparent distress Eyes: PERRL Ears, Nose, Mouth, Throat: moist mucous membranes Cardiovascular: regular rate and rhythym, other (surigical incision CDI) Respiratory: no respiratory distress Gastrointestinal: normoactive bowel sounds Genitourinary: no bladder fullness Skin: warm Musculoskeletal: full muscle strength Neurologic: AAOx3, CN II-XII Intact Psychiatric: flat affect ICD10 Worksheet Patient Problems: Problems Problem Status Onset Acute blood loss anemia Acute Anemia Acute Back pain Acute Endocarditis of mitral valve Acute Mitral regurgitation Acute Pericardial effusion Acute Septic embolism Acute Status post mitral valve annuloplasty Acute Status post mitral valve repair Acute Uncontrolled pain Acute Discitis of lumbar region Acute Fever Acute Osteomyelitis of lumbar spine Acute
--- NOTE | 2018-04-08 13:31 | CPEKG ---
Heart Rate: 92 RR Interval: 652 P-R Interval: 144 QRSD Interval: 82 QT Interval: 384 QTC Interval: 476 P Spencer: 34 QRS Spencer: 72 T Wave Spencer: -8 EKG Severity - BORDERLINE ECG - EKG Impression: SINUS RHYTHM EKG Impression: T ABNORMALITIES, DIFFUSE LEADS-- New since March 18, 2018 EKG Impression: Resolution of significant ST elevation in the inferior leads with residual EKG Impression: slight elevation in the III Electronically Signed By: Lukas Linn 08-Apr-2018 14:48:18
[2018-04-08] MEDS: IBUPROFEN 600 MG TAB PO PRN (13:43)
[2018-04-08] MEDS: WARFARIN SODIUM 7.5 MG TAB PO SCH (16:00)
[2018-04-08] MEDS: ACETAMINOPHEN 325 MG TAB PO PRN (20:32)
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
[2018-04-09] MEDS: MELATONIN 3 MG TAB PO SCH ×2 (01:59→21:37)
[2018-04-09] MEDS: NAFCILLIN SODIUM 2 GM in D5W 100 ML IV SCH ×6 (03:51→21:37)
[2018-04-09 05:42] LABS: INR 2.09 (0.83-1.16); PROTIME(PATIENT) 23.5 SEC (12.0-15.0)
[2018-04-09] MEDS: ACETAMINOPHEN 325 MG TAB PO PRN ×3 (07:11→21:37)
[2018-04-09] MEDS: GABAPENTIN 300 MG CAP PO SCH ×3 (09:04→21:34)
[2018-04-09] MEDS: FLUoxetine 20 MG CAP PO SCH (09:06)
[2018-04-09] MEDS: FERROUS SULFATE 325 MG TAB PO SCH ×2 (09:06→21:37)
[2018-04-09] MEDS: ASPIRIN 81 MG CHEWABLE TAB PO SCH (09:06)
[2018-04-09] MEDS: METOPROLOL TARTRATE 25 MG TAB PO SCH ×2 (09:06→21:34)
[2018-04-09] MEDS: ARIPiprazole 2 MG TAB PO SCH (09:07)
[2018-04-09] MEDS: FUROSEMIDE 40 MG TAB PO SCH (09:07)
[2018-04-09] MEDS: POTASSIUM CL 10 MEQ TAB PO SCH (09:07)
[2018-04-09] MEDS: IBUPROFEN 600 MG TAB PO PRN (14:35)
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
[2018-04-09] MEDS: WARFARIN SODIUM 7.5 MG TAB PO SCH (15:46)
[2018-04-10] MEDS: NAFCILLIN SODIUM 2 GM in D5W 100 ML IV SCH ×6 (03:00→21:09)
[2018-04-10] MEDS: ACETAMINOPHEN 325 MG TAB PO PRN ×2 (06:31→17:56)
[2018-04-10 06:47] LABS: INR 2.29 (0.83-1.16); PROTIME(PATIENT) 25.2 SEC (12.0-15.0)
[2018-04-10] MEDS: ARIPiprazole 2 MG TAB PO SCH (08:15)
[2018-04-10] MEDS: ASPIRIN 81 MG CHEWABLE TAB PO SCH (08:15)
[2018-04-10] MEDS: FUROSEMIDE 40 MG TAB PO SCH (08:15)
[2018-04-10] MEDS: GABAPENTIN 300 MG CAP PO SCH ×3 (08:16→20:37)
[2018-04-10] MEDS: METOPROLOL TARTRATE 25 MG TAB PO SCH ×2 (08:16→20:37)
[2018-04-10] MEDS: FLUoxetine 20 MG CAP PO SCH (08:17)
[2018-04-10] MEDS: POTASSIUM CL 10 MEQ TAB PO SCH (08:17)
[2018-04-10] MEDS: FERROUS SULFATE 325 MG TAB PO SCH ×2 (08:18→20:37)
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
--- NOTE | 2018-04-10 10:04 | HOSPPROG ---
Hospitalist Progress Note Assessment/Plan: 27 yo F w MSSA endocarditis. 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 Cultures negative 03/28 Nafcillin IVDU/chronic pain: Suboxone 8mg am, 4mg afternoon Right foot cellulitis: resolved Left hearing loss/pain: otoscope exam normal. Due to CVA. Outpatient audiogram hx MSSA L5-S1 diskitis: s/p anterior I&D, 11/17 Septic shock: resolved ABLA: expected with surgery. s/p transfusion Embolic CVA: left facial droop. hearing loss Depression/PTSD: Dr. Mcnair evaluated. If mood changes can increase Abilify to 5mg or Gabapentin 1200mg TID. Do not increase SSRI. FU MHP. HCV Diet: regular proph: warfarin Subjective: case d/w dr cook. no complaints. ankle better Objective: Vital Signs Temp Pulse Resp BP Pulse Ox 36.8 C 92 15 112/61 96 04/10/18 07:38 04/10/18 07:38 04/10/18 07:38 04/10/18 07:38 04/10/18 07:38 Laboratory Results 04/07/18 10:15 04/07/18 10:15 04/09/18 04/10/18 04/11/18 05:59 05:59 05:59 Intake Total 2100 1245 Balance 2100 1245 PT 25.2 SEC (12.0-15.0) H 04/10/18 06:20 INR 2.29 (0.83-1.16) H 04/10/18 06:20 - Physical Exam Constitutional: no apparent distress, appears nourished Eyes: PERRL, anicteric sclera Ears, Nose, Mouth, Throat: moist mucous membranes, hearing normal Cardiovascular: regular rate and rhythym, no murmur, rub, or gallop, other ( midline incision c/d/i) Respiratory: no respiratory distress, no rales or rhonchi Gastrointestinal: normoactive bowel sounds, soft, non-tender abdomen Genitourinary: no bladder fullness, No godoy in urethra Skin: warm, normal color Musculoskeletal: full muscle strength, other (R ankle normal) Neurologic: AAOx3, sensation intact bilaterally Psychiatric: interacting appropriately ICD10 Worksheet Patient Problems: Problems Problem Status Onset Acute blood loss anemia Acute Anemia Acute Back pain Acute Endocarditis of mitral valve Acute Mitral regurgitation Acute Pericardial effusion Acute Septic embolism Acute Status post mitral valve annuloplasty Acute Status post mitral valve repair Acute Uncontrolled pain Acute Discitis of lumbar region Acute Fever Acute Osteomyelitis of lumbar spine Acute
--- NOTE | 2018-04-10 10:29 | PCMIDPN ---
Assessment/Plan: 1. Mitral valve endocarditis secondary to MSSA complicated by emboli to the kidney and spleen as well as CVA. Status post mitral valve repair with ring annuloplasty 03/18 and subxiphoid pericardial window 03/25: Continue nafcillin. Stop date tentatively scheduled for April 28. Ordered CMP for tomorrow. Recent CBC is fine. No new recommendations. Subjective: In good spirits. No complaints. No rash, diarrhea or other. Objective: Nafcillin 2 g IV q.4 hours day No fevers Vital Signs Temp Pulse Resp BP Pulse Ox 36.8 C 92 15 112/61 96 04/10/18 07:38 04/10/18 07:38 04/10/18 07:38 04/10/18 07:38 04/10/18 07:38 Laboratory Results 04/07/18 10:15 04/07/18 10:15 04/09/18 04/10/18 04/11/18 05:59 05:59 05:59 Intake Total 2100 1245 Balance 2100 1245 ESR 24 MM/HR (0-20) H 03/17/18 04:43 C-Reactive Protein 79.4 mg/L (<10.0) H 03/27/18 07:00 No new microbiology - Physical Exam General Appearance: alert, no apparent distress EENT: pharynx normal, No thrush Respiratory: lungs clear Cardiac/Chest: regular rate, rhythm, other (Median sternotomy incision looks fine.) Extremities: other (PICC line right upper extremity without tenderness or swelling or erythema) Skin: No rash ICD10 Worksheet Patient Problems: Problems Problem Status Onset Acute blood loss anemia Acute Anemia Acute Back pain Acute Endocarditis of mitral valve Acute Mitral regurgitation Acute Pericardial effusion Acute Septic embolism Acute Status post mitral valve annuloplasty Acute Status post mitral valve repair Acute Uncontrolled pain Acute Discitis of lumbar region Acute Fever Acute Osteomyelitis of lumbar spine Acute
--- NOTE | 2018-04-10 14:01 | HOSPPROG ---
Hospitalist Progress Note Assessment/Plan: Suboxone f/u: Visited with pt along with Isa Webb, psychologist personnel. Pt doing well. Denies cravings or withdrawal symptoms since increasing Suboxone to 12 mg daily. Currently, dose is divided 8 mg qam and 4 mg qpm. This can be consolidated to once daily at discharge. Will provide 1 week Rx at d/c until she has f/u with Dr. Renae, who will be her outpt Suboxone prescriber. She at appt 04/29, day after planned d/c, for addiction counseling and suboxone oversight. Please call my cell with any ?'s about suboxone dosing and management: [phone]. 15 minutes at bedside. Objective: Vital Signs Temp Pulse Resp BP Pulse Ox 36.8 C 92 15 112/61 96 04/10/18 07:38 04/10/18 07:38 04/10/18 07:38 04/10/18 07:38 04/10/18 07:38 Laboratory Results 04/07/18 10:15 04/07/18 10:15 04/09/18 04/10/18 04/11/18 05:59 05:59 05:59 Intake Total 2100 1245 Balance 2100 1245 PT 25.2 SEC (12.0-15.0) H 04/10/18 06:20 INR 2.29 (0.83-1.16) H 04/10/18 06:20 ICD10 Worksheet Patient Problems: Problems Problem Status Onset Acute blood loss anemia Acute Anemia Acute Back pain Acute Endocarditis of mitral valve Acute Mitral regurgitation Acute Pericardial effusion Acute Septic embolism Acute Status post mitral valve annuloplasty Acute Status post mitral valve repair Acute Uncontrolled pain Acute Discitis of lumbar region Acute Fever Acute Osteomyelitis of lumbar spine Acute
[2018-04-10] MEDS: WARFARIN SODIUM 7.5 MG TAB PO SCH (16:53)
[2018-04-10] MEDS: MELATONIN 3 MG TAB PO SCH (20:36)
[2018-04-11] MEDS: NAFCILLIN SODIUM 2 GM in D5W 100 ML IV SCH ×6 (01:12→22:41)
[2018-04-11 05:19] LABS: INR 2.41 (0.83-1.16); PROTIME(PATIENT) 26.2 SEC (12.0-15.0)
[2018-04-11] MEDS: FLUoxetine 20 MG CAP PO SCH (08:14)
[2018-04-11] MEDS: GABAPENTIN 300 MG CAP PO SCH ×3 (08:14→21:21)
[2018-04-11] MEDS: POTASSIUM CL 10 MEQ TAB PO SCH (08:14)
[2018-04-11] MEDS: ARIPiprazole 2 MG TAB PO SCH (08:14)
[2018-04-11] MEDS: ASPIRIN 81 MG CHEWABLE TAB PO SCH (08:14)
[2018-04-11] MEDS: METOPROLOL TARTRATE 25 MG TAB PO SCH ×2 (08:14→21:22)
[2018-04-11] MEDS: FERROUS SULFATE 325 MG TAB PO SCH ×2 (08:14→21:24)
[2018-04-11] MEDS: FUROSEMIDE 40 MG TAB PO SCH (08:14)
[2018-04-11] MEDS: ACETAMINOPHEN 325 MG TAB PO PRN ×2 (11:44→17:09)
--- NOTE | 2018-04-11 14:21 | HOSPPROG ---
Hospitalist Progress Note Assessment/Plan: 27 yo F w MSSA endocarditis. 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 Cultures negative 03/28 Nafcillin IVDU/chronic pain: Suboxone 8mg am, 4mg afternoon this appears to be a good strategy for her as she reports improved pain control Right foot cellulitis: resolved Left hearing loss/pain: otoscope exam normal. Due to CVA. Outpatient audiogram hx MSSA L5-S1 diskitis: s/p anterior I&D, 11/17 Septic shock: resolved ABLA: expected with surgery. s/p transfusion Embolic CVA: left facial droop. hearing loss Depression/PTSD: Dr. Mcnair evaluated. If mood changes can increase Abilify to 5mg or Gabapentin 1200mg TID. Do not increase SSRI. FU MHP. HCV Diet: regular proph: warfarin Subjective: case d/w dr blankenship Objective: Vital Signs Temp Pulse Resp BP Pulse Ox 36.8 C 97 18 95/54 L 95 04/11/18 13:22 04/11/18 13:22 04/11/18 13:22 04/11/18 13:22 04/11/18 13:22 Laboratory Results 04/07/18 10:15 04/11/18 05:00 04/10/18 04/11/18 04/12/18 05:59 05:59 05:59 Intake Total 1245 800 Balance 1245 800 PT 26.2 SEC (12.0-15.0) H 04/11/18 05:00 INR 2.41 (0.83-1.16) H 04/11/18 05:00 - Physical Exam Constitutional: no apparent distress, appears nourished, other (appears more comfortable, more engaging) Eyes: PERRL, anicteric sclera Ears, Nose, Mouth, Throat: moist mucous membranes, hearing normal Cardiovascular: regular rate and rhythym, no murmur, rub, or gallop Respiratory: no respiratory distress, no rales or rhonchi Gastrointestinal: normoactive bowel sounds, soft, non-tender abdomen Genitourinary: no bladder fullness, No godoy in urethra Skin: warm, normal color Musculoskeletal: full muscle strength, no muscle tenderness Neurologic: AAOx3 Psychiatric: interacting appropriately ICD10 Worksheet Patient Problems: Problems Problem Status Onset Acute blood loss anemia Acute Anemia Acute Back pain Acute Endocarditis of mitral valve Acute Mitral regurgitation Acute Pericardial effusion Acute Septic embolism Acute Status post mitral valve annuloplasty Acute Status post mitral valve repair Acute Uncontrolled pain Acute Discitis of lumbar region Acute Fever Acute Osteomyelitis of lumbar spine Acute
[2018-04-11] MEDS: WARFARIN SODIUM 7.5 MG TAB PO SCH (15:28)
--- NOTE | 2018-04-11 16:56 | ASMTCMCOM ---
CM Note CM Note Notes: Met with patient and her mother and Isa Webb today to review her circumstances and make sure communication is clear going forward. Patient and her mother were given opportunity to discuss their experience and their feelings regarding the limitations that have been set. Patient's mother , Alesha was given a copy of the behavioral contract patient is going to use as her guide for decision making while in the hospital. We will meet with the patient and her mother again on Saturday as we work through the issues and find solutions for establishing trust and managing expectations. Patient's mother did bring her some clothes today which were searched by security in patient's presence prior to being turned over to her. Patient's behavioral contract is in the front of her chart. CM will follow. Date Signed: 04/11/2018 04:56 PM Electronically Signed By:Christen Simpson LCSW
[2018-04-11] MEDS: IBUPROFEN 600 MG TAB PO PRN (19:52)
[2018-04-11] MEDS: MELATONIN 3 MG TAB PO SCH (21:22)
[2018-04-12] MEDS: NAFCILLIN SODIUM 2 GM in D5W 100 ML IV SCH ×6 (02:15→22:34)
[2018-04-12] MEDS: ACETAMINOPHEN 325 MG TAB PO PRN ×4 (03:37→19:37)
[2018-04-12 04:05] LABS: INR 2.66 (0.83-1.16); PROTIME(PATIENT) 28.3 SEC (12.0-15.0)
[2018-04-12] MEDS: GABAPENTIN 300 MG CAP PO SCH ×3 (09:13→21:22)
[2018-04-12] MEDS: METOPROLOL TARTRATE 25 MG TAB PO SCH ×2 (09:13→21:13)
[2018-04-12] MEDS: ARIPiprazole 2 MG TAB PO SCH (09:13)
[2018-04-12] MEDS: FERROUS SULFATE 325 MG TAB PO SCH ×2 (09:14→21:22)
[2018-04-12] MEDS: FLUoxetine 20 MG CAP PO SCH (09:14)
[2018-04-12] MEDS: FUROSEMIDE 40 MG TAB PO SCH (09:14)
[2018-04-12] MEDS: POTASSIUM CL 10 MEQ TAB PO SCH (09:14)
[2018-04-12] MEDS: ASPIRIN 81 MG CHEWABLE TAB PO SCH (09:15)
--- NOTE | 2018-04-12 10:14 | HOSPPROG ---
Hospitalist Progress Note Assessment/Plan: 27 yo F w MSSA endocarditis. 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 Cultures negative 03/28 Nafcillin IVDU/chronic pain: Suboxone 8mg am, 4mg afternoon this appears to be a good strategy for her as she reports improved pain control Right foot cellulitis: resolved Left hearing loss/pain: otoscope exam normal. Due to CVA. Outpatient audiogram hx MSSA L5-S1 diskitis: s/p anterior I&D, 11/17 Septic shock: resolved ABLA: expected with surgery. s/p transfusion Embolic CVA: left facial droop. hearing loss Depression/PTSD: Dr. Mcnair evaluated. If mood changes can increase Abilify to 5mg or Gabapentin 1200mg TID. Do not increase SSRI. FU MHP. HCV Diet: regular proph: warfarin follow inr daily Subjective: afebrile. case d/w dr blankenship Objective: Vital Signs Temp Pulse Resp BP Pulse Ox 37.0 C 90 18 99/74 L 97 04/12/18 07:39 04/12/18 07:39 04/11/18 23:48 04/12/18 07:39 04/12/18 07:39 Laboratory Results 04/07/18 10:15 04/11/18 05:00 04/11/18 04/12/18 04/13/18 05:59 05:59 05:59 Intake Total 800 2467 300 Balance 800 2467 300 PT 28.3 SEC (12.0-15.0) H 04/12/18 03:45 INR 2.66 (0.83-1.16) H 04/12/18 03:45 - Physical Exam Constitutional: no apparent distress, appears nourished Eyes: PERRL, anicteric sclera Ears, Nose, Mouth, Throat: moist mucous membranes, hearing normal Cardiovascular: regular rate and rhythym, no murmur, rub, or gallop Respiratory: no respiratory distress, no rales or rhonchi Gastrointestinal: normoactive bowel sounds, soft, non-tender abdomen Genitourinary: no bladder fullness, No godoy in urethra Skin: warm, normal color Musculoskeletal: full muscle strength Neurologic: AAOx3, sensation intact bilaterally Psychiatric: interacting appropriately, not anxious Lymph, Heme, Immunologic: no cervical LAD ICD10 Worksheet Patient Problems: Problems Problem Status Onset Acute blood loss anemia Acute Anemia Acute Back pain Acute Endocarditis of mitral valve Acute Mitral regurgitation Acute Pericardial effusion Acute Septic embolism Acute Status post mitral valve annuloplasty Acute Status post mitral valve repair Acute Uncontrolled pain Acute Discitis of lumbar region Acute Fever Acute Osteomyelitis of lumbar spine Acute
[2018-04-12] MEDS: IBUPROFEN 600 MG TAB PO PRN ×2 (10:35→20:22)
[2018-04-12] MEDS: WARFARIN SODIUM 7.5 MG TAB PO SCH (15:54)
[2018-04-12] MEDS: MELATONIN 3 MG TAB PO SCH (21:22)
[2018-04-13] MEDS: NAFCILLIN SODIUM 2 GM in D5W 100 ML IV SCH ×6 (01:56→21:23)
[2018-04-13] MEDS: ACETAMINOPHEN 325 MG TAB PO PRN ×2 (05:46→17:18)
[2018-04-13 06:48] LABS: INR 3.19 (0.83-1.16); PROTIME(PATIENT) 32.5 SEC (12.0-15.0)
[2018-04-13] MEDS: FLUoxetine 20 MG CAP PO SCH (07:57)
[2018-04-13] MEDS: IBUPROFEN 600 MG TAB PO PRN ×2 (07:57→19:36)
[2018-04-13] MEDS: ARIPiprazole 2 MG TAB PO SCH (07:57)
[2018-04-13] MEDS: FUROSEMIDE 40 MG TAB PO SCH (09:00)
[2018-04-13] MEDS: METOPROLOL TARTRATE 25 MG TAB PO SCH ×2 (09:00→21:22)
[2018-04-13] MEDS: POTASSIUM CL 10 MEQ TAB PO SCH (09:00)
[2018-04-13] MEDS: ASPIRIN 81 MG CHEWABLE TAB PO SCH (09:00)
[2018-04-13] MEDS: FERROUS SULFATE 325 MG TAB PO SCH ×2 (09:01→21:22)
[2018-04-13] MEDS: GABAPENTIN 300 MG CAP PO SCH ×3 (09:01→21:22)
--- NOTE | 2018-04-13 12:44 | HOSPPROG ---
Hospitalist Progress Note Assessment/Plan: 27 yo F w MSSA endocarditis. 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 Cultures negative 03/28 Nafcillin IVDU/chronic pain: Suboxone 8mg am, 4mg afternoon this appears to be a good strategy for her as she reports improved pain control Right foot cellulitis: resolved Left hearing loss/pain: otoscope exam normal. Due to CVA. Outpatient audiogram hx MSSA L5-S1 diskitis: s/p anterior I&D, 11/17 Septic shock: resolved ABLA: expected with surgery. s/p transfusion Embolic CVA: left facial droop. hearing loss Depression/PTSD: Dr. Mcnair evaluated. If mood changes can increase Abilify to 5mg or Gabapentin 1200mg TID. Do not increase SSRI. FU MHP. HCV Diet: regular proph: warfarin follow inr daily Subjective: doing well Objective: Vital Signs Temp Pulse Resp BP Pulse Ox 36.7 C 92 18 102/54 L 96 04/13/18 08:03 04/13/18 09:00 04/13/18 08:03 04/13/18 09:00 04/13/18 08:03 Laboratory Results 04/07/18 10:15 04/11/18 05:00 04/12/18 04/13/18 04/14/18 05:59 05:59 05:59 Intake Total 2467 1532 Balance 2467 1532 PT 32.5 SEC (12.0-15.0) H 04/13/18 05:45 INR 3.19 (0.83-1.16) H 04/13/18 05:45 - Physical Exam Constitutional: no apparent distress, appears nourished Eyes: PERRL, anicteric sclera Ears, Nose, Mouth, Throat: moist mucous membranes, hearing normal Cardiovascular: regular rate and rhythym, other, No no murmur, rub, or gallop ( no knock) Respiratory: no respiratory distress, no rales or rhonchi Gastrointestinal: normoactive bowel sounds, soft, non-tender abdomen Genitourinary: no bladder fullness, No godoy in urethra Skin: warm, normal color Musculoskeletal: full muscle strength, no muscle tenderness Neurologic: AAOx3 ICD10 Worksheet Patient Problems: Problems Problem Status Onset Acute blood loss anemia Acute Anemia Acute Back pain Acute Endocarditis of mitral valve Acute Mitral regurgitation Acute Pericardial effusion Acute Septic embolism Acute Status post mitral valve annuloplasty Acute Status post mitral valve repair Acute Uncontrolled pain Acute Discitis of lumbar region Acute Fever Acute Osteomyelitis of lumbar spine Acute
[2018-04-13] MEDS: WARFARIN SODIUM 5 MG TAB PO SCH (16:13)
[2018-04-13] MEDS: MELATONIN 3 MG TAB PO SCH (21:23)
[2018-04-14] MEDS: NAFCILLIN SODIUM 2 GM in D5W 100 ML IV SCH ×6 (02:17→21:16)
[2018-04-14 03:59] LABS: INR 3.04 (0.83-1.16); PROTIME(PATIENT) 31.3 SEC (12.0-15.0)
[2018-04-14] MEDS: ASPIRIN 81 MG CHEWABLE TAB PO SCH (08:07)
[2018-04-14] MEDS: METOPROLOL TARTRATE 25 MG TAB PO SCH ×2 (08:07→20:00)
[2018-04-14] MEDS: FLUoxetine 20 MG CAP PO SCH (08:07)
[2018-04-14] MEDS: POTASSIUM CL 10 MEQ TAB PO SCH (08:07)
[2018-04-14] MEDS: FUROSEMIDE 40 MG TAB PO SCH (08:07)
[2018-04-14] MEDS: FERROUS SULFATE 325 MG TAB PO SCH ×2 (08:07→20:00)
[2018-04-14] MEDS: GABAPENTIN 300 MG CAP PO SCH ×3 (08:07→20:03)
[2018-04-14] MEDS: IBUPROFEN 600 MG TAB PO PRN ×2 (08:07→13:55)
[2018-04-14] MEDS: ARIPiprazole 2 MG TAB PO SCH (08:07)
--- NOTE | 2018-04-14 10:20 | HOSPPROG ---
Hospitalist Progress Note Assessment/Plan: 27 yo F w MSSA endocarditis. 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 Cultures negative 03/28 Nafcillin IVDU/chronic pain: Suboxone 8mg am, 4mg afternoon this appears to be a good strategy for her as she reports improved pain control Right foot cellulitis: resolved Left hearing loss/pain: otoscope exam normal. Due to CVA. Outpatient audiogram hx MSSA L5-S1 diskitis: s/p anterior I&D, 11/17 Septic shock: resolved ABLA: expected with surgery. s/p transfusion Embolic CVA: left facial droop. hearing loss Depression/PTSD: Dr. Mcnair evaluated. If mood changes can increase Abilify to 5mg or Gabapentin 1200mg TID. Do not increase SSRI. FU MHP. HCV Diet: regular proph: warfarin follow inr daily Subjective: afebrile. pain OK Objective: Vital Signs Temp Pulse Resp BP Pulse Ox 37.2 C 102 H 14 100/70 94 04/14/18 07:47 04/14/18 08:07 04/14/18 07:47 04/14/18 07:47 04/14/18 07:47 Laboratory Results 04/07/18 10:15 04/11/18 05:00 04/13/18 04/14/18 04/15/18 05:59 05:59 05:59 Intake Total 1532 2359 Balance 1532 2359 PT 31.3 SEC (12.0-15.0) H 04/14/18 03:45 INR 3.04 (0.83-1.16) H 04/14/18 03:45 - Physical Exam Constitutional: no apparent distress, appears nourished Eyes: PERRL, anicteric sclera Ears, Nose, Mouth, Throat: moist mucous membranes, hearing normal Cardiovascular: regular rate and rhythym, no murmur, rub, or gallop, other ( incicion c.d.i) Respiratory: no respiratory distress, no rales or rhonchi Gastrointestinal: normoactive bowel sounds, soft, non-tender abdomen Genitourinary: no bladder fullness, No godoy in urethra Skin: warm, normal color Musculoskeletal: full muscle strength Neurologic: AAOx3 ICD10 Worksheet Patient Problems: Problems Problem Status Onset Acute blood loss anemia Acute Anemia Acute Back pain Acute Endocarditis of mitral valve Acute Mitral regurgitation Acute Pericardial effusion Acute Septic embolism Acute Status post mitral valve annuloplasty Acute Status post mitral valve repair Acute Uncontrolled pain Acute Discitis of lumbar region Acute Fever Acute Osteomyelitis of lumbar spine Acute
[2018-04-14 12:03] LABS: PLATELET COUNT 718 10^3/uL (150-400)
[2018-04-14] MEDS ORDERED: ONDANSETRON 4 MG/2 ML VIAL IVP PRN (14:37)
--- NOTE | 2018-04-14 15:03 | ASMTCMCOM ---
CM Note CM Note Notes: CM Christen and Behavioral RN Isa Webb working with patient and mother on behavior and SA needs while in the hospital and expectations on discharge for health transition. Patient's last day of IV ABX is April 28. Date Signed: 04/14/2018 03:01 PM Electronically Signed By:Sunshine Hurley LCSW
[2018-04-14] MEDS: WARFARIN SODIUM 5 MG TAB PO SCH (15:35)
[2018-04-14] MEDS: ONDANSETRON DISINTEGRATING 4 MG TAB PO PRN (15:35)
[2018-04-14] MEDS: ACETAMINOPHEN 325 MG TAB PO PRN (19:59)
[2018-04-14] MEDS: MELATONIN 3 MG TAB PO SCH (20:00)
[2018-04-15] MEDS: NAFCILLIN SODIUM 2 GM in D5W 100 ML IV SCH ×6 (02:00→22:57)
[2018-04-15 05:59] LABS: INR 2.55 (0.83-1.16); PROTIME(PATIENT) 27.4 SEC (12.0-15.0)
[2018-04-15] MEDS: ACETAMINOPHEN 325 MG TAB PO PRN ×2 (07:06→14:00)
[2018-04-15] MEDS: IBUPROFEN 600 MG TAB PO PRN ×2 (07:06→14:00)
[2018-04-15] MEDS: FLUoxetine 20 MG CAP PO SCH (08:04)
[2018-04-15] MEDS: FUROSEMIDE 40 MG TAB PO SCH (08:04)
[2018-04-15] MEDS: ASPIRIN 81 MG CHEWABLE TAB PO SCH (08:04)
[2018-04-15] MEDS: FERROUS SULFATE 325 MG TAB PO SCH ×2 (08:04→21:02)
[2018-04-15] MEDS: GABAPENTIN 300 MG CAP PO SCH ×3 (08:04→21:02)
[2018-04-15] MEDS: POTASSIUM CL 10 MEQ TAB PO SCH (08:05)
[2018-04-15] MEDS: ARIPiprazole 2 MG TAB PO SCH (08:05)
[2018-04-15] MEDS: METOPROLOL TARTRATE 25 MG TAB PO SCH ×2 (09:43→21:03)
--- NOTE | 2018-04-15 10:09 | PCMIDPN ---
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 s/p emergent MV repair with ring annuloplasty . S/p pericardial drain/window 03/25. Blood cultures cleared since 03/22. --continue nafcillin, stop date 04/28/18 # IV drug use: On Suboxone # Elevated LFTs --recheck labs tomorrow Medications Abx # Nafcillin 2gm IV q4 Coumadin micro 03/16 blood cx : MSSA 03/18 heart tissue 4+ GPC; MSSA 03/20 blood cultures (2 sets) MSSA, oxacillin <0.5, Vanco =1 03/22 blood cultures (1 set): Negative 03/26 blood cx (2) negative Subjective: Patient is feeling improved. The she stated that she thought I was never coming back to see her, implying that this would be due to her uncovered history of drug use. No diarrhea or rash Objective: Vital Signs Temp Pulse Resp BP Pulse Ox 37.0 C 85 11 L 98/57 L 96 04/15/18 07:06 04/15/18 07:06 04/15/18 07:06 04/15/18 07:06 04/15/18 07:06 Laboratory Results 04/14/18 11:40 04/14/18 11:40 04/14/18 04/15/18 04/16/18 05:59 05:59 05:59 Intake Total 2359 2041 Balance 2359 2041 ESR 24 MM/HR (0-20) H 03/17/18 04:43 C-Reactive Protein 79.4 mg/L (<10.0) H 03/27/18 07:00 - Physical Exam General Appearance: alert, no apparent distress EENT: other (Moist mucous membranes, no oral ulceration) Respiratory: lungs clear, No accessory muscle use Cardiac/Chest: regular rate, rhythm, other (Midline sternotomy scar healing well ), No systolic murmur Extremities: No pedal edema Abdomen: non-tender, soft Skin: No rash Neuro/Psych: alert, normal mood/affect, oriented x 3 - Line/s RUE PICC Lines: No drainage, No erythema - Time Spent With Patient Time Spent with Patient: greater than 35 minutes Time Spent with Patient: Greater than 35 minutes spent on this patients care, greater than 50% of time spent counseling, educating, and coordinating care regarding the above mentioned plan. ICD10 Worksheet Patient Problems: Problems Problem Status Onset Acute blood loss anemia Acute Anemia Acute Back pain Acute Endocarditis of mitral valve Acute Mitral regurgitation Acute Pericardial effusion Acute Septic embolism Acute Status post mitral valve annuloplasty Acute Status post mitral valve repair Acute Uncontrolled pain Acute Discitis of lumbar region Acute Fever Acute Osteomyelitis of lumbar spine Acute
[2018-04-15] MEDS: WARFARIN SODIUM 5 MG TAB PO SCH (16:08)
--- NOTE | 2018-04-15 17:03 | HOSPPROG ---
Hospitalist Progress Note Assessment/Plan: 27 yo F w MSSA endocarditis. 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 Cultures negative 03/28 Nafcillin IVDU/chronic pain: Suboxone 8mg am, 4mg afternoon this appears to be a good strategy for her as she reports improved pain control Right foot cellulitis: resolved Left hearing loss/pain: otoscope exam normal. Due to CVA. Outpatient audiogram hx MSSA L5-S1 diskitis: s/p anterior I&D, 11/17 Septic shock: resolved ABLA: expected with surgery. s/p transfusion Embolic CVA: left facial droop. hearing loss Depression/PTSD: Dr. Mcnair evaluated. If mood changes can increase Abilify to 5mg or Gabapentin 1200mg TID. Do not increase SSRI. FU MHP. HCV Diet: regular proph: warfarin follow inr daily Subjective: no new complaints Objective: Vital Signs Temp Pulse Resp BP Pulse Ox 37.1 C 103 H 19 105/56 L 97 04/15/18 16:00 04/15/18 16:00 04/15/18 16:00 04/15/18 16:00 04/15/18 16:00 Laboratory Results 04/14/18 11:40 04/14/18 11:40 04/14/18 04/15/18 04/16/18 05:59 05:59 05:59 Intake Total 2359 2041 1200 Balance 2359 2041 1200 PT 27.4 SEC (12.0-15.0) H 04/15/18 05:35 INR 2.55 (0.83-1.16) H 04/15/18 05:35 Brain MRI - lacunar infarcts CXR viewed, my personal interpretation is - negative - Physical Exam Constitutional: no apparent distress, appears nourished, not in pain Cardiovascular: regular rate and rhythym, no murmur, rub, or gallop Respiratory: no respiratory distress, no rales or rhonchi, clear to auscultation Gastrointestinal: normoactive bowel sounds, soft, non-tender abdomen, no palpable masses Skin: no rashes or abrasions, no fluctuance, no induration Neurologic: AAOx3, sensation intact bilaterally Psychiatric: interacting appropriately, not anxious, not encephalopathic, thought process linear ICD10 Worksheet Patient Problems: Problems Problem Status Onset Acute blood loss anemia Acute Anemia Acute Back pain Acute Endocarditis of mitral valve Acute Mitral regurgitation Acute Pericardial effusion Acute Septic embolism Acute Status post mitral valve annuloplasty Acute Status post mitral valve repair Acute Uncontrolled pain Acute Discitis of lumbar region Acute Fever Acute Osteomyelitis of lumbar spine Acute
[2018-04-15] MEDS: MELATONIN 3 MG TAB PO SCH (21:02)
[2018-04-15] MEDS: ONDANSETRON DISINTEGRATING 4 MG TAB PO PRN (21:02)
[2018-04-16] MEDS: NAFCILLIN SODIUM 2 GM in D5W 100 ML IV SCH ×6 (02:50→22:38)
[2018-04-16 06:48] LABS: INR 2.3 (0.83-1.16); PROTIME(PATIENT) 25.3 SEC (12.0-15.0)
[2018-04-16] MEDS: ACETAMINOPHEN 325 MG TAB PO PRN ×2 (08:00→13:53)
[2018-04-16] MEDS: FUROSEMIDE 40 MG TAB PO SCH (08:01)
[2018-04-16] MEDS: FERROUS SULFATE 325 MG TAB PO SCH ×2 (08:01→21:16)
[2018-04-16] MEDS: IBUPROFEN 600 MG TAB PO PRN ×2 (08:01→13:53)
[2018-04-16] MEDS: GABAPENTIN 300 MG CAP PO SCH ×2 (08:01→16:05)
[2018-04-16] MEDS: FLUoxetine 20 MG CAP PO SCH (08:01)
[2018-04-16] MEDS: POTASSIUM CL 10 MEQ TAB PO SCH (08:01)
[2018-04-16] MEDS: ARIPiprazole 2 MG TAB PO SCH (08:01)
[2018-04-16] MEDS: METOPROLOL TARTRATE 25 MG TAB PO SCH ×2 (08:01→20:41)
[2018-04-16] MEDS: ASPIRIN 81 MG CHEWABLE TAB PO SCH (08:03)
[2018-04-16] MEDS ORDERED: OLANZapine DISINTEGR 5 MG TAB PO PRN (11:16)
[2018-04-16] MEDS ORDERED: FLUoxetine 20 MG CAP PO SCH (11:26)
[2018-04-16] MEDS ORDERED: ARIPiprazole 2 MG TAB PO SCH (11:30)
[2018-04-16] MEDS ORDERED: ARIPiprazole 2 MG TAB PO ONE (11:33)
--- NOTE | 2018-04-16 13:51 | HOSPPROG ---
Hospitalist Progress Note Assessment/Plan: * MSSA endocarditis of mitral valve s/p MV repair with annuloplasty -IV Nafcillin through 04/28 -prophylactic warfarin for 3 months * Septic emboli to kidney/spleen/brain * s/p septic shock -BP stable off pressors * Post-op pericardial effusion s/p evacuation * Narcotic addiction - IVDA -Suboxone * Depression/anxiety/PTSD -severe anxiety last pm - patient tearful -reviewed recommendation by Dr. Mcnair -increase Abilify and gabapentin * Previous epidural abscess s/p I&D -chronic suppressive abx given indwelling back hardware * Stroke due to septic emboli -neuro exam improved * Hep C Subjective: Bad anxiety last night - very tearful Objective: Vital Signs Temp Pulse Resp BP Pulse Ox 37.3 C 91 15 90/66 L 98 04/16/18 07:58 04/16/18 07:58 04/16/18 07:58 04/16/18 07:58 04/16/18 07:58 Laboratory Results 04/14/18 11:40 04/16/18 05:55 04/15/18 04/16/18 04/17/18 05:59 05:59 05:59 Intake Total 2041 2500 250 Balance 2041 2500 250 PT 25.3 SEC (12.0-15.0) H 04/16/18 05:55 INR 2.30 (0.83-1.16) H 04/16/18 05:55 old chart reviewed - previous consult by Dr. Soto - increase med parameters reviewed tele reviewed - NSR - Physical Exam Constitutional: no apparent distress, appears nourished, not in pain Cardiovascular: regular rate and rhythym, no murmur, rub, or gallop Respiratory: no respiratory distress, no rales or rhonchi, clear to auscultation Gastrointestinal: normoactive bowel sounds, soft, non-tender abdomen, no palpable masses Skin: no rashes or abrasions, no fluctuance, no induration Neurologic: AAOx3, sensation intact bilaterally Psychiatric: interacting appropriately, not encephalopathic, thought process linear, anxious, depressed ICD10 Worksheet Patient Problems: Problems Problem Status Onset Acute blood loss anemia Acute Anemia Acute Back pain Acute Endocarditis of mitral valve Acute Mitral regurgitation Acute Pericardial effusion Acute Septic embolism Acute Status post mitral valve annuloplasty Acute Status post mitral valve repair Acute Uncontrolled pain Acute Discitis of lumbar region Acute Fever Acute Osteomyelitis of lumbar spine Acute
[2018-04-16] MEDS ORDERED: WARFARIN SODIUM 5 MG TAB PO SCH (16:00)
[2018-04-16] MEDS ORDERED: LORazepam 2 MG/ML INJ IVP ONE (20:09)
[2018-04-16] MEDS: PRAZOSIN HCL 1 MG CAP PO SCH (20:41)
[2018-04-16] MEDS: MELATONIN 3 MG TAB PO SCH (20:41)
[2018-04-16] MEDS ORDERED: GABAPENTIN 300 MG CAP PO SCH (21:00)
[2018-04-17] MEDS: NAFCILLIN SODIUM 2 GM in D5W 100 ML IV SCH ×6 (02:03→21:08)
[2018-04-17] MEDS: ACETAMINOPHEN 325 MG TAB PO PRN ×3 (07:23→18:57)
[2018-04-17] MEDS: FLUoxetine 20 MG CAP PO SCH (08:00)
[2018-04-17] MEDS: GABAPENTIN 300 MG CAP PO SCH (08:00)
[2018-04-17] MEDS: ARIPiprazole 5 MG TAB PO SCH (08:01)
[2018-04-17] MEDS: METOPROLOL TARTRATE 25 MG TAB PO SCH ×2 (08:01→21:09)
[2018-04-17] MEDS: FERROUS SULFATE 325 MG TAB PO SCH ×2 (08:02→21:09)
--- NOTE | 2018-04-17 12:11 | ASMTCMCOM ---
CM Note CM Note Notes: Complex Care Meeting Note: Discussed patient's case in Complex Care rounding on Saturday, 04/16. At this time, continue to anticipate patient will stay inpatient for the duration of her IV abx course. If further planning needs to take place - Case Management available to assist. Anodizer/Director aware and involved. Date Signed: 04/17/2018 12:10 PM Electronically Signed By:Lorena Lozano RN
[2018-04-17] MEDS: WARFARIN SODIUM 5 MG TAB PO SCH (15:01)
[2018-04-17] MEDS: GABAPENTIN 400 MG CAP PO SCH ×2 (15:01→21:12)
--- NOTE | 2018-04-17 16:07 | HOSPPROG ---
Hospitalist Progress Note Assessment/Plan: * MSSA endocarditis of mitral valve s/p MV repair with annuloplasty -IV Nafcillin through 04/28 -prophylactic warfarin for 3 months * Septic emboli to kidney/spleen/brain * s/p septic shock -BP stable off pressors * Post-op pericardial effusion s/p evacuation * Narcotic addiction - IVDA -Suboxone * Depression/anxiety/PTSD -severe anxiety -reviewed recommendation by Dr. Mcnair -increase Abilify and gabapentin -add Prazosin - may be uptitrated to 3mg * Previous epidural abscess s/p I&D -chronic suppressive abx given indwelling back hardware * 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 and HARRISON * Hep C Subjective: Severe anxiety at night Objective: Vital Signs Temp Pulse Resp BP Pulse Ox 37.1 C 69 14 98/65 L 95 04/17/18 07:29 04/17/18 07:29 04/17/18 07:29 04/17/18 07:29 04/17/18 07:29 Laboratory Results 04/14/18 11:40 04/16/18 05:55 04/16/18 04/17/18 04/18/18 05:59 05:59 05:59 Intake Total 2500 1850 Balance 2500 1850 PT 25.3 SEC (12.0-15.0) H 04/16/18 05:55 INR 2.30 (0.83-1.16) H 04/16/18 05:55 - Time Spent With Patient Time Spent with Patient: greater than 35 minutes (lengthy discussion with hospital staff regarding supporting her emotional needs as she is panicky and decompesated) Time Spent with Patient: Greater than 35 minutes spent on this patients care, greater than 50% of time spent counseling, educating, and coordinating care regarding the above mentioned plan. - Physical Exam Constitutional: no apparent distress, appears nourished, not in pain Cardiovascular: regular rate and rhythym, no murmur, rub, or gallop Respiratory: no respiratory distress, no rales or rhonchi, clear to auscultation Gastrointestinal: normoactive bowel sounds, soft, non-tender abdomen, no palpable masses Skin: no rashes or abrasions, no fluctuance, no induration Neurologic: AAOx3, sensation intact bilaterally Psychiatric: interacting appropriately, not anxious, not encephalopathic, thought process linear ICD10 Worksheet Patient Problems: Problems Problem Status Onset Acute blood loss anemia Acute Anemia Acute Back pain Acute Endocarditis of mitral valve Acute Mitral regurgitation Acute Pericardial effusion Acute Septic embolism Acute Status post mitral valve annuloplasty Acute Status post mitral valve repair Acute Uncontrolled pain Acute Discitis of lumbar region Acute Fever Acute Osteomyelitis of lumbar spine Acute
--- NOTE | 2018-04-17 16:51 | ASMTCMCOM ---
CM Note CM Note Notes: Met with Lexus who is experiencing high levels of anxiety. Dr. Orozco has made some adjustments to her medications to see if this helps. Olena Shaw and CM will meet with the patient at 9:00 AM to adjust her Behavioral contract and set up procedure to facilitate patient having safe visits with friends. Lexus feels if she can have some visitors it will help to complete her ABX program with us. Provided patient with some sunglasses and encouraged her to request assistance with a walk outside or some time on the deck. She is having headaches from the stroke and is currently sensitive to light but needs fresh air. CM will follow. Date Signed: 04/17/2018 04:50 PM Electronically Signed By:Christen Simpson LCSW
[2018-04-17] MEDS ORDERED: ALPRAZolam 0.5 MG TAB PO ONE (20:27)
[2018-04-17] MEDS: MELATONIN 3 MG TAB PO SCH (21:12)
[2018-04-17] MEDS: PRAZOSIN HCL 1 MG CAP PO SCH (21:13)
[2018-04-18] MEDS: NAFCILLIN SODIUM 2 GM in D5W 100 ML IV SCH ×6 (01:48→22:22)
[2018-04-18 05:56] LABS: INR 2.22 (0.83-1.16); PROTIME(PATIENT) 24.6 SEC (12.0-15.0)
[2018-04-18] MEDS: GABAPENTIN 400 MG CAP PO SCH ×3 (08:05→22:22)
[2018-04-18] MEDS: ARIPiprazole 5 MG TAB PO SCH (08:06)
[2018-04-18] MEDS: FLUoxetine 20 MG CAP PO SCH (08:06)
[2018-04-18] MEDS: METOPROLOL TARTRATE 25 MG TAB PO SCH ×2 (08:07→19:31)
[2018-04-18] MEDS: FERROUS SULFATE 325 MG TAB PO SCH ×2 (08:07→19:30)
--- NOTE | 2018-04-18 12:42 | ASMTCMCOM ---
RANCHO Note RANCHO Note Notes: Meeting with patient and the professor of nursing this morning to establish an amendment to her behavioral contract. The amendment will allow her to have 1 visit per day with a friend for 1 hour. The terms of this are in the amendment in her medical chart. Patient has made a list of friends she would like to see which is also in her chart. If the visits go well with no problems or concerns, we will review again early next week. Patient's mother will not be a part of this visitation plan currently. Patient was also given a puzzel and some magazines to help with providing some activity. We are going to get a dvd player so she can watch movies. Patient's nurse is working on this. Any staff member involved in caring for the patient or assisting with the visitation process needs to familirize themselves with the amendment contract in the patient's chart. CM will follow. Date Signed: 04/18/2018 12:41 PM Electronically Signed By:Christen Simpson LCSW
[2018-04-18] MEDS: ALPRAZolam 0.5 MG TAB PO PRN ×2 (12:52→22:22)
[2018-04-18] MEDS: WARFARIN SODIUM 5 MG TAB PO SCH (15:57)
--- NOTE | 2018-04-18 16:16 | HOSPPROG ---
Hospitalist Progress Note Assessment/Plan: 27 yo F with hx of IVDA presenting with MSSA endocarditis * MSSA endocarditis of mitral valve s/p MV repair with annuloplasty -IV Nafcillin through 04/28 -prophylactic warfarin for 3 months * Septic emboli to kidney/spleen/brain * s/p septic shock -BP stable off pressors * Post-op pericardial effusion s/p evacuation * Narcotic addiction - IVDA -Suboxone-doing better but still having break through sxs especially at night --will increase to 8mg bid from 04/05 and monitor * Depression/anxiety/PTSD -severe anxiety -continue ability/gabapentin and xanax for severe anxiety attacks only -add Prazosin - may be uptitrated to 3mg * Previous epidural abscess s/p I&D -chronic suppressive abx given indwelling back hardware * 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 and HARRISON * Hep C Patient new to my care. Old records reviewed and summarized as above. Subjective: no significant overnight events, patient very anxious/labile today Objective: Vital Signs Temp Pulse Resp BP Pulse Ox 37.2 C 102 H 16 106/63 96 04/17/18 21:14 04/18/18 16:00 04/18/18 16:00 04/18/18 16:00 04/18/18 16:00 Laboratory Results 04/14/18 11:40 04/16/18 05:55 04/17/18 04/18/18 04/19/18 05:59 05:59 05:59 Intake Total 1850 1300 Balance 1850 1300 PT 24.6 SEC (12.0-15.0) H 04/18/18 05:30 INR 2.22 (0.83-1.16) H 04/18/18 05:30 awake alert anicteric op clear systolic murmur sternal incision cdi cta b soft nt nd no cce warm dry well perfused ICD10 Worksheet Patient Problems: Problems Problem Status Onset Pericardial effusion Acute Mitral regurgitation Acute Septic embolism Acute Anemia Acute Acute blood loss anemia Acute Status post mitral valve annuloplasty Acute Status post mitral valve repair Acute Endocarditis of mitral valve Acute Discitis of lumbar region Acute Fever Acute Osteomyelitis of lumbar spine Acute Back pain Acute Uncontrolled pain Acute
[2018-04-18] MEDS: MELATONIN 3 MG TAB PO SCH (19:29)
[2018-04-18] MEDS: PRAZOSIN HCL 1 MG CAP PO SCH (19:30)
[2018-04-18] MEDS: ACETAMINOPHEN 325 MG TAB PO PRN (19:31)
[2018-04-19] MEDS: NAFCILLIN SODIUM 2 GM in D5W 100 ML IV SCH ×6 (02:01→22:21)
[2018-04-19] MEDS: ACETAMINOPHEN 325 MG TAB PO PRN ×3 (03:37→22:23)
[2018-04-19] MEDS: ALPRAZolam 0.5 MG TAB PO PRN ×3 (07:19→22:21)
[2018-04-19] MEDS: ARIPiprazole 5 MG TAB PO SCH (08:20)
[2018-04-19] MEDS: GABAPENTIN 400 MG CAP PO SCH ×3 (08:21→22:21)
[2018-04-19] MEDS: METOPROLOL TARTRATE 25 MG TAB PO SCH ×2 (08:22→19:32)
[2018-04-19] MEDS: FLUoxetine 20 MG CAP PO SCH (08:23)
[2018-04-19] MEDS: FERROUS SULFATE 325 MG TAB PO SCH ×2 (08:23→19:34)
--- NOTE | 2018-04-19 13:36 | HOSPPROG ---
Hospitalist Progress Note Assessment/Plan: 27 yo F with hx of IVDA presenting with MSSA endocarditis * MSSA endocarditis of mitral valve s/p MV repair with annuloplasty -IV Nafcillin through 04/28, to be completed in house given hx of IVDA -prophylactic warfarin for 3 months * Septic emboli to kidney/spleen/brain * left upper/inner thigh mass: will evaluate with US, patient feels it is new, well circumscribed but given hx of recurrent septic emboli will evaluate further w/US * s/p septic shock -BP stable off pressors * Post-op pericardial effusion s/p evacuation * Narcotic addiction - IVDA -Suboxone-sxs significantly improved on 8mg bid, will continue * Depression/anxiety/PTSD -severe anxiety -continue ability/gabapentin and xanax for severe anxiety attacks only -continue Prazosin * Previous epidural abscess s/p I&D -chronic suppressive abx given indwelling back hardware * 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 and HARRISON * Hep C IP status Subjective: no significant overnight events, patient notes that her anxiety is better controlled on the 16mg of suboxone Objective: Vital Signs Temp Pulse Resp BP Pulse Ox 37.1 C 102 H 16 98/59 L 96 04/19/18 07:22 04/19/18 07:22 04/19/18 07:22 04/19/18 07:22 04/19/18 07:22 Laboratory Results 04/14/18 11:40 04/16/18 05:55 04/18/18 04/19/18 04/20/18 05:59 05:59 05:59 Intake Total 1300 2850 Balance 1300 2850 PT 24.6 SEC (12.0-15.0) H 04/18/18 05:30 INR 2.22 (0.83-1.16) H 04/18/18 05:30 awake alert anicteric op clear systolic murmur sternal incision cdi cta b soft nt nd no cce, hard well circumscribed mass in left upper inner thigh warm dry well perfused - Time Spent With Patient Time Spent with Patient: greater than 35 minutes Time Spent with Patient: Greater than 35 minutes spent on this patients care, greater than 50% of time spent counseling, educating, and coordinating care regarding the above mentioned plan. ICD10 Worksheet Patient Problems: Problems Problem Status Onset Pericardial effusion Acute Mitral regurgitation Acute Septic embolism Acute Anemia Acute Acute blood loss anemia Acute Status post mitral valve annuloplasty Acute Status post mitral valve repair Acute Endocarditis of mitral valve Acute Discitis of lumbar region Acute Fever Acute Osteomyelitis of lumbar spine Acute Back pain Acute Uncontrolled pain Acute
[2018-04-19] MEDS ORDERED: WARFARIN SODIUM 7.5 MG TAB PO ONE (16:00)
--- NOTE | 2018-04-19 16:12 | PCMIDPN ---
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 Status post mitral valve replacement and annuloplasty. Patient continues to do well. Has approximately 1 more week of IV nafcillin. Plan: 1. Continue IV nafcillin at current dose. Check on weekly labs on Saturday. 2. Continue to manage symptomatically including pain medications for postoperative discomfort. 3. Continue management for narcotic addiction. 04/07/18 10:08 04/19/18 16:11 Subjective: Patient is doing fairly well. Admits to having some joint aches and pains as she wakes up in when she has been lying in the same place for a period of time. No fevers. Objective: Nafcillin # 32/42 Vital Signs Temp Pulse Resp BP Pulse Ox 37.1 C 102 H 16 98/59 L 96 04/19/18 07:22 04/19/18 07:22 04/19/18 07:22 04/19/18 07:22 04/19/18 07:22 Laboratory Results 04/14/18 11:40 04/16/18 05:55 04/18/18 04/19/18 04/20/18 05:59 05:59 05:59 Intake Total 1300 2850 Balance 1300 2850 ESR 24 MM/HR (0-20) H 03/17/18 04:43 C-Reactive Protein 79.4 mg/L (<10.0) H 03/27/18 07:00 - Physical Exam General Appearance: WD/WN, alert, no apparent distress, non-toxic Skin: normal color, warm/dry, No rash Neuro/Psych: alert, normal mood/affect, oriented x 3 ICD10 Worksheet Patient Problems: Problems Problem Status Onset Acute blood loss anemia Acute Anemia Acute Back pain Acute Endocarditis of mitral valve Acute Mitral regurgitation Acute Pericardial effusion Acute Septic embolism Acute Status post mitral valve annuloplasty Acute Status post mitral valve repair Acute Uncontrolled pain Acute Discitis of lumbar region Acute Fever Acute Osteomyelitis of lumbar spine Acute
[2018-04-19] MEDS: PRAZOSIN HCL 1 MG CAP PO SCH (19:32)
[2018-04-19] MEDS: MELATONIN 3 MG TAB PO SCH (19:34)
[2018-04-19] MEDS: IBUPROFEN 600 MG TAB PO PRN (19:39)
[2018-04-20] MEDS: NAFCILLIN SODIUM 2 GM in D5W 100 ML IV SCH ×6 (02:05→21:52)
[2018-04-20] MEDS: ACETAMINOPHEN 325 MG TAB PO PRN ×2 (06:43→12:25)
[2018-04-20 07:00] LABS: INR 1.65 (0.83-1.16); PROTIME(PATIENT) 19.6 SEC (12.0-15.0)
[2018-04-20] MEDS: ALPRAZolam 0.5 MG TAB PO PRN ×3 (07:11→20:10)
[2018-04-20] MEDS: GABAPENTIN 400 MG CAP PO SCH ×3 (08:01→21:52)
[2018-04-20] MEDS: FERROUS SULFATE 325 MG TAB PO SCH ×2 (08:01→20:02)
[2018-04-20] MEDS: METOPROLOL TARTRATE 25 MG TAB PO SCH ×2 (08:02→20:00)
[2018-04-20] MEDS: FLUoxetine 20 MG CAP PO SCH (08:02)
[2018-04-20] MEDS: ARIPiprazole 5 MG TAB PO SCH (08:03)
--- NOTE | 2018-04-20 13:39 | HOSPPROG ---
Hospitalist Progress Note Assessment/Plan: 27 yo F with hx of IVDA presenting with MSSA endocarditis * MSSA endocarditis of mitral valve s/p MV repair with annuloplasty -IV Nafcillin through 04/28, to be completed in house given hx of IVDA -prophylactic warfarin for 3 months * Septic emboli to kidney/spleen/brain * left upper/inner thigh mass: -US appears benign, presumably lipoma, cautioned on things to look for but will monitor for now * s/p septic shock -BP stable off pressors * Post-op pericardial effusion s/p evacuation * Narcotic addiction - IVDA -Suboxone-sxs significantly improved on 8mg bid, will continue (Rx placed in patients chart for discharge) * Depression/anxiety/PTSD -severe anxiety -continue ability/gabapentin and xanax for severe anxiety attacks only -continue Prazosin * Previous epidural abscess s/p I&D -chronic suppressive abx given indwelling back hardware * 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 and HARRISON * Hep C IP status Subjective: no significant overnight events, patient reports doing well today, anxiety controlled Objective: Vital Signs Temp Pulse Resp BP Pulse Ox 36.9 C 70 16 97/60 L 95 04/20/18 07:47 04/20/18 08:02 04/20/18 07:47 04/20/18 08:02 04/20/18 07:47 Laboratory Results 04/14/18 11:40 04/16/18 05:55 04/19/18 04/20/18 04/21/18 05:59 05:59 05:59 Intake Total 2850 2300 Balance 2850 2300 PT 19.6 SEC (12.0-15.0) H 04/20/18 06:35 INR 1.65 (0.83-1.16) H 04/20/18 06:35 awake alert anicteric op clear systolic murmur sternal incision cdi cta b soft nt nd no cce, hard well circumscribed mass in left upper inner thigh warm dry well perfused ICD10 Worksheet Patient Problems: Problems Problem Status Onset Acute blood loss anemia Acute Anemia Acute Back pain Acute Endocarditis of mitral valve Acute Mitral regurgitation Acute Pericardial effusion Acute Septic embolism Acute Status post mitral valve annuloplasty Acute Status post mitral valve repair Acute Uncontrolled pain Acute Discitis of lumbar region Acute Fever Acute Osteomyelitis of lumbar spine Acute
[2018-04-20] MEDS: WARFARIN SODIUM 7.5 MG TAB PO SCH (17:58)
[2018-04-20] MEDS: MELATONIN 3 MG TAB PO SCH (20:02)
[2018-04-20] MEDS: PRAZOSIN HCL 1 MG CAP PO SCH (20:02)
[2018-04-21] MEDS: NAFCILLIN SODIUM 2 GM in D5W 100 ML IV SCH ×6 (01:51→21:51)
[2018-04-21] MEDS: IBUPROFEN 600 MG TAB PO PRN (01:57)
[2018-04-21] MEDS: ALPRAZolam 0.5 MG TAB PO PRN ×3 (01:57→19:50)
[2018-04-21 05:31] LABS: INR 1.81 (0.83-1.16); PROTIME(PATIENT) 21.1 SEC (12.0-15.0)
[2018-04-21] MEDS: GABAPENTIN 400 MG CAP PO SCH ×3 (08:14→19:51)
[2018-04-21] MEDS: FERROUS SULFATE 325 MG TAB PO SCH ×2 (08:14→19:50)
[2018-04-21] MEDS: ACETAMINOPHEN 325 MG TAB PO PRN ×3 (08:14→18:18)
[2018-04-21] MEDS: METOPROLOL TARTRATE 25 MG TAB PO SCH ×2 (08:15→19:50)
[2018-04-21] MEDS: FLUoxetine 20 MG CAP PO SCH (08:15)
[2018-04-21] MEDS: ARIPiprazole 5 MG TAB PO SCH (08:16)
--- NOTE | 2018-04-21 10:54 | HOSPPROG ---
Hospitalist Progress Note Assessment/Plan: 27 yo F with hx of IVDA presenting with MSSA endocarditis * MSSA endocarditis of mitral valve s/p MV repair with annuloplasty -IV Nafcillin through 04/28, to be completed in house given hx of IVDA -prophylactic warfarin for 3 months * Septic emboli to kidney/spleen/brain * left upper/inner thigh mass: -US appears benign, presumably lipoma, cautioned on things to look for but will monitor for now * s/p septic shock -BP stable off pressors * Post-op pericardial effusion s/p evacuation * Narcotic addiction - IVDA -Suboxone-sxs significantly improved on 8mg bid, will continue (Rx placed in patients chart for discharge) * Depression/anxiety/PTSD -severe anxiety -continue ability/gabapentin and xanax for severe anxiety attacks only -continue Prazosin * Previous epidural abscess s/p I&D -chronic suppressive abx given indwelling back hardware * 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 Objective: Vital Signs Temp Pulse Resp BP Pulse Ox 37.1 C 98 16 90/61 L 94 04/21/18 07:32 04/21/18 07:32 04/21/18 07:32 04/21/18 07:32 04/21/18 07:32 Laboratory Results 04/14/18 11:40 04/16/18 05:55 04/20/18 04/21/18 04/22/18 05:59 05:59 05:59 Intake Total 2300 500 Balance 2300 500 PT 21.1 SEC (12.0-15.0) H 04/21/18 05:00 INR 1.81 (0.83-1.16) H 04/21/18 05:00 - Physical Exam Constitutional: no apparent distress Eyes: PERRL Ears, Nose, Mouth, Throat: moist mucous membranes Cardiovascular: regular rate and rhythym Respiratory: no respiratory distress Gastrointestinal: soft, non-tender abdomen Genitourinary: no bladder tenderness Skin: warm Musculoskeletal: full muscle strength Neurologic: AAOx3 Psychiatric: interacting appropriately ICD10 Worksheet Patient Problems: Problems Problem Status Onset Acute blood loss anemia Acute Anemia Acute Back pain Acute Endocarditis of mitral valve Acute Mitral regurgitation Acute Pericardial effusion Acute Septic embolism Acute Status post mitral valve annuloplasty Acute Status post mitral valve repair Acute Uncontrolled pain Acute Discitis of lumbar region Acute Fever Acute Osteomyelitis of lumbar spine Acute
[2018-04-21] MEDS: WARFARIN SODIUM 7.5 MG TAB PO SCH (15:07)
--- NOTE | 2018-04-21 15:35 | ASMTCMCOM ---
CM Note CM Note Notes: 27yr old understands the need for her IV ABX to go to completion but getting very tired of being hospitalized. Can have visitors per new contract. Enjoys her walks outside with RN. Date Signed: 04/21/2018 03:34 PM Electronically Signed By:Sunshine Hurley LCSW
[2018-04-21] MEDS: PRAZOSIN HCL 1 MG CAP PO SCH (19:50)
[2018-04-21] MEDS: MELATONIN 3 MG TAB PO SCH (19:51)
[2018-04-22] MEDS: ACETAMINOPHEN 325 MG TAB PO PRN ×2 (00:09→18:01)
[2018-04-22] MEDS ORDERED: ALPRAZolam 0.5 MG TAB PO ONE (00:23)
[2018-04-22] MEDS: NAFCILLIN SODIUM 2 GM in D5W 100 ML IV SCH ×6 (02:00→21:33)
[2018-04-22] MEDS: ALPRAZolam 0.5 MG TAB PO PRN ×3 (03:30→20:16)
[2018-04-22] MEDS: IBUPROFEN 600 MG TAB PO PRN ×2 (03:30→21:33)
[2018-04-22] MEDS: FLUoxetine 20 MG CAP PO SCH (09:00)
[2018-04-22] MEDS: ARIPiprazole 5 MG TAB PO SCH (09:00)
[2018-04-22] MEDS: GABAPENTIN 400 MG CAP PO SCH ×3 (09:00→20:13)
[2018-04-22] MEDS: METOPROLOL TARTRATE 25 MG TAB PO SCH ×2 (09:00→20:16)
[2018-04-22] MEDS: FERROUS SULFATE 325 MG TAB PO SCH ×2 (09:00→20:16)
[2018-04-22 12:41] LABS: PLATELET COUNT 415 10^3/uL (150-400)
[2018-04-22 13:36] LABS: INR 1.97 (0.83-1.16); PROTIME(PATIENT) 22.5 SEC (12.0-15.0)
[2018-04-22] MEDS: WARFARIN SODIUM 7.5 MG TAB PO SCH (15:57)
[2018-04-22] MEDS: PRAZOSIN HCL 1 MG CAP PO SCH (20:16)
[2018-04-22] MEDS: MELATONIN 3 MG TAB PO SCH (20:16)
[2018-04-23] MEDS: NAFCILLIN SODIUM 2 GM in D5W 100 ML IV SCH ×6 (02:12→22:05)
[2018-04-23] MEDS: ACETAMINOPHEN 325 MG TAB PO PRN ×3 (04:25→22:40)
[2018-04-23] MEDS: ALPRAZolam 0.5 MG TAB PO PRN ×3 (04:26→19:23)
[2018-04-23 06:51] LABS: INR 2.16 (0.83-1.16); PROTIME(PATIENT) 24.1 SEC (12.0-15.0)
[2018-04-23] MEDS: FLUoxetine 20 MG CAP PO SCH (08:34)
[2018-04-23] MEDS: IBUPROFEN 600 MG TAB PO PRN (08:34)
[2018-04-23] MEDS: METOPROLOL TARTRATE 25 MG TAB PO SCH ×2 (08:34→20:24)
[2018-04-23] MEDS: GABAPENTIN 400 MG CAP PO SCH ×3 (08:37→20:24)
[2018-04-23] MEDS: FERROUS SULFATE 325 MG TAB PO SCH ×2 (08:37→20:24)
[2018-04-23] MEDS: ARIPiprazole 5 MG TAB PO SCH (08:37)
--- NOTE | 2018-04-23 12:04 | HOSPPROG ---
Hospitalist Progress Note Assessment/Plan: 27 yo F with hx of IVDA presenting with MSSA endocarditis * MSSA endocarditis of mitral valve s/p MV repair with annuloplasty -IV Nafcillin through 04/28, to be completed in house given hx of IVDA -prophylactic warfarin for 3 months * Septic emboli to kidney/spleen/brain * left upper/inner thigh mass: -US appears benign, presumably lipoma, cautioned on things to look for but will monitor for now * s/p septic shock -BP stable off pressors * Post-op pericardial effusion s/p evacuation * Narcotic addiction - IVDA -Suboxone-sxs significantly improved on 8mg bid, will continue (Rx placed in patients chart for discharge) * Depression/anxiety/PTSD -severe anxiety -continue ability/gabapentin and xanax for severe anxiety attacks only -continue Prazosin * Previous epidural abscess s/p I&D -chronic suppressive abx given indwelling back hardware * 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 She was having difficult time obtaining followup appointment with suboxone prescriber after discharge. Objective: Vital Signs Temp Pulse Resp BP Pulse Ox 36.9 C 105 H 14 95/59 L 97 04/23/18 08:00 04/23/18 08:34 04/23/18 08:00 04/23/18 08:34 04/23/18 08:00 Laboratory Results 04/22/18 03:15 04/22/18 03:15 04/22/18 04/23/18 04/24/18 05:59 05:59 05:59 Intake Total 1700 700 Output Total 1 Balance 1700 699 PT 24.1 SEC (12.0-15.0) H 04/23/18 06:15 INR 2.16 (0.83-1.16) H 04/23/18 06:15 - Physical Exam Constitutional: no apparent distress Eyes: PERRL Ears, Nose, Mouth, Throat: moist mucous membranes Cardiovascular: regular rate and rhythym Respiratory: no respiratory distress Gastrointestinal: soft, non-tender abdomen Skin: warm Musculoskeletal: full muscle strength Neurologic: AAOx3 Psychiatric: interacting appropriately Lymph, Heme, Immunologic: No ecchymoses, No petechiae ICD10 Worksheet Patient Problems: Problems Problem Status Onset Acute blood loss anemia Acute Anemia Acute Back pain Acute Endocarditis of mitral valve Acute Mitral regurgitation Acute Pericardial effusion Acute Septic embolism Acute Status post mitral valve annuloplasty Acute Status post mitral valve repair Acute Uncontrolled pain Acute Discitis of lumbar region Acute Fever Acute Osteomyelitis of lumbar spine Acute
[2018-04-23] MEDS: WARFARIN SODIUM 7.5 MG TAB PO SCH (15:58)
[2018-04-23] MEDS: MELATONIN 3 MG TAB PO SCH (20:23)
[2018-04-23] MEDS: PRAZOSIN HCL 1 MG CAP PO SCH (20:23)
[2018-04-24] MEDS: IBUPROFEN 600 MG TAB PO PRN (01:11)
[2018-04-24] MEDS ORDERED: LIDOCAINE 4%/MENTHOL 1% PATCH TD PRN (01:53)
[2018-04-24] MEDS: NAFCILLIN SODIUM 2 GM in D5W 100 ML IV SCH ×6 (02:00→22:00)
[2018-04-24] MEDS: ALPRAZolam 0.5 MG TAB PO PRN ×3 (03:14→23:17)
[2018-04-24 07:03] LABS: INR 2.11 (0.83-1.16); PROTIME(PATIENT) 23.7 SEC (12.0-15.0)
[2018-04-24] MEDS: FLUoxetine 20 MG CAP PO SCH (08:08)
[2018-04-24] MEDS: ARIPiprazole 5 MG TAB PO SCH (08:09)
[2018-04-24] MEDS: FERROUS SULFATE 325 MG TAB PO SCH ×2 (08:09→20:14)
[2018-04-24] MEDS: GABAPENTIN 400 MG CAP PO SCH ×3 (08:09→22:00)
[2018-04-24] MEDS: METOPROLOL TARTRATE 25 MG TAB PO SCH ×2 (11:04→20:16)
--- NOTE | 2018-04-24 12:27 | HOSPPROG ---
Hospitalist Progress Note Assessment/Plan: 27 yo F with hx of IVDA presenting with MSSA endocarditis * MSSA endocarditis of mitral valve s/p MV repair with annuloplasty -IV Nafcillin through 04/28, to be completed in house given hx of IVDA -prophylactic warfarin for 3 months, INR 2.1 this AM * Septic emboli to kidney/spleen/brain * left upper/inner thigh mass: -US appears benign, presumably lipoma, cautioned on things to look for but will monitor for now * s/p septic shock -BP stable off pressors * Post-op pericardial effusion s/p evacuation * Narcotic addiction - IVDA -Suboxone-sxs significantly improved on 8mg bid, will continue (Rx placed in patients chart for discharge) * Depression/anxiety/PTSD -severe anxiety -continue ability/gabapentin and xanax for severe anxiety attacks only -continue Prazosin * Previous epidural abscess s/p I&D -chronic suppressive abx given indwelling back hardware * 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 and HARRISON * Hep C IP status Subjective: Patient reports waking up at 2 am overnight and not being able to fall back asleep Objective: Vital Signs Temp Pulse Resp BP Pulse Ox 37.1 C 80 20 87/67 L 97 04/24/18 08:00 04/24/18 11:04 04/24/18 08:00 04/24/18 11:04 04/24/18 08:00 Laboratory Results 04/22/18 03:15 04/22/18 03:15 04/23/18 04/24/18 04/25/18 05:59 05:59 05:59 Intake Total 700 2184 Output Total 1 Balance 699 2184 PT 23.7 SEC (12.0-15.0) H 04/24/18 06:25 INR 2.11 (0.83-1.16) H 04/24/18 06:25 - Physical Exam Constitutional: no apparent distress Eyes: PERRL Ears, Nose, Mouth, Throat: moist mucous membranes Cardiovascular: regular rate and rhythym Respiratory: no respiratory distress Gastrointestinal: soft, non-tender abdomen Skin: warm Musculoskeletal: no joint effusions Neurologic: AAOx3 Psychiatric: interacting appropriately ICD10 Worksheet Patient Problems: Problems Problem Status Onset Acute blood loss anemia Acute Anemia Acute Back pain Acute Endocarditis of mitral valve Acute Mitral regurgitation Acute Pericardial effusion Acute Septic embolism Acute Status post mitral valve annuloplasty Acute Status post mitral valve repair Acute Uncontrolled pain Acute Discitis of lumbar region Acute Fever Acute Osteomyelitis of lumbar spine Acute
--- NOTE | 2018-04-24 17:04 | ASMTCMCOM ---
CM Note CM Note Notes: Confirmed patient has called [facility] to verify her suboxone appointment with Dr. Renae for April at 8:30 AM. CM will assist patient with getting her mental health appointment tomorrow. CM will follow. Date Signed: 04/24/2018 05:03 PM Electronically Signed By:Christen Simpson LCSW
[2018-04-24] MEDS: WARFARIN SODIUM 7.5 MG TAB PO SCH (19:11)
[2018-04-24] MEDS: MELATONIN 3 MG TAB PO SCH (20:17)
[2018-04-24] MEDS: PATCH REMOVAL 1 EA PATCH TD SCH (20:18)
[2018-04-24] MEDS: PRAZOSIN HCL 1 MG CAP PO SCH (20:22)
[2018-04-25] MEDS: NAFCILLIN SODIUM 2 GM in D5W 100 ML IV SCH ×6 (01:52→22:29)
[2018-04-25] MEDS: ACETAMINOPHEN 325 MG TAB PO PRN ×3 (04:58→20:21)
[2018-04-25] MEDS: METOPROLOL TARTRATE 25 MG TAB PO SCH ×2 (08:11→20:23)
[2018-04-25] MEDS: GABAPENTIN 400 MG CAP PO SCH ×3 (08:11→20:28)
[2018-04-25] MEDS: ALPRAZolam 0.5 MG TAB PO PRN ×3 (08:12→20:21)
[2018-04-25] MEDS: FLUoxetine 20 MG CAP PO SCH (08:12)
[2018-04-25] MEDS: ARIPiprazole 5 MG TAB PO SCH (08:12)
[2018-04-25] MEDS: FERROUS SULFATE 325 MG TAB PO SCH ×2 (08:12→20:22)
--- NOTE | 2018-04-25 11:08 | PCMIDPN ---
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 s/p emergent MV repair with ring annuloplasty . S/p pericardial drain/window 03/25. Blood cultures cleared since 03/22. Transient elevation LFT, resolved on labs this week --continue nafcillin, stop date 04/28/18, okay to DC in AM --discharge w doxycycline 100mg PO Daily, please send to [facility] in house to give bottle at DC. Planning doxycycline due to past lumbar spine infection with HWR remaining in place, would delay HWR removal until fully recovered from current ID issues --check labs tomorrow --appt with me as outpatient in discharge tab # IV drug use: On Suboxone, had a kaci conversation about abstinence from drugs Medications Abx #39/42 Nafcillin 2gm IV q4 Coumadin micro 03/16 blood cx : MSSA 03/18 heart tissue 4+ GPC; MSSA 03/20 blood cultures (2 sets) MSSA, oxacillin <0.5, Vanco =1 03/22 blood cultures (1 set): Negative 03/26 blood cx (2) negative Subjective: having difficulty sleeping Keeps lights off bc light causes migraine no diarrhea no rash Objective: Vital Signs Temp Pulse Resp BP Pulse Ox 37.1 C 97 16 96/63 L 93 04/25/18 07:51 04/25/18 07:51 04/25/18 07:51 04/25/18 07:51 04/25/18 07:51 Laboratory Results 04/22/18 03:15 04/22/18 03:15 04/24/18 04/25/18 04/26/18 05:59 05:59 05:59 Intake Total 2184 1200 Balance 2184 1200 ESR 24 MM/HR (0-20) H 03/17/18 04:43 C-Reactive Protein 79.4 mg/L (<10.0) H 03/27/18 07:00 - Physical Exam General Appearance: alert Respiratory: lungs clear, No accessory muscle use Cardiac/Chest: regular rate, rhythm, systolic murmur (faint) Extremities: No pedal edema Skin: No rash Neuro/Psych: alert, oriented x 3, depressed affect - Line/s RUE PICC Lines: No drainage, No erythema - Time Spent With Patient Time Spent with Patient: greater than 25 minutes Time Spent with Patient: Greater than 25 minutes spent on this patients care, greater than 50% of time spent counseling, educating, and coordinating care regarding the above mentioned plan. ICD10 Worksheet Patient Problems: Problems Problem Status Onset Acute blood loss anemia Acute Anemia Acute Back pain Acute Endocarditis of mitral valve Acute Mitral regurgitation Acute Pericardial effusion Acute Septic embolism Acute Status post mitral valve annuloplasty Acute Status post mitral valve repair Acute Uncontrolled pain Acute Discitis of lumbar region Acute Fever Acute Osteomyelitis of lumbar spine Acute
[2018-04-25] MEDS: WARFARIN SODIUM 7.5 MG TAB PO SCH (15:15)
--- NOTE | 2018-04-25 17:18 | HOSPPROG ---
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 No acute events overnight. The patient I discussed the plan for completing her IV antibiotic therapy here in the hospital. She seems to have a plan for continuing with Suboxone after hospital discharge as well as follow up with her primary provider. In addition to following up with psychiatry in regards to her anxiety treatment. 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 We discussed the danger in using IV drugs in the future in that could further damage to her heart. Objective Vital signs as detailed below Exam General-patient appears comfortable she is awake and alert lights are off in the room Heart-regular no murmurs are appreciated Lungs-Clear to auscultation with normal respiratory effort Abdomen-nondistended -no Bush catheter in place Extremities-no significant pitting edema Psychiatric-she is not appear anxious at the time my evaluation. 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 Her course complicated by is a CVA with unilateral loss of hearing. Continue course of IV antibiotics here in the hospital. Her course was also complicated by septic emboli. Pericardial effusion-patient had a pericardial window placed during surgery. Left thigh mass-suspected lipoma. Will follow clinically. Opioid use disorder-continue Suboxone treatment. Anxiety-continue with current Abilify and Prozac. She also has as needed Xanax available to her. She will have outpatient psychiatric follow-up after discharge. History of epidural abscess-patient has been on chronic suppressive antibiotic therapy in will plan on continuing S after completion of her current IV antibiotic course. Chronic [id number]-R-yrqmyre she could consider treatment after resolution of her more acute medical issues. DVT prophylaxis-patient will be anticoagulated with Coumadin for. Three months. Disposition-she was discharged after completion of her IV antibiotic course anticipated on April 29. Objective: Vital Signs Temp Pulse Resp BP Pulse Ox 37.0 C 92 18 107/62 93 04/25/18 14:47 04/25/18 14:47 04/25/18 14:47 04/25/18 14:47 04/25/18 14:47 Laboratory Results 04/22/18 03:15 04/22/18 03:15 04/24/18 04/25/18 04/26/18 05:59 05:59 05:59 Intake Total 2184 1200 Balance 2184 1200 PT 23.7 SEC (12.0-15.0) H 04/24/18 06:25 INR 2.11 (0.83-1.16) H 04/24/18 06:25 ICD10 Worksheet Patient Problems: Problems Problem Status Onset Acute blood loss anemia Acute Anemia Acute Back pain Acute Endocarditis of mitral valve Acute Mitral regurgitation Acute Pericardial effusion Acute Septic embolism Acute Status post mitral valve annuloplasty Acute Status post mitral valve repair Acute Uncontrolled pain Acute Discitis of lumbar region Acute Fever Acute Osteomyelitis of lumbar spine Acute
[2018-04-25] MEDS: MELATONIN 3 MG TAB PO SCH (20:22)
[2018-04-25] MEDS: PRAZOSIN HCL 1 MG CAP PO SCH (20:24)
[2018-04-25] MEDS: PATCH REMOVAL 1 EA PATCH TD SCH (23:28)
[2018-04-26] MEDS: ALPRAZolam 0.5 MG TAB PO PRN ×3 (02:36→20:33)
[2018-04-26] MEDS: NAFCILLIN SODIUM 2 GM in D5W 100 ML IV SCH ×6 (03:18→22:09)
[2018-04-26 04:42] LABS: PLATELET COUNT 335 10^3/uL (150-400)
[2018-04-26 04:52] LABS: INR 1.98 (0.83-1.16); PROTIME(PATIENT) 22.6 SEC (12.0-15.0)
[2018-04-26] MEDS: ACETAMINOPHEN 325 MG TAB PO PRN ×3 (06:37→20:38)
[2018-04-26] MEDS: ARIPiprazole 5 MG TAB PO SCH (08:10)
[2018-04-26] MEDS: FERROUS SULFATE 325 MG TAB PO SCH ×2 (08:10→20:34)
[2018-04-26] MEDS: GABAPENTIN 400 MG CAP PO SCH ×3 (08:10→22:08)
[2018-04-26] MEDS: FLUoxetine 20 MG CAP PO SCH (08:10)
[2018-04-26] MEDS: METOPROLOL TARTRATE 25 MG TAB PO SCH ×2 (09:13→20:40)
[2018-04-26] MEDS: WARFARIN SODIUM 7.5 MG TAB PO SCH (15:09)
--- NOTE | 2018-04-26 16:04 | HOSPPROG ---
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 No acute events overnight. No new physical complaints. Patient is getting and she is to complete antibiotic course and discharge from the hospital. Objective Vital signs as detailed below Exam General-patient appears comfortable she is awake alert conversant no acute distress Heart-regular no murmurs appreciated her midline scar appears to be healing well without any significant erythema. Lungs-clear auscultation with normal respiratory effort Abdomen- soft nontender nondistended normal bowel sounds -no Bush catheter in place Extremities-no significant pitting edema or calf pain with palpation Psychiatric-she does not appear anxious at this time Labs as detailed below Assessment and plan Methicillin sensitive Staph aureus endocarditis-patient is status post mitral valve repair. Her course complicated by is a CVA with unilateral loss of hearing on the left. Continue course of IV antibiotics here in the hospital. Her course will be completed in the morning of April 28. Her course was also complicated by septic emboli. Pericardial effusion-patient had a pericardial window placed during surgery. Opioid use disorder-continue Suboxone treatment. Anxiety-continue with current Abilify and Prozac. She also has as needed Xanax available to her. She will have outpatient psychiatric follow-up after discharge. History of epidural abscess-patient has been on chronic suppressive antibiotic therapy in will plan on continuing S after completion of her current IV antibiotic course. Chronic sdzvasxvq-H-ivfakwv she could consider treatment after resolution of her more acute medical issues. DVT prophylaxis-patient will be anticoagulated with Coumadin for Three months. Disposition-she was discharged after completion of her IV antibiotic course anticipated on April 28. Objective: Vital Signs Temp Pulse Resp BP Pulse Ox 36.9 C 93 18 95/55 L 94 04/26/18 08:00 04/26/18 08:00 04/26/18 08:00 04/26/18 08:00 04/26/18 08:00 Laboratory Results 04/26/18 04:30 04/26/18 04:30 04/25/18 04/26/18 04/27/18 05:59 05:59 05:59 Intake Total 1200 2700 600 Balance 1200 2700 600 PT 22.6 SEC (12.0-15.0) H 04/26/18 04:30 INR 1.98 (0.83-1.16) H 04/26/18 04:30 ICD10 Worksheet Patient Problems: Problems Problem Status Onset Acute blood loss anemia Acute Anemia Acute Back pain Acute Endocarditis of mitral valve Acute Mitral regurgitation Acute Pericardial effusion Acute Septic embolism Acute Status post mitral valve annuloplasty Acute Status post mitral valve repair Acute Uncontrolled pain Acute Discitis of lumbar region Acute Fever Acute Osteomyelitis of lumbar spine Acute
[2018-04-26] MEDS: MELATONIN 3 MG TAB PO SCH (20:33)
[2018-04-26] MEDS: PRAZOSIN HCL 1 MG CAP PO SCH (20:34)
[2018-04-26] MEDS: PATCH REMOVAL 1 EA PATCH TD SCH (20:41)
[2018-04-27] MEDS: NAFCILLIN SODIUM 2 GM in D5W 100 ML IV SCH ×6 (01:59→21:28)
[2018-04-27] MEDS: ALPRAZolam 0.5 MG TAB PO PRN ×3 (02:12→19:21)
[2018-04-27 06:00] LABS: INR 2.38 (0.83-1.16)
[2018-04-27] MEDS: ACETAMINOPHEN 325 MG TAB PO PRN ×2 (07:19→18:25)
[2018-04-27] MEDS: FERROUS SULFATE 325 MG TAB PO SCH ×2 (08:12→20:03)
[2018-04-27] MEDS: GABAPENTIN 400 MG CAP PO SCH ×3 (08:12→21:28)
[2018-04-27] MEDS: ARIPiprazole 5 MG TAB PO SCH (08:12)
[2018-04-27] MEDS: FLUoxetine 20 MG CAP PO SCH (08:12)
[2018-04-27] MEDS: METOPROLOL TARTRATE 25 MG TAB PO SCH ×2 (08:13→20:05)
[2018-04-27] MEDS: WARFARIN SODIUM 7.5 MG TAB PO SCH (15:51)
--- NOTE | 2018-04-27 16:48 | HOSPPROG ---
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 No acute events overnight patient is getting anxious about her discharge tomorrow after completing IV antibiotics. We had a discussion today on medications that will be needed after the time of discharge. I did inform her that I would provide prescriptions to allow her time to skin her followup visits done in regards to following up with her primary provider as well as a provider for prescribing Suboxone which she states she has a Objective Vital signs as detailed below Exam General-awake alert conversant no acute distress Heart-regular rate and rhythm no murmurs Lungs-Clear to auscultation with normal respiratory effort Abdomen-soft nontender nondistended normal bowel sounds -no Bush catheter in place Extremities-no significant pitting edema or calf pain with palpation Skin-no concerning skin rashes noted visit scheduled already for the . 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 Her course complicated by is a CVA with unilateral loss of hearing on the left. Continue course of IV antibiotics here in the hospital. Her course will be completed tomorrow morning of April 28. Her course was also complicated by septic emboli. Pericardial effusion-patient had a pericardial window placed during surgery. Opioid use disorder-continue Suboxone treatment. Anxiety-continue with current Abilify and Prozac. She also has as needed Xanax available to her. She will have outpatient psychiatric follow-up after discharge. History of epidural abscess-patient has been on chronic suppressive antibiotic therapy in will plan on continuing S after completion of her current IV antibiotic course. Chronic [id number]-[id number] she could consider treatment after resolution of her more acute medical issues. DVT prophylaxis-patient will be anticoagulated with Coumadin for Three months. Disposition-she was discharged after completion of her IV antibiotic course anticipated on April 28. Objective: Vital Signs Temp Pulse Resp BP Pulse Ox 36.9 C 88 12 97/54 L 95 04/27/18 15:40 04/27/18 15:40 04/27/18 15:40 04/27/18 15:40 04/27/18 15:40 Laboratory Results 04/26/18 04:30 04/26/18 04:30 04/26/18 04/27/18 04/28/18 05:59 05:59 05:59 Intake Total 2700 1600 500 Balance 2700 1600 500 PT 26.0 SEC (12.0-15.0) H 04/27/18 05:38 INR 2.38 (0.83-1.16) H 04/27/18 05:38 ICD10 Worksheet Patient Problems: Problems Problem Status Onset Acute blood loss anemia Acute Anemia Acute Back pain Acute Endocarditis of mitral valve Acute Mitral regurgitation Acute Pericardial effusion Acute Septic embolism Acute Status post mitral valve annuloplasty Acute Status post mitral valve repair Acute Uncontrolled pain Acute Discitis of lumbar region Acute Fever Acute Osteomyelitis of lumbar spine Acute
[2018-04-27] MEDS: MELATONIN 3 MG TAB PO SCH (20:03)
[2018-04-27] MEDS: PRAZOSIN HCL 1 MG CAP PO SCH (20:05)
[2018-04-27] MEDS: PATCH REMOVAL 1 EA PATCH TD SCH (20:36)
[2018-04-28] MEDS: ALPRAZolam 0.5 MG TAB PO PRN ×2 (01:38→10:02)
[2018-04-28] MEDS: NAFCILLIN SODIUM 2 GM in D5W 100 ML IV SCH ×3 (01:38→10:02)
[2018-04-28] MEDS: ACETAMINOPHEN 325 MG TAB PO PRN (03:35)
[2018-04-28 07:56] VITALS: BP 97/61
[2018-04-28] MEDS: FERROUS SULFATE 325 MG TAB PO SCH (08:01)
[2018-04-28] MEDS: GABAPENTIN 400 MG CAP PO SCH (08:01)
[2018-04-28] MEDS: FLUoxetine 20 MG CAP PO SCH (08:01)
[2018-04-28] MEDS: ARIPiprazole 5 MG TAB PO SCH (08:01)
[2018-04-28] MEDS: METOPROLOL TARTRATE 25 MG TAB PO SCH (08:02)
--- NOTE | 2018-04-28 10:49 | ASMTLACE ---
LACE Length of stay for Answers: 14 days or more current admission Acuity / Level of Answers: Yes Care: Did the patient have an inpatient admission? # of Emergency department Answers: 3-4 visits in the last 6 months Social determinants Answers: Mental health diagnosis (anxiety, depression, pers onality disorders, etc.) Score: 16 Date Signed: 04/28/2018 10:48 AM Electronically Signed By:Lorena Lozano RN
--- NOTE | 2018-04-28 12:10 | ASMTDCNOTE ---
Case Management Discharge Discharge Order Complete? Answers: Yes Followup Appointment 04/29/2018 08:30 AM Patient to Obtain Answers: Other Notes[facility] Transportation Arranged Answers: Family/Friends Transport will Pick (Date 04/28/2018 02:00 PM & Time) Family Notified Answers: No Notes: Patient to notify Discharge Comments Notes: Discussed case with patient's primary RN and Isa Webb. Isa Webb able to see patient today for final recommendations (see note section for further details). Patient will discharge independently today - has a follow-up appointment scheduled tomorrow @ 08:30 to obtain Suboxone and will also follow-up with [facility] next Saturday, May 06, for a behavioral health appointment. Patient plans on seeing her PCP to obtain her psychiatric medications. Friend will transport patient home today. [facility] to deliver medications to bedside. Date Signed: 04/28/2018 12:09 PM Electronically Signed By:Lorena Lozano RN
--- NOTE | 2018-04-30 13:26 | GDS ---
[f rep st] DISCHARGE SUMMARY IN-HOSPITAL CONSULTANTS: Infectious Disease, Pulmonary Critical Care Medicine, Cardiovascular Surger y, Neurosurgery. DISCHARGE DIAGNOSES: 1. Methicillin-sensitive Staph aureus endocarditis. 2. Severe mitral valve regurgitation with mitral valve repair. 3. Opioid use disorder. HISTORY OF PRESENT ILLNESS: The patient is a 27-year-old female with suspected IV drug abuse, who wa s admitted to [facility] on 03/16/2018, with septic shock and subsequently found to h ave methicillin-sensitive Staph aureus bacteremia. Her workup also revealed severe mitral valve regu rgitation and she subsequently underwent mitral valve repair on 03/18/2018. Fortunately, her overall situation stabilized, but due to her high-risk of potentially not completing antibiotic therapy, she was kept in the hospital for her full course of IV antibiotics, per Infectious Disease recommendatio n. On 04/28/2018, she completed her course of IV antibiotics and was overall medically stable for lynne atwood. It was recommended to remain anticoagulated for a 3-month period of time, so she will disch arge home with Coumadin therapy. I had a conversation on the day of discharge with rev Monae iewing the hospitalization and the plan for discharge today, as well as the need for anticoagulation monitoring. We did discuss that the patient would be resuming doxycycline that she had been taking f or infected hardware in her low back, and this may have the potential to increase her INR, and she is taking a relatively higher dose of Coumadin at 15 mg daily. It was recommended to get a repeat INR done 2-3 days after discharge, which can be done through [facility]. The patient was also start ed on Suboxone treatment during this hospitalization. The paper prescription was written for her to continue this and she has an appointment to establish with a substance abuse rehab manager on 04/03. Followup visits with Dr. Royal with Infectious Disease as well as with Dr. Post with Cardi ovascular Surgery are also recommended. The patient was quite ready for discharge considering her [facility] hospitalization, but otherwise has been pleasant over the past days and making arrangements for he r discharge from the hospital. HOSPITAL COURSE BY PROBLEM: 1. Methicillin-sensitive Staph aureus endocarditis-patient has completed her course of antibiotics, as recommended by Infectious Disease. Blood cultures have cleared. She is status post mitral valve repair from her infected mitral valve which was causing severe mitral valve regurgitation. 2. Opioid use disorder. The patient is discharged with a prescription for Suboxone and she has an a ppointment scheduled on 04/29/2018, with an aircraft engine specialist. 3. Anxiety. The patient was discharged to continue her regimen for anxiety, which included Abilify, fluoxetine, gabapentin, and prazosin. She has a followup visit with [facility] for ongo ing followup in regard to her anxiety. 4. Epidural abscess-see notes from prior hospitalization this year. 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 She had previously had an epidural abscess and there is a plan eventually to remove the hardware. However, at this point in time, we will await for avtar gama from Infectious Disease before proceeding. 5. Chronic hepatitis C-patient does have chronic hepatitis C and potentially treatment could be cons idered in the future. 6. Anticoagulation. The patient will discharge with Coumadin. She has been on a relatively higher dose of Coumadin at 15 mg daily. I have recommended a repeat INR in 2-3 days' time considering that we are stopping her IV antibiotics at this time and resuming her doxycycline, which she was on previo usly. I discussed this over the phone with Elvira Obrien on the day of discharge. EXAM: VITAL SIGNS: On the day of discharge, temperature 36.9, blood pressure 97/61, heart rate 88, respirations 16, saturating 96% on room air. GENERAL: Patient appears comfortable. She does not ap pear anxious, in no acute distress. HEART: Regular. No murmurs appreciated. LUNGS: Clear to ausc ultation with normal respiratory effort. ABDOMEN: Soft, nontender, nondistended. : No Bush cat heter in place. SKIN: No concerning skin rashes visualized. NOTABLE STUDIES: INR prior to discharge was 2.3. White blood cell count 5, hemoglobin 9, and platel ets 335. DISCHARGE MEDICATIONS: 1. Abilify 5 mg daily. 2. Suboxone 1 tablet twice a day. 3. Doxycycline 100 mg twice a day. Fluoxetine 20 mg daily. 4. Gabapentin 1200 mg 3 times a day. 5. Metoprolol 12.5 mg twice a day. 6. Prazosin 1 mg nightly. 7. Coumadin 15 mg daily. DISCHARGE INSTRUCTIONS: The patient is to have an INR in 2-3 days' time for reassessment with medica tion changes. A followup visit with Dr. Royal with Infectious Disease as well as with Dr. Sincere moeller h Cardiovascular Surgery is recommended. I have also recommended a followup visit with Elvira Obrien, her primary provider, and I have reviewed the discharge with her today. Notation: Forty minutes' of time dedicated to discharge efforts. /[id number]/MODL
--- NOTE | 2018-05-09 13:52 | GPROG ---
POSTANESTHESIA CARE NOTE This patient underwent MVR with Dr. Post. The patient was taken the intensive care unit in stable c ondition. The patient's pain and nausea were adequately controlled. The patient's vital signs were stable. There were no apparent complications from this anesthetic. /[id number]/MODL
== END 2018-04-28 13:00 | disposition home or self-care (01) | DRG 710 ==
LOC: EDUNIT# → F3N 15:30 → EEVIPCON 23:27 → OBSVTOIN 23:27 → F2N 03-17 11:36 → F2W 03-30 08:27 → F2N 03-31 11:13 → F2W 03-31 11:18 → F2N 03-31 11:19
PROVIDERS: ADMIT Thoracic Surgery (Cardiothoracic Vascular Surgery); ATTEND Thoracic Surgery (Cardiothoracic Vascular Surgery)
PROC: 03HB33Z Insertion of Infusion Device into Right Radial Artery, Percutaneous Approach (ICD-10-PCS; 2018-03-16)
PROC: 02L70CK Occlusion of Left Atrial Appendage with Extraluminal Device, Open Approach (ICD-10-PCS; principal; 2018-03-18 12:30)
PROC: B246ZZ4 Ultrasonography of Right and Left Heart, Transesophageal (ICD-10-PCS; principal; 2018-03-18 12:30)
PROC: 02UG08Z Supplement Mitral Valve with Zooplastic Tissue, Open Approach (ICD-10-PCS; principal; 2018-03-18 12:30)
PROC: 30233N1 Transfusion of Nonautologous Red Blood Cells into Peripheral Vein, Percutaneous Approach (ICD-10-PCS; 2018-03-19)
PROC: 02HV33Z Insertion of Infusion Device into Superior Vena Cava, Percutaneous Approach (ICD-10-PCS; 2018-03-23)
PROC: 0W9D00Z Drainage of Pericardial Cavity with Drainage Device, Open Approach (ICD-10-PCS; 2018-03-25)
DX: A41.01 Sepsis due to Methicillin susceptible Staphylococcus aureus (principal); R65.20 Severe sepsis without septic shock; I33.0 Acute and subacute infective endocarditis; B95.61 Methicillin susceptible Staphylococcus aureus infection as the cause of diseases classified elsewhere; I30.1 Infective pericarditis; I63.012 Cerebral infarction due to thrombosis of left vertebral artery; I74.8 Embolism and thrombosis of other arteries; N28.0 Ischemia and infarction of kidney; D62 Acute posthemorrhagic anemia; J90 Pleural effusion, not elsewhere classified; G89.29 Other chronic pain; L03.115 Cellulitis of right lower limb; M77.9 Enthesopathy, unspecified; F11.20 Opioid dependence, uncomplicated; J98.11 Atelectasis; G06.2 Extradural and subdural abscess, unspecified; B18.2 Chronic viral hepatitis C; D17.23 Benign lipomatous neoplasm of skin and subcutaneous tissue of right leg; E87.1 Hypo-osmolality and hyponatremia; Z98.1 Arthrodesis status; F41.8 Other specified anxiety disorders; F31.9 Bipolar disorder, unspecified; F17.210 Nicotine dependence, cigarettes, uncomplicated
CPT/HCPCS: 80307; 82435-PO; 82565-PO; 82947-PO; 83605-PO; 84132-PO; 84295-PO; 84520-PO; 85014-PO; 85520-90; 86812-90; 92507-GN; 92523-GN; 92526-GN; 92610-GN; 96374; 97110-GO; 97116-GP; 97162-GP; 97164-GP; 97166-GO; 97168-GO; 97530-GO; 97530-GP; 97535-GO; A9585; C1751; G0480; G0483; J0153; J0171; J0282; J0574; J0690; J1100; J1170; J1265; J1644; J1650; J1815; J1885; J1940; J2001; J2060; J2150; J2250; J2260; J2270; J2370; J2405; J2543; J2704; J2720; J2765; J2930; J2997; J3010; J3370; J3475; J3480; J7060; P9016; P9041; Q9967